=== PATIENT | male | born 1950 | race Caucasian/White ===

== ENCOUNTER → 2018-02-22 09:50 | Outpatient (BNVA) | payer MEDICARE, SELFPAY | PROVIDERS: PCP Internal Medicine; Visit Provider Surgery | DX: Z12.11 Encounter for screening for malignant neoplasm of colon (principal) | CPT/HCPCS: 99202 ==

== ENCOUNTER 2018-03-10 07:05 | Day surgery (SDC) | payer MEDICARE, OTHER, SELFPAY ==
[2018-03-10 07:24] VITALS: BP 125/68; PULSE 80; RESP 18; TEMP 36.6; O2SAT 96
[2018-03-10] MEDS: Lactated Ringers 1,000 ML 30 ML IV (07:43)
--- NOTE | 2018-03-10 08:50 | W.PM.DSUDISC ---
Discharge Plan Disposition Patient Disposition: HOME Condition: Good Discharge Details Reason For Visit: Colorectal cancer screening Attending Provider: Mina Nguyen Primary Care Provider: Nic Padilla Home Meds and New Rx's Prescriptions: Continue atorvastatin 20 mg tablet 20 mg PO DAILY RF: 0 amoxicillin 500 MG capsule 4 tab PO DIRECTED RF: 0 lisinopril 10 MG tablet 10 mg PO DAILY RF: 0 aspirin 81 MG tablet,chewable 81 mg PO DAILY RF: 0 naproxen sodium [Aleve] 220 MG capsule 220 mg PO TID PRN PRNRF: 0 Discharge Instructions Instructions: Colonoscopy (DC) Activity:: Activity as Tolerated Diet:: As Tolerated Discharge Orders Discharge Orders: Discharge Order (Routine); Ordered 03/10/18 Ordered By: Mina Nguyen DS: Diagnosis Discharge Diagnosis (1) Encounter for colorectal cancer screening: Status: Acute
--- NOTE | 2018-03-10 09:03 | COLE_ITS ---
Date of service: 03/10/18 Time of Service: 08:58 Colonoscopy Report Date of procedure: 03/10/18 Pre-op diagnosis general: Colorectal cancer screening Post-op diagnosis procedure note: other (1. Colon polyps 2. Sigmoid diverticulosis) Procedure: Colonoscopy to the cecum with biopsy by cold forceps Surgeon: Mina Nguyen Anesthesia proc note operative: MAC (Keenan Dupree CRNA, ASA 3, Mallampati class III) Estimated blood loss (mL): 1 Pathology: other (1. Cecal Polyps x 2 2. Descending colon polyp) Complications: None Disposition: same day Indications: 67 year gentleman presenting for colorectal cancer screening by colonoscopy. He has been asymptomatic since his last colonoscopy which was unremarkable. He has no family history of colorectal cancer screening. The colonoscopy procedure was reviewed wiht Mr. Cardoza, and the risks dicussed with him. All his questions were answered to his satisfaction. Prep: Miralax/Dulcolax (Colon Prep: Good) Findings: In examining the colon from cecum to anus, the patient was noted to have polyps in the cecum x2, and descending colon all removed by cold biopsy forceps. The patient was also noted to have some moderate sigmoid diverticulosis. No other abnormalities were noted of the colon, rectum, anus Procedure Description: The patient was seen in the day surgery waiting area. His identification was confirmed, and procedure check. He was then brought to the procedure room. Monitoring for telemetry, blood pressure, oxygen saturation, and end tidal CO2 monitoring were applied. An appropriate time out was performed to confirm, identification, allergies, medication, procedure, was performed. Sedation was titrated for affect by the [employer] OPER[employer]; Once adequate sedation was achieved, I performed a inspection of the external perineum, and a digitial rectal examination. No significant external abnormalities were noted. On digital rectal examination, there was no blood, no masses, good rectal tone, and a normal prostate. I advanced the colonoscope from the anus to the cecum under direct visualization. The cecum was identified by the ileal-cecal valve, and the appendiceal orifice. The scope was then withdrawn in circumferential manner from the cecum to the rectum. In examining the colon, the patient was noted to have moderate sigmoid diverticulosis, and polyps were identified in the cecum x2 and descending colon. The polyps were subsequently removed by cold biopsy forceps without difficulty. The scope was then withdrawn into the rectum, and retroflexed. No abnormalities were noted of the rectum or anorectal junction. The scope was then withdrawn, terminating the procedure. There were no complications during the procedure, and the patient tolerated the procedure well. He was returned to the day surgery recovery area in good condition. Plan: We will await pathology before making further recommendations.
--- NOTE | 2018-03-10 09:15 | BOWEL_PTH ---
PATIENT: Julio Cardoza LOC: [facility] U#:[id number] AGE/SX: 67/M ROOM: RE03/10/[address]: Mina Nguyen DO : 1950 BED: DIS: 03/10/2018 SPEC #: [id number] RECD: 03/10/18 12:56 STATUS: ROSSI REQ #: [id number] ILIA: 03/10/18 09:[address]: Mina Nguyen DEPT: Surgical Specimen RECD BY: Terrie Schwab ENTERED: 03/10/18 12:57 SP TYPE: Bowel OTHR DR: Nic Padilla Tissues: 1 - BIOPSY BOWEL 2 - BIOPSY BOWEL Procedures: GROSS AND MICRO LEVEL 4 Comments: [id number]
[2018-03-10 10:15] VITALS: BP 98/56; PULSE 64; RESP 18; TEMP 36.3; O2SAT 94
== END 2018-03-10 10:51 | disposition home or self-care (01) ==
PROVIDERS: PCP Internal Medicine; Visit Provider Surgery
PROC: 0DJD8ZZ Inspection of Lower Intestinal Tract, Via Natural or Artificial Opening Endoscopic (ICD-10-PCS; CPT 45378; principal; 2018-03-10 08:30)
DX: Z12.11 Encounter for screening for malignant neoplasm of colon (principal); D12.0 Benign neoplasm of cecum; D12.4 Benign neoplasm of descending colon; K57.30 Diverticulosis of large intestine without perforation or abscess without bleeding; I10 Essential (primary) hypertension
CPT/HCPCS: 45380; 88305; J2250; J3010

== ENCOUNTER 2018-05-12 11:08 | Outpatient (REF) | payer MEDICARE, OTHER, SELFPAY ==
[2018-05-12 14:01] LABS: Cholesterol 143 mg/dL (50-200); Glucose 117 mg/dL (70-100); HDL Cholesterol 49 mg/dL (40-60); LDL CHOLESTEROL 82 mg/dL (<100); Triglyceride 80 mg/dL (30-150)
[2018-05-12 15:18] LABS: Hemoglobin A1C 5.6 % (4.5-6.2)
[2018-05-13 11:30] LABS: Hepatitis C Ab w Rflx HCV PCR Negative (NEGAT)
== END 2018-05-12 11:28 ==
LOC: NCHCN 11:08
PROVIDERS: PCP Internal Medicine; Visit Provider Internal Medicine
DX: I10 Essential (primary) hypertension (principal); R35.0 Frequency of micturition; E78.5 Hyperlipidemia, unspecified; M19.041 Primary osteoarthritis, right hand; Z11.59 Encounter for screening for other viral diseases
CPT/HCPCS: 80061; 82947; 83721; 86803; 83036

== ENCOUNTER 2019-04-17 16:00 | Outpatient (REF) | payer MEDICARE, OTHER, SELFPAY ==
[2019-04-17 21:42] LABS: BUN 21 mg/dL (7-18); CREATININE 1.01 mg/dL (0.70-1.30); Calcium 8.9 mg/dL (8.5-10.1); Chloride 107 mmol/L (98-107); Glucose 90 mg/dL (70-100); Potassium 4.6 mmol/L (3.5-5.1); Sodium 142 mmol/L (136-145)
== END 2019-04-17 16:20 ==
LOC: NCHCN 16:00
PROVIDERS: PCP Internal Medicine; Visit Provider Internal Medicine
DX: I10 Essential (primary) hypertension (principal); E78.5 Hyperlipidemia, unspecified; M54.5 Low back pain; E66.9 Obesity, unspecified
CPT/HCPCS: 80048

== ENCOUNTER 2020-04-08 18:00 | Outpatient (REF) | payer MEDICARE, OTHER, SELFPAY ==
[2020-04-08 21:14] LABS: Anion Gap 9.9 mmol/L (3-11); BUN 20 mg/dL (7-18); CO2 24.1 mmol/L (21.0-32.0); Calcium 9.3 mg/dL (8.5-10.1); Chloride 103 mmol/L (98-107); Glucose 123 mg/dL (74-106); Potassium 4.6 mmol/L (3.5-5.1); Sodium 137 mmol/L (136-145)
== END 2020-04-08 18:20 ==
LOC: NCHCN 18:00
PROVIDERS: PCP Internal Medicine; Visit Provider Internal Medicine
DX: I10 Essential (primary) hypertension (principal)
CPT/HCPCS: 80048

== ENCOUNTER → 2021-01-06 13:51 | Outpatient (BNVA) | payer MEDICARE, OTHER, SELFPAY | PROVIDERS: PCP Internal Medicine; Referring Provider Internal Medicine; Visit Provider Nurse Practitioner Adult Health | DX: G56.03 Carpal tunnel syndrome, bilateral upper limbs (principal); I10 Essential (primary) hypertension | CPT/HCPCS: 95909; 99203; 99214 ==

== ENCOUNTER → 2021-02-23 14:14 | Outpatient (BNVA) | payer MEDICARE, OTHER, SELFPAY | PROVIDERS: PCP Internal Medicine; Referring Provider Internal Medicine; Visit Provider Student in an Organized Health Care Education/Training Program | DX: G56.03 Carpal tunnel syndrome, bilateral upper limbs (principal) | CPT/HCPCS: 99214 ==

== ENCOUNTER 2021-03-23 02:43 | Outpatient (CLI) | payer MEDICARE, OTHER, SELFPAY ==
[2021-03-23 11:04] LABS: Source Nasal/Nares
[2021-03-23 16:36] LABS: COVID-19 PCR Negative (Negative)
== END 2021-03-23 02:44 | disposition home or self-care (01) ==
LOC: LBO 02:43
PROVIDERS: PCP Internal Medicine; Visit Provider Student in an Organized Health Care Education/Training Program
DX: Z20.822 Contact with and (suspected) exposure to COVID-19 (principal); Z01.818 Encounter for other preprocedural examination
CPT/HCPCS: 87635

== ENCOUNTER 2021-03-25 07:45 | Day surgery (SDC) | payer MEDICARE, OTHER, SELFPAY ==
--- NOTE | 2021-03-25 07:13 | W.PM.DSUDISC ---
Discharge Plan Disposition Patient Disposition: HOME Condition: Good Discharge Details Reason For Visit: Right ECTR Attending Provider: Adalid Morse Primary Care Provider: Nic Padilla Meds and New Rx's Prescriptions: Continued atorvastatin 20 mg tablet 20 mg PO DAILY RF: 0 CBD oil 10 mL .Route RF: 0 amoxicillin 500 MG capsule 4 tab PO DIRECTED RF: 0 lisinopril 10 MG tablet 10 mg PO DAILY RF: 0 naproxen sodium [Aleve] 220 MG capsule 220 mg PO TID PRN PRNRF: 0 Discharge Instructions Stand Alone Forms: Lito Murphy Tunnel Release Referrals: Adalid Morse MD [ [facility] PHYSICIAN] - Activity:: Activity as Tolerated Remove Dressings/Wound Care:: 72 hours Shower/Bathe:: 72 hours Diet:: As Tolerated Discharge Orders Discharge Orders: Discharge Order (Routine); Ordered 03/25/21 Ordered By: Vicky Ross DS: Diagnosis Discharge Diagnosis (1) Bilateral carpal tunnel syndrome: Status: Acute
[2021-03-25 08:15] VITALS: BP 145/84; PULSE 70; RESP 18; TEMP 36.4; O2SAT 96
--- NOTE | 2021-03-25 08:36 | W.ANESPRE ---
General Info Date of Service Date Performed: 03/25/21 Height: 5 ft 10 in Weight: 124.8 kg Body Mass Index (BMI): 39.4 Surgical Procedure: Operation Date: 03/25/21 09:55 Proposed Procedures Side Surgeon p (R) Wrist ECTR Right Adalid Morse MD Meds Allergies and Home Medications Allergies Allergy/AdvReac Type Severity Reaction Status Date / Time No Known Allergies Allergy Verified 03/25/21 08:19 Home Medication Medication Instructions Recorded amoxicillin 4 tab PO DIRECTED 05/21/16 lisinopril 10 mg PO DAILY 05/21/16 naproxen sodium [Aleve] 220 mg PO TID PRN PRN 05/21/16 atorvastatin 20 mg tablet 20 mg PO DAILY 02/22/18 CBD oil 1 ml PO DAILY 10/22/20 Current Visit Medications: Current Medications Generic Name Dose Route Start Last Admin Trade Name Freq PRN Reason Stop Dose Admin Acetaminophen 650 mg 03/25/21 07:10 Acetaminophen 325 Mg Tab PO Q4H PRN PRN Hydrocodone Bitart/Acetaminophen 0 tab 03/25/21 07:10 Hydrocodone 5/Acetaminophen 325 Tab PO Q3H PRN PRN Pain Ringer's Solution 1,000 mls @ 80 mls/hr 03/25/21 06:00 IV 04/23/21 23:59 INFUSION ISAÍAS Cefazolin Sodium 3,000 mg/ 100 mls @ 200 mls/hr 03/25/21 06:00 Sodium Chloride IVPB 03/25/21 23:59 PREOP ISAÍAS Ondansetron HCl 4 mg/ Sodium 52 mls @ 200 mls/hr 03/25/21 07:10 Chloride IVPB Q6H PRN PRN IV Miscellaneous Supplies 1 each 03/25/21 06:00 Iv Access IV 04/23/21 23:59 DIRECTED ISAÍAS Sodium Chloride 0 ml 03/25/21 06:00 Normal Saline Flush 10 Ml Syr IV 04/23/21 23:59 PRN PRN Sodium Chloride 0 ml 03/25/21 06:00 Normal Saline 10 Ml Vial IJ 04/23/21 23:59 DIRECTED PRN Sterile Water 0 ml 03/25/21 06:00 Water,Injection,Sterile 10 Ml Vial IJ 04/23/21 23:59 DIRECTED PRN PFSH Active Problems Active Problems: Problem Status Onset Code Encounter for colorectal cancer screening Z12.11, Z12.12 Osteoarthritis of knee 09/17/13 M17.10 Bilateral carpal tunnel syndrome G56.03 Medical History Medical History Acute herniated disc Afib Per pt. F/U with PCP. 06/13/2015: [facility], EF 55-60%, normal valves Arthritis of both hands Back pain Bilateral carpal tunnel syndrome Bilateral club feet Carpal tunnel syndrome Chronic lower back pain Former smoker HTN (hypertension) Hx of adenomatous polyp of colon Hyperlipidemia Obesity FRANKO (obstructive sleep apnea) Osteoarthritis of hands, bilateral Osteoarthritis of knees, bilateral Paroxysmal atrial fibrillation Tinea pedis Surgical History Surgical History Colonoscopy - IV Sedation (10/25/11) hx tubular adenoma in 2005 with recommendation to repeat colo in three years Congenital fusion of cervical spine H/O colonoscopy (03/10/18) Dr Nguyen, tubulovillous and tubular adenomas, repeat in five years History of bilateral cataract extraction History of total bilateral knee replacement (TKR) Tobacco Smoking/Tobacco Use Status: Former Tobacco Use Tobacco: How many years used: 20 Alcohol Alcohol Intake: current Alcohol intake frequency: 0-2 drinks per day Alcohol type: beer and wine Substance Use Substance use: Never Substance use type: does not use Vital Signs and Lab Results Vital Signs Most Recent Vital Signs in EMR: Most Recent Vital Signs Temp Pulse Resp BP Pulse Ox 36.4 C L 70 18 145/84 H 96 03/25/21 08:15 03/25/21 08:15 03/25/21 08:15 03/25/21 08:15 03/25/21 08:15 Lab Results Blood Type / Crossmatch: No Data to Display Complete Blood Count: No Data to Display Complete Metabolic Panel: No Data to Display Liver Function Panel: No Data to Display Coagulation Panel: No Data to Display Cardiac Panel: No Data to Display Arterial Blood Gas: No Data to Display Venous Blood Gas: No Data to Display Pancreas Panel: No Data to Display Thyroid Panel: No Data to Display Infectious Disease: Coronavirus (COVID-19)(PCR) Negative (Negative) 03/23/21 09:35 03/23/21 Coronavirus 2019 Source Nasal/Nares 03/23/21 09:35 10/18/21 Blood Cultures: No Data to Display Toxicology Panel: No Data to Display Imaging and Studies Imaging and Studies Echocardiogram Summary: 06/2015: [facility]: EF 55-60%, Normal Valves Anesthesia Assessment and Plan Anesthesia History Personal History: No History of Anesthesia Complications Family History: No Family History of Anesthesia Complications Exercise Tolerance Exercise Tolerance: Metabolic Equivalents>4 Pertinent Negatives Pertinent Negatives: No Symptoms of GERD Cardiac & Pulmonary Exam Cardiac Exam: Normal S1/S2 Heart Sounds Pulmonary Exam: Clear Bilateral Breath Sounds Airway Exam Known Difficult Airway: No Mallampati Class: 2 Mouth Opening: Normal (> 3cm) Thyromental Distance: Greater than 3 cm Facial Hair: Full Crystal Neck Range of Motion: Full ROM Neck Circumference: Normal Teeth Condition: Normal Dentition ASA Classification ASA Score: ASA 2 Emergency Case?: No NPO Status NPO Status: NPO Clears >2 hours, Solids >8 hours Anesthesia Plan Resuscitation Status: Full Code Anesthesia Technique: General Anesthesia Airway Planned: Natural Airway Monitors Used: Standard Monitors
[2021-03-25] MEDS: Lactated Ringers 1,000 ML 80 ML IV (08:45)
[2021-03-25 08:51] VITALS: BMI 39.4
[2021-03-25] MEDS: ceFAZolin 3,000 MG in Normal Saline 100 ML 200 MG IVPB (09:34)
[2021-03-25] MEDS: Sodium Bicarbonate 50 MEQ/50 ML VIAL (09:42)
[2021-03-25 09:55] VITALS: BP 104/59; PULSE 70; RESP 18; TEMP 36.3; O2SAT 96
[2021-03-25 10:20] VITALS: BP 96/67; PULSE 58; RESP 18; TEMP 36; O2SAT 97
--- NOTE | 2021-03-25 10:27 | ROE_ITS ---
Date of service: 03/25/21 Time of Service: 10:01 Operative Note Operative Note DATE OF PROCEDURE: 03/25/21 PRE-OP DIAGNOSIS: Right Carpal Tunnel Syndrome POST-OP DIAGNOSIS: same PROCEDURE: Right Endoscopic Carpal Tunnel Release SURGEON: Adalid Morse ANESTHESIA TYPE: General:No Airway Refer to Anesthesia Record ESTIMATED BLOOD LOSS: 0 PATHOLOGY: none sent TOURNIQUET TIME: 4 COMPLICATIONS: None Patient was transported to: same day Patient's condition: stable Indications: I have seen Edward in clinic for symptoms of carpal tunnel syndrome. The numbness, tingling, and pain limited function. Clinical exam findings with nerve conduction tests confirmed the diagnosis of carpal tunnel syndrome. Nonoperative measures such as bracing, time, activity modifications had been tried but disability and pain persisted. I discussed carpal tunnel release with the patient. I reviewed the risks of the procedure to include, but not limited to, bleeding, infection, pain, stiffness, incomplete release, damage to nerves or vessels, persistent numbness, recurrence. Despite these risks, the patient elected to proceed. Findings: There was tightened carpal tunnel. This was dilated and released successfully with the endoscopic with increased space within the tunnel. The a ntebrachial fascia was released proximally freeing the median nerve at the wrist. Procedure Description: Ed was greeted in the preoperative holding area where the correct side was identified and marked. The consent was reviewed with the patient and signed. The history and physical was updated. All questions were answered. He was taken back to the operating room. The patient was placed into the supine position on the operating room table with the right arm on an arm board. A nonsterile tourniquet was placed high onto the arm. All bony prominences were well padded. Prophylactic antibiotics in the form of Cefazolin were administered. The right arm was then prepped with Chloraprep and draped in a standard fashion with stockinette and extremity drape. A timeout to confirm correct identity, side and site, procedure, allergies, anesthesia, and medical concerns was performed. The surgical site was marked in the volar wrist creases in line with the radial border of the fourth ray. This area was anesthetized with approximately 6cc of 1% Lidocaine. The limb was then exsanguinated with an Esmarch. The skin was incised with a 15 blade, approximately 1cm. The skin only was cut and the deeper tissue was dissected bluntly with a tenotomy scissor, avoiding passing nerve and venous structures. The fascia was penetrated and opened bluntly. A two-prong skin hook was placed under this proximal fascial edge. A series of hamate finders were used to identify and dilate the carpal tunnel. Synovial elevator was used to free synovial attachments to the underside of the transverse carpal ligament. My thumb was kept in the palm to renetta the distal extent of the carpal tunnel and correctly position the hand. The [employer]aire endoscope was inserted without difficulty and without resistance. Excellent visualization showed horizontally running fibers of the transverse carpal ligament (TCL). The distal extent of the TCL was visualized and the end of the scope palpated with the thumb. The blade was elevated and withdrawn from distal to proximal. The TCL was split into two flaps. The endoscope was reinserted to confirm complete release and any remnant ligament was incised. The scope was withdrawn and the proximal aspect of the carpal tunnel was grossly inspected and appeared release with the median nerve visible. The antebrachial fascia at the level of the wrist was then freed from the overlying skin and then the underlying median nerve with blunt dissection. This was transected longitudinally for about 3cm proximal to the wrist incision. The wound was then irrigated with easy flow of irrigant distally and proximally. The incision was closed with a single 4-0 Nylon suture. The wound was dressed with Xeroform, Gauze, Kerlix and Lennox. The tourniquet was deflated with the initial dressing and held with some pressure. Blood flow returned easily to all digits with capillary refill less than 2 seconds. The patient tolerated the procedure well and was returned to the Same Day Surgery area in a stable condition suffering no known complication.
[2021-03-25 10:38] VITALS: BP 112/67; PULSE 53; RESP 18; TEMP 36.4; O2SAT 95
--- NOTE | 2021-03-25 10:50 | W.ANESPOSTOP ---
Postoperative Evaluation Date, Time and Location Date Performed: 03/25/21 Time Performed: 10:45 Patient Location: Day Surgery Unit Vital Signs Most Recent Imported Vital Signs: Most Recent Vital Signs Temp Pulse Resp BP Pulse Ox 36.4 C L 53 L 18 112/67 95 03/25/21 10:38 03/25/21 10:38 03/25/21 10:38 03/25/21 10:38 03/25/21 10:38 Pain Score Most Recent Pain Score: Most Recent Pain Score Pain Level 0 03/25/21 10:38 Assessment Mental Status: Awake (Alert & Oriented to Patient Baseline) Airway and Respiratory Function: Patent airway with normal (patient baseline) respiratory exam Cardiovascular Function: Hemodynamically Stable Hydration Status: Adequately Hydrated Nausea & Vomiting: No Nausea or Vomiting Pain: Pt. Denies Any Pain Peripheral Nerve Block: Patient did not receive a nerve block
== END 2021-03-25 11:15 | disposition home or self-care (01) ==
LOC: SUR 07:45
PROVIDERS: PCP Internal Medicine; Visit Provider Student in an Organized Health Care Education/Training Program
PROC: 01N54ZZ Release Median Nerve, Percutaneous Endoscopic Approach (ICD-10-PCS; CPT 29848; principal; 2021-03-25 09:45)
DX: G56.01 Carpal tunnel syndrome, right upper limb (principal); I48.0 Paroxysmal atrial fibrillation; G47.33 Obstructive sleep apnea (adult) (pediatric)
CPT/HCPCS: 29848; J0690; J1885; J2405; J2704

== ENCOUNTER 2021-03-30 02:00 | Outpatient (CLI) | payer MEDICARE, OTHER, SELFPAY ==
[2021-03-30 11:10] LABS: Source Nasal/Nares
[2021-03-30 14:55] LABS: COVID-19 PCR Negative (Negative)
== END 2021-03-30 02:01 | disposition home or self-care (01) ==
LOC: LBO 02:00
PROVIDERS: PCP Internal Medicine; Visit Provider Student in an Organized Health Care Education/Training Program
DX: Z20.822 Contact with and (suspected) exposure to COVID-19 (principal); Z01.818 Encounter for other preprocedural examination
CPT/HCPCS: 87635

== ENCOUNTER 2021-04-01 06:17 | Day surgery (SDC) | payer MEDICARE, OTHER, SELFPAY ==
--- NOTE | 2021-04-01 06:14 | W.ANESPRE ---
General Info Date of Service Date Performed: 04/01/21 Height: 5 ft 10 in Weight: 124.8 kg Body Mass Index (BMI): 39.4 Surgical Procedure: Operation Date: 04/01/21 07:40 Proposed Procedures Side Surgeon p (L) Wrist ECTR Left Adalid Morse MD Meds Allergies and Home Medications Allergies Allergy/AdvReac Type Severity Reaction Status Date / Time No Known Allergies Allergy Verified 04/01/21 06:37 Home Medication Medication Instructions Recorded amoxicillin 4 tab PO DIRECTED 05/21/16 lisinopril 10 mg PO DAILY 05/21/16 naproxen sodium [Aleve] 220 mg PO TID PRN PRN 05/21/16 atorvastatin 20 mg tablet 20 mg PO DAILY 02/22/18 CBD oil 1 ml PO DAILY 10/22/20 Current Visit Medications: Current Medications Generic Name Dose Route Start Last Admin Trade Name Freq PRN Reason Stop Dose Admin Ringer's Solution 1,000 mls @ 80 mls/hr 04/01/21 06:00 IV 04/30/21 23:59 INFUSION ISAÍAS Cefazolin Sodium 3,000 mg/ 100 mls @ 200 mls/hr 04/01/21 06:00 Sodium Chloride IVPB 04/01/21 23:59 PREOP ISAÍAS IV Miscellaneous Supplies 1 each 04/01/21 06:00 Iv Access IV 04/30/21 23:59 DIRECTED ISAÍAS Sodium Chloride 0 ml 04/01/21 06:00 Normal Saline Flush 10 Ml Syr IV 04/30/21 23:59 PRN PRN Sodium Chloride 0 ml 04/01/21 06:00 Normal Saline 10 Ml Vial IJ 04/30/21 23:59 DIRECTED PRN Sterile Water 0 ml 04/01/21 06:00 Water,Injection,Sterile 10 Ml Vial IJ 04/30/21 23:59 DIRECTED PRN PFSH Active Problems Active Problems: Problem Status Onset Code Encounter for colorectal cancer screening Z12.11, Z12.12 Osteoarthritis of knee 09/17/13 M17.10 Bilateral carpal tunnel syndrome G56.03 Medical History Medical History Acute herniated disc Afib Per pt. F/U with PCP. 06/13/2015: [facility], EF 55-60%, normal valves Arthritis of both hands Back pain Bilateral carpal tunnel syndrome Bilateral club feet Carpal tunnel syndrome Chronic lower back pain Former smoker HTN (hypertension) Hx of adenomatous polyp of colon Hyperlipidemia Obesity FRANKO (obstructive sleep apnea) Osteoarthritis of hands, bilateral Osteoarthritis of knees, bilateral Paroxysmal atrial fibrillation Tinea pedis Surgical History Surgical History Colonoscopy - IV Sedation (10/25/11) hx tubular adenoma in 2006 with recommendation to repeat colo in three years Congenital fusion of cervical spine H/O colonoscopy (03/10/18) Dr Nguyen, tubulovillous and tubular adenomas, repeat in five years History of bilateral cataract extraction History of carpal tunnel release History of total bilateral knee replacement (TKR) Tobacco Smoking/Tobacco Use Status: Former Tobacco Use Tobacco: How many years used: 20 Alcohol Alcohol Intake: current Alcohol intake frequency: 0-2 drinks per day Alcohol type: beer and wine Substance Use Substance use: Never Substance use type: does not use Vital Signs and Lab Results Vital Signs Most Recent Vital Signs in EMR: Temp Pulse Resp BP Pulse Ox 36.6 C 67 18 140/65 97 04/01/21 06:15 04/01/21 06:15 04/01/21 06:15 04/01/21 06:15 04/01/21 06:15 Lab Results Blood Type / Crossmatch: No Data to Display Complete Blood Count: No Data to Display Complete Metabolic Panel: No Data to Display Liver Function Panel: No Data to Display Coagulation Panel: No Data to Display Cardiac Panel: No Data to Display Arterial Blood Gas: No Data to Display Venous Blood Gas: No Data to Display Pancreas Panel: No Data to Display Thyroid Panel: No Data to Display Infectious Disease: Coronavirus (COVID-19)(PCR) Negative (Negative) 03/30/21 10:09 03/30/21 Coronavirus 2019 Source Nasal/Nares 03/30/21 10:09 03/30/21 Blood Cultures: No Data to Display Toxicology Panel: No Data to Display Imaging and Studies Imaging and Studies Echocardiogram Summary: 06/2015: [facility]: EF 55-60%, Normal Valves Anesthesia Assessment and Plan Anesthesia History Personal History: No History of Anesthesia Complications Family History: No Family History of Anesthesia Complications Exercise Tolerance Exercise Tolerance: Metabolic Equivalents>4 Cardiac & Pulmonary Exam Cardiac Exam: Normal S1/S2 Heart Sounds Pulmonary Exam: Clear Bilateral Breath Sounds Airway Exam Known Difficult Airway: No Mallampati Class: 2 Mouth Opening: Normal (> 3cm) Thyromental Distance: Greater than 3 cm Neck Range of Motion: Full ROM Neck Circumference: Normal Teeth Condition: Normal Dentition ASA Classification ASA Score: ASA 2 Emergency Case?: No NPO Status NPO Status: NPO Clears >2 hours, Solids >8 hours Anesthesia Plan Resuscitation Status: Full Code Anesthesia Technique: General Anesthesia Airway Planned: Natural Airway Monitors Used: Standard Monitors Preoperative Comments:: 70 yo male for left ECTR. Sig PMHx: pAfib, former smoker, HTN (lisinopril), BMI 39.5, FRANKO, Previous ECTR: prop/zof/ketor - no issues. No healthy history changed since his last procedure, doing well.
[2021-04-01 06:15] VITALS: BP 140/65; PULSE 67; RESP 18; TEMP 36.6; O2SAT 97
[2021-04-01 06:51] VITALS: BMI 39.4
[2021-04-01] MEDS: Lactated Ringers 1,000 ML 80 ML IV (06:52)
--- NOTE | 2021-04-01 07:04 | W.PREOPHP ---
Date of service: 04/01/21 Time of Service: 07:04 Assessment and Plan Assessment and plan (1) Bilateral carpal tunnel syndrome: Status: Acute Assessment and plan: Ed is s/p R ECTR and doing well. He is here for his left carpal tunnel and desires to proceed with a left endoscopic carpal tunnel release. I reviewed the risks of the procedure to include bleeding, infection, pain, stiffness, numbness, incomplete release, recurrence, damage to nerves and vessels, and need for repeat procedures. All of his questions were answered and he desires to proceed. History of Present Illness History of Present Illness Chief Complaint: Left Carpal Tunnel Syndrome Narrative: Ed is a 70 year old male who has carpal tunnel syndrome on the left side. He had a successful carpal tunnel release on the right side. He has had no issues with the right side and no recent sick contacts. No CP/SOB. Review of Systems All systems reviewed & are unremarkable except as noted in HPI and below PFSH Medical History Acute herniated disc Afib Per pt. F/U with PCP. 06/13/2015: [facility], EF 55-60%, normal valves Arthritis of both hands Back pain Bilateral carpal tunnel syndrome Bilateral club feet Carpal tunnel syndrome Chronic lower back pain Former smoker HTN (hypertension) Hx of adenomatous polyp of colon Hyperlipidemia Obesity FRANKO (obstructive sleep apnea) Osteoarthritis of hands, bilateral Osteoarthritis of knees, bilateral Paroxysmal atrial fibrillation Tinea pedis Surgical History Colonoscopy - IV Sedation (10/25/11) hx tubular adenoma in 2005 with recommendation to repeat colo in three years Congenital fusion of cervical spine H/O colonoscopy (03/10/18) Dr Nguyen, tubulovillous and tubular adenomas, repeat in five years History of bilateral cataract extraction History of carpal tunnel release History of total bilateral knee replacement (TKR) Social History Smoking/Tobacco Use Status: Former Tobacco Use Quit Date: 06/06/00 Tobacco: How many years used: 20 Smoking risk assessment performed?: Yes Alcohol Intake: current Alcohol Intake frequency: 0-2 drinks per day Alcohol type: beer and wine Drug use: Never Substance use type: does not use Do you feel safe at home: Yes Do you feel safe in your relationship?: Yes Meds Allergies and Home Medications Allergies Allergy/AdvReac Type Severity Reaction Status Date / Time No Known Allergies Allergy Verified 04/01/21 06:37 Home Medications Medication Instructions Recorded Confirmed Type amoxicillin 4 tab PO DIRECTED 05/21/16 04/01/21 History lisinopril 10 mg PO DAILY 05/21/16 04/01/21 History naproxen sodium [Aleve] 220 mg PO TID PRN PRN 05/21/16 04/01/21 History atorvastatin 20 mg tablet 20 mg PO DAILY 02/22/18 04/01/21 History CBD oil 1 ml PO DAILY 10/22/20 04/01/21 History Exam Resp Effort & Inspection: normal respiratory effort Auscultation: clear to auscultation bilaterally Cardio Rate: regular rate Rhythm: regular rhythm Results Last Vital Signs Temp 36.6 C 04/01/21 06:15 Pulse 67 04/01/21 06:15 Resp 18 04/01/21 06:15 BP 140/65 04/01/21 06:15 Pulse Ox 97 04/01/21 06:15
[2021-04-01] MEDS: ceFAZolin 3,000 MG in Normal Saline 100 ML 200 MG IVPB (07:23)
--- NOTE | 2021-04-01 07:26 | PDOC.DSDIS_ITS ---
Discharge Plan Disposition Patient Disposition: HOME Condition: Good Discharge Details Reason For Visit: Left ECTR Attending Provider: Adalid Morse Primary Care Provider: Nic Padilla Meds and New Rx's Prescriptions: New hydrocodone-acetaminophen 5-325 mg tablet 1 tab PO Q6H PRN (Reason: pain) Qty: 2 RF: 0 ibuprofen 600 mg tablet 600 mg PO TID PRN (Reason: pain) Qty: 90 RF: 0 acetaminophen 500 mg capsule 1,000 mg PO Q8H PRN PRNQty: 90 RF: 0 Continued atorvastatin 20 mg tablet 20 mg PO DAILY RF: 0 CBD oil 10 mL 1 ml PO DAILY RF: 0 amoxicillin 500 MG capsule 4 tab PO DIRECTED RF: 0 lisinopril 10 MG tablet 10 mg PO DAILY RF: 0 Discontinued naproxen sodium [Aleve] 220 MG capsule 220 mg PO TID PRN PRNRF: 0 Discharge Instructions Stand Alone Forms: Lito Murphy Tunnel Release Referrals: Adalid Morse MD [ [facility] STAFF PHYSICIAN] - Activity:: Activity as Tolerated Remove Dressings/Wound Care:: 48 hours Shower/Bathe:: 48 hours Diet:: As Tolerated Discharge Orders Discharge Orders: Discharge Order (Routine); Ordered 04/01/21 Ordered By: Butch Bradley DS: Diagnosis Discharge Diagnosis (1) Carpal tunnel syndrome, left: Status: Acute
[2021-04-01] MEDS: Sodium Bicarbonate 50 MEQ/50 ML VIAL (07:33)
[2021-04-01 07:56] VITALS: BP 115/70; PULSE 74; RESP 74; TEMP 36.6; O2SAT 96
[2021-04-01 08:10] VITALS: BP 114/67; PULSE 62; RESP 18; TEMP 36.6; O2SAT 97
--- NOTE | 2021-04-01 09:22 | W.ANESPOSTOP ---
Postoperative Evaluation Date, Time and Location Date Performed: 04/01/21 Time Performed: 08:10 Patient Location: Day Surgery Unit Vital Signs Most Recent Imported Vital Signs: Most Recent Vital Signs Temp Pulse Resp BP Pulse Ox 36.6 C 62 18 114/67 97 04/01/21 08:10 04/01/21 08:10 04/01/21 08:10 04/01/21 08:10 04/01/21 08:10 Pain Score Most Recent Pain Score: Most Recent Pain Score Pain Level 0 04/01/21 08:10 Assessment Mental Status: Awake (Alert & Oriented to Patient Baseline) Airway and Respiratory Function: Patent airway with normal (patient baseline) respiratory exam Cardiovascular Function: Hemodynamically Stable Hydration Status: Adequately Hydrated Nausea & Vomiting: No Nausea or Vomiting Pain: Pain is tolerable per patient Peripheral Nerve Block: Patient did not receive a nerve block
--- NOTE | 2021-04-01 09:44 | ROE_ITS ---
Date of service: 04/01/21 Time of Service: 07:44 Operative Note Operative Note DATE OF PROCEDURE: 04/01/21 PRE-OP DIAGNOSIS: Left Carpal Tunnel Syndrome POST-OP DIAGNOSIS: same PROCEDURE: Left Endoscopic Carpal Tunnel Release SURGEON: Adalid Morse ANESTHESIA TYPE: General:No Airway Refer to Anesthesia Record ESTIMATED BLOOD LOSS: 0 PATHOLOGY: none sent TOURNIQUET TIME: 6 COMPLICATIONS: None Patient was transported to: same day Patient's condition: stable Indications: I have seen Ed in clinic for symptoms of carpal tunnel syndrome. The numbness, tingling, and pain limited function. Clinical exam findings with nerve conduction tests confirmed the diagnosis of carpal tunnel syndrome. Nonoperative measures such as bracing, time, activity modifications had been tried but disability and pain persisted. He had a successful carpal tunnel release on the right side. I discussed carpal tunnel release with the patient. I reviewed the risks of the procedure to include, but not limited to, bleeding, infection, pain, stiffness, incomplete release, damage to nerves or vessels, persistent numbness, recurrence. Despite these risks, the patient elected to proceed. Findings: There was tightened carpal tunnel. This was dilated and released successfully with the endoscopic with increased space within the tunnel. The antebrachial fascia was released proximally freeing the median nerve at the wrist. Procedure Description: Ed was greeted in the preoperative holding area where the correct side was identified and marked. The consent was reviewed with the patient and signed. The history and physical was updated. All questions were answered. Ed was taken back to the operating room. The patient was placed into the supine position on the operating room table with the left arm on an arm board. A nonsterile tourniquet was placed high onto the arm. All bony prominences were well padded. Prophylactic antibiotics in the form of Cefazolin were administered. The left arm was then prepped with Chloraprep and draped in a standard fashion with stockinette and extremity drape. A timeout to confirm correct identity, side and site, procedure, allergies, anesthesia, and medical concerns was performed. The surgical site was marked in the volar wrist creases in line with the radial border of the fourth ray. This area was anesthetized with approximately 6cc of 1% Lidocaine. The limb was then exsanguinated with an Esmarch. The skin was incised with a 15 blade, approximately 1cm. The skin only was cut and the deeper tissue was dissected bluntly with a tenotomy scissor, avoiding passing nerve and venous structures. The fascia was penetrated and opened bluntly. A two-prong skin hook was placed under this proximal fascial edge. A series of hamate finders were used to identify and dilate the carpal tunnel. Synovial elevator was used to free synovial attachments to the underside of the transverse carpal ligament. My thumb was kept in the palm to renetta the distal extent of the carpal tunnel and correctly position the hand. The Microaire endoscope was inserted without difficulty and without resistance. Excellent visualization showed horizontally running fibers of the transverse carpal ligam ent (TCL). The distal extent of the TCL was visualized and the end of the scope palpated with the thumb. The blade was elevated and withdrawn from distal to proximal. The TCL was split into two flaps. The endoscope was reinserted to confirm complete release and any remnant ligament was incised. The scope was withdrawn and the proximal aspect of the carpal tunnel was grossly inspected and appeared release with the median nerve visible. The antebrachial fascia at the level of the wrist was then freed from the overlying skin and then the underlying median nerve with blunt dissection. This was transected longitudinally for about 3cm proximal to the wrist incision. The wound was then irrigated with easy flow of irrigant distally and proximally. The incision was closed with a single 4-0 Nylon suture. The wound was dressed with Xeroform, Gauze, Kerlix and Lennox. The tourniquet was deflated with the initial dressing and held with some pressure. Blood flow returned easily to all digits with capillary refill less than 2 seconds. The suture was then removed from the right wrist. Ed tolerated the procedure well and was returned to the Same Day Surgery area in a stable condition suffering no known complication.
== END 2021-04-01 08:42 | disposition home or self-care (01) ==
PROVIDERS: PCP Internal Medicine; Visit Provider Student in an Organized Health Care Education/Training Program
PROC: 01N54ZZ Release Median Nerve, Percutaneous Endoscopic Approach (ICD-10-PCS; CPT 29848; principal; 2021-04-01 07:30)
DX: G56.03 Carpal tunnel syndrome, bilateral upper limbs (principal); I10 Essential (primary) hypertension; Z87.891 Personal history of nicotine dependence; M54.50 Low back pain, unspecified; I48.0 Paroxysmal atrial fibrillation
CPT/HCPCS: 29848; J0690; J2001

== ENCOUNTER → 2021-04-10 09:49 | Outpatient (BNVA) | payer MEDICARE, OTHER, SELFPAY | PROVIDERS: PCP Internal Medicine; Referring Provider Internal Medicine | DX: Z47.89 Encounter for other orthopedic aftercare (principal); G56.03 Carpal tunnel syndrome, bilateral upper limbs ==

== ENCOUNTER 2021-04-15 10:39 | Outpatient (REF) | payer MEDICARE, OTHER, SELFPAY ==
[2021-04-15 15:21] LABS: BUN 18 mg/dL (7-18); CREATININE 0.9 mg/dL (0.70-1.30); Calcium 8.7 mg/dL (8.5-10.1); Calculated LDL 74 mg/dL (<100); Cholesterol 145 mg/dL (<200); Glucose 115 mg/dL (74-106); HDL Cholesterol 52 mg/dL (40-60); Triglyceride 99 mg/dL (<150)
[2021-04-15 15:22] LABS: Anion Gap 8.8 mmol/L (3-11); CO2 29.2 mmol/L (21.0-32.0); Chloride 105 mmol/L (98-107); Potassium 4.9 mmol/L (3.5-5.1); Sodium 143 mmol/L (136-145)
== END 2021-04-15 10:40 | disposition home or self-care (01) ==
LOC: NCHCN 10:39
PROVIDERS: PCP Internal Medicine; Visit Provider Internal Medicine
DX: I10 Essential (primary) hypertension (principal); E78.5 Hyperlipidemia, unspecified
CPT/HCPCS: 80048; 80061

== ENCOUNTER 2022-03-30 08:46 | Outpatient (REF) | payer MEDICARE, OTHER, SELFPAY ==
[2022-03-30 16:50] LABS: HCT 51.6 % (40.0-50.0); HGB 16.5 g/dL (13.5-17.5); MCH 29.9 pg (27.0-33.0); MCV 94 fL (80-95); MPV 12.3 fL (8.0-11.0); Platelet Count 187 10^3/uL (130-400); RBC 5.51 10^6/uL (4.36-5.78); RDW 12.5 % (11.8-14.1); RDW-SD 43.2 fL; WBC 9.52 10^3/uL (4.4-10.8)
[2022-03-30 17:28] LABS: ALT 25 U/L (16-63); AST 21 U/L (15-37); Albumin 4.3 g/dL (3.4-5.0); Alkaline Phosphatase 69 U/L (46-116); Anion Gap 8.6 mmol/L (3-11); BUN 25 mg/dL (7-18); Bilirubin, Total 1.5 mg/dL (0.2-1.0); CO2 28.4 mmol/L (21.0-32.0); CREATININE 1.2 mg/dL (0.70-1.30); Calcium 9.3 mg/dL (8.5-10.1); Chloride 104 mmol/L (98-107); Estimated GFR 63.85 (mL/min/1.73m2); Glucose 134 mg/dL (74-106); Potassium 4.8 mmol/L (3.5-5.1); Sodium 141 mmol/L (136-145); Total Protein 7.6 g/dL (6.4-8.2)
== END 2022-03-30 08:47 | disposition home or self-care (01) ==
LOC: NCHCN 08:46
PROVIDERS: PCP Internal Medicine; Visit Provider Family Medicine
DX: E78.5 Hyperlipidemia, unspecified (principal); I10 Essential (primary) hypertension; E66.9 Obesity, unspecified
CPT/HCPCS: 80053; 85027

== ENCOUNTER 2023-04-12 15:50 | Outpatient (REF) | payer MEDICARE, OTHER, SELFPAY ==
[2023-04-12 14:46] LABS: HCT 50.8 % (40.0-50.0); HGB 16.7 g/dL (13.5-17.5); MCHC 32.9 % (32.0-36.0); MCV 91 fL (80-95); Platelet Count 153 10^3/uL (130-400); RBC 5.56 10^6/uL (4.36-5.78); RDW-SD 40.2 fL; WBC 8.68 10^3/uL (4.4-10.8)
[2023-04-12 15:18] LABS: ALT 19 U/L (16-63); AST 12 U/L (15-37); Albumin 4.4 g/dL (3.4-5.0); Alkaline Phosphatase 72 U/L (46-116); Anion Gap 8.1 mmol/L (3-11); BUN 22 mg/dL (7-18); Bilirubin, Total 1.3 mg/dL (0.2-1.0); CO2 25.9 mmol/L (21.0-32.0); Calcium 9.7 mg/dL (8.5-10.1); Chloride 103 mmol/L (98-107); Estimated GFR 78.98 (mL/min/1.73m2); Glucose 116 mg/dL (74-106); Potassium 4.6 mmol/L (3.5-5.1); Sodium 137 mmol/L (136-145); Total Protein 7.1 g/dL (6.4-8.2)
== END 2023-04-12 15:51 | disposition home or self-care (01) ==
LOC: NCHCN 15:50
PROVIDERS: PCP Family Medicine; Visit Provider Family Medicine
DX: E78.5 Hyperlipidemia, unspecified (principal); I10 Essential (primary) hypertension; D12.6 Benign neoplasm of colon, unspecified
CPT/HCPCS: 80053; 85027

== ENCOUNTER → 2023-10-06 08:43 | Outpatient (BNVA) | payer MEDICARE, OTHER, SELFPAY | PROVIDERS: PCP Family Medicine; Referring Provider Internal Medicine; Visit Provider Physical Therapy Assistant | DX: Z12.11 Encounter for screening for malignant neoplasm of colon (principal); Z86.010 Personal history of colon polyps ==

== ENCOUNTER 2023-10-24 06:38 | Day surgery (SDC) | payer MEDICARE, OTHER, SELFPAY ==
--- NOTE | 2023-10-23 13:24 | W.PM.DSUDISC ---
Date of service: 10/24/23 Time of Service: 09:41 Discharge Plan Disposition Patient Disposition: Home Condition: Good Discharge Details Reason For Visit: screening colonoscopy Attending Provider: Mikal Meneses Primary Care Provider: Denis Weston Home Meds and New Rx's Prescriptions: Continued atorvastatin 20 mg tablet 20 mg PO DAILY CBD oil 10 mL 1 ml PO DAILY Rx Instructions: Reported by PCP methocarbamol 500 mg tablet 500 mg PO QHS PRN naproxen sodium [Aleve] 220 mg tablet 440 mg PO BID PRN ibuprofen 600 mg tablet 600 mg PO TID PRN (Reason: pain) Qty: 90 0RF acetaminophen 500 mg capsule 1,000 mg PO Q8H PRN PRNQty: 90 0RF amoxicillin 500 MG capsule 4 tab PO DIRECTED lisinopril 10 MG tablet 10 mg PO DAILY Discontinued bisacodyl [Dulcolax (bisacodyl)] 5 mg tablet,delayed release (DR/EC) 5 mg PO ONCE Qty: 4 0RF polyethylene glycol 3350 17 gram/dose powder 17 g PO DAILY Qty: 238 0RF Discharge Instructions Instructions: Diverticulosis (GEN), Colorectal Polyps (GEN), Diverticulosis Diet (GEN) Additional Instructions: Julio, we were able to complete your colonoscopy today without much difficulty. I did find and remove 9 polyps. You also have a large mass of polyps in the cecum (this is the part where the small intestine connects into the large intestine, it can also be thought of as the first part of the colon) that I am not able to remove completely today. I did take 2 large specimens of this for testing. I would like to see the results of the pathology report on all of these polyps, and most importantly, that area in the cecum before making any final recommendations. If it is the case that this is all simple polyp, with no evidence of cancer, then there may be another option to remove this using colonoscopy techniques like we did today. Alternatively, an operation could be performed to remove this part of your colon. I have taken the liberty of setting up a follow-up appointment in my office on the at 9:15 AM. I should have all the information at that point, and we can talk together and make a final decision. If you have any questions in the meantime, please do not hesitate to ask. 1. If tolerated, consume a soft, low fiber diet for 1-2 days. 2. Do not drive, drink alcohol, operate machinery, make critical decisions, or do activities that require coordination or balance for 24 hours. 3. Because air was put into your colon during the procedure, expelling air from your rectum (passing gas or farting) is normal. 4. You may not have a bowel movement for 1-3 days because of the colonoscopy prep. This is normal. 5. Go directly to the emergency room if you notice any of the following: Develop chills (warm to touch), or if you have a thermometer and your temperature is above 101 Difficulty breathing or difficultly swallowing Persistent vomiting Severe abdominal pain, other than gas cramps Severe chest pain Black, tarry stools Any bleeding ? exceeding one tablespoon 6. Call your physician if the site where your intravenous was started becomes red, swollen, painful, and warm to touch. 7. Your physician has reviewed your pre-procedure medications. Please continue to take those medications as previously ordered. You will be given specific information/education regarding any changes to your medications before leaving. Activity:: Activity as Tolerated Diet:: As Tolerated Discharge Orders Discharge Orders: Discharge Order (Routine); Ordered 10/23/23 Ordered By: Mikal Meneses DS: Diagnosis Discharge Diagnosis (1) Encounter for screening colonoscopy: Status: Acute Asessment and Plan: Follow-up on biopsy results
--- NOTE | 2023-10-23 13:26 | W.COLOREPORT ---
Date of service: 10/24/23 Time of Service: :47 Colonoscopy Report Date of procedure: 10/24/23 Pre-op diagnosis general: screening colonocsopy Post-op diagnosis procedure note: other (Cecal polyposis, colorectal polyps, diverticulosis) Procedure: colonoscopy with biopsy and polypectomy Surgeon: Mikal Meneses Anesthesia Type: General:No Airway Estimated blood loss (mL): 10 Pathology: other (Biopsies of cecal polyposis, ascending colon polyp, polyps at 120 cm x 3, polyp at 125 cm, polyp at 75 cm x 2, polyp at 50 cm) Complications: None Disposition: same day Indications: Julio is a 73 year old man with a history of adenomatous polyps who needs his next screening colonoscopy Prep: Miralax/Dulcolax Procedure Start Time: 08:47 Procedure End Time: 09:28 Retraction Time: 32 Findings: Sigmoid diverticulosis, colorectal polyps Procedure Description: After the induction of anesthesia, and with the patient in left lateral decubitus position, I began by performing an external anorectal exam.? There are some external hemorrhoids.? I did not appreciate any abnormal findings.? Next, I advanced a colonoscope into the rectal vault.? I performed retroflexion.? This appeared normal.? There were several benign-appearing rectal polyps. Narrowband imaging was used to assist with analysis. 1 polyp at features concerning for adenomatous changes. This was removed with cold forceps without any issues. Using insufflation, I then advanced the colonoscope beyond the rectal folds and into the sigmoid colon before advancing towards the cecum.? There is extensive sigmoid diverticulosis.? The scope was noted to be in the cecum by identification of the ileocecal valve and appendiceal orifice.? Immediately adjacent to the appendix was a large area of polypoid tissue within the cecum. I would estimate it to be about 2-1/2 to 3 cm in its longest dimension. It was draped over some colonic haustra. I am not able to completely resect this colonoscopically, however, using snare device, I did take 2 large medical collections representative samples. A few centimeters away in the ascending colon was another polyp. This was 0.5 cm. This was removed with cold forceps. I then began withdrawing the colonoscope using repeated irrigation as necessary for full evaluation of the colonic mucosa. ?I found adenomatous appearing polyps at 120 cm from the anus x 3. These were all removed. Another polyp was detected around 125 cm from the anus. This was also removed with cold forceps without any issue. Along the way out, 2 other polyps were identified and removed at 75 cm from the anus, as well as another polyp at 50 cm. Once the scope was withdrawn to the level of the rectum, great care was taken to examine portions of the rectal folds.? Finally, the scope was withdrawn and the patient was brought to the same-day surgery recovery unit as the anesthetic wore off. ?The findings and instructions were shared with the patient prior to discharge. Dexter Bowel Prep Dexter Bowel Prep Right Colon: 2 Left Colon: 3 Transverse Colon: 3 Total Score: 8
--- NOTE | 2023-10-24 07:02 | ANES.PREOP_ITS ---
General Info Date of Service Date Performed: 10/24/23 Height: 5 ft 10 in Weight: 112.491 kg Body Mass Index (BMI): 35.6 Surgical Procedure: Operation Date: 10/24/23 08:20 Proposed Procedure Side Surgeon loida Meneses MD Meds Allergies and Home Medications Allergies Allergy/AdvReac Type Severity Reaction Status Date / Time No Known Allergies Allergy Verified 10/24/23 07:08 Home Medication Medication Instructions Recorded amoxicillin 500 mg capsule 4 tab PO DIRECTED 05/21/16 lisinopril 10 mg tablet 10 mg PO DAILY 05/21/16 atorvastatin 20 mg tablet 20 mg PO DAILY 02/22/18 CBD oil 1 ml PO DAILY 10/22/20 acetaminophen 500 mg capsule 1,000 mg (2 x 500 mg) PO Q8H PRN 04/01/21 PRN #90 caps ibuprofen 600 mg tablet 600 mg PO TID PRN pain #90 tabs 04/01/21 methocarbamol 500 mg tablet 500 mg PO QHS PRN 08/19/23 naproxen sodium 220 mg tablet 440 mg PO BID PRN 08/19/23 (Aleve) Current Visit Medications: Current Medications Generic Name Dose Route Start Last Admin Trade Name Freq PRN Reason Stop Dose Admin Hyoscyamine Sulfate 0.125 mg 10/23/23 13:27 Hyoscyamine 0.125 Mg Sl/Oral/Chew SL 11/22/23 13:26 DIRECTED PRN Ringer's Solution 1,000 mls @ 80 mls/hr 10/24/23 06:00 IV 10/24/23 23:59 INFUSION [facility] IV Miscellaneous Supplies 1 each 10/24/23 06:00 Iv Access IV 10/24/23 23:59 DIRECTED ISAÍAS Ondansetron HCl 4 mg 10/23/23 13:27 Ondansetron 4 Mg/2 Ml Vial IVP 11/22/23 13:26 Q4H PRN PRN Nausea / Vomiting Sodium Chloride 0 ml 10/24/23 06:00 Normal Saline Flush 10 Ml Syr IV 10/24/23 23:59 PRN PRN Sodium Chloride 0 ml 10/24/23 06:00 Normal Saline 10 Ml Vial IJ 10/24/23 23:59 DIRECTED PRN Sterile Water 0 ml 10/24/23 06:00 Water,Injection,Sterile 10 Ml Vial IJ 10/24/23 23:59 DIRECTED PRN PFSH Active Problems Active Problems: Problem Status Onset Code Encounter for screening colonoscopy Z12.11 Carpal tunnel syndrome, right G56.01 Carpal tunnel syndrome, left G56.02 Encounter for colorectal cancer screening Z12.11, Z12.12 Osteoarthritis of knee 09/17/13 M17.10 Medical History Medical History Trigger finger, right middle finger Osteoarthritis of knees, bilateral Obesity Acute herniated disc Former smoker Bilateral club feet Afib Per pt. F/U with PCP. 06/13/2015: [facility], EF 55-60%, normal valves Chronic lower back pain Tinea pedis Osteoarthritis of hands, bilateral Carpal tunnel syndrome FRANKO (obstructive sleep apnea) Hyperlipidemia HTN (hypertension) Hx of adenomatous polyp of colon Paroxysmal atrial fibrillation Arthritis of both hands Back pain Surgical History Surgical History H/O colonoscopy (03/10/18) Dr Nguyen, tubulovillous and tubular adenomas, repeat in five years History of bilateral cataract extraction Congenital fusion of cervical spine History of total bilateral knee replacement (TKR) Colonoscopy - IV Sedation (10/25/11) hx tubular adenoma in 2005 with recommendation to repeat colo in three years Tobacco Smoking/Tobacco Use Status: Former Tobacco Use Alcohol Alcohol Intake: current Alcohol intake frequency: 0-2 drinks per day Alcohol type: beer and wine Substance Use Substance use: Never Substance use type: does not use Vital Signs and Lab Results Lab Results Blood Type / Crossmatch: 2 No Data to Display Complete Blood Count: 2 No Data to Display Complete Metabolic Panel: 2 No Data to Display Liver Function Panel: 2 No Data to Display Coagulation Panel: 2 No Data to Display Cardiac Panel: 2 No Data to Display Arterial Blood Gas: 2 No Data to Display Venous Blood Gas: 2 No Data to Display Pancreas Panel: 2 No Data to Display Thyroid Panel: 2 No Data to Display Infectious Disease: 2 No Data to Display Blood Cultures: 2 No Data to Display Toxicology Panel: 2 No Data to Display Imaging and Studies Imaging and Studies Study information below may be from another EMR and interpreted by another provider. Please see original notes in EMR for more complete details. Echocardiogram Summary: 06/2015: [facility]: EF 55-60%, Normal Valves Anesthesia Assessment and Plan Anesthesia History Personal History: No History of Anesthesia Complications Family History: No Family History of Anesthesia Complications Exercise Tolerance Exercise Tolerance: Metabolic Equivalents>4 Pertinent Negatives Pertinent Negatives: No Symptoms of GERD, No Major Cardiovascular Symptoms or Complaints and No History of CVA/TIA Cardiac & Pulmonary Exam Cardiac Exam: Normal S1/S2 Heart Sounds Pulmonary Exam: Clear Bilateral Breath Sounds Implantable Cardiac Device Does patient have a Pacemaker or an ICD?: No Airway Exam Known Difficult Airway: No Mallampati Class: 4 Mouth Opening: Normal (> 3cm) Thyromental Distance: Greater than 3 cm Neck Range of Motion: Full ROM Neck Circumference: Normal Teeth Condition: Normal Dentition Tooth Numberin 1. Cracked ASA Classification ASA Score: ASA 3 Emergency Case?: No NPO Status NPO Status: NPO Clears >2 hours, Solids >8 hours Anesthesia Plan Resuscitation Status: Full Code Anesthesia Technique: General Anesthesia Airway Planned: Natural Airway Monitors Used: Standard Monitors
[2023-10-24 07:09] VITALS: BP 150/66; PULSE 66; RESP 18; TEMP 36.4; O2SAT 97
[2023-10-24] MEDS: Lactated Ringers 1,000 ML 80 ML IV (07:23)
--- NOTE | 2023-10-24 08:06 | W.ANESPRE ---
General Info Date of Service Date Performed: 10/24/23 Height: 5 ft 10 in Weight: 110 kg Body Mass Index (BMI): 34.7 Surgical Procedure: Operation Date: 10/24/23 08:20 Proposed Procedure Side Surgeon loida Meneses MD Meds Allergies and Home Medications Allergies Allergy/AdvReac Type Severity Reaction Status Date / Time No Known Allergies Allergy Verified 10/24/23 07:08 Home Medication Medication Instructions Recorded amoxicillin 500 mg capsule 4 tab PO DIRECTED 05/21/16 lisinopril 10 mg tablet 10 mg PO DAILY 05/21/16 atorvastatin 20 mg tablet 20 mg PO DAILY 02/22/18 CBD oil 1 ml PO DAILY 10/22/20 acetaminophen 500 mg capsule 1,000 mg (2 x 500 mg) PO Q8H PRN 04/01/21 PRN #90 caps ibuprofen 600 mg tablet 600 mg PO TID PRN pain #90 tabs 04/01/21 methocarbamol 500 mg tablet 500 mg PO QHS PRN 08/19/23 naproxen sodium 220 mg tablet 440 mg PO BID PRN 08/19/23 (Aleve) Current Visit Medications: Current Medications Generic Name Dose Route Start Last Admin Trade Name Freq PRN Reason Stop Dose Admin Hyoscyamine Sulfate 0.125 mg 10/23/23 13:27 Hyoscyamine 0.125 Mg Sl/Oral/Chew SL 11/22/23 13:26 DIRECTED PRN Ringer's Solution 1,000 mls @ 80 mls/hr 10/24/23 06:00 10/24/23 07:23 IV 10/24/23 23:59 80 mls/hr INFUSION ISAÍAS Administration IV Miscellaneous Supplies 1 each 10/24/23 06:00 Iv Access IV 10/24/23 23:59 DIRECTED ISAÍAS Ondansetron HCl 4 mg 10/23/23 13:27 Ondansetron 4 Mg/2 Ml Vial IVP 11/22/23 13:26 Q4H PRN PRN Nausea / Vomiting Sodium Chloride 0 ml 10/24/23 06:00 Normal Saline Flush 10 Ml Syr IV 10/24/23 23:59 PRN PRN Sodium Chloride 0 ml 10/24/23 06:00 Normal Saline 10 Ml Vial IJ 10/24/23 23:59 DIRECTED PRN Sterile Water 0 ml 10/24/23 06:00 Water,Injection,Sterile 10 Ml Vial IJ 10/24/23 23:59 DIRECTED PRN PFSH Active Problems Active Problems: Problem Status Onset Code Encounter for screening colonoscopy Z12.11 Carpal tunnel syndrome, right G56.01 Carpal tunnel syndrome, left G56.02 Encounter for colorectal cancer screening Z12.11, Z12.12 Osteoarthritis of knee 09/17/13 M17.10 Medical History Medical History Trigger finger, right middle finger Osteoarthritis of knees, bilateral Obesity Acute herniated disc Former smoker Bilateral club feet Afib Per pt. F/U with PCP. 06/13/2015: [facility], EF 55-60%, normal valves Chronic lower back pain Tinea pedis Osteoarthritis of hands, bilateral Carpal tunnel syndrome FRANKO (obstructive sleep apnea) Hyperlipidemia HTN (hypertension) Hx of adenomatous polyp of colon Paroxysmal atrial fibrillation Arthritis of both hands Back pain Surgical History Surgical History H/O colonoscopy (03/10/18) Dr Nguyen, tubulovillous and tubular adenomas, repeat in five years History of bilateral cataract extraction Congenital fusion of cervical spine History of total bilateral knee replacement (TKR) Colonoscopy - IV Sedation (10/25/11) hx tubular adenoma in 2005 with recommendation to repeat colo in three years Tobacco Smoking/Tobacco Use Status: Former Tobacco Use Alcohol Alcohol Intake: current Alcohol intake frequency: 0-2 drinks per day Alcohol type: beer and wine Substance Use Substance use: Never Substance use type: does not use Vital Signs and Lab Results Vital Signs Most Recent Vital Signs in EMR: Most Recent Vital Signs Temp Pulse Resp BP Pulse Ox 36.4 C L 66 18 150/66 H 97 10/24/23 07:09 10/24/23 07:09 10/24/23 07:09 10/24/23 07:09 10/24/23 07:09 Lab Results Blood Type / Crossmatch: No Data to Display Complete Blood Count: No Data to Display Complete Metabolic Panel: No Data to Display Liver Function Panel: No Data to Display Coagulation Panel: No Data to Display Cardiac Panel: No Data to Display Arterial Blood Gas: No Data to Display Venous Blood Gas: No Data to Display Pancreas Panel: No Data to Display Thyroid Panel: No Data to Display Infectious Disease: No Data to Display Blood Cultures: No Data to Display Toxicology Panel: No Data to Display Imaging and Studies Imaging and Studies Study information below may be from another EMR and interpreted by another provider. Please see original notes in EMR for more complete details. Echocardiogram Summary: 06/2015: [facility]: EF 55-60%, Normal Valves Anesthesia Assessment and Plan Anesthesia History Personal History: No History of Anesthesia Complications Family History: No Family History of Anesthesia Complications Exercise Tolerance Exercise Tolerance: Metabolic Equivalents>4 Pertinent Negatives Pertinent Negatives: No Symptoms of GERD Cardiac & Pulmonary Exam Cardiac Exam: Normal S1/S2 Heart Sounds Pulmonary Exam: Clear Bilateral Breath Sounds Implantable Cardiac Device Does patient have a Pacemaker or an ICD?: No Airway Exam Known Difficult Airway: No Mallampati Class: 3 Mouth Opening: Normal (> 3cm) Thyromental Distance: Greater than 3 cm Neck Range of Motion: Limited ROM Neck Circumference: Normal Teeth Condition: Normal Dentition ASA Classification ASA Score: ASA 2 Emergency Case?: No NPO Status NPO Status: NPO Clears >2 hours, Solids >8 hours Anesthesia Plan Resuscitation Status: Full Code Anesthesia Technique: General Anesthesia Airway Planned: Natural Airway Monitors Used: Standard Monitors
[2023-10-24 08:15] VITALS: BMI 34.7
--- NOTE | 2023-10-24 08:48 | BOWEL_PTH ---
PATIENT: Julio Cardoza LOC: [facility] U#:[id number] AGE/SX: 73/M ROOM: RE10/24/[address]: Mikal Meneses MD : [id number] BED: DIS: 10/24/2023 SPEC #: [id number] RECD: 10/24/23 13:01 STATUS: [facility] #: [id number] ILIA: 10/24/23 08:[address]: Mikal Meneses DEPT: Surgical Specimen RECD BY: Terrie Schwab ENTERED: 10/24/23 13:04 SP TYPE: Bowel OTHR DR: Denis Weston Tissues: 1 - BIOPSY BOWEL 2 - BIOPSY BOWEL 3 - BIOPSY BOWEL 4 - BIOPSY BOWEL 5 - BIOPSY BOWEL 6 - BIOPSY BOWEL 7 - BIOPSY BOWEL Procedures: GROSS AND MICRO LEVEL 4 Comments: [id number]
[2023-10-24 09:36] VITALS: BP 77/45; PULSE 59; RESP 16; TEMP 36.1; O2SAT 96
[2023-10-24 09:59] VITALS: BP 94/52; PULSE 57; RESP 16; TEMP 36.2; O2SAT 97
[2023-10-24 10:10] VITALS: BP 94/60; PULSE 51; RESP 16; TEMP 36.3; O2SAT 97
[2023-10-24 10:25] VITALS: BP 94/57; PULSE 52; RESP 16; TEMP 36.4; O2SAT 98
--- NOTE | 2023-10-24 11:16 | W.ANESPOSTOP ---
Postoperative Evaluation Date, Time and Location Date Performed: 10/24/23 Time Performed: 10:45 Patient Location: Day Surgery Unit Vital Signs Most Recent Imported Vital Signs: Most Recent Vital Signs Temp Pulse Resp BP Pulse Ox 36.4 C L 52 L 16 94/57 L 98 10/24/23 10:25 10/24/23 10:25 10/24/23 10:25 10/24/23 10:10/24/23 10:25 Pain Score Most Recent Pain Score: Most Recent Pain Score Pain Level 0 10/24/23 10:10 Assessment Mental Status: Awake (Alert & Oriented to Patient Baseline) Airway and Respiratory Function: Patent airway with normal (patient baseline) respiratory exam Cardiovascular Function: Hemodynamically Stable Hydration Status: Adequately Hydrated Nausea & Vomiting: No Nausea or Vomiting Pain: Pt. Denies Any Pain Peripheral Nerve Block: Patient did not receive a nerve block
== END 2023-10-24 10:51 | disposition home or self-care (01) ==
LOC: SUR 06:38
PROVIDERS: PCP Family Medicine; Visit Provider Surgery
PROC: 0DJD8ZZ Inspection of Lower Intestinal Tract, Via Natural or Artificial Opening Endoscopic (ICD-10-PCS; CPT 45378; principal; 2023-10-24 08:15)
DX: Z12.11 Encounter for screening for malignant neoplasm of colon (principal); D12.0 Benign neoplasm of cecum; K62.1 Rectal polyp; K57.30 Diverticulosis of large intestine without perforation or abscess without bleeding; D12.2 Benign neoplasm of ascending colon; D12.3 Benign neoplasm of transverse colon; D12.4 Benign neoplasm of descending colon
CPT/HCPCS: 45380; 45385; 88305; J2704

== ENCOUNTER → 2023-11-02 12:48 | Outpatient (BNVA) | payer MEDICARE, OTHER, SELFPAY | PROVIDERS: PCP Family Medicine; Referring Provider Family Medicine; Visit Provider Surgery | DX: Z48.815 Encounter for surgical aftercare following surgery on the digestive system (principal); D36.9 Benign neoplasm, unspecified site | CPT/HCPCS: 99213 ==

== ENCOUNTER 2024-04-18 09:18 | Outpatient (REF) | payer MEDICARE, OTHER, SELFPAY ==
--- OUTSIDE RECORDS SUMMARY | 2024-04-18 09:23 | XMS_ITS | Encounter Summary ---
Author Organization [facility] [place] [address] Care Team Providers Care Hairspring Staker Name Role Phone Denis Weston MD Primary Care Provider [phone] Encounter Details Date Type Department Care Team (Late st Contact Info) Description 11/15/2023 Telephone Gastroenterology at [facility] [place] [address] Maryjo Perez Social History Tobacco Use Types Packs/Day Years Used Date Smoking Tobacco: Never Assessed Sex and Gender Information Value Date Recorded Sex Assigned at Not on file Gender Identity Not on file Sexual Orientation Not on file documented as of this encounter Miscellaneous Notes * Telephone Encounter - Maryjo Perez - 11/15/2023 8:09 AM EDT Julio Cardoza [id number] Diagnosis/Indication: large poylp Please review patient chart to confirm if previous Endoscopy procedure was performed within system. If yes, take note of Anesthesia type used. If previous procedure found, and with MAC/propofol Anesthesia support was used, schedule this procedure with Anesthesia and skip the Anesthesia portion of questions. If not performed within system, not performed at all, or performed with IVCS, ask Anesthesia questions. SCHEDULING QUESTIONS (ask all patient these questions) Have you ever had a/an Colonoscopy and Upper Endoscopy before? Yes: Date recent If yes, did you have any problems with the procedure (such as waking up during the procedure, pain or difficulties afterwards, etc.)? No What type of sedation was used: None (ASK ONLY FOR COLONOSCOPY PROCEDURES) Are you aware, or have you ever been told that you had a poor prep or failed prep with a previous colonoscopy? No If yes, assign the Extended MiraLAX Prep (ASK ONLY FOR COLONOSCOPY PROCEDURES) Do you have an ongoing history of constipation? (E.g., hard stools, >2 days without a bowel movement, straining or difficulty passing stool) No If yes, assign the Extended MiraLAX Prep Do you take any blood thinners or have you been diagnosed with a bleeding disorder that increases your risk of bleeding with procedures? No Do you have a Pacemaker or Defibrillator device? If yes, send pool message to Cardiology with patient information and date or procedure. No Do you have diabetes? If yes, call PCP/managing provider to discuss use of prep and any questions or concerns related to. No If yes, assign the Extended MiraLAX Prep Do you take any iron supplements or vitamins that contain iron? No Do you have a preference regarding the gender of your provider? Yes advanced ANESTHESIA QUESTIONS (YES to any question, please book with Anesthesia support) Have you ever been diagnosed with Pulmonary Hypertension and/or Congential Heart Disease? No Have you been diagnosed with A-Fib (atrial fibrillation) that is NOT being well controled with medications? No Have you ever had an allergic or adverse reaction to Fentanyl or Versed? No Have you had a problem with sedation or anesthesia? (Waking up during procedure, extreme confusion after, etc.) No Do you have a diagnosis of Obstructive Sleep Apnea that requires the use of a c- pap machine? Yes cpap Do you use an oxygen tank at home? No Do you use a rescue inhaler more than twice per day? (COPD, severe asthma) No Do you experience breathing problems when you lay flat for a period of time? No Do you regularly take prescription opioid pain medications on a daily basis? (Includes oxycodone, Percocet, Suboxone, methadone, etc.) No If yes, assign the Extended MiraLAX Prep SCHEDULING CONFIRMATIONS: Please note any and all parts of your conversation with the patient here. We offer all new patients an opportunity to have an appointment with one of our associate care providers to learn more about your upcoming procedure, ask questions and get answers. These appointmentsare offered via telehealth. Would you be interested in scheduling this appointment? (Only ask if NEW referral patient; skip this question if [facility] provider ordered the procedure.) No Is there any other information or concerns you would like to us to share with your care team in relation to your upcoming scheduled procedure? No You must have a responsible constitution party who will drive you to your procedure, stay on campus for the entire duration of your procedure, and drive you home from your procedure. Who will likely be your class c driver for the procedure? *Please Verify the height and weight, and adjust if height and/or weight have changed* There is no height or weight on file to calculate BMI. *Patient must be scheduled for Anesthesia support if BMI is 40 or above* Height: 5'10 Weight: 240 BMI: 34.4 Age:73 y.o. documented in this encounter Plan of Treatment Scheduled Procedures Name Priority Associated Diagnoses Date/Ti me COLONOSCOPY, DIAGNOSTIC (WRV U 3.26) Tubulovillous adenoma of colon documented as of this encounter Visit Diagnoses Not on filedocumented in this encounter Care Teams Hairspring Staker Relationship Specialty Start Date End Date Denis Weston MD [address] [place] [address] PCP - General Family Medicine 11/04/23 documented as of this encounter
--- OUTSIDE RECORDS SUMMARY | 2024-04-18 09:23 | XMS_ITS | Encounter Summary ---
Author Organization [facility] Address [address] [place] [address] Care Team Providers Care Rn Wound Care Name Role Phone Nic Padilla MD Primary Care Provider [phone] Encounter Details Date Type Department Care Team (Late st Contact Info) Description 10/24/2023 Lab Requisition [facility] Pathology & Laboratory Medicine - [facility] [address] [place] [address] Mikal Meneses MD [address] [place] [address], [address] [place] [address] Encounter for screening for malignant neoplasm of colon Social History Tobacco Use Types Packs/Day Years Used Date Smoking Tobacco: Former Cigarettes Q uit: 06/06/1991 Alcohol Use Standard Drinks/Week Comments Yes 5 (1 standard drink = 0.6 oz pur e alcohol) Interpersonal Safety Answer Date Record ed Physically Hurt Never 01/06/2020 Verbally Threaten Not on file 01/06/2020 Sex and Gender Information Value Date Recorded Sex Assigned at Not on file Legal Sex Male 18:07 EST Gender Identity Not on file Sexual Orientation Not on file documented as of this encounter Functional Status * Are you deaf or do you have serious difficulty hearing? Answer Date of Assessment Author No 06/14/2015 12:32 Trish Louis RN * Are you blind or do you have serious difficulty seeing, even when wearing glasses? Answer Date of Assessment Author No 06/14/2015 12:32 Trish Louis RN * Do you have serious difficulty walking or climbing stairs? (5 years old or older) Answer Date of Assessment Author Yes 06/14/2015 12:32 Trish Louis RN * Do you have difficulty dressing or bathing? (5 years old or older) Answer Date of Assessment Author Yes 06/14/2015 12:32 Trish Louis RN * Because of a physical, mental, or emotional condition, do you have difficulty doing errands alone such as visiting a doctor's office or shopping? (15 years old or older) Answer Date of Assessment Author Yes 06/14/2015 12:32 Trish Louis RN documented as of this encounter Mental Status * Because of a physical, mental, or emotional condition, do you have serious difficulty concentrating, remembering, or making decisions? (5 years old or older) Answer Entry Date Author No 06/14/2015 12:32 Trish Louis RN documented in this encounter Plan of Treatment Not on file documented as of this encounter Procedures Procedure Name Priority Date/Time Associated Diagnosis Comments SURGICAL PATHOLOGY Today 10/24/2023 8:48 EDT Encounter for screening for malignant neoplasm of colon documented in this encounter Results * SURGICAL PATHOLOGY (10/24/2023 8:48 EDT) Note to Patient The following pathology results have been interpreted by your pathologist and may be available to you before your health provider has had the opportunity to review them. Please allow time for your provider to receive these results and explore management options, if applicable. 10/26/2023 11:32 [facility] Final Diagnosis A. RECTUM, POLYP, BIOPSY: - Hyperplastic polyp. B. COLON, CECUM, POLYP, BIOPSY: - Fragments of tubulovillous adenoma. C. COLON, ASCENDING, POLYP, BIOPSY: - Tubular adenoma. D. COLON, 120 CMS, POLYPS X3, BIOPSY: - Sessile serrated adenoma(s). E. COLON, 125 CMS, POLYP, BIOPSY: - Sessile serrated adenoma. F. COLON, 75 CMS, POLYPS X2, BIOPSY: - Tubular adenoma. - Sessile serrated adenoma(s). G. COLON, 50 CMS, POLYP, BIOPSY: - Hyperplastic polyp. 10/26/2023 11:32 [facility] Attestation By the signature below, the attending physician certifies that they have 1) personally conducted a gross and/or microscopic examination of the described specimen(s), and/or personally interpreted the results of laboratory testing of the described specimen(s), and 2) personally rendered or confirmed the above diagnosis. 10/26/2023 11:32 [facility] at 1132 Clinical History Screening 10/26/2023 11:32 [facility] Gross Description A. Received in formalin labelled with proper patient identification (initials L, E) and 1. Rectal polyp is a collins tissue (0.4 x 0.3 x 0.2 cm). Entirely submitted in A1. B. Received in formalin labelled with proper patient identification (initials L, E) and 2. Cecal polyp is an aggregate of collins-brown polypoid tissue fragments (1.7 x 1.2 x 0.4 cm). Entirely submitted in B1. C. Received in formalin labelled with proper patient identification (initials L, E) and 3. Ascending colon polyp is an aggregate of collins-brown tissue fragments (0.7 x 0.6 x 0.1 cm). Entirely submitted in C1. D. Received in formalin labelled with proper patient identification (initials L, E) and 4. Polyp at 120 x 3 are 5 collins-brown tissues (0.2 x 0.1 x 0.1 cm to 0.6 x 0.2 x 0.1 cm). Entirely submitted in D1. E. Received in formalin labelled with proper patient identification (initials L, E) and 5. Polyp at 125 cm is an aggregate of collins-brown tissue fragments (0.7 x 0.4 x 0.1 cm). Entirely submitted in E1. F. Received in formalin labelled with proper patient identification (initials L, E) and 6. Polyp at 75 x 2 are 4 collins tissues (0.2 x 0.1 x 0.1 cm to 0.7 x 0.3 x 0.1 cm). Entirely submitted in F1. G. Received in formalin labelled with proper patient identification (initials L, E) and 7. Polyp at 50 cm is a collins-brown tissue (0.5 x 0.4 x 0.2 cm). Entirely submitted in G1. SINA WHELAN(ASCP) 10/25/2023 7:32 10/26/2023 11:32 EDT [facility] Performing Lab [facility] 10/26/2023 11:32 EDT [facility] Scanned Images 10/26/2023 11:32 EDT [facility] Tissue POLYP OF COLON / Unknown 10/24/2023 8:48 EDT 10/24/2023 20:04 EDT Tissue specimen (specimen) POLYP OF COLON / Unknown 10/24/2023 8:48 EDT 10/24/2023 20:04 EDT Tissue specimen (specimen) POLYP OF COLON / Unknown 10/24/2023 8:48 EDT 10/24/2023 20:04 EDT Tissue specimen (specimen) POLYP OF COLON / Unknown 10/24/2023 8:48 EDT 10/24/2023 20:04 EDT Tissue specimen (specimen) POLYP OF COLON / Unknown 10/24/2023 8:48 EDT 10/24/2023 20:04 EDT Tissue specimen (specimen) POLYP OF COLON / Unknown 10/24/2023 8:48 EDT 10/24/2023 20:04 EDT Tissue specimen (specimen) POLYP OF COLON / Unknown 10/24/2023 8:48 EDT 10/24/2023 20:04 EDT us Mikal Meneses MD PATHOLOGY ORDERABLES Final Resu lt [facility] [address] [place] [address] documented in this encounter Visit Diagnoses Diagnosis Encounter for screening for malignant neoplasm of colon Special screening for malignant neoplasms, colon documented in this encounter Care Teams Rn Wound Care Relationship Specialty Start Date End Date Nic Padilla MD [address] [place] [id number] PCP - General 05/18/12 documented as of this encounter
--- OUTSIDE RECORDS SUMMARY | 2024-04-18 09:23 | XMS_ITS | Encounter Summary ---
Author Organization [facility] Address [address] [place] [address] Care Team Providers Care Fruit Press Operator Name Role Phone Nic Padilla MD Primary Care Provider [phone] Encounter Details Date Type Department Care Team (Latest Contact Info) Description 03/10/2018 7:05 EDT - 03/10/2018 23:59 EDT Hospital Encounter [address] [address] Unknown, Provider, Discharge Disposition: Home or Self Care Social History Tobacco Use Types Packs/Day Years Used Date Smoking Tobacco: Former Cigarettes Q uit: 06/06/1991 Alcohol Use Standard Drinks/Week Comments Yes 5 (1 standard drink = 0.6 oz pur e alcohol) Sex and Gender Information Value Date Recorded [...] Trish Louis RN documented in this encounter Medications at Time of Discharge acetaminophen (TYLENOL) 325 mg tablet Take 2 Tabs by mouth every 4 hours as needed for Pain 06/18/2015 cholecalciferol, Vitamin D3, 1,000 unit tablet Take 1 Tab by mouth at bedtime 06/18/2015 docusate sodium (COLACE) 100 mg capsule Take 2 Caps by mouth 2 times daily 06/18/2015 lisinopril (PRINIVIL, ZESTRIL) 20 mg tablet Take 10 mg by mouth daily. Multivitamins with Minerals tablet Take 1 Tab by mouth daily oxyCODONE (ROXICODONE) 5 mg immediate release tablet Take 1-2 Tabs by mouth every 4 hours as needed for Pain Daily Max: 60 mg 50 Tab 0 06/18/2015 PEG 3350-Electrolytes (MIRALAX) 17 gram packet Take 17 g by mouth daily 06/18/2015 rivaroxaban (XARELTO) 10 mg tablet tablet Take 1 Tab by mouth daily with dinner 18 Tab 0 06/21/2015 senna (SENOKOT) 8.6 mg tablet Take 2 Tabs by mouth 2 times daily 06/18/2015 traMADol (ULTRAM) 50 mg tablet Take 1-2 Tabs by mouth every 6 hours as needed for Pain Daily Max: 400 mg 60 Tab 0 06/30/2015 documented as of this encounter Discharge Disposition Disposition Code Departure Means Destination Home or Self Group Home documented in this encounter Plan of Treatment Not on file documented as of this encounter Visit Diagnoses Not on filedocumented in this encounter Care Teams Fruit Press Operator Relationship Specialty Start Date End Date Nic Padilla MD [address] [place] [address] PCP - General 05/18/12 documented as of this encounter
--- OUTSIDE RECORDS SUMMARY | 2024-04-18 09:23 | XMS_ITS | Clinical Summary ---
Author Organization [facility] Address [facility] [place] [address] Care Team Providers Care Roof Bolter Helper Name Role Phone Denis Weston MD Primary Care Provider [phone] Allergies No known active allergies Medications Medication Sig Dispensed Refills Start Date End Date Status acetaminophen (Tylenol) 325 mg tablet Take 650 mg by mouth Every 4 hours as needed. 06/18/2015 Active atorvastatin (Lipitor) 20 mg tablet Take 20 mg by mouth nightly. 10/05/2023 Active cholecalciferoL (Vitamin D3) 1,000 unit tablet Take 1 tablet by mouth nightly. 06/18/2015 Active docusate sodium (Colace) 100 mg capsule Take 200 mg by mouth Twice daily. 06/18/2015 Active lisinopriL (Zestril) 20 mg tablet Take 10 mg by mouth Daily @ 0600. Active Active Problems Problem Noted Date Diagnosed Date Hypertension 12/12/2023 Atrial fibrillation with RVR 06/14/2015 Overview (12/12/2023): 06/13/15: Asymptomatic 3 days postoperatively. Reverted without medication or cardioversion Gait difficulty 06/14/2015 Impaired mobility and ADLs 06/14/2015 Status post total bilateral knee replacement 02/2016 Bilateral knee pain 06/10/2015 Bilateral primary osteoarthritis of knee 016 Family history of DVT 04/08/2015 Overview (12/12/2023): Brother age 53, DVT following shoulder surgery Father, age late 70s in setting of cardiac disease Mother, late 70s, early 80s Morbid obesity 08/10/2012 Immunizations Name Administration Dates Next Due Influenza Unspecified Formulation 05/06/2015 Influenza Vaccine, Whole 05/06/2006,04/19/2005 Pneumococcal 23-Valent Polysaccharide (Pneumovax 23) 04/19/2005 Social History Tobacco Use Types Packs/Day Years Used Date Smoking Tobacco: Former Cigarettes Smokeless Tobacco: Never Tobacco Cessation:Counseling Given: Not Answered Alcohol Use Standard Drinks/Week Comments Yes 4 (1 standard drink = 0.6 oz pur e alcohol) Sex and Gender Information Value Date Recorded Sex Assigned at Not on file Gender Identity Not on file Sexual Orientation Not on file Last Filed Vital Signs Vital Sign Reading Time Taken Comments Blood Pressure 134/74 12/12/2023 11:20 AM EDT Pulse 62 12/12/2023 9:18 AM EDT Temperature 35.7 ??C (96.3 ??F) 12/12/2023 9:18 AM ED T Respiratory Rate 16 12/12/2023 9:18 AM EDT Oxygen Saturation 100% 12/12/2023 11:30 AM EDT Inhaled Oxygen Concentration - - Weight 108.9 kg (240 lb) 12/12/2023 9:18 AM EDT Height 177.8 cm (5' 10) 12/12/2023 9:18 AM EDT Body Mass Index 34.44 12/12/2023 9:18 AM EDT Plan of Treatment Scheduled Procedures Name Priority Associated Diagnoses Date/Ti me COLONOSCOPY, DIAGNOSTIC (WRV U 3.26) Tubulovillous adenoma of colon Health Maintenance Due Date Last Done Comments CT Colonography 1950 FIT DNA 1950 FIT 1950 Sigmoidoscopy 1950 Hepatitis C Screening 1966 Tetanus/Diphtheria/Pertussis Vaccines (1 - Tdap) 1967 Zoster vaccine (1 of 2) 1998 Advance Directive 2003 AAA Screen 2013 Pneumoccocal Vaccine: 65+ (2 of 2 - PCV) 2013 04/19/2005 Covid-19 Vaccine (1 - 2023-2 5 season) 2024 Influenza (Flu) vaccine (1 o f 1 - Influenza standard series) 02/05/2024 05/06/2015, 05/06/2006, 04/19/2005 Colonoscopy 12/11/2033 12/12/2023, 07/0 01/2024, 12/12/2023, Additional history exists Colorectal Cancer Screening 12/11/2033 Sigmoidoscopy (10 year) with FIT yearly 12/11/2033 12/12/2023, 12/12/2023, 12/12/2023, Additional history exists Medical Devices Implanted Type Area Phys Ther Device Identifier Shelf Expiration Date Model / Serial / Lot Clip [id number] Gastrointestinal [employer] Rotatational ([id number]) - [id number] Implanted:Qty: 2 on 12/12/2023 by Sharan Candelario MD at [facility] IMPLANTS [employer] - [employer] [id number] 03/27/2026 [id number] / / [id number] Clip [id number] Gastrointestinal Resolution 360 ([id number]) - [id number] Implanted:Qty: 1 on 12/12/2023 by Sharan Candelario MD at [facility] IMPLANTS [employer] [id number] 08/07/2026 [id number] 2 / / [id number] Procedures Procedure Name Priority Date/Time Associated Diagnosis Comments COLONOSCOPY Routine 12/12/2023 8:48 AM EDT from Last 3 Months or Most Recently Relevant to Health Maintenance Results * COLONOSCOPY (12/12/2023 8:48 AM EDT) [facility] Signature COLONOSCOPY [facility] Endoscopy Procedure Date: 12/12/2023 8:48 AM ? Patient Name: Julio Cardoza ? Date of : 1950 ? Age: 73 ? Order #: [id number] ? Instrument Name: [id number] ? Procedure: ? Colonoscopy Indications: ? For therapy of large cecal ? tubulovillous adenoma (colo 10/2023, ? [facility]) Providers: ? Sharan Candelario MD, Godfrey Ramirez ? Patricia Almonte James A. ? Laura Manning MD: ?Denis Weston MD, Mikal Meneses Medicines: ? Monitored Anesthesia Care Complications: ? No immediate complications. Procedure: ? Pre-Anesthesia Assessment: ? - Prior to the procedure, a History ? and Physical was performed, and ? patient medications, allergies and ? sensitivities were reviewed. The ? patient's tolerance of previous ? anesthesia was reviewed. ? - The risks and benefits of the ? procedure and the sedation options ? and risks were discussed with the ? patient. All questions were ? answered and informed consent was ? obtained. ? - Patient identification and ? proposed procedure were verified ? prior to the procedure by the ? physician, the nurse, the ? steam box tender and the optical technician. The ? procedure was verified in the ? pre-procedure area in the endoscopy ? suite. ? - Pre-procedure physical ? examination revealed no ? contraindications to sedation. ? - ASA Grade Assessment: III - A ? patient with severe systemic ? disease. ? - After reviewing the risks and ? benefits, the patient was deemed in ? satisfactory condition to undergo ? the procedure. ? - Monitored anesthesia care under ? the supervision of a SLINGER SEQUINS was ? determined to be medically ? necessary for this procedure based ? on age 65 or older, severe ? comorbidity (greater than ASA Grade ? II) and prolonged procedure ? requiring deep sedation. ? The procedure, indications, ? benefits, risks and alternatives ? were explained to the patient. ? Specifically discussed were ? potential complications including, ? but not limited to, bleeding, ? perforation, infection, missing a ? cancer, and adverse medication ? reactions. The patient was placed ? in the left lateral decubitus ? position, and a digital rectal exam ? was performed. The Colonoscope was ? inserted in the anus and under ? direct visualization, advanced to ? the terminal ileum. Careful ? inspection was made as the ? colonoscope was withdrawn. The ? colonoscopy was performed without ? difficulty. The patient tolerated ? the procedure well. The quality of ? the bowel preparation was evaluated ? using the BBPS (Gem Bowel ? Preparation Scale) with scores of: ? Right Colon = 2 (minor amount of ? residual staining, small fragments ? of stool and/or opaque liquid, but ? mucosa seen well), Transverse Colon ? = 3 (entire mucosa seen well with ? no residual staining, small ? fragments of stool or opaque ? liquid) and Left Colon = 3 (entire ? mucosa seen well with no residual ? staining, small fragments of stool ? or opaque liquid). The total BBPS ? score equals 8. The quality of the ? bowel preparation was good. The ? terminal ileum, ileocecal valve, ? appendiceal orifice, and rectum ? were photographed. Scope withdrawal ? time was 53 minutes. ? Findings: ? The terminal ileum appeared normal. ? A 2 mm polyp was found in the cecum. The polyp was ? Elina classification IIa (superficial, elevated). The ? polyp was removed with a cold snare. Resection and ? retrieval were complete. ? A 30 mm polyp was found in the cecum. The polyp was ? Elina classification Is (protruding, sessile). There ? was a scarred down area along the fold from prior ? biopsy/resection attempt. Preparations were made for ? mucosal resection. Demarcation of the lesion was ? performed with high-definition white light to clearly ? identify the boundaries of the lesion. EverLift was ? injected to raise the lesion. The scarred down area ? did not lift well. Piecemeal cold snare mucosal ? resection was performed. The polyp pieces were sent ? for histology. Some of the scarred down areas did not ? engage well in the snare. We reattempted a lift in ? this area without much improvement. These areas of ? residual polyp tissue were then removed with a cold ? forceps and sent in a separate jar for histology. We ? then used argon plasma coagulation on right colon ? settings to ablate along the scarred down area on the ? fold and the margins of the polypectomy. To prevent ? bleeding after the polypectomy, three hemostatic ? clips were successfully placed (MR conditional). Clip ? talent acquisition relationship manager: [employer]. There was no ? bleeding at the end of the procedure. ? Two Elina classification IIa (superficial, elevated) ? polyps were found in the transverse colon. The polyps ? were 2 to 4 mm in size. These polyps were removed ? with a cold snare. Resection and retrieval were ? complete. ? Multiple diverticula were found in the sigmoid colon. ? Moderate Sedation: ? See anesthesia notes. Impression: ?- One 30 mm polyp in the cecum, ? resected via piecmeal cold snare ? EMR. Cold forceps used to remove ? pieces of tissue that would not ? lift well or engage with the snare ? due to prior interventions. Sent ? separately for histology. Margins ? and an area along the colon fold ? were ablated with APC. Polypectomy ? defect closed with 3 clips. ? - 3 diminutive polyps resected ? en-bloc via cold snare. ? - Diverticulosis. Recommendation: ?- Patient has a contact number ? available for emergencies. The ? signs and symptoms of potential ? delayed complications were ? discussed with the patient. Return ? to normal activities tomorrow. ? Written discharge instructions were ? provided to the patient. ? - Await pathology results. ? - Repeat colonoscopy in 6 months ? under anesthesia pending final ? pathology. ? Attending Participation: ? I was present and participated during the entire ? procedure, including non-majano portions. ? Sharan Candelario MD 12/12/2023 11:14:09 AM This report has been signed electronically. Number of Addenda: 0 Note Initiated On: 12/12/2023 8:48 AM PROVATION 12/12/2023 8:48 AM EDT Denis Weston MD GENERAL SURGICAL ORD ERABLES PROVATION from Last 3 Months or Most Recently Relevant to Health Maintenance Care Teams Roof Bolter Helper Relationship Specialty Start Date End Date Denis Weston MD [address] [place] [address] PCP - General Family Medicine 11/04/23
--- OUTSIDE RECORDS SUMMARY | 2024-04-18 09:23 | XMS_ITS | Encounter Summary ---
Author Organization [facility] Address [facility] [place] [address] Care Team Providers Care Boiler Mechanic Name Role Phone Denis Weston MD Primary Care Provider [phone] Encounter Details Date Type Department Care Team (Late st Contact Info) Description 12/12/2023 9:34 AM EDT Anesthesia [place] [address] Carlos Clifford MD [facility] [address] [place] [address] Anesthesia Record Procedure Summary Procedure Name Responsible Anesthesiologist Anesthesia Start Time Anesthesia Stop Time COLONOSCOPY, POLYPECTOMY, REMOVAL LESION BY SNARE (WRVU 4.57) (Trunk) Carlos Clifford MD 12/12/23 0934 12/12/23 1055 Events Date Time Event Comment 12/12/2023 0926 0934 AN Verify 0934 Start 0934 An Start Data 0938 An Induction 0938 Anesthesia Ready 0944 Procedure Start 1055 Procedure Stop 1055 an stop data 1055 Recovery or ICU Handoff Tish ent care was transferred to the destination unit staff after review of the patient's medical history, current anesthetic/surgical status and plan, according to the Provider Handoff Checklist. 1055 Stop Meds Name Total propofoL 20 mg propofol INF 1,143.45 mg PHENYLephrine 160 mcg lactated ringers 1,000 mL * Agents Name O2 O2 Auxiliary Flowmeter 1 * Blood No blood administrations on file. Lines, Drains, and Airways Type Details Placement Removal PIV 12/12/23; 0931; 22 g auge; metacarpal vein (top of hand), right; Belia RN; tolerated well; 12/12/23; 1136 12/12/23 0931 by Tali Dale RN 12/12/23 1136 by Ghazal Lopez RN documented in this encounter Social History Tobacco Use Types Packs/Day Years Used Date Smoking Tobacco: Former Cigarettes Smokeless Tobacco: Never Alcohol Use Standard Drinks/Week Comments Yes 4 (1 standard drink = 0.6 oz pur e alcohol) Sex and Gender Information Value Date Recorded Sex Assigned at Not on file Gender Identity Not on file Sexual Orientation Not on file documented as of this encounter OR Notes * Anesthesia Postprocedure Evaluation - Carlos Clifford MD - 12/12/2023 11:19 AM EDT Department of Anesthesiology Post-procedure Note Patient: Julio Cardoza Procedure Summary Date: 12/12/23 Room / Location: [facility] ENDO 2 / [facility] ENDOSCOPY Anesthesia Start: 933 Anesthesia Stop: 1054 Procedures: COLONOSCOPY, POLYPECTOMY, REMOVAL LESION BY SNARE (WRVU 4.57) (Trunk) COLONOSCOPY WITH DIRECTED SUBMUCOSAL INJ (WRVU 3.56) COLONOSCOPY; W ENDOSCOPIC MUCOSAL RESECTION (WRVU 6.04) COLONOSCOPY FLEXIBLE, WITH BX (WRVU 3.56) COLONOSCOPY; W CONTROL OF BLEEDING, ANY METHOD (WRVU 4.66) Diagnosis: ([place] with any advanced MD innext 1 - 2 months for large cecal TVA. Book for 90 minutes. Should hold any anticoag/antiPLT meds.) Surgeons: Sharan Candelario MD Responsible Provider: Carlos Clifford MD Anesthesia Type: MAC ASA Status: 2 All Anesthesia Providers: Anesthesiologist: Carlos Clifford MD REED MAN: Adalid Pittman CRNA Vitals Value Taken Time BP 128/60 12/12/23 1110 Temp Pulse Resp SpO2 100 % 12/12/23 1118 Pain Level 0 12/12/23 1115 Vitals shown include unfiled device data. Patient Location: PACU/[facility] Level of Consciousness: Awake and Alert Pain Management: Satisfactory Analgesia PONV: None Cardiovascular Status: At Baseline and Hemodynamically Stable Respiratory Status: At Baseline and Room Air Postoperative Fluid Status: Intravascular EUvolemia Possible Anesthetic Complications: NONE apparent at time of evaluation Final Primary Anesthesia Type: MAC (The anesthetic type performed was the same as planned.) Comments: CARLOS CLIFFORD MD * Anesthesia Preprocedure Evaluation - Carlos Clifford MD - 12/12/2023 8:43 AM EDT Pre-Anesthesia Evaluation for: Julio Cardoza a 73 y.o. male. Procedure(s): COLONOSCOPY, DIAGNOSTIC (WRVU 3.26) There are no problems to display for this patient. No past medical history on file. No past surgical history on file. Social History Tobacco Use ??? Smoking status: Not on file ??? Smokeless tobacco: Not on file Substance Use Topics ??? Alcohol use: Not on file Social History Substance and Sexual Activity Drug Use Not on file No Known Allergies Medications: MAR and/or home medications have been reviewed. Physical Exam: Preprocedure Vitals Current as of 12/12/23 0843 No BP, pulse, respiration, SpO2, or temperature recorded. Height: Weight: BMI: IBW: Airway Assessment: Mallampati: I TM distance: >3 FB Neck ROM: full Cardiovascular Assessment: Rhythm: regular Pulmonary Assessment: unlabored breathing Dental Assessment: - normal exam Misc Assessment: IV access: Peripheral line Last Filed Perioperative Cognitive Screening None Anesthesia Plan: ASA 2 MAC, with a(n) intravenous induction 73 yo male with large polyp for colo and resection. HLD, HTN. NPO. OK to proceed. Propofol, std monitors. Region - Other Informed Consent: Anesthetic plan and risks discussed with patient. Plan discussed with REED MAN. Anesthesia Screening documented in this encounter Plan of Treatment Scheduled Procedures Name Priority Associated Diagnoses Date/Ti me COLONOSCOPY, DIAGNOSTIC (WRV U 3.26) Tubulovillous adenoma of colon documented as of this encounter Visit Diagnoses Not on filedocumented in this encounter Administered Medications Inactive Administered Medications - up to 3 most recent administrations Medication Order MAR Action Action Date Dose Rate Site lactated ringers infusion Intravenous, CONTINUOUS PRN, Starting on Tue12/12/23 at 0934, Until Tue12/12/23 at 1055, Anesthesia Intra-op New Bag 12/12/2023 10:55 AM EDT New Bag 12/12/2023 9:34 AM EDT PHENYLephrine in NS (PF) (ANGEL-SYNEPHRINE) 0.8 mg/10 mL (80 mcg/mL) multi-dose injection Syringe Intravenous, PRN, Starting on Tue12/12/23 at 1005, Until Tue12/12/23 at 1055, Anesthesia Intra-op, Routine Given 12/12/2023 10:17 AM EDT 80 mcg Given 12/12/2023 10:05 AM EDT 80 mcg propofoL (Diprivan) (10 mg/mL) infusion Intravenous, CONTINUOUS PRN, Starting on Tue12/12/23 at 0938, Until Tue12/12/23 at 1055, Anesthesia Intra-op, Routine Rate/Dose Change 12/12/2023 10:12 AM EDT 100 mcg/kg/min 65.34 mL/hr Rate/Dose Change 12/12/2023 10:06 AM EDT 150 mcg/kg/min 98 .01 mL/hr New Bag 12/12/2023 9:38 AM EDT 200 mcg/kg/min 130.68 mL /hr propofoL (Diprivan) 10 mg/mL bolus injection (Anesthesia) Intravenous, PRN, Starting on Tue12/12/23 at 0938, Until Tue12/12/23 at 1055, Anesthesia Intra-op Given 12/12/2023 9:38 AM EDT 20 mg documented in this encounter Care Teams Boiler Mechanic Relationship Specialty Start Date End Date Denis Weston MD [address] [place] [address] PCP - General Family Medicine 11/04/23 documented as of this encounter
--- OUTSIDE RECORDS SUMMARY | 2024-04-18 09:23 | XMS_ITS | Encounter Summary ---
Author Organization [facility] Address [address] [place] [address] Care Team Providers Care Straight Tooth Gear Generator Operator Name Role Phone Nic Padilla MD Primary Care Provider [phone] Reason for Referral * PT/OT/ST (Routine) - Closed Specialty Diagnoses / Procedures Referred By Jeremy hodges Referred To Contact Diagnoses Primary osteoarthritis of both knees Status post total bilateral knee replacement Keenan Horan MD Referral ID Status Reason Start Date Expiration Date V isits Requested Visits Authorized [id number] Closed Specialty Services Required 06/23/2015 1 1 Question Answer Reason for Request: Bilateral total knee replacements due to osteoarthritis Surgery (and Date): 06/10/2015- TKA Return Visit to Provider: September 2015 Comments Evaluate and treat using post-op protocol Reason for Visit * Reason Onset Date Comments Physical Therapy 06/19/2015 Encounter Details Date Type Department Care Team (Late st Contact Info) Description 06/19/2015 Orders Only [facility] [place] [address] [place] [address] Keenan Horan MD Primary osteoarthritis of both knees (Primary Dx); Status post total bilateral knee replacement Social History Tobacco Use Types Packs/Day Years [...] in this encounter Plan of Treatment Scheduled Referrals Name Type Priority Associated Diagnoses Orde r Schedule AMB CONS/FOLLOW UP PHYSICAL THERAPY Outpatient Referral Routine Primary osteoarthritis of both knees Status post total bilateral knee replacement Ordered: 06/23/2015 documented as of this encounter Visit Diagnoses Diagnosis Primary osteoarthritis of both knees- Primary Primary localized osteoarthrosis, lower leg Status post total bilateral knee replacement documented in this encounter Care Teams Straight Tooth Gear Generator Operator Relationship Specialty Start Date End Date Nic Padilla MD [address] [place] [id number] PCP - General 05/18/12 documented as of this encounter
--- OUTSIDE RECORDS SUMMARY | 2024-04-18 09:23 | XMS_ITS | Encounter Summary ---
Author Organization [facility] Address [address] [place] [address] Care Team Providers Care Manufacturing Project Manager Name Role Phone Nic Padilla MD Primary Care Provider [phone] Reason for Referral * PT/OT/ST (Routine) - Closed Specialty Diagnoses / Procedures Referred By Jeremy hodges Referred To Contact Diagnoses Status post total bilateral knee replacement Tammy Loza Referral ID Status Reason Start Date Expiration Date V isits Requested Visits Authorized [id number] Closed Specialty Services Required 07/16/2015 1 1 Question Answer Reason for Request: bilateral total knee replacement Surgery (and Date): 1.5.16 Comments eval and treat Phase 2 and phase 3 therapeutic knee replacement protocol Reason for Visit * Reason Comments Post-OP Follow Up bilateral TKA 1.5.16 Encounter Details Date Type Department Care Team (Late st Contact Info) Description 07/16/2015 15:20 EST Post-op Visit [facility] Total Joint [place] [address] [place] [address] Tammy Loza Status post total bilateral knee replacement (Primary Dx) Social History Tobacco Use Types Packs/Day Years [...] Date of Assessment Author No 06/14/2015 12:32 EST Trish Bernal RN * Are you blind or do [...] Trish Louis RN documented in this encounter Patient Instructions * Patient Instructions* Tammy Loza PA - 07/16/2015 15:30 EST YOUR INSTRUCTIONS FOLLOWING KNEE REPLACEMENT: ?? Continue with your simple home exercise regimen at least three times a day. Remember ... you areat risk for falling and use the skills you have been taught for fall prevention. ?? Once you are no longer receiving home physical therapy, make an appointment to begin out-patientphysical therapy at the facility of your choice. If you were given a referral form today, be sure to bring the form to your physical therapy appointment. ?? I suggest you take oral pain medication one hour prior to your physical therapy sessions at homeand here at your physical therapist's office. ?? Your therapy goal over the three months is to recover a fully straight knee and a knee that bends back to at least 120 degrees. ?? 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 ?? If applicable, you may return to work as soon as you feel you are able. ?? Postpone any elective dental procedures until 6 months following your knee surgery. Remember to take oral antibiotics one hour prior to dental procedures. ?? Return for follow-up visit as instructed for a re-check and new knee x-rays. documented in this encounter Progress Notes * Tammy Loza PA - 07/16/2015 1547 EST TKR follow-up visit (4 weeks) Chief Complaint Patient presents with ??? Post-OP Follow Up bilateral TKA 1.5.16 SUBJECTIVE: Patient here for 4 weeks post op visit following bilateral primary total knee arthroplasty. Pain iscontrolled with current analgesics. He only takes Tylenol as needed. An expected level of post op soft-tissue swelling is noted. The patient denies any increasing redness or drainage since dischargedfrom hospital. He is ambulating well with the aid of a cane. Physical therapy via home health services completed and ready for out-patient PT Complications Since Last Visit? None FA tracking sheet completed. Medication reconciliation completed. Fall risk screening completed. OBJECTIVE: There were no vitals taken for this visit. Afebrile, alert and oriented X 3, pain score reviewed Wound sealed and healthy appearing. Modest swelling and tenderness without erythema. Range of motion: 0 degree active=passive knee extension 90 degree active=passive knee flexion Strength: knee extension 5-4/5 Knee flexion 5-4/5 Light touch sensation touch intact distally IMAGING STUDY REVIEW: Immediate post-op films from hospital personally reviewed with patient and questions answered. No new images indicated today. ASSESSMENT: Uncomplicated post-operative course one month following bilateral primary total knee replacement. Patient Active Problem List Diagnosis ??? Morbid obesity ??? Family history of DVT ??? Bilateral knee pain ??? Bilateral primary osteoarthritis of knee ??? Status post total bilateral knee replacement ??? Gait difficulty ??? Atrial fibrillation with RVR ??? Impaired mobility and ADLs ??? Hypertension PLAN: Mobilize with Phase II post-operative rehabilitation protocol. Fall prevention education provided. Oral analgesics as needed, tapering course. Antibiotic prophylaxis for dental/other procedures discussed. Rationale for clinical and radiographic surveillance follow-up discussed. Questions answered to verbalized satisfaction. Disposition: Follow-up in 3 months for re-check and x-ray evaluation. documented in this encounter Plan of Treatment Scheduled Referrals Name Type Priority Associated Diagnoses Orde r Schedule AMB CONS/FOLLOW UP PHYSICAL THERAPY Outpatient Referral Routine Status post total bilateral knee replacement Ordered: 07/16/2015 documented as of this encounter Visit Diagnoses Diagnosis Status post total bilateral knee replacement- Primary documented in this encounter Care Teams Manufacturing Project Manager Relationship Specialty Start Date End Date Nic Padilla MD [address] [place] [address] PCP - General 05/18/12 documented as of this encounter
--- OUTSIDE RECORDS SUMMARY | 2024-04-18 09:23 | XMS_ITS | Clinical Summary ---
Author Organization [facility] Address [address] [place] [address] Care Team Providers Care Director Of Student Life Name Role Phone Nic Padilla MD Primary Care Provider [phone] Allergies No known active allergies Medications lisinopril (PRINIVIL, ZESTRIL) 20 mg tablet Take 10 mg by mouth daily. Active Multivitamins with Minerals tablet Take 1 Tab by mouth daily Active acetaminophen (TYLENOL) 325 mg tablet Take 2 Tabs by mouth every 4 hours as needed for Pain 06/18/2015 Active cholecalciferol , Vitamin D3, 1,000 unit tablet Take 1 Tab by mouth at bedtime 06/18/2015 Active docusate sodium (COLACE) 100 mg capsule Take 2 Caps by mouth 2 times daily 06/18/2015 Active oxyCODONE (ROXICODONE) 5 mg immediate release tablet Take 1-2 Tabs by mouth every 4 hours as needed for Pain Daily Max: 60 mg 50 Tab 0 06/18/2015 Active PEG 3350-Electrolyt es (MIRALAX) 17 gram packet Take 17 g by mouth daily 06/18/2015 Active rivaroxaban (XARELTO) 10 mg tablet tablet Take 1 Tab by mouth daily with dinner 18 Tab 0 06/21/2015 Active senna (SENOKOT) 8.6 mg tablet Take 2 Tabs by mouth 2 times daily 06/18/2015 Active traMADol (ULTRAM) 50 mg tablet Take 1-2 Tabs by mouth every 6 hours as needed for Pain Daily Max: 400 mg 60 Tab 0 06/30/2015 Active Active Problems Problem Noted Date Diagnosed Date Status post total bilateral knee replacement 02/2016 Gait difficulty 06/14/2015 Atrial fibrillation with RVR ([facility]) 6 Overview (06/14/2015): 06/13/15: Asymptomatic 3 days postoperatively. Reverted without medication or cardioversion Impaired mobility and ADLs 06/14/2015 Bilateral knee pain 06/10/2015 Bilateral primary osteoarthritis of knee 016 Family history of DVT 04/08/2015 Overview (04/08/2015): Brother age 53, DVT following shoulder surgery Father, age late 70s in setting of cardiac disease Mother, late 70s, early 80s Morbid obesity ([facility]) 08/10/2012 Hypertension Immunizations Name Administration Dates Next Due Influenza Vaccine =>1yo Split IM 05/06/2015 Surgical History Surgery Date Site/Laterality Comments CERVICAL DISC ARTHROPLASTY TONSILLECTOMY KNEE ARTHROSCOPY left TOTAL KNEE ARTHROPLASTY 06/10/15 Bilateral [facility] -Journey II, OBEY- Aung Medical History Medical History Date Comments Hypertension Colon polyp Family History Medical History Relation Comments Colon Polyps Brother Colon Polyps Mother Colon Polyps Sister 1 Breast Cancer Neg Hx Colon Cancer Neg Hx Endometrial Cancer Neg Hx Esophageal Cancer Neg Hx Ovarian Cancer Neg Hx Pancreatic Cancer Neg Hx Rectal Cancer Neg Hx Stomach Cancer Neg Hx Relation Status Comments Brother Alive Father Mother Alive Sister 1 Alive Sister 2 Alive Social History Tobacco Use Types Packs/Day Years Used Date Smoking Tobacco: Former Cigarettes Q uit: 06/06/1991 Tobacco Cessation:Counseling Given: No Alcohol Use Standard Drinks/Week Comments Yes 5 (1 standard drink = 0.6 oz pur e alcohol) Interpersonal Safety Answer Date Record ed Physically Hurt Never 01/06/2020 Verbally Threaten Not on file 01/06/2020 Sex and Gender Information Value Date Recorded Sex Assigned at Not on file Legal Sex Male 18:07 EST Gender Identity Not on file Sexual Orientation Not on file Obstetrics History Last Filed Vital Signs Vital Sign Reading Time Taken Comments Blood Pressure 140/72 06/21/2015 0642 EST Pulse 69 06/21/2015 0642 EST Temperature 36.5 ??C (97.7 ??F) 06/21/2015 0642 EST Respiratory Rate 16 06/21/2015 0642 EST Oxygen Saturation 97% 06/18/2015 0630 EST Inhaled Oxygen Concentration - - Weight 126.6 kg (279 lb) 06/14/2015 1212 EST Height 177.8 cm (5' 10) 06/14/2015 1212 EST Body Mass Index 40.03 06/14/2015 1212 EST Plan of Treatment Health Maintenance Due Date Last Done Comments Hepatitis C Screen 1950 Fall Risk Screening 2013 Colonoscopy (Colon Cancer Screening) 07/26/2017/ RSV Immunization ( o r 60+ Years) (1 - 1-dose 75+ series) 2023 COVID-19 Vaccine (2023- season) 2024 Procedures Procedure Name Priority Date/Time Associated Diagnosis Comments COLONOSCOPY PROCEDURE Routine 07/26/2012 GERD (gastroesophageal reflux disease) Colon polyps from Last 3 Months or Most Recently Relevant to Health Maintenance Results * COLONOSCOPY (07/26/2012) Colonoscopy [facility] Comment:F/U COLONOSCOPY/5 YE ARS Colonoscopy, External [facility] Anatomical Region Laterality Modality Endoscopy 07/26/2012 Jerson Bridges MD GI PROCEDURE ORDERAB LES Final Result from Last 3 Months or Most Recently Relevant to Health Maintenance Insurance MEDICARE Advance Directives For more information, please contact: [phone] Documents on File Type Date Recorded Patient Controls Design Engineer Expl anation Advance Directive 06/10/2015 6:09 Durable P ower of Rehab Director- * Full Code (Latest Code Status on File) Date Activated Date Inactivated Comments 06/14/2015 10:36 06/21/2015 12:57 Question Answer Comments Reason for decision includes: Full code consistent with overall plan of care Who participated in the discussion? Not Discusse d * Full Code Date Activated Date Inactivated Comments 06/10/2015 15:42 06/14/2015 10:36 Question Answer Comments Reason for decision includes: Full code consistent with overall plan of care Who participated in the discussion? Not Discusse d * Full Code Date Activated Date Inactivated Comments 06/10/2015 6:24 06/10/2015 15:42 Question Answer Comments Reason for decision includes: Full code consistent with overall plan of care Who participated in the discussion? Not Discusse d Care Teams Director Of Student Life Relationship Specialty Start Date End Date Nic Padilla MD [address] [place] [address] PCP - General 05/18/12
--- OUTSIDE RECORDS SUMMARY | 2024-04-18 09:23 | XMS_ITS | Encounter Summary ---
Author Organization [facility] Address [address] [place] [address] Care Team Providers Care Etl Database Developer Name Role Phone Nic Padilla MD Primary Care Provider [phone] Reason for Visit * Reason Onset Date Comments Medications Refill 06/30/2015 Encounter Details Date Type Department Care Team (Late st Contact Info) Description 06/30/2015 Refill [facility] Total Joint Program - [address] [place] [address] Jennifer Mack LPN [address] [place] [address] Medications Refill Social History Tobacco Use Types Packs/Day Years [...] Trish Louis RN documented in this encounter Ordered Prescriptions Prescription Sig Dispense Quantity Refills Last Filled Start Date End Date traMADol (ULTRAM) 50 mg tablet Take 1-2 Tabs by mouth every 6 hours as needed for Pain Daily Max: 400 mg 60 Tab 0 06/30/2015 documented in this encounter Plan of Treatment Not on file documented as of this encounter Visit Diagnoses Not on filedocumented in this encounter Discontinued Medications Medication Sig Discontinue Reason Start Date End Da te traMADol (ULTRAM) 50 mg tablet Take 1-2 Tabs by mouth every 4 hours as needed for Pain Daily Max: 600 mg Reorder 06/18/2015 06/30/2015 documented as of this encounter Care Teams Etl Database Developer Relationship Specialty Start Date End Date Nic Padilla MD [address] [place] [address] PCP - General 05/18/12 documented as of this encounter
--- OUTSIDE RECORDS SUMMARY | 2024-04-18 09:23 | XMS_ITS | Encounter Summary ---
Author Organization [facility] Address [address] [place] [address] Care Team Providers Care Diesel Machinist Name Role Phone Nic Padilla MD Primary Care Provider [phone] Encounter Details Date Type Department Care Team (Late st Contact Info) Description 03/10/[address] [facility] [phone] Bela Nguyen, DO [address] [place] [address] Social History Tobacco Use Types Packs/Day Years [...] Priority Date/Time Associated Diagnosis Comments SURGICAL PATHOLOGY Routine 03/10/2018 16 :18 EDT documented in this encounter Results * SURGICAL PATHOLOGY (03/10/2018 16:18 EDT) Pathology Report: SURGICAL PATHOLOGY REPORT Reports generated via electronic interface contain original data; however they are lacking the format of the original report. Caution should be taken when reading/interpret ing unformatted reports. Name: ? JULIO CARDOZA ? Accession #: ? [id number] ? : ? 1950 (Age: 67) ??M ? Collect Date: ? 03/10/2018 ? Location: ? [facility] ? Receive Date: ? 03/10/2018 ? Provider: BELA NGUYEN DO Copy to: NIC PADILLA MD ? Final Pathologic Diagnosis: A. COLON, CECUM, POLYP, BIOPSY: - ??Fragments of tubulovillous adenoma(s). B. COLON, DESCENDING, POLYP, BIOPSY: - ??Fragments of tubular adenoma. Document reviewed and electronically signed by: VIRGINIE ORDONEZ MD Report ??Date: 03/13/2018 15:43 By the signature above, the attending physician certifies that he/she has personally conducted a gross and/or microscopic examination of the described specimens and rendered or confirmed the above diagnosis. Specimen(s) Received: A. ??Cecal polyps x2 B. ??Descending colon polyp Clinical History: Screening; clinical diagnosis code: ??Z12.11 Gross Description: A. ?Received in formalin labelled with proper patient identification (initials L, E) and cecal polyp are three fragments of collins-pink tissue measuring 0.3 x 0.3 x 0.3 cm. The specimens are submitted entirely in A1. B. ?Received in formalin labelled with proper patient identification (initials L, E) and descending colon polyp are three fragments of collins-pink tissue measuring 0.2 x 0.2 x 0.2 cm. The specimens are submitted entirely in B1. SINA Tuttle (ASC) 03/10/2018 4:28 PM End of Report [facility] 03/10/2018 16:1 8 EDT 03/10/2018 16:18 EDT us Bela Nguyen DO PATHOLOGY ORDERABLES Final Res ult Performing Organization Address City/State/[facility] Co de Phone Number [facility] [address] [place] [address] documented in this encounter Visit Diagnoses Not on filedocumented in this encounter Care Teams Diesel Machinist Relationship Specialty Start Date End Date Nic Padilla MD [address] [place] [address] PCP - General 05/18/12 documented as of this encounter
--- OUTSIDE RECORDS SUMMARY | 2024-04-18 09:23 | XMS_ITS | Encounter Summary ---
Author Organization [facility] Address [facility] [place] [address] Care Team Providers Care Benefits Coordinator Name Role Phone Denis Weston MD Primary Care Provider [phone] Encounter Details Date Type Department Care Team (Late st Contact Info) Description 12/16/2023 Orders [place] [address] Sharan Candelario MD [facility] [place] [address] Tubulovillous adenoma of colon (Primary Dx) Social History Tobacco Use Types Packs/Day Years Used Date Smoking Tobacco: Former Cigarettes Smokeless Tobacco: Never Alcohol Use Standard Drinks/Week Comments Yes 4 (1 standard drink = 0.6 oz pur e alcohol) Sex and Gender Information Value Date Recorded Sex Assigned at Not on file Gender Identity Not on file Sexual Orientation Not on file documented as of this encounter Plan of Treatment Scheduled Orders Name Type Priority Associated Diagnoses Orde r Schedule ENDOSCOPY CASE REQUEST: COLONOSCOPY, DIAGNOSTIC (WRVU 3.26) Procedures Routine Tubulovillous adenoma of colon Ordered: 12/16/2023 Scheduled Procedures Name Priority Associated Diagnoses Date/Ti me COLONOSCOPY, DIAGNOSTIC (WRV U 3.26) Tubulovillous adenoma of colon documented as of this encounter Visit Diagnoses Diagnosis Tubulovillous adenoma of colon- Primary Benign neoplasm of colon documented in this encounter Care Teams Benefits Coordinator Relationship Specialty Start Date End Date Denis Weston MD [address] [place], [place] [id number] PCP - General Family Medicine 11/04/23 documented as of this encounter
--- OUTSIDE RECORDS SUMMARY | 2024-04-18 09:23 | XMS_ITS | Encounter Summary ---
Author Organization [facility] Address [facility] [place] [place] [address] Care Team Providers Care Cloth Spreader Screen Printing Name Role Phone Denis Weston MD Primary Care Provider [phone] Encounter Details Date Type Department Care Team (Late st Contact Info) Description 12/12/2023 Orders [place] [address] [facility] DR [place]STRO[place] [address] Tubulovillous adenoma of colon Social History Tobacco Use Types [...] of this encounter Plan of Treatment Scheduled Procedures Name Priority Associated Diagnoses Date/Ti me COLONOSCOPY, DIAGNOSTIC (WRV U 3.26) Tubulovillous adenoma of colon documented as of this encounter Visit Diagnoses Diagnosis Tubulovillous adenoma of colon Benign neoplasm of colon documented in this encounter Care Teams Cloth Spreader Screen Printing Relationship Specialty Start Date End Date Denis Weston MD [address] [place], [place] [address] PCP - General Family Medicine 11/04/23 documented as of this encounter
--- OUTSIDE RECORDS SUMMARY | 2024-04-18 09:23 | XMS_ITS | Encounter Summary ---
Author Organization [facility] Address [address] [place] [address] Care Team Providers Care Wound Care Technician Name Role Phone Nic Padilla MD Primary Care Provider [phone] Reason for Referral * Referral (Routine) - Closed Specialty Diagnoses / Procedures Referred By Jeremy hodges Referred To Contact Diagnoses Bilateral knee pain Impaired mobility and ADLs Hector Raya MD Phone: tel: fax: Referral ID Status Reason Start Date Expiration Date V isits Requested Visits Authorized [id number] Closed Specialty Services Required 06/18/2015 1 1 Question Answer I certify that this patient is under my care and that I, or another Medicare allowed practitioner (, , JURGEN) working with me, had a pygo-su-duat encounter with this patient on this date: 06/18/2015 I further certify that the [id number] encounter was in whole or in part related to the reason the patient needs home health care. Yes The patient? s homebound status is related to the following diagnoses, illness or condition (describe): Bilateral total knee replacements The patient has a condition due to an illness or injury that restricts the ability to leave home except with: Walker Leaving the home is medically contraindicated due to (reason 1): Post surgical restrictions or conditions Leaving home requires a considerable and taxing effort with mobility limited by the following (criteria 1): Post surgical or post procedure restrictions limit ambulation and activity long-term assessment needed related to this encounter: Skin Integrity, Pain Control Physical therapy is needed for: Evaluation, Safety, Gait/Mobility Assessment and Training, Equipment Recommendations, Post Surgical, Weight Bearing, Strength Training/Exercise Program Expected Discharge Date (Inpatient Only): 06/21/2015 Encounter Details Date Type Department Care Team (Latest Contact Info) Description 06/14/2015 10:08 EST - 06/21/2015 10:50 EST Hospital Encounter [facility] Rehabilitation Therapy Unit Level [address] [place] [address] [phone] Hector Raya MD [address] [place] [phone] Betty Galan MD [address] [place] [phone] Bilateral knee pain (Primary Dx); Atrial fibrillation with RVR ([facility]); Impaired mobility and ADLs; Status post total bilateral knee replacement; Family history of DVT; Essential hypertension; Morbid obesity, unspecified obesity type ([facility]-HCC) ([facility]-CMS); Morbid obesity due to excess calories (CMS-HCC) ([facility]-CMS); Bilateral primary osteoarthritis of knee; Gait difficulty Discharge Disposition: Home-Health Care Svc Social History Tobacco Use Types Packs/Day Years [...] on file documented as of this encounter Last Filed Vital Signs Vital Sign Reading [...] Body Mass Index 40.03 06/14/2015 1212 EST documented in this encounter Functional Status * Are you [...] Trish Louis RN documented in this encounter Discharge Summaries * Trish Dozier MD - 06/18/2015 1704 EST Discharge Summary Date of Service: 06/18/2015 Chief Complaint/Reason for Admission: Bilateral total knee arthroplasties with gait impairment Admission date: 06/14/2015 Discharge date: 06/21/2015 Condition at Discharge: Excellent Assessment at Discharge: Temp: [36.3 ??C (97.3 ??F)] , Pulse: --, Resp: [18] , BP: (124)/(59) , SpO2: [97 %] Past Medical History Diagnosis Date ??? Hypertension ??? Colon polyp History of Illness Prior to Rehabilitation Admission: Per HPI 06/14/2015: Julio is a 64-year-old gentleman who underwent elective bilateral total knee replacement on 06/10/15by Dr. Keenan Horan.?? He was admitted for postoperative management. He was noted on 06/13 to have rapid heart rate of 133 with atrial fibrillation on monitoring.?? He was asymptomatic.?? He was monitored in the cardiac telemetry unit and converted back to normal sinus rhythm without medication intervention.?? He was followed by the internal medicine service. He had no prior history of known atrial fibrillation.?? Echocardiogram was checked.?? EF 55-60 percent.?? Left atrium-mildly to moderately dilated.?? Reported as consistent with grade 1 diastolic dysfunction per note from Dr. Maryjo Jimenez M.D.?? Oral anticoagulation not recommended at this time but has per the medicine service would need to be considered if atrial fib recurs. Patient was able to advance to a regular diet, tolerated oral pain medications.?? Tolerated skilledtherapies and mobility out of bed and was not yet independent enough to be discharged to the home setting. Patient transferred to acute rehab 06/14/2015 Problems Addressed During Rehabilitation Admission: 1.?? Bilateral total knee arthroplasties: Secondary gait impairment.?? Patient underwent comprehensive rehabilitation program including OT, PT, 24 hour rehab nursing. Patient progressed functionally and on discharge is independent with ambulation using a roller walker. Knee incisions have remained well approximated. He has had good pain control but did require transient use of OxyContin to supplement pain management during his rehabilitation stay. We have utilized a CPM primarily in the evenings to maintain range of motion. He is maintained on Fragmin and transitioned to Xarelto for DVT prophylaxis. 2.?? Paroxysmal atrial fibrillation: Clinically stable during his stay and no cardiac concerns werenoted. 3.?? Morbid obesity: Clinical course was certainly impacted by his obesity. He has requires specialized equipment given his weight but otherwise has progressed well. 4.?? Hypertension: Under good control on lisinopril 5.?? Obstructive sleep apnea: Maintained on his home CPAP.?? Disposition: The patient is being discharged to home 06/18/2015. Assistance to be provided by family. Caregiver training completed Continued home services to include RN, PT have been requested. Weight bearing restrictions: Weightbearing as tolerated Future Appointments Date Time Provider Department Center 06/30/2015 15:15 Keenan Horan MD [facility] None Last Lab Results at Discharge: BUN: Lab Results Component Value Date BUN 16 06/14/2015 Creatinine: Lab Results Component Value Date CREATININE 0.71 06/14/2015 CBC: Lab Results Component Value Date WBC 8.70 06/16/2015 RBC 3.17* 06/16/2015 HGB 9.9* 06/16/2015 HCT 29.9* 06/16/2015 MCV 94 06/16/2015 MCH 31.2 06/16/2015 MCHC 33.1 06/16/2015 PLT 219 06/16/2015 DIFFTYPE Automated 06/02/2015 Electrolytes: Lab Results Component Value Date NA 137 06/14/2015 K 4.1 06/14/2015 CL 100 06/14/2015 CO2 28 06/14/2015 Medications at Discharge: Julio Cardoza Home Medication Instructions [id number] Printed on:06/18/15 6189 Medication Information acetaminophen (TYLENOL) 325 mg tablet Take 2 Tabs by mouth every 4 hours as needed for Pain cholecalciferol, Vitamin D3, 1,000 unit tablet Take 1 Tab by mouth at bedtime docusate sodium (COLACE) 100 mg capsule Take 2 Caps by mouth 2 times daily lisinopril (PRINIVIL, ZESTRIL) 20 mg tablet Take 10 mg by mouth daily. Multivitamins with Minerals tablet Take 1 Tab by mouth daily oxyCODONE (ROXICODONE) 5 mg immediate release tablet Take 1-2 Tabs by mouth every 4 hours as needed for Pain Daily Max: 60 mg PEG 3350-Electrolytes (MIRALAX) 17 gram packet Take 17 g by mouth daily rivaroxaban (XARELTO) 10 mg tablet tablet Take 1 Tab by mouth daily with dinner senna (SENOKOT) 8.6 mg tablet Take 2 Tabs by mouth 2 times daily traMADol (ULTRAM) 50 mg tablet Take 1-2 Tabs by mouth every 4 hours as needed for Pain Daily Max: 600 mg cc: Primary Care Provider: Nic Padilla [address] [facility] [address] Referring Provider: Keenan Horan MD [facility] [place] [address] Discharge Summary Completed: yes 50 minutes total time spent on discharge today including discussion and instruction to patient and caregiver, preparation of records, prescriptions and referrals. documented in this encounter Discharge Instructions * Medications* Kyle Canela, ALEXEI - 06/21/2015 8:17 EST Take all medication exactly as prescribed. The prescriptions written by your rehab doctor are only good for 30 days. Please follow up with Primary Care Provider: in the next 2 weeks. Nic Padilla [address] [place] [phone] Your pietro will be removed 14 days post op by home health. documented in this encounter Medications at Time [...] needed for Pain Daily Max: 600 mg 40 Tab 0 06/18/2015 06/30/2015 documented as of this encounter Ordered Prescriptions Prescription Sig Dispense Quantity Refills Last Filled Start Date End Date senna (SENOKOT) 8.6 mg tablet Take 2 Tabs by mouth 2 times daily 06/18/2015 rivaroxaban (XARELTO) 10 mg tablet tablet Take 1 Tab by mouth daily with dinner 18 Tab 0 06/21/2015 PEG 3350-Electrolytes (MIRALAX) 17 gram packet Take 17 g by mouth daily 06/18/2015 oxyCODONE (ROXICODONE) 5 mg immediate release tablet Take 1-2 Tabs by mouth every 4 hours as needed for Pain Daily Max: 60 mg 50 Tab 0 06/18/2015 docusate sodium (COLACE) 100 mg capsule Take 2 Caps by mouth 2 times daily 06/18/2015 cholecalciferol, Vitamin D3, 1,000 unit tablet Take 1 Tab by mouth at bedtime 06/18/2015 acetaminophen (TYLENOL) 325 mg tablet Take 2 Tabs by mouth every 4 hours as needed for Pain 06/18/2015 traMADol (ULTRAM) 50 mg tablet Take 1-2 Tabs by mouth every 4 hours as needed for Pain Daily Max: 600 mg 40 Tab 0 06/18/2015 6 documented in this encounter Discharge Disposition Disposition Code Departure Means Destination Home-Health Care Svc documented in this encounter Progress Notes * Kyle Canela RN - 06/21/2015 1016 EST AVS reviewed with pt and family. Hard copy scripts sent with pt. No questions at this time. Pt and all belongings escorted to vehicle by this telegraphic typewriter repairer. Home health called with final report. * Kyle Canela RN - 06/20/2015 1129 EST Data: Pt will d/c home tomorrow with services. Pt aware of plan and looking forward to going home. Action: [facility] called with initial report. Nsg and PT services requested. Response: Will call final report upon d/c tomorrow. Physician evaluating window for staple removal (14 days post op). KYLE CANELA RN 06/20/2015 11:29 * Natasha Ibanez - 06/20/2015 0846 EST [facility] Rehabilitation Therapy [facility] Physical Therapy Discontinue/Discharge Note Date of Service: 06/20/2015 PRECAUTIONS: Total knee precautions, WBTT, Activity as tolerated, ambulate with assistive device; no twisting, pivoting or kneeling SUBJECTIVE: I'll be fine at home. OBJECTIVE: see note from YADIRA Ana M Leonesim Same date for todays Intervention: Team Communication: discussed case with HOME STAGER Patient has been seen in physical therapy since 06/14/15 for Therapeutic exercise, Therapeutic activities, Gait Training and Neuromuscular re-education. In this reporting period 06/14/15 to 06/20/15 the patient has been seen by a physical therapist and physical therapist multimedia production assistant at a frequency of 1-2 times/day, 5 days/week, for 90-120 minutes/day. Relevant Objective Findings: History of present illness: Taken from Dr Galan's History and Physical dated 06/14/2015: HPI As obtained from full chart review: Julio is a 64-year-old gentleman who underwent elective bilateral total knee replacement on 06/10/15by Dr. Keenan Horan.?? He was admitted for postoperative management. He was noted on 06/13 to have rapid heart rate of 133 with atrial fibrillation on monitoring.?? He was asymptomatic.?? He was monitored in the cardiac telemetry unit and converted back to normal sinus rhythm without medication intervention.?? He was followed by the internal medicine service. He had no prior history of known atrial fibrillation.?? Echocardiogram was checked.?? EF 55-60 percent.?? Left atrium-mildly to moderately dilated.?? Reported as consistent with grade 1 diastolic dysfunction per note from Dr. Maryjo Jimenez M.D.?? Oral anticoagulation not recommended at this time but has per the medicine service would need to be considered if atrial fib recurs. End of insert AROUSAL, ATTENTION, AND COGNITION: Pt alert and oriented x 3 with insight into deficits. Decreased ability to self direct care and make needs known. CARDIOPULMONARY: VSS with intervention. Pt frequently holds breath when performing difficult task with reports of minimal dizziness upon completion. INTEGUMENTARY/ANTHROPOMETRIC CHARACTERISTICS: BLE thigh-ankle with extensive bruising B posterior thighs and calves B knee incision well approximated, open to air with pietro present and c/d/i RANGE OF MOTION AND JOINT INTEGRITY: ? Knee:?? Supine ?? Right?? Left?? Flexion?? 64 self assist with sheet?? 70 self assist with sheet?? Extension?? -3?? 0? Knee:?? Sitting? Right?? Left?? Flexion?? 72A A?? 78AA?? Extension?? -8?? -8?? MUSCLE PERFORMANCE: Hip motion >3 (reisstance not applied secondary to increased pain) Knee extension: Able to maintain full available motion against gravity with slight compensation SENSATION, REFLEXES, AND NERVE INTEGRITY: No problems noted NEUROMOTOR FUNCTION/DEVELOPMENT: No problems noted Balance, Mobility and Gait: Balance: Sitting Balance Static: (I) Dynamic: (S) Standing balance Static: (I) Dynamic: Can accept mod perturbations with intact ankle and hip strategies. Can reach 3-4 inches inanterolateral directions. Requires distal fixation for ambulation. Bed Mobility: Sit->supine: with supervison, cues and assistance of 1 with flat bed and no rails. Supine->sit: with supervison, cues and assistance of 1 with flat bed and no rails. Transfers: Bed < > Chair: stand-step with supervison, cues and assistance of 1 Transfers - Bed, Chair, Wheelchair FIM: 5 Wheelchair: N/A Wheelchair FIM: 0 Not evaluated - Patient not using wheelchair at any point during day Gait: The patient ambulates with supervison, cues and assistance of 1 using rolling walker for 500 feet. Gait deviations: decreased jimenez, decreased step length and height B, poor toe off, decreased knee flexion with swing, lateral trunk sway Walk FIM: 5 Stairs: Patient negotiates with supervision up and down 4 stairs with 2 rails. Stairs FIM: 2 Self-Care, Home Management, Work, and Leisure: ASSESSMENT: The patient has been appropriate for skilled physical therapy at acute rehab to addressthe physical therapy diagnosis of impaired mobility s/p: B TKR on 06/10/15. The patient's primary impairments include decreased lower extremity ROM, strength, endurance, balance, pain. Post op course complicated by Afib (resolved). These impairments contribute to the following functional limitations:?? decreased tolerance to activity, increased fall risk, increased time and effort to complete all mobility, need for S level of A with transfers and gait. Physical Therapy Prognosis: With continued care of home health PT and transition to outpatient and focus on knee ROM and strengthening, gait and stair training and standing balance training, expect that patient will eventually be able to return to (I) ambulation over all surfaces and mod (I) on stairs with use of rails. Pt has made good progress in this setting but remains limited by pain that isnot well managed as well as edema, both of which impacted knee ROM and activity tolerance. Anticipate continued success in personal environment as pt's family is very supportive and he is motivated to restore baseline level of function. Short-Term Goals: deferred due to anticipated short length of stay Long- Term Goals:?? 7-10 days ? The patient will be able to perform bed mobility independently demonstrating appropriate sequencing/motor planning and adherence to TKR precautions NOT MET, discontinue ?? The patient will be able to perform bed <> chair, stand step transfer with rolling walker with modified independence, and car transfer with minimal contact assist of 1/(S)?? while demonstrating appropriate hand placement with assistive device use. ??NOT MET, discontinue ?? The patient will be able to perform car transfers with supervision of family member MET ?? The patient will be able to ambulate with modified independence > 150 ft. level surfaces 3x day with rolling walker, demonstrating heel strike on initial contact, stable knee in stance, step through gait pattern, upright trunk posture and increased hip/knee flexion in swing. ??NOT MET for level of A, discontinue ?? The patient and/or caregiver will be able to recall and demonstrate precautions without cues. ??MET ?? The patient will be able to perform 4 stairs with modified independence with use of B rails, demonstrating proper LE sequencing. NOT MET, discontinue ?? The patient/caregiver will be aware of the recommendations provided and demonstrate an appropriate technique/understanding of the?? Exercise, equipment, follow up care and precaution recommendations. ??MET ?? The patient will be able to perform therapeutic exercises 10 times actively with good technique with written copy of exercises MET ?? The patient will demonstrate and increase to 90 degrees of knee flexion and 0 extension NOT MET,discontinue PLAN: D/C Physical Therapy Recommended Discharge Destination: Home with caregiver Recommended Discharge Services: Home health physical therapy Recommended Equipment Needs: Patient has all necessary equipment Other recommendations: None Contact information: Pager: [phone] Natasha Ibanez 06/20/2015 8:47 * Vasuulyssesmaldonado Ana M Tete, HOME STAGER - 06/20/2015 0830 EST Rehabilitation Therapies [facility] Physical Therapy Encounter Note Total Knee Replacement Date of Service: 06/20/2015 SUBJECTIVE: That chair is just so uncomfortable Pain: location: B Knees Intensity: 3/10 at rest, 5/10 at worst Frequency: constant Aggravated by: mobility, exercise stairs Alleviated by: rest, cryo cuff, pain meds OBJECTIVE: Time: Start time: 1100 Total Therapy Minutes: 60 minutes Therapeutic exercise: ( 2 ) Supine exercises x 10 reps BLE's: ankle pumps quad sets, glut sets, SAQ, SLR 5 reps AA, heel slidesself assist with sheet, hip abduction. Knee: Supine Right Left Flexion 64 self assist with sheet 70 self assist with sheet Extension -3 0 Therapeutic activities: ( 1 ) Supine <> sit with head of bed up slightly , & use of top rail. Sit <> stand to RW with close supervision from elevated bed teodoro , effortful but withoutphysical assist . Gait Training: ( 1 ) Pt ambulated 200' x 2 feet on level surface with RW, & supervision , with the following gait deviations: decreased heel strike and toe off, decreased knee flexion in swing phase STAIRS : Up & Down 4- 6 steps with 2 rails , step over step with supervision. 2nd Session Time: Start time: 1500 Total Therapy Minutes: 60 minutes Pain 5/10 Left > right Cryo cuff put on at end of the session. Interventions completed today: Therapeutic exercise: (2 ) Sitting B LE exercises, toe raises, heel raises, Knee EX T, Knee Flexion AA, all exercises 10-15 reps each. Knee: Sitting Right Left Flexion 72A A 78AA Extension -8 -8 Therapeutic activities: ( 1 ) Sit <> stand from evaluated mat or bed teodoro with supervision. Sit <> supine supervision . Lead skilled discussion with pt & hi s concerning pt requiring supervision to occasional assist at home for transfers & bed mobility. Pt & in agreement & stated that Ed would have the needed assist . Instructed & demonstrated pt & in filling & use of cryo cuffs. Gait Training: ( 1 ) Pt ambulated 100' & > 200 feet on level surface with RW, modified independent , with the following gait deviations: decreased heel strike and toe off, decreased knee flexion in swing phase Patient/Family Education: Topic: TKR ex program, positioning, use of Cryo cuff Learner: patient and family Method: verbal and demonstration Barriers to Learning: none noted Outcome: verbalized understanding and returned demonstration Team Communication: update with primary therapist ASSESSMENT: Pt has made good progress & is ready for dis charge to home with assistance from his family. See detailed D/C note for specific. PLAN: D/C from PT Primary Therapist: Natasha Ibanez PT Contact information: Pager: [phone] ANA M GUIDRY PTA 06/20/2015 8:30 * Natasha Leblanc, OT - 06/20/2015 0724 EST [facility] Rehabilitation Therapy Inpatient Rehabilitation [facility] Occupational Therapy Discontinue/Discharge Note Date of Service: 06/20/2015 Precautions: Total knee precautions, WBTT, Activity as tolerated, ambulate with assistive device; no twisting, pivoting or kneeling SUBJECTIVE: Pt says he feels ready to go home. He still has daily pain in his knees that he rates about 4-5/10. OBJECTIVE: Interventions completed today: Start time: 929 Total Therapy Minutes: 60 minute(s) Intervention included: Self-Care/Home Management (4) ?? -Pt completed supine>sitting with supervision and use of rail. ?? -Ambulatory level toileting with distant supervision for toilet transfer and pants management, modified I for hygiene post BM. ?? Shower: -Transfer: Pt able to walk from room to shower room with RW and supervision. Pt instructed in step-in technique for shower stall transfer and was able to complete in/out of stall with distant supervision using grab bar. ?? -Bathing: Pt completed bathing from seated on shower seat with distant supervision. Stood to bathe bottom today with supervision. -Drying: assistance to dry feet. ?? -UB dressing: Modified I -LB dressing: Modified I for donning shorts. -Assisted pt to don tubigrip over B LE. Vital Signs: Vital signs have been stable with interventions and were not monitored. Patient/Family Education: Topic: D/C planning Adaptive equipment Learner: patient Method: verbal Barriers to Learning: none noted Outcome: verbalized understanding and returned demonstration Team Communication: With PT re: tight fit of tubigrip today The patient has been seen in occupational therapy since 06/16/15 for: Occupation Based Activity - Basic Activities of Daily Living, Occupation Based Activity - Instrumental Activities of Daily Living, Purposeful Activity and Patient/Family Education Relevant Objective Findings: Body Functions and Performance Skills Neuromusculoskeletal and Movement Related Functions: Pt with B UE AROM and strength WNL. Pt with decreased AROM B knees please see PT note for details. Mental Functions: A and O x 3 Cognitive FIM Comprehension: FIM 7 - Complete [place] - Understands complex or abstract directions and conversation independent without any difficulty Expression: FIM 7 - Complete [place] - Expresses complex or abstract ideas clearly and fluently independently (not necessarily in [place]) without any difficulty Social Interaction: FIM 7 - Complete [place] - Patient interacts appropriately with staff, other patient and family members in all situations (controls temper, accepts criticism, is aware that words and actions have an impact on others). Problem Solving: FIM 7 - Complete [place] - Patient consistently recognizes problems when present, makes appropriate decisions, initiates and carries out a sequence of steps to solve complex problems until the task is completed, and self-corrects if errors are made. Memory: FIM 7 - Complete [place] - Patient recognizes people frequently encountered, remembersdaily routines and executes requests of others with no need for repetition. Areas of Occupation and Performance Skills: Basic Activities of Daily Living: Feeding: FIM 7 Independent with regular diet Grooming: FIM 6 Independent with all items given adaptive equipment, strategy and/or increased time. Bathing: FIM 5 Requires set-up, supervision and/or cueing to bathe all 10 body parts . Upper Body Dressing: FIM 7 Independent dressing and undressing UB Lower Body Dressing: FIM 6 Independent dressing and undressing LB with adaptive equipment, strategyor increased time . Toileting: FIM 6 Independent managing clothing and hygiene with adaptive equipment, strategy and/orincreased time . Toilet Transfer: FIM 6 Modified Independent with toilet/commode transfers with adaptive equipment, strategy and/or increased time . Tub Transfer: FIM 5 Requires set-up, supervision &/or cueing to transfer in & out of shower. Functional Mobility: Supervision for functional ambulation with RW. Instrumental Activities of Daily Living: Pt able to obtain a drink for himself at ambulatory level with supervision. ASSESSMENT: Edward?? was admitted to inpatient rehab 06/14/15 for functional impairments related to diagnosis of B TKR. Prior to this admission pt was active and independent with ADLs and IADLs.?? Pt initially presented with?? 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 He has made good progress during his rehab stay, although he still has pain and decreased ROM in his knees which have prevented him from reaching full independence. He has good family support and equipment in place, and is appropriate to d/c home. He will not require follow up OT services but will receive home health PT to address his ongoing functional mobility needs. GOALS: Short Term Goals:?? Not written due to short [employer] Goals:?? 7 days-all Met except where indicated ?? Pt will be modified I with UB dressing.? Pt will complete LB dressing with modified I. ? Pt will complete grooming tasks with modified I. ? Pt will perform pants management and toileting hygiene with modified I. ? Pt will complete bathing in shower with set-up/supervision. ? Pt will perform ambulatory level toilet transfers with modified I. ? Pt will perform shower transfer with set-up/supervision. ? Pt will perform drink/snack prep at an ambulatory level with modified I- unmet, discontinue.? Pt will demonstrate understanding of d/c equipment needs and have d/c equipment in place.? Pt will demonstrate understanding of at least 3 fall prevention principles. PLAN: Patient is discharged from occupational therapy. Discharge Plan: Home with supportive spouse Follow-up Services: No occupational therapy follow-up at this time Discharge Equipment: Raised Toilet Seat Shower Chair Pager: [phone] NATASHA LEBLANC OT, 06/20/2015, 7:24 * Nadine Avina - 06/19/2015 1129 EST Images from the original note were not included. This is the initial impairment group category coding for the inpatient rehab facility perspective payment system: Cosigned by Hector Raya MD at 06/23/2015 8:11 EST * Natasha Ibanez - 06/19/2015 0853 EST [facility] Rehabilitation Therapy [facility]patient [facility] Physical Therapy Encounter Note Date of Service: 06/19/2015 SUBJECTIVE: Pt reports additional height added to raised toilet seat at home electric lift chair available to increase safety and independence with mobility OBJECTIVE: Start time: 1100 Total Therapy Minutes: 60 minute(s) Interventions completed today: Therapeutic activities (2): Supine<>sit from hospital bed and full size bed in life skills apt (LFA) without use of rails with S Car transfer with S with cues for effective and safe technique. Multiple sit<>stand from hospital bed, low armchair x 2, LSA bed with no assist needed from elevated bed (height of bed at home) and mod A x 2 from low chair. Focus on safe technique and BLE muscle engagement with reliance on RW Gait Training (2): Amb using RW with S over level surfaces, threshold, carpet Distances: >500 feet with multiple standing rest periods and car transfer in between Deviations: decreased jimenez, decreased step length and height B, poor toe off, decreased knee flexion with swing Up/down 4 six inch steps with B rails and contact guard x 2. Heavy use rails with reciprocal gait with stair ascent and step to gait with descent. Patient/Family Education: Topic: Car transfer technique, safe technique sit<>stand, use of CPM dru Learner: patient Method: verbal and demonstration Barriers to Learning: none noted Outcome: needs practice and verbalized understanding Team Communication: With HOME STAGER who treated pt during AM session ASSESSMENT: Ed continues to work hard and demonstrates increased endurance and improved gait quality today. Car transfer went well at S level and patient can perform supine<>sit on full size bed without physical assist. On track to d/c home Tuesday. PLAN: HEP Bed mobility Transfer training, sit<>stand D/c planning/education Primary Therapist: Contact information: Pager: [phone] Natasha Ibanez 06/19/2015 16:29 * Ana M Guidry, HOME STAGER - 06/19/2015 0875 EST Rehabilitation Therapies Inpatient Rehabilitation [facility] Physical Therapy Encounter Note Total Knee Replacement Date of Service: 06/19/2015 SUBJECTIVE: A friend just dropped off a chair that goes up. Pt stated concerning a lift chair Pain: location: B Knees Intensity: 4/10 at rest, 7/10 at worst Frequency: constant Aggravated by: mobility, exercise , stairs Alleviated by: rest, ice, pain meds OBJECTIVE: Time: Start time: 1100 Total Therapy Minutes: 60 minutes Therapeutic exercise: ( 2 ) Sitting exercises: AA/AROM B knees, Flexion & extension 10 reps each Knee: Sitting ROM Right Left Flexion 65A A 75AA Extension -8 A -5 A Therapeutic activities: ( 1 ) Supine > sit min assist of 1 , head of bed up & use of top rail. Sit > stand from elevated bed teodoro with mod assist of 1 & verbal cues for hand placement . Subsequent sit <> stands with close supervision , either from w/c or elevated mat ( sold surface ) . Lead skilled dissuasion with pt & daughter present concerning d/c on Tuesday. Pt reported thathis bed is high, has a lift chair & that he will have assist from family if needed. Gait Training: ( 1 ) Pt ambulated 80'& 2 , 125' x 2 feet on level surface with RW,min contact to close supervision assist , with the following gait deviations: decreased heel strike and toe off, decreased knee flexion in swing phase. Pt's gait improved after exercises increased heel strike at IC. STAIRS : Up & Down 4- 6 steps with 2 rails , step to step with close supervision. Patient/Family Education: Topic: TKR ex program, positioning, use of ice, D/C planing Learner: patient and family Method: verbal Barriers to Learning: none noted Outcome: needs practice and verbalized understanding Team Communication: update with RN & primary therapist ASSESSMENT: Pt continues to work hard during therapies. Pt would like to discharge to home on Tuesday. Pt will required supervision for stairs & possible occasional assist which family can provide. PLAN: Stair ( 7 1/2 steps ) Transfers, There ex, bed mobility ( flat bed ) Car transfer ( family SUV ) Primary Therapist: Natasha Ibanez PT Contact information: Pager: [phone] ANA M GUIDRY PTA 06/19/2015 8:30 * Natasha Leblanc, OT - 06/19/2015 0824 EST [facility] Rehabilitation Therapy Inpatient Rehabilitation [facility] Occupational Therapy Encounter Note Date of Service: 06/19/2015 SUBJECTIVE: That's my least favorite part. re: sitting down/standing up. OBJECTIVE: Start time: 929 Total Therapy Minutes: 60 minute(s) Interventions included: Self-Care/Home Management (4) -Focus on increasing independence and safety with basic self-care tasks. -Pt completed gathering of clothing at a ambulatory level with supervision. -Grooming completed in stance with supervision -UB dressing completed with modified I from seated at edge of bed. -LB dressing completed with supervision and cues for process of incorporating sitting and standing. -Toilet transfer completed at ambulatory level with supervision with pt using RW. -Pants management completed modified independent and hygiene modified independent -Ambulatory level kitchen activity with pt able to obtain a drink for himself with supervision. Discussed the use of a basket or bag for item transport. -supine <>sitting at beginning and end of session with supervision only but heavy reliance onrail. Vital signs: Vital signs have been stable with interventions and were not monitored. Patient/Family Education: Topic: Benefits of activity D/C planning Learner: patient Method: verbal Barriers to Learning: none noted Outcome: verbalized understanding and returned demonstration Team Communication: With pt's RN requesting pain medication for pt. ASSESSMENT: Ed continues to show nice gains with ambulatory level ADL but is limited by pain and decreased ROM B LE. Transition from sitting to standing is the most difficult aspect of ADL. PLAN: -ambulatory level ADL -functional mobility in life skills room -practice with sit<>stands Pager: [phone] NATASHA LEBLANC OT, 06/19/2015, 8:24 * Baldomero Soni MD - 06/18/2015 1309 EST Physiatry Progress Note Admit Date: 06/14/2015 Hospital Day: LOS: 4 days Date of Service: 06/18/2015 Chief Complaint: Bilateral total knee arthroplasties with gait impairment Subjective: Denies any chest pain or discomfort, no shortness of breath. No lightheadedness. Improved pain control with the addition of long-acting OxyContin Current Facility-Administered Medications Medication Route Frequency ??? acetaminophen (TYLENOL) tablet 650 mg oral BID PRN ??? acetaminophen (TYLENOL) tablet 650 mg oral QID ? ? aluminum & magnesium hydroxide-simethicone (MYLANTA-DS) 400-400-40 mg/5 mL suspension 30 mLoral Q4H PRN ??? ascorbic acid (VITAMIN C) tablet 500 mg oral QHS ??? bisacodyl (DULCOLAX) suppository 10 mg rectal Daily PRN ??? calcium carbonate (TUMS) 200 mg calcium (500 mg) per chewable tablet tablet,chewable 1-2 Tab oral Q2H PRN ??? cholecalciferol (Vitamin D3) tablet 2,000 Units oral QHS ??? dalteparin (FRAGMIN) 5,000 anti-Xa unit/0.2 mL injection 5,000 Units subcutaneous DAILY ??? docusate sodium (COLACE) capsule 100-200 mg oral BID PRN ??? docusate sodium (COLACE) capsule 200 mg oral BID ??? docusate sodium (ENEMEEZ) enema 1 Enema rectal Daily PRN ??? gabapentin (NEURONTIN) capsule 600 mg oral TID ??? lisinopril (PRINIVIL, ZESTRIL) tablet 10 mg oral DAILY ??? magnesium hydroxide (MILK OF MAGNESIA) 400 mg/5 mL suspension 30 mL oral BID PRN ??? magnesium hydroxide (MILK OF MAGNESIA) 400 mg/5 mL suspension 30 mL oral DAILY ??? Multivitamins with Minerals tablet 1 Tab oral DAILY ??? oxyCODONE (OXYCONTIN) CR tablet 10 mg oral Q12H ??? oxyCODONE (ROXICODONE) immediate release tablet 5-10 mg oral Q3H PRN ??? pantoprazole (PROTONIX) tablet 40 mg oral DAILY ??? PEG 3350-Electrolytes (MIRALAX) packet 17 g oral PRN ??? PEG 3350-Electrolytes (MIRALAX) packet 17 g oral DAILY ??? prochlorperazine (COMPAZINE) 25 mg suppository 25 mg rectal Q12H PRN ??? [START ON 06/21/2015] rivaroxaban (XARELTO) tablet 10 mg oral DAILY WITH DINNER ??? senna (SENOKOT) tablet 1-3 Tab oral Daily PRN ??? senna (SENOKOT) tablet 2 Tab oral BID ??? sodium phosphate (FLEET) enema 1 Enema rectal Daily PRN ??? tiZANidine (ZANAFLEX) tablet 2 mg oral TID PRN ??? traMADol (ULTRAM) tablet 50-100 mg oral TID ??? traMADol (ULTRAM) tablet 50-100 mg oral Daily PRN ??? zinc sulfate (ZINCATE) capsule 220 mg oral QHS Objective/Physical Exam: VS: Patient Vitals for the past 8 hrs: BP Heart Rate Resp Temp SpO2 06/18/15 0630 124/59 mmHg 78 BPM 18 36.3 ??C (97.3 ??F) 97 % Pain: Patient Vitals for the past 8 hrs: Numeric Pain Level (Scale 1-10) 06/18/15 1114 5 06/18/15 0900 3 06/18/15 0755 4 06/18/15 0742 3 06/18/15 0650 3 06/18/15 0600 3 Weight: Weight : (!) 126.554 kg (279 lb) Glucose Readings (last 8 readings): No results for input(s): GLUCOSEFINGE in the last 72 hours. I&O: Intake/Output Summary (Last 24 hours) at 06/18/15 1309 Last data filed at 06/18/15 0650 Gross per 24 hour Intake 0 ml Output 1050 ml Net -1050 ml Exam: General appearance: alert Skin: Knee incisions well approximated with pietro in place Lungs: clear to auscultation bilaterally Heart: regular rate and rhythm, S1, S2 normal, no murmur, click, rub or gallop Abdomen: soft, non-tender; bowel sounds normal; no masses, no organomegaly, Distended and obese Extremities: extremities warm, atraumatic, no cyanosis or edema positive pulses bilat Knee incisions well approximated with pietro in place. Nontender Neurologic alert oriented ??3 no focal motor weakness in the upper extremities and lower extremities limited secondary to pain but full dorsi and plantar flexion are noted. Labs: I have personally reviewed CBC: Lab Results Component Value Date WBC 8.70 06/16/2015 RBC 3.17* 06/16/2015 HGB 9.9* 06/16/2015 HCT 29.9* 06/16/2015 MCV 94 06/16/2015 MCH 31.2 06/16/2015 MCHC 33.1 06/16/2015 PLT 219 06/16/2015 NEUTROABS 5.78 06/02/2015 BMP: Lab Results Component Value Date NA 137 06/14/2015 K 4.1 06/14/2015 CL 100 06/14/2015 CO2 28 06/14/2015 BUN 16 06/14/2015 CREATININE 0.71 06/14/2015 GLUCOSEFINGE 96 06/14/2015 CALCIUM 9.4 06/02/2015 LABALBU 4.1 09/11/2012 Assessment/Problems: (update problem list daily as appropriate) Patient Active Problem List Diagnosis Date Noted ??? *(H)Impaired mobility and ADLs 06/14/2015 Priority: Medium ??? (H)Status post total bilateral knee replacement 06/14/2015 Priority: Medium ??? (H)Gait difficulty 06/14/2015 Priority: Medium ??? (H)Atrial fibrillation with RVR 06/14/2015 Priority: Medium 06/13/15: Asymptomatic 3 days postoperatively. Reverted without medication or cardioversion ??? (H)Hypertension Priority: Medium ??? (H)Bilateral knee pain 06/10/2015 Priority: Medium ??? (H)Bilateral primary osteoarthritis of knee 06/10/2015 Priority: Medium ??? (H)Family history of DVT 04/08/2015 Brother age 53, DVT following shoulder surgery Father, age late 70s in setting of cardiac disease Mother, late 70s, early 80s ??? (H)Morbid obesity 08/10/2012 Plan: 1. Bilateral total knee arthroplasties: Secondary gait impairment. Continue acute level therapies to include PT, and OT to address overall mobility, self cares Maintain adequate pain control at the knees. Add oxycontin for a few days qHS. Monitor surgical wounds Continue Fragmin for DVT prophylaxis. With a plan to transition to Xarelto. He indicates he alreadypicked up Xarelto from the pharmacy. 2. Paroxysmal atrial fibrillation: Internal medicine is following. Continue to monitor clinically 3. Constipation: Work with nursing and appropriate bowel program, especially with current narcotic use 4. Morbid obesity: Overall course will be impacted by obesity, and evaluation for appropriate equipment 5. Hypertension: Continue lisinopril 6. Acute blood loss anemia: Stable hemoglobin and hematocrit and patient currently asymptomatic Baldomero Soni MD * Natasha Ibanez - 06/18/2015 0843 EST [facility] Rehabilitation Therapy Inpatient [facility] Physical Therapy Encounter Note Date of Service: 06/18/2015 SUBJECTIVE: Pt remains hopeful to d/c Tuesday but willing to stay longer if unsafe and would benefit from increased therapy intensity OBJECTIVE: Start time: 1100 Total Therapy Minutes: 60 minute(s) Interventions completed today: Therapeutic exercise (1): For B quad strengthening: sit<>stand x 5 from 28, 27, 26 mat with close S and focus on safe technique. Attempted to stand without UE but unable even with assist. Required seated recovery between tasks due to fatigue and pain. Therapeutic activities (1): CPM brought to room this AM. Attempted to introduce to patient, but unable to trun machine on. Requested new machine for patient's use. Discussed benefit of CPM and explained how it works with focus on decreasing stiffness, gaining motion and then incorporating motion into functional activities. Supine<>sit with bed flat and no rail with close S. Increased time and effort to complete. Toileting at ambulatory level with ability to stand while urinating with contact guard A Gait Training (2): Amb using RW with min contact A>close S Distances: ~150 feet, ~120 feet, ~80 feet Deviations: decreased jimenez, decreased step length and height B, increased trunk flexion and shoulder hike, decreased knee flexion with swing, lateral trunk lean, poor toe off Up/down 4 six inch stairs using B rails, step to gait and min contact A x 2. Heavy use BUE (pt rates 50/50 UE/LE) Patient/Family Education: Topic: CPM machine, effects of edema, edema management Learner: patient Method: verbal Barriers to Learning: none noted Outcome: verbalized understanding Team Communication: With HOME STAGER who provided PM treatment ASSESSMENT: Ed continues to demonstrate difficulty with sit to stand but exhibits progress with ambulation and stair negotiation. Edema and pain likely inhibiting B quad motor control and strength. Hopeful CPM will be beneficial and he will be ready to d/c home this Tuesday. PLAN: Sit<>stand Bed mobility Stair training BLE ROM, strengthening Primary Therapist: Contact information: Pager: [phone] Natasha Ibanez 06/18/2015 16:52 * Ana M Guidry PTA - 06/18/2015 0825 EST Rehabilitation Therapies [facility]patient [facility] Physical Therapy Encounter Note Total Knee Replacement Date of Service: 06/18/2015 SUBJECTIVE: I feel so stiff when I get up. Pain: location: B knee Intensity: 4/10 at rest, 5/10 at worst Frequency: constant Aggravated by: mobility, exercise stairs Alleviated by: rest, cryo cuff, pain meds, CPM OBJECTIVE: Time: Start time 1500 Total Therapy Minutes: 60 minutes Therapeutic exercise: ( 2 ) Supine exercises Right LE, x 10 reps BLE's: ankle pumps quad sets, glut sets, SAQ, , heel slides AA, Set up CPM on left LE , pt will use this CPM on right LE later this evening , . Flexion set at 80 degrees, ext at 0. Pt given control for on & off control Therapeutic activities: ( 1 ) Supine > sit with head of bed up & use of top rail , Sit > supine min assist for B LE's , flat bed , no rail Sit > stand from elevated bed teodoro with mod assist of 1 . Sit <> stand from w/c with min contact assist of 1. two CPM's filled & set up on each knee at end of session. Gait Training: ( 1 ) Pt ambulated 150' x 2 feet on level surface with RW,min contact assist of 1 ,plus one for w/c follow, with the following gait deviations: decreased heel strike and toe off, decreased knee flexion in swing phase. Wheel's on pt's RW were switched to out side of walker for increased stability. Pt may be appropriate for wide heavy duty RW. STAIRS : Up & Down 4- 6 steps with 2 rails , min contact assist of 1 , step to step. Patient/Family Education: Topic: TKR ex program, positioning, use of cryo cuff, CPM Learner: patient Method: verbal and physical cues Barriers to Learning: none noted Outcome: requires assist, needs practice and returned demonstration Team Communication: update with RN & primary therapist ASSESSMENT: Pt making steady progress working on stair climbing ,transfers & ambulation. Started use of CPM this afternoon, flexion set at 80 degrees. PLAN: Transfers, bed mobility. Stairs, there ex, CPM Primary Therapist: Natasha Ibanez PT Contact information: Pager: [phone] ANA M GUIDRY PTA 06/18/2015 8:26 * Natasha Leblanc, OT - 06/18/2015 0714 EST [facility] Rehabilitation Therapy Inpatient Rehabilitation [facility] Occupational Therapy Encounter Note Date of Service: 06/18/2015 SUBJECTIVE: Pt states his legs are feeling better than they were yesterday. He thinks his L leg is a little more swollen today. OBJECTIVE: Start time: 0830 Total Therapy Minutes: 60 minute(s) Interventions included: Self-Care/Home Management (4) -Pt completed supine>sitting with supervision and use of rail. -Ambulatory level toileting with close supervision for toilet transfer and pants management, modified I for hygiene post BM. Shower: -Transfer: Pt able to walk from room to shower room with RW and supervision. Pt instructed in step-in technique for shower stall transfer and was able to complete in/out of stall with close supervision using grab bar. -Bathing: Pt completed bathing from seated on shower seat with supervision. Did not stand during shower today. -Drying: assistance to dry feet. -UB dressing: Modified I -LB dressing: Min contact A provided by spouse who was present for getting shorts over feet. Close supervision for standing pants hike. Vital signs: Vital signs have been stable with interventions and were not monitored. Patient/Family Education: Topic: D/C planning Safety awareness Learner: patient Method: verbal Barriers to Learning: none noted Outcome: verbalized understanding and returned demonstration Team Communication: With pt's RN re: pt's incisions post shower, per RN leave open to air. ASSESSMENT: Pt is progressing well with ambulatory level ADL but is limited by pain and decreased ROM B LE. Pain seemed more under control today compared to yesterday. PLAN: -ambulatory level ADL -functional mobility tasks in kitchen -life skills room mobility including bed mobility Pager: [phone] NATASHA LEBLANC OT, 06/18/2015, 13:04 * Gosia Cardona RN - 06/17/2015 7901 EST Pt received first dose of extended release analgesic this pm. Pain has been fairly well-controlled with prn meds. Pt did ambulate on unit with CG assist of . HS ADL's @ sink, pt is scheduled for OT shower in AM. * Hector Raya MD - 06/17/2015 1227 EST Physiatry Progress Note Admit Date: 06/14/2015 Hospital Day: LOS: 3 days Date of Service: 06/17/2015 Chief Complaint: Bilateral total knee arthroplasties with gait impairment Subjective: Denies any chest pain or discomfort, no shortness of breath. No lightheadedness. Slept well but awoke with increased pain. Current Facility-Administered Medications Medication Route Frequency ??? acetaminophen (TYLENOL) tablet 650 mg oral BID PRN ??? acetaminophen (TYLENOL) tablet 650 mg oral QID ? ? aluminum & magnesium hydroxide-simethicone (MYLANTA-DS) 400-400-40 mg/5 mL suspension 30 mLoral Q4H PRN ??? ascorbic acid (VITAMIN C) tablet 500 mg oral QHS ??? bisacodyl (DULCOLAX) suppository 10 mg rectal Daily PRN ??? calcium carbonate (TUMS) 200 mg calcium (500 mg) per chewable tablet tablet,chewable 1-2 Tab oral Q2H PRN ??? cholecalciferol (Vitamin D3) tablet 2,000 Units oral QHS ??? dalteparin (FRAGMIN) 5,000 anti-Xa unit/0.2 mL injection 5,000 Units subcutaneous DAILY ??? docusate sodium (COLACE) capsule 100-200 mg oral BID PRN ??? docusate sodium (COLACE) capsule 200 mg oral BID ??? docusate sodium (ENEMEEZ) enema 1 Enema rectal Daily PRN ??? gabapentin (NEURONTIN) capsule 600 mg oral TID ??? lisinopril (PRINIVIL, ZESTRIL) tablet 10 mg oral DAILY ??? magnesium hydroxide (MILK OF MAGNESIA) 400 mg/5 mL suspension 30 mL oral BID PRN ??? magnesium hydroxide (MILK OF MAGNESIA) 400 mg/5 mL suspension 30 mL oral DAILY ??? Multivitamins with Minerals tablet 1 Tab oral DAILY ??? oxyCODONE (ROXICODONE) immediate release tablet 5-10 mg oral Q3H PRN ??? pantoprazole (PROTONIX) tablet 40 mg oral DAILY ??? PEG 3350-Electrolytes (MIRALAX) packet 17 g oral PRN ??? PEG 3350-Electrolytes (MIRALAX) packet 17 g oral DAILY ??? prochlorperazine (COMPAZINE) 25 mg suppository 25 mg rectal Q12H PRN ??? [START ON 06/21/2015] rivaroxaban (XARELTO) tablet 10 mg oral DAILY WITH DINNER ??? senna (SENOKOT) tablet 1-3 Tab oral Daily PRN ??? senna (SENOKOT) tablet 2 Tab oral BID ??? sodium phosphate (FLEET) enema 1 Enema rectal Daily PRN ??? tiZANidine (ZANAFLEX) tablet 2 mg oral TID PRN ??? traMADol (ULTRAM) tablet 50-100 mg oral TID ??? traMADol (ULTRAM) tablet 50-100 mg oral Daily PRN ??? zinc sulfate (ZINCATE) capsule 220 mg oral QHS Objective/Physical Exam: VS: Patient Vitals for the past 8 hrs: BP Pulse Resp Temp 06/17/15 0625 141/64 mmHg 77 20 37 ??C (98.6 ??F) Pain: Patient Vitals for the past 8 hrs: Numeric Pain Level (Scale 1-10) Asleep 06/17/15 1209 5 - 06/17/15 0940 5 - 06/17/15 0731 4 - 06/17/15 0624 4 - 06/17/15 0600 - Reassessed, sleeping comfortably, RR WNL. 06/17/15 0500 - Reassessed, sleeping comfortably, RR WNL. Weight: Weight : (!) 126.554 kg (279 lb) Glucose Readings (last 8 readings): No results for input(s): GLUCOSEFINGE in the last 72 hours. I&O: No intake or output data in the 24 hours ending 06/17/15 1227 Exam: General appearance: alert Skin: Knee incisions well approximated with pietro in place Head: Normocephalic, without obvious abnormality, atraumatic Eyes: conjunctivae/corneas clear. PERRL, EOM's intact. Fundi benign Neck: supple, symmetrical, trachea midline, no carotid bruit and no JVD Lungs: clear to auscultation bilaterally Heart: regular rate and rhythm, S1, S2 normal, no murmur, click, rub or gallop Abdomen: soft, non-tender; bowel sounds normal; no masses, no organomegaly, Distended and obese Extremities: extremities warm, atraumatic, no cyanosis or edema positive pulses bilat Knee incisions well approximated with pietro in place. Nontender Neurologic alert oriented ??3 no focal motor weakness in the upper extremities and lower extremities limited secondary to pain but full dorsi and plantar flexion are noted. Labs: I have personally reviewed CBC: Lab Results Component Value Date WBC 8.70 06/16/2015 RBC 3.17* 06/16/2015 HGB 9.9* 06/16/2015 HCT 29.9* 06/16/2015 MCV 94 06/16/2015 MCH 31.2 06/16/2015 MCHC 33.1 06/16/2015 PLT 219 06/16/2015 NEUTROABS 5.78 06/02/2015 BMP: Lab Results Component Value Date NA 137 06/14/2015 K 4.1 06/14/2015 CL 100 06/14/2015 CO2 28 06/14/2015 BUN 16 06/14/2015 CREATININE 0.71 06/14/2015 GLUCOSEFINGE 96 06/14/2015 CALCIUM 9.4 06/02/2015 LABALBU 4.1 09/11/2012 Assessment/Problems: (update problem list daily as appropriate) Patient Active Problem List Diagnosis Date Noted ??? *(H)Impaired mobility and ADLs 06/14/2015 Priority: Medium ??? (H)Status post total bilateral knee replacement 06/14/2015 Priority: Medium ??? (H)Gait difficulty 06/14/2015 Priority: Medium ??? (H)Atrial fibrillation with RVR 06/14/2015 Priority: Medium 06/13/15: Asymptomatic 3 days postoperatively. Reverted without medication or cardioversion ??? (H)Hypertension Priority: Medium ??? (H)Bilateral knee pain 06/10/2015 Priority: Medium ??? (H)Bilateral primary osteoarthritis of knee 06/10/2015 Priority: Medium ??? (H)Family history of DVT 04/08/2015 Brother age 53, DVT following shoulder surgery Father, age late 70s in setting of cardiac disease Mother, late 70s, early 80s ??? (H)Morbid obesity 08/10/2012 Plan: 1. Bilateral total knee arthroplasties: Secondary gait impairment. Continue acute level therapies to include PT, and OT to address overall mobility, self cares Maintain adequate pain control at the knees. Add oxycontin for a few days qHS. Monitor surgical wounds Continue Fragmin for DVT prophylaxis 2. Paroxysmal atrial fibrillation: Internal medicine is following. Continue to monitor clinically 3. Constipation: Work with nursing and appropriate bowel program, especially with current narcotic use 4. Morbid obesity: Overall course will be impacted by obesity, and evaluation for appropriate equipment 5. Hypertension: Continue lisinopril 6. Acute blood loss anemia: Stable hemoglobin and hematocrit and patient currently asymptomatic Team Meeting is attended today and case is discussed with all team members. Total time spent is 35 minutes, with 20 minutes of that time spent in coordination of care and counseling discussing recovery, functional progress and goals for discharge, all floor time. Hector Raya MD 06/17/2015 12:27 * Ibanez Natasha - 06/17/2015 0855 EST [facility] Rehabilitation Therapy Inpatient Rehabilitation Center [facility] Physical Therapy Encounter Note Date of Service: 06/17/2015 SUBJECTIVE: It actually feels better when standing or walking. OBJECTIVE: Start time: 1000 Total Therapy Minutes: 65 minute(s) Interventions completed today: Pt c/o high level pain today- constant throbbing, aching. Extensive seated recovery required between and within all activities for pain relief Therapeutic exercise (1): Heel slides supine using sheet for AAROM as warm-up and for increased knee ROM. Performed ~10B with sustained hold at end range with slightly improved motion each rep. Therapeutic activities (1): Added layer compression stocking for edema management with patient ed for impact of swelling on pain level, ROM and function. Pt instructed to prevent rolling down of top and fix throughout the day. Supine>sit HOB 20 degrees without use of rail with close S Neuromuscular re-education (1): For increased BLE neuromotor control: ?? Sit to stand from 21 w/c>RW x 5, from 27 mat without UEx2. FOcus on slow, controlled descent for eccentric control ?? Standing balance without UE 1min x2 Gait Training (1): Amb using RW with min contact A>>close S with w/c follow Distances: ~100 feet x 2 Deviations: decreased jimenez, decreased step length and height B, lateral trunk lean, increased shoulder hike with increased trunk flexion, decreased hip and knee flexion Adjusted height of RW to improve upright posture Pt's arrived near end of session with pt's personal RW gifted from a relative. Fit RW to patient's height. 2nd Session Time: Start time: 1135 Total Therapy Minutes: 30 minutes Interventions completed today: Vital Signs: Monitored and stable Therapeutic exercise (1): NuStep at level 1, seat position 13 for increased B knee motion and endurance. Able to complete 5 minutes continuously. Therapeutic activities (NC): Sit<>stand from w/c and NuStep seat with need for increased assist (min-mod A x 2) from NuStep seat which is lower height. Sit>supine with bed flat, no rails with close S and cues for breathing Gait Training (1): Amb using RW with close S Distances: ~100 feet, ~300 feet Deviations as above Patient/Family Education: Topic: Pain, edema management, walking program, use of CPM Learner: patient Method: verbal Barriers to Learning: none noted Outcome: verbalized understanding Team Communication: Pt discussed at interdisciplinary team meeting- please refer to note in PRISM. With MD re CPM use. With nursing re walking program during evening shift. With OT re LOS functionalstatus ASSESSMENT: Despite high level pain, Ed demonstrates increased independence with bed mobility and sit<>stand transfers. Anticipate benefit from CPM and walking program this evening to decrease stiffness, relieve pain, manage edema and improve knee motion. PLAN: Gait and stair training Bed mobility Transfer training, cooepr sit<>stand BLE strengthening, ROM Primary Therapist: Contact information: Pager: [phone] Natasha Ibanze 06/17/2015 11:31 * Inna Mathew RN - 06/17/2015 0824 EST Assessment done with patient and his brother Flo on 06/16. Rehab. Case Management Assessment & Initial Discharge Plan Working Diagnosis/Presenting Problem: 64 yo mlae with h/o OA, HTN, cervical disc arthroplasty admitted to Rehab s/p bilateral TKR. Living Arrangements: (with whom; description of house; steps/stairs; railings; ramp) [facility] [place], [place] but he will stay on first floor. There are 3 steps to enter with rails. 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 Current level of functioning: Min A for transfers and min contact assist for ambulation with RW andw/c follow. Communication needs: A & O and able to make needs known. Pleasant and personable. Family functioning: good dynamics Substance Abuse, (F/U if indicated): at times Smoking status, (F/U if indicated): quit 13 yo Behavioral Health Needs: no issues Social Supports: First contact: (name and #) Margie, , . She is Retired and can assist as needed. If 27/12 indicated, who would provide; what level of assist can they provide: Margie, as needed Identified caregiver: Margie Verified: With patient and brother Community Resources: PCP: (last time seen) Nic Padilla, /establised relationship. Pharmacy/location: [facility] in [place] Consent for d/c meds to be filled at [facility] Med[facility] C[facility]. Pharmacy? Yes Patient chose [facility] for DME Pt. chose [facility] if home health services indicated Pt. chose [facility]. if outpatient services indicated MOW: declines Medic Alert System: declines CFC/TBI Waiver? No Advanced Directives/DPOA: Yes or No: yes Action taken if no: Margie is his agent. Cultural/Language/Spiritual Needs: No Spiritism noted but having visits from [facility]. Insurance/Financial Needs: Current insurance coverage: Medicare and [employer] Life If no insurance, action taken: none Prescription coverage? yes LTC Medicaid indicated? no Disability needs assessed? Yes, action taken: not indicated ST or LT disability through employer Retired. Transportation Needs: Who will provide: Transportation for outpatient f/u? Action taken to arrange: none Patient Goals: Wants to be able to d/c to home with support of family and services. Assessment and Discharge Care Plan: Identify anticipated d/c plan, destination, and caregivers: Plan [facility]. I will continue to follow and assist with d/c needs. Inna Mathew, RN * Natasha Leblanc OT - 06/17/2015 0817 EST Rehabilitation Therapies Inpatient Rehabilitation [facility] Occupational Therapy Encounter Note Date of Service: 06/17/2015 SUBJECTIVE: I feel like I'm going backwards. re: having more pain today. First session OBJECTIVE: Start time: 829 Total Therapy Minutes: 57 minute(s) Interventions included: Self-Care/Home Management (3) -Focus on increasing independence and safety with basic self-care tasks. -Pt completed gathering of clothing at an ambulatory level with min contact assist of 1 -Grooming completed in seated with modified I. Pt declining standing due to pain. -UB dressing completed modified independent -LB dressing completed with supervision and cues. Able to don shorts over feet without adaptive equipment today. Able to use sock aide to don socks from EOB. -Toilet transfer completed with min contact assist of 1 -Pants management completed with min contact assist of 1 and hygiene modified independent Therapeutic Activities (1) -Addressed supine> sitting. Pt able to complete with supervision, use of rail. -End of session pt completed sitting to supine with min contact A at LEs Second session Start Time: 1430 Total Minutes Treatment 2: 30 Interventions included: Self-Care/Home Management (1) -Pt completed ambulatory level toileting with close supervision. He was able to stand at B rails tovoid with supervision. Therapeutic Activity (1) -Bed mobility as above, with slightly less assist required at LEs for sitting<>supine. -Dry run shower stall transfer with close supervision. Provided education on recommendation for shower seat and grab bars. Vital signs: Vital signs have been stable with interventions and were not monitored. Patient/Family Education: Topic: Benefits of activity D/C planning Adaptive equipment Learner: patient Method: verbal Barriers to Learning: none noted Outcome: verbalized understanding, returned demonstration and reinforcement needed / plan: Continuein further treatment Team Communication: Team conference attended today. Pt's tentative d/c date set for 06/21/15 ASSESSMENT: Pt is progressing well with ambulatory level ADL but is limited by pain and decreased ROM B LE. PLAN: -shower in shower stall with seat -functional mobility tasks in kitchen -life skills room mobility including bed mobility Pager: [phone] NATASHA LEBLANC OT 06/17/2015 9:30 * Hector Raya MD - 06/16/2015 1320 EST Physiatry Progress Note Admit Date: 06/14/2015 Hospital Day: LOS: 2 days Date of Service: 06/16/2015 Chief Complaint: Bilateral total knee arthroplasties with gait impairment Subjective: Denies any chest pain or discomfort, no shortness of breath. Does complain of some abdominal discomfort with only one bowel movement since admission. No lightheadedness Current Facility-Administered Medications Medication Route Frequency ??? acetaminophen (TYLENOL) tablet 650 mg oral BID PRN ??? acetaminophen (TYLENOL) tablet 650 mg oral QID ? ? aluminum & magnesium hydroxide-simethicone (MYLANTA-DS) 400-400-40 mg/5 mL suspension 30 mLoral Q4H PRN ??? ascorbic acid (VITAMIN C) tablet 500 mg oral QHS ??? bisacodyl (DULCOLAX) suppository 10 mg rectal Daily PRN ??? calcium carbonate (TUMS) 200 mg calcium (500 mg) per chewable tablet tablet,chewable 1-2 Tab oral Q2H PRN ??? cholecalciferol (Vitamin D3) tablet 2,000 Units oral QHS ??? dalteparin (FRAGMIN) 5,000 anti-Xa unit/0.2 mL injection 5,000 Units subcutaneous DAILY ??? docusate sodium (COLACE) capsule 100-200 mg oral BID PRN ??? docusate sodium (COLACE) capsule 200 mg oral BID ??? docusate sodium (ENEMEEZ) enema 1 Enema rectal Daily PRN ??? gabapentin (NEURONTIN) capsule 600 mg oral TID ??? lisinopril (PRINIVIL, ZESTRIL) tablet 10 mg oral DAILY ??? magnesium hydroxide (MILK OF MAGNESIA) 400 mg/5 mL suspension 30 mL oral BID PRN ??? magnesium hydroxide (MILK OF MAGNESIA) 400 mg/5 mL suspension 30 mL oral DAILY ??? Multivitamins with Minerals tablet 1 Tab oral DAILY ??? oxyCODONE (ROXICODONE) immediate release tablet 5-10 mg oral Q3H PRN ??? pantoprazole (PROTONIX) tablet 40 mg oral DAILY ??? PEG 3350-Electrolytes (MIRALAX) packet 17 g oral PRN ??? PEG 3350-Electrolytes (MIRALAX) packet 17 g oral DAILY ??? prochlorperazine (COMPAZINE) 25 mg suppository 25 mg rectal Q12H PRN ??? [START ON 06/21/2015] rivaroxaban (XARELTO) tablet 10 mg oral DAILY WITH DINNER ??? senna (SENOKOT) tablet 1-3 Tab oral Daily PRN ??? senna (SENOKOT) tablet 2 Tab oral BID ??? sodium phosphate (FLEET) enema 1 Enema rectal Daily PRN ??? tiZANidine (ZANAFLEX) tablet 2 mg oral TID PRN ??? traMADol (ULTRAM) tablet 50-100 mg oral TID ??? traMADol (ULTRAM) tablet 50-100 mg oral Daily PRN ??? zinc sulfate (ZINCATE) capsule 220 mg oral QHS Objective/Physical Exam: VS: Patient Vitals for the past 8 hrs: BP Pulse Resp Temp 06/16/15 0620 120/55 mmHg 72 16 36.6 ??C (97.9 ??F) Pain: Patient Vitals for the past 8 hrs: Numeric Pain Level (Scale 1-10) 06/16/15 1207 3 06/16/15 1000 4 06/16/15 0800 2 06/16/15 0600 2 Weight: Weight : (!) 126.554 kg (279 lb) Glucose Readings (last 8 readings): Recent Labs 06/14/15 0730 GLUCOSEFINGE 96 I&O: Intake/Output Summary (Last 24 hours) at 06/16/15 1320 Last data filed at 06/15/15 1500 Gross per 24 hour Intake 0 ml Output 300 ml Net -300 ml Exam: General appearance: alert Skin: Knee incisions well approximated with pietro in place Head: Normocephalic, without obvious abnormality, atraumatic Eyes: conjunctivae/corneas clear. PERRL, EOM's intact. Fundi benign Neck: supple, symmetrical, trachea midline, no carotid bruit and no JVD Lungs: clear to auscultation bilaterally Heart: regular rate and rhythm, S1, S2 normal, no murmur, click, rub or gallop Abdomen: soft, non-tender; bowel sounds normal; no masses, no organomegaly, Distended and obese Extremities: extremities warm, atraumatic, no cyanosis or edema positive pulses bilat Knee incisions well approximated with pietro in place. Nontender Neurologic alert oriented ??3 no focal motor weakness in the upper extremities and lower extremities limited secondary to pain but full dorsi and plantar flexion are noted. Labs: I have personally reviewed CBC: Lab Results Component Value Date WBC 8.70 06/16/2015 RBC 3.17* 06/16/2015 HGB 9.9* 06/16/2015 HCT 29.9* 06/16/2015 MCV 94 06/16/2015 MCH 31.2 06/16/2015 MCHC 33.1 06/16/2015 PLT 219 06/16/2015 NEUTROABS 5.78 06/02/2015 BMP: Lab Results Component Value Date NA 137 06/14/2015 K 4.1 06/14/2015 CL 100 06/14/2015 CO2 28 06/14/2015 BUN 16 06/14/2015 CREATININE 0.71 06/14/2015 GLUCOSEFINGE 96 06/14/2015 CALCIUM 9.4 06/02/2015 LABALBU 4.1 09/11/2012 Assessment/Problems: (update problem list daily as appropriate) Patient Active Problem List Diagnosis Date Noted ??? *(H)Impaired mobility and ADLs 06/14/2015 Priority: Medium ??? (H)Status post total bilateral knee replacement 06/14/2015 Priority: Medium ??? (H)Gait difficulty 06/14/2015 Priority: Medium ??? (H)Atrial fibrillation with RVR 06/14/2015 Priority: Medium 06/13/15: Asymptomatic 3 days postoperatively. Reverted without medication or cardioversion ??? (H)Hypertension Priority: Medium ??? (H)Bilateral knee pain 06/10/2015 Priority: Medium ??? (H)Bilateral primary osteoarthritis of knee 06/10/2015 Priority: Medium ??? (H)Family history of DVT 04/08/2015 Brother age 53, DVT following shoulder surgery Father, age late 70s in setting of cardiac disease Mother, late 70s, early 80s ??? (H)Morbid obesity 08/10/2012 Plan: 1. Bilateral total knee arthroplasties: Secondary gait impairment. Continue acute level therapies to include PT, and OT to address overall mobility, self cares Maintain adequate pain control at the knees Monitor surgical wounds Continue Fragmin for DVT prophylaxis 2. Paroxysmal atrial fibrillation: Internal medicine is following. Continue to monitor clinically 3. Constipation: Work with nursing and appropriate bowel program, especially with current narcotic use 4. Morbid obesity: Overall course will be impacted by obesity, and evaluation for appropriate equipment 5. Hypertension: Continue lisinopril 6. Acute blood loss anemia: Stable hemoglobin and hematocrit and patient currently asymptomatic Hector Raya MD 06/16/2015 13:20 * Vicky Powell DMD - 06/16/2015 0858 EST [facility] - Inpatient Rehab Unit Discharge Planning Communication Tool Discharge Location and Caregiver: Plans is to d/c home with support of family and services. [facility] 06/16 Follow-Up Therapy Services: [facility] for home care, [facility] for outpatient. [facility] 06/16 Discharge Equipment Needs: * Natasha Ibanez - 06/16/2015 0879 EST [facility] Rehabilitation Therapy Inpatient Rehabilitation Center [facility] Physical Therapy Encounter Note Date of Service: 06/16/2015 SUBJECTIVE: That's less than it was before re initial knee flexion with AROM heel slides. OBJECTIVE: Start time: 0900 Total Therapy Minutes: 30 minute(s) Interventions completed today: Vital Signs: HR regular throughout session. Pt c/o dizziness initially upon standing with quick relief and again at end of session in standing. BP 12/66, HR 86 Therapeutic exercise (1): Supine heel slides x 5B with minimal knee flexion. Provided sheet and instruction to use UE for AAROM and sustain hold at end for increased stretch. Repeated ~8 times BLE. Standing marching ~15 B with use of RW and min contact A Standing B heel raises ~12 with use of RW and min contact A Therapeutic activities (NC): Supine>sit with HOB elevated, bedrail and min A at trunk. Multiple sit<>stand from edge of bed (elevated), w/c with mod A x 1 and cues for hand placement Gait Training (1): Amb using RW with min contact A and w/c follow Distances: ~150 feet Deviations: decreased jimenez, decreased step length and height B, decreased hip and knee flexion with increased motion observed with cues and increased distance, decreased heel/toe progression 2nd Session Time: Start time: 1300 Total Therapy Minutes: 60 minutes Interventions completed today: Vital Signs: HR regular throughout session Gait training (2): Amb using RW with min contact A and another providing w/c follow Distances: feet Deviations as above Up/down 1 six inch step with heavy use BUE and min contact A x 2. Repeated x5B Therapeutic activities (1): Supine to sit with HOB elevated 20 degrees. Min A needed at trunk and BLE with markedly increased time and effort to complete task. Dependent to don/doff shoes while sitting edge of bed. Required UE support to maintain balance withdynamic LE movement. Sit<>stand from edge of bed x 1, w/c x 3. Initially required mod A x 2. With practice, decreased to min A during last trial with heavy use w/c armrests. Cues to maintain knee flexion with standto sit. Sit to supine with min A at BLE and use of bed rail. Discharge planning with patient- hopeful to return home Tuesday. Discussed benefits of rehab as wellas safety and dependence with mobility at this time. Therapeutic exercises (1): Foot taps to 6 step with lunge forward and sustained hold at end range knee flexion. Repeated 10xB with increasing knee flexion every rep. Extended rest periods required between all activities for pain relief Patient/Family Education: Topic: D/c planning, focus of rehab, pt goals, use of available knee motion in all functional activities, management dizziness upon standing Learner: patient Method: verbal Barriers to Learning: none noted Outcome: needs practice and verbalized understanding Team Communication: With OT re functional status and ELOS ASSESSMENT: Ed continues to require assist with bed mobility and transfer secondary to high level pain, decreased strength BLE and high pain levels. Anticipate steady success with functional strengthening activities and increased practice with potential to d/c home Tuesday/Tuesday. PLAN: Monitor HR Sit<>stand from various surfaces Gait training Step-ups>stair training BLE strengthening, ROM Primary Therapist: Contact information: Pager: [phone] Natasha Ibanez 06/16/2015 12:21 * Natasha Leblanc, OT - 06/16/2015 0820 EST Rehabilitation Therapies Inpatient Rehabilitation [facility] Occupational Therapy Initial Evaluation Note Date of Service: 06/16/2015 Reason for Referral: Evaluate and treat consistent with acute rehabilitation admission. Precautions: Total knee precautions, WBTT, Activity as tolerated, ambulate with assistive device; no twisting, pivoting or kneeling SUBJECTIVE: That's like my least favorite thing to do. re: coming from sit<>stand. Pain: Location: B knees Intensity: 4/10 Present, 2/10 Best, 6/10 Worst Frequency: intermittent Quality: ache Aggravating factors: Moving, trying to bend knees Alleviating factors: rest, cryocuffs OBJECTIVE: Patient Profile: Julio Cardoza is a R hand dominant 64 y.o. male admitted on 06/14/2015 secondary to B TKR. The patient lives at [address] [place] [id number] History of Present Illness/Injury: Per Dr. Galan H&P dated 06/14/15: Julio is a 64-year-old gentleman who underwent elective bilateral total knee replacement on 06/10/[address] Keenan Horan.?? He was admitted for postoperative management. He was noted on 06/13 to have rapid heart rate of 133 with atrial fibrillation on monitoring.?? He was asymptomatic.?? He was monitored in the cardiac telemetry unit and converted back to normal sinus rhythm without medication intervention.?? He was followed by the internal medicine service. He had no prior history of known atrial fibrillation.?? Echocardiogram was checked.?? EF 55-60 percent.?? Left atrium-mildly to moderately dilated.?? Reported as consistent with grade 1 diastolic dysfunction per note from Dr. Maryjo Jimenez M.D.?? Oral anticoagulation not recommended at this time but has per the medicine service would need to be considered if atrial fib recurs. Patient was able to advance to a regular diet, tolerated oral pain medications.?? Tolerated skilledtherapies and mobility out of bed and was not yet independent enough to be discharged to the home setting. I had reviewed pre-admission screen and chart and recommended acute inpatient rehabilitation. Upon arrival at the rehabilitation unit patient reports no new changes. Living Environment/Home Set-up: Pt lives in a 2 story home with 2 REKHA with B rail. Master bedroom and bathroom on the first floor. Bathroom has a 17 inch toilet and a 5 foot shower stall with built in seat. Caregiver Support: Pt lives with . She is retired and available to assist as needed. Equipment Available: Has a standard walker. Has a cane. Prior Level of Function: Activities of Daily Living: Independent Instrumental Activities of Daily Living: Independent and driving. 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 Medical/Surgical History: Current: Patient Active Problem List Diagnosis ??? Morbid obesity ??? Family history of DVT ??? Bilateral knee pain ??? Bilateral primary osteoarthritis of knee ??? Status post total bilateral knee replacement ??? Gait difficulty ??? Atrial fibrillation with RVR ??? Impaired mobility and ADLs ??? Hypertension Past: Past Medical History Diagnosis Date ??? Hypertension ??? Colon polyp Past Surgical History Procedure Laterality Date ??? Cervical disc arthroplasty ??? Tonsillectomy ??? Knee arthroscopy left Medications: Medications reviewed Body Functions and Performance Skills: Cardiovascular/Respiratory Systems Function: Vital Signs: Position Heart Rate (bpm) Blood Pressure (mmHG) Respiratory Rate (breaths/min) Oxygen Saturation SPO2 Liters of Oxygen Pre: seated 83 130/62 RA 94% RA Post: supine 84 142/67 RA 95% RA Mental Functions: Specific Mental Functions: no problems noted Global Mental Functions: A and O x 3 Cognitive FIM Comprehension: FIM 7 - Complete [place] - Understands complex or abstract directions and conversation independent without any difficulty Expression: FIM 7 - Complete [place] - Expresses complex or abstract ideas clearly and fluently independently (not necessarily in [place]) without any difficulty Social Interaction: FIM 7 - Complete [place] - Patient interacts appropriately with staff, other patient and family members in all situations (controls temper, accepts criticism, is aware that words and actions have an impact on others). Problem Solving: FIM 7 - Complete [place] - Patient consistently recognizes problems when present, makes appropriate decisions, initiates and carries out a sequence of steps to solve complex problems until the task is completed, and self-corrects if errors are made. Memory: FIM 7 - Complete [place] - Patient recognizes people frequently encountered, remembersdaily routines and executes requests of others with no need for repetition. 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 Range of Motion: AROM B UE all joints/pivots WNL per UQS standards Strength: B UE at least 4/5 all/joints pivots per UQS standards Control of Voluntary Movement: no problems noted Skin and Related Structure Functions: Skin Functions: B knee incisions covered and not viewed Areas of Occupation and Performance Skills: Basic Activities of Daily Living: Date: 06/16/15 Feeding FIM 7 Independent with regular diet Grooming FIM 6 Independent with all items given adaptive equipment, strategy and/or increased time -in seated. Bathing FIM 0 Not evaluated - Patient Refused Upper Body Dressing FIM 5 Requires set-up, supervision &/or cueing. Assist to apply adaptive equipment, compression garments &/or brace . Assist for item retrieval only. Lower Body Dressing FIM 2 Requires Max Assist - Patient does 25-49% of LB clothing steps without assist . Toileting: FIM 4 Requires Contact guard to Min Assist - pt does 3/3 items w/only steadying assistance or assist to fasten clothing . Toilet Transfer FIM 4 Requires Contact guard to Min Assist - Patient does 75% or more of effort to transfer on and off . Tub Transfer: FIM 0 Not evaluated - time constraint Functional Mobility: Min contact A for sit<>stand. Mod A for sitting to supine. Instrumental Activities of Daily Living: Not evaluated due to time constraint. Rest and Sleep: No problems noted. Education: Not evaluated due to not applicable to this patient. Work: Not evaluated due to time constraint. Leisure: Not evaluated due to time constraint. Social Participation: Pt was pleasant and cooperative throughout eval. Informed Consent: The patient consented to the occupational therapy evaluation. The patient agrees to and understandsthe occupational therapy treatment plan and goals. Interventions completed today: Occupational therapy today at 0930. Evaluation: 45 minutes Intervention: 15 minutes Intervention included: Self-care (1) -Provided instruction in the use of auto research engineer for donning/doffing shorts over feet, and for doffing socks. Pt returned demonstration. -Provided instruction in use of sock aide for donning socks. Pt returned demonstration, required cues. Second session Start Time: 1430 Total Minutes Treatment 2: 30 Intervention included: Therapeutic Activities (1) -Completed UQS with results noted above in Sensory and Neuromuscular sections. Self-care (1) -Pt completed ambulatory level toilet transfer with min contact A using RW, onto handicapped heighttoilet with B grab bars. Pt able to manage pants with steadying assist only. Able to complete hygiene post BM from seated with distant supervision. Patient/Family Education: Topic: Role of OT, treatment plan and goals, use of adaptive equipment Learner: patient Method: verbal Barriers to Learning: none noted Outcome: verbalized understanding, returned demonstration and reinforcement needed / plan: Continuein further treatment Team Communication: With nursing re: assisting pt with cryocuffs. ASSESSMENT: Julio was admitted to inpatient rehab 1/9/16 for functional impairments related to diagnosis of B TKR. Prior to this admission pt was active and independent with ADLs and IADLs. 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 Upper quarter screen completed with positive findings including: h/o wrist arthritis and being a new user of an assistive device. Anticipated outcomes: I anticipate that patient will be at a modified I level of function with basic self-care at the time of discharge. Based on pt's progress with basic ADLs, it will likely be appropriate to shift this pt to PT two hours a day and OT one hour a day to better suit his needs. Anticipate that pt will not require OT follow up services. Discharge OT equ ipment will include: bathing and toileting equipment TBD. ELOS is ~7 days. GOALS: Short Term Goals: Not written due to short ELOS Chemical Process Operator Goals: 7 days Pt will be modified I with UB dressing. Pt will complete LB dressing with modified I. Pt will complete grooming tasks with modified I. Pt will perform pants management and toileting hygiene with modified I. Pt will complete bathing in shower with set-up/supervision. Pt will perform ambulatory level toilet transfers with modified I. Pt will perform shower transfer with set-up/supervision. Pt will perform drink/snack prep at an ambulatory level with modified I. Pt will demonstrate understanding of d/c equipment needs and have d/c equipment in place. Pt will demonstrate understanding of at least 3 fall prevention principles. PLAN: Intervention: Occupational therapy treatment for 60-90 minutes a day 5 times a week for ~7 days for Occupation Based Activity - Basic Activities of Daily Living Occupation Based Activity - Instrumental Activities of Daily Living Purposeful Activity Patient/Family Education Further Data: Shower transfer, wet shower Patient/Family Education: D/c equipment and assistance needs, fall prevention, energy conservation. Discharge Plan: Home with supportive . Pager: [phone] NATASHA LEBLANC OT, 06/16/2015, 8:21 * Betty Galan MD - 06/15/2015 1035 EST INPATIENT PROGRESS NOTE DATE OF SERVICE:06/15/2015 PCP Nic Padilla LOS: 1 day REHABILITATION ADMISSION: 06/14/2015 REHAB ADMISSION DX: Bilateral total knee replacements 06/10/15, Dr. Jacome, gait and functional impairments CC: The pain, limited walking SUBJECTIVE: Patient was seen today for postoperative status and functional performance since knee surgery. Reports no new complaints during last night. Denies chest pain, SOB, fevers, or reflux. No palpitations. Bowels OK. Pain controlled fairly well with present regimen. Patient Active Problem List Diagnosis ??? Morbid obesity ??? Family history of DVT ??? Bilateral knee pain ??? Bilateral primary osteoarthritis of knee ??? Status post total bilateral knee replacement ??? Gait difficulty ??? Atrial fibrillation with RVR ??? Impaired mobility and ADLs ??? Hypertension Current Facility-Administered Medications Medication Route Frequency ??? acetaminophen (TYLENOL) tablet 650 mg oral BID PRN ??? acetaminophen (TYLENOL) tablet 650 mg oral QID ? ? aluminum & magnesium hydroxide-simethicone (MYLANTA-DS) 400-400-40 mg/5 mL suspension 30 mLoral Q4H PRN ??? ascorbic acid (VITAMIN C) tablet 500 mg oral QHS ??? bisacodyl (DULCOLAX) suppository 10 mg rectal Daily PRN ??? calcium carbonate (TUMS) 200 mg calcium (500 mg) per chewable tablet tablet,chewable 1-2 Tab oral Q2H PRN ??? cholecalciferol (Vitamin D3) tablet 2,000 Units oral QHS ??? dalteparin (FRAGMIN) 5,000 anti-Xa unit/0.2 mL injection 5,000 Units subcutaneous DAILY ??? docusate sodium (COLACE) capsule 100-200 mg oral BID PRN ??? docusate sodium (COLACE) capsule 200 mg oral BID ??? docusate sodium (ENEMEEZ) enema 1 Enema rectal Daily PRN ??? gabapentin (NEURONTIN) capsule 600 mg oral TID ??? lisinopril (PRINIVIL, ZESTRIL) tablet 10 mg oral DAILY ??? magnesium hydroxide (MILK OF MAGNESIA) 400 mg/5 mL suspension 30 mL oral BID PRN ??? magnesium hydroxide (MILK OF MAGNESIA) 400 mg/5 mL suspension 30 mL oral DAILY ??? Multivitamins with Minerals tablet 1 Tab oral DAILY ??? oxyCODONE (ROXICODONE) immediate release tablet 5-10 mg oral Q3H PRN ??? pantoprazole (PROTONIX) tablet 40 mg oral DAILY ??? PEG 3350-Electrolytes (MIRALAX) packet 17 g oral PRN ??? PEG 3350-Electrolytes (MIRALAX) packet 17 g oral DAILY ??? prochlorperazine (COMPAZINE) 25 mg suppository 25 mg rectal Q12H PRN ??? [START ON 06/21/2015] rivaroxaban (XARELTO) tablet 10 mg oral DAILY WITH DINNER ??? senna (SENOKOT) tablet 1-3 Tab oral Daily PRN ??? senna (SENOKOT) tablet 2 Tab oral BID ??? sodium phosphate (FLEET) enema 1 Enema rectal Daily PRN ??? traMADol (ULTRAM) tablet 50-100 mg oral TID ??? traMADol (ULTRAM) tablet 50-100 mg oral Daily PRN ??? zinc sulfate (ZINCATE) capsule 220 mg oral QHS OBJECTIVE: Estimated body mass index is 40.03 kg/(m^2) as calculated from the following: Height as of this encounter: 177.8 cm (70). Weight as of this encounter: 126.554 kg (279 lb). Patient Vitals for the past 48 hrs: BP Temp Temp src Pulse Resp SpO2 Height Weight 06/15/15 0658 121/56 mmHg 37 ??C (98.6 ??F) Tympanic 76 14 - - - 06/14/15 2014 108/49 mmHg 37.4 ??C (99.3 ??F) - 85 16 - - - 06/14/15 1212 - - - - - - 177.8 cm (70) (!) 126.554 kg (279 lb) 06/14/15 1211 118/56 mmHg - - 78 16 97 % - - 06/14/15 1147 - 36.5 ??C (97.7 ??F) Tympanic - - - - - EXAM: Constitutional:?? Well developed, well nourished, overweight: Back spray's, no acute distress, non-toxic appearance ?? Eyes:?? PERRL, conjunctiva normal ?? HENT:?? Atraumatic, external ears normal, nose normal, oropharynx moist, tongue slightly coated, nopharyngeal exudates. Neck- normal range of motion, no tenderness, supple Respiratory:?? No respiratory distress, normal breath sounds, no rales, no wheezing ?? Cardiovascular:?? Normal rate, normal rhythm, no murmurs, no gallops, no rubs ?? GI:?? Soft, distended, normal bowel sounds, nontender, unable to assess for organomegaly or mass with obesity, no rebound, no guarding ?? : No Sánchez catheter Musculoskeletal:?? .?? Anticipated postsurgical knee edema.?? Osteoarthritic deformity at wrists. Back- no tenderness Integument:?? Well hydrated, no rash ?? Lymphatic:?? 1-2 + edema bilateral calves Neurologic:?? Alert & oriented x 3, CN 2-12 normal, normal motor function, normal sensory function, no focal deficits noted .?? As expected post operative limitation of knee extension knee flexion effort due to pain, swelling. Psychiatric:?? Speech and behavior appropriate ?? LABS: Kidney/Electrolytes: Lab Results Component Value Date CREATININE 0.71 06/14/2015 BUN 16 06/14/2015 K 4.1 06/14/2015 CL 100 06/14/2015 CO2 28 06/14/2015 CALCIUM 9.4 06/02/2015 CALCCA 9.7 06/02/2015 CALCGFR 98 06/14/2015 Lab Results Component Value Date/Time SODIUM 137 06/14/2015 06:05 SODIUM 137 06/13/2015 05:20 SODIUM 133* 06/12/2015 05:25 SODIUM 134* 06/11/2015 06:36 Lab Results Component Value Date INR 1.0 06/02/2015 Lab Results Component Value Date WBC 8.49 06/14/2015 HCT 29.4* 06/14/2015 MCV 90 06/14/2015 MCH 30.5 06/14/2015 MCHC 34.0 06/14/2015 PLT 183 06/14/2015 RBC 3.27* 06/14/2015 RDWCV 12.5 06/14/2015 Lab Results Component Value Date/Time HCT 29.4* 06/14/2015 06:05 HCT 29.4* 06/13/2015 05:20 HCT 30.0* 06/12/2015 05:25 HCT 36.1* 06/11/2015 06:36 Lab Results Component Value Date/Time GLUCOSE, FINGERSTICK 96 06/14/2015 07:30 GLUCOSE, FINGERSTICK 102* 06/13/2015 11:26 GLUCOSE, FINGERSTICK 101* 06/13/2015 07:17 GLUCOSE, FINGERSTICK 123* 06/12/2015 05:36 GLUCOSE, FINGERSTICK 131* 06/11/2015 06:10 ASSESSMENT: The patient is medically stable to continue in the rehabilitation program. Team notes reviewed. Ongoing gains. Active Hospital Problems Diagnosis ??? Status post total bilateral knee replacement [Z96.653] ??? Gait difficulty [R26.9] ??? Atrial fibrillation with RVR [I48.91] ??? Impaired mobility and ADLs [Z74.09] ??? Hypertension [I10] ??? Bilateral knee pain [M25.561, M25.562] ??? Family history of DVT [Z82.49] ??? Morbid obesity [E66.01] Team/Patient/Family Communication: Patient/: Pain medication regimen PLAN: #Impaired mobility and ADLs s/p B TKR: PT/OT acute level therapies to address mobility, self-care, ADL deficits ?? surg nurse for self-care ADL support, education, patient/family training # Status post total bilateral knee replacement 06/10/15 (Dr. Horan): [place] out postoperative day 10-14.? Mepilex border dressing.?? Monitor for infection. ?? CBC on Tuesday to monitor postoperative blood loss anemia ??# Atrial fibrillation with RVR: Reverted without medication intervention.?? Monitor closely in therapies. ?Internal medicine consultation.?? Question need for event monitor.?? Review timing to resume patient's home aspirin 81 mg. ? # Morbid obesity: Assess need for bariatric equipment.?? Staph therapy sessions appropriately for patient and staff safety. #Hypertension: Lisinopril 10 mg.?? Continue home dose. ? # Family history of DVT: Monitor for DVT.?? On prophylaxis as per orthopedic protocol Risk Stratification for DVT Prophylaxis Patient is high risk for DVT/PE and standard risk for significant bleeding; therefore, ?--Dalteparin 5000 units subcutaneously daily through POD#10 (06/20/2015); followed by Xarelto 10 mg with dinner through POD#28 (07/08/2015) Discharge Plan: Home with home health ELOS: One week Betty Galan MD Future Appointments Date Time Provider Department Center 06/30/2015 15:15 Keenan Horan MD [facility] None * Benji Harris, PT - 06/14/2015 1642 EST Rehabilitation Therapies [facility] Physical Therapy Initial Evaluation Note-Total Knee Replacement Date of Service: 06/14/2015 Reason for Referral: Evaluate and Treat Precautions: Total knee precautions, WBTT, Activity as tolerated, ambulate with assistive device; no twisting, pivoting or kneeling SUBJECTIVE: Im getting settled. Pain: Location: B knees R>L Intensity: 2/10 (at present), 2/10 (at best), 6/10 (at worst) Frequency: constant Quality: ache Aggravating factors: Mobility, ROM Alleviating factors: Rest, medication, ice OBJECTIVE: Patient Profile: Patient is a 64 y.o. male admitted on 06/14/2015 secondary to s/p B TKR. The patientlives at [address] [place] [id number] History of present illness: Taken from Dr Galan's History and Physical dated 06/14/2015: HPI As obtained from full chart review: Julio is a 64-year-old gentleman who underwent elective bilateral total knee replacement on 06/10/15by Dr. Keenan Horan.?? He was admitted for postoperative management. He was noted on 06/13 to have rapid heart rate of 133 with atrial fibrillation on monitoring.?? He was asymptomatic.?? He was monitored in the cardiac telemetry unit and converted back to normal sinus rhythm without medication intervention.?? He was followed by the internal medicine service. He had no prior history of known atrial fibrillation.?? Echocardiogram was checked.?? EF 55-60 percent.?? Left atrium-mildly to moderately dilated.?? Reported as consistent with grade 1 diastolic dysfunction per note from Dr. Maryjo Jimenez M.D.?? Oral anticoagulation not recommended at this time but has per the medicine service would need to be considered if atrial fib recurs. Home Environment Lives: with family Caregiver Support: 24-hour assist Equipment Available: Cane and Standard walker Home Environment: house Home Layout: Multi-level. Will stay on first floor Entry Stairs: two with rails Interior Stairs: No stairs Bedroom: Downstairs Bathroom: Downstairs Prior Level of Function: Independent within limitations of knee pain Services prior to admission: None Work/Leisure: Retired Medical/Surgical History: Current: Patient Active Problem List Diagnosis ??? Morbid obesity ??? Family history of DVT ??? Bilateral knee pain ??? Bilateral primary osteoarthritis of knee ??? Status post total bilateral knee replacement ??? Gait difficulty ??? Atrial fibrillation with RVR ??? Impaired mobility and ADLs ??? Hypertension Past: Past Medical History Diagnosis Date ??? Hypertension ??? Colon polyp Past Surgical History Procedure Laterality Date ??? Cervical disc arthroplasty ??? Tonsillectomy ??? Knee arthroscopy left Labs: Hgb/Hct: 04/03. Medications: Medications reviewed Arousal, Attention, and Cognition: Alert Oriented to Person, Place and Time Cardiopulmonary: Vital Signs: Activity Heart rate (bpm) Blood Pressure (mmHg) Respiratory rate (breaths/min) Oxygen Sat/ Fractions of inspired Oxygen SPO2/FIO2 % Pre 79 101/53 During Post 85 143/57 Integumentary/Anthropometric Characteristics: Palpation/Observation: edema: BLE Incision: Mepilex dressing in place Posture: no problems noted Height: Height: 177.8 cm (70) Weight: Weight : (!) 126.554 kg (279 lb) Range of Motion and Joint Integrity: Active Range of Motion: Within normal limits except as noted Upper Quarter: Left Upper Extremity: WNL Right Upper Extremity: WNL Cervical Spine: Lower Quarter: tested in supine BLE Hip: Left Right Flexion WNL WNL Extension WNL WNL Abduction WNL WNL Adduction WNL WNL Internal Rotation WNL WNL External Rotation WNL WNL Knee: Left Left Flexion: supine 60 58 Flexion: Sitting 62 61 Extension -5 -5 Ankle: Left Right Dorsiflexion WNL WNL Plantarflexion WNL WNL Lumbar Spine: not assessed due to focus on functional performance Muscle Performance: Strength: Upper Quarter: BUE grossly 5/5 Left Upper Extremity: Right Upper Extremity: Cervical Spine: Lower Quarter: MMT LOWER QUARTER HIP: Right Left Flexion 3 3 Extension 3 3 Abduction 3 3 Adduction 3 3 Knee: Right Left Flexion 3- 3- Extension 3 3 Ankle: Right Left Dorsiflexion 5 5 Plantarflexion 5 5 Toe Flexion (gross, all toes) 5 5 Extensor Hallucis Longus 5 5 Lumbar Spine: not assessed due to pain B knees, limited weight bearing for this type of exam Sensation, Reflexes, and Nerve Integrity: Light Touch Sensation: Upper Quarter: Intact C2-T1 Lower Quarter: Intact for lower extremities, Proprioception: Neuromotor Function/Development: No problems noted Balance, Locomotion, and Gait: Balance: No loss of balance observed throughout physical therapy session with use of assistive device and physical assist. Patient requires bilateral upper extremity assist to attain and maintain stance. Locomotion: Wheelchair: Wheelchair mobility: Able to self propel 50' with supervision. Requires assist for Leg extensions, turns Wheelchair FIM:2 Gait: Assistive device: Rolling walker Distance/Assist/Deviations: 10 feet, min contact assist x 2, with decreased heel /toe progression, wide base of support, decreased knee flexion in swing phase, and decreased gait speed. Walk FIM:1 Stairs: Not evaluated due to unable to tolerate. Stairs FIM:0 Not evaluated - Unsafe/unable due to severity of impairments Self-Care, Home Management, Work, and Leisure: Bed mobility: supine to sit: min assist of LE's, HOB elevated sit to supine: Min assist of LE's, HOB elevated Transfers: sit <> stand: mod assist x 2 from low surface Stand step with rolling walker: min contact assist x 2 for safety. Transfers - Bed, Chair, Wheelchair FIM: 1 Outcome Measures: Not evaluated due to not indicated for this patient population. Informed Consent: The patient consented to the physical therapy evaluation. The patient agrees to and understands the physical therapy treatment plan and goals. Interventions Completed Today: Physical Therapy today at: 1500 Examination: 40 minutes Intervention: 10 minutes Start time: 1500, Total Therapy Minutes: 50 minute(s) Therapeutic Exercise (1) B lower extremity therapeutic exercises The patient was instructed in and performed exercise below. Verbal and manual cues provided throughout to ensure optimal performance for maximum gains: Supine: 10 active repetitions Ankle pumps Quadricep sets Gluteal sets Supine: 10 AA repetitions, assist with all on technique and to increase ROM Hip flexion/knee flexion Hip abduction Short arc quads Cryocuff: Patient educated on how to fill, empty, position cuff and cooler. Ice changed in cooler and cuff placed back on patients knees. Patient/Family Education: Topic: Role of PT, TKR precautions, weight bearing status, therapeutic exercise program, pain management Learner: patient Method: verbal, handout and demonstration Barriers to Learning: none noted Outcome: needs practice Team Communication: Patient's mobility and transfer status updated to team. Request for pre-medication for therapy treatments. ASSESSMENT: Patient presents to acute rehab with the physical therapy diagnosis of impaired mobility s/p B TKR on 06/10/15. The patient???s primary impairments include decreased lower extremity ROM, strength, endurance, balance. Post op course complicated by Afib (resolved). These impairments contribute to the following functional limitations: mod assistance for transfer and gait, risk of knee buckling due to poor control, decreased tolerance to activity. Upper Quarter Screen: No problems noted. Patient will require instruction in overuse signs and symptoms due to heavy workload on UE's with RW. Physical Therapy Prognosis: Prior to admission, patient was independent. He requires skilled physical therapy in acute rehab to assist with progression of LE ROM, functional mobility. Expect patient to reach independent with household ambulation and transfers, supervision for stairs. Patient demonstrates poor quality of gait, which will likely improve as pain decreases. Barriers to Discharge: Pain, risk of falls, need for assist with all mobility Estimated Length of Stay: 7-10 days Short Term Goals: deferred due to anticipated short length of stay Long- Term Goals: 7-10 days ?? The patient will be able to perform bed mobility independently demonstrating appropriate sequencing/motor planning and adherence to TKR precautions ?? The patient will be able to perform bed <> chair, stand step transfer with rolling walker with modified independence, and car transfer with minimal contact assist of 1/(S) while demonstrating appropriate hand placement with assistive device use. ?? The patient will be able to perform car transfers with supervision of family member ?? The patient will be able to ambulate with modified independence > 150 ft. level surfaces 3x day with rolling walker, demonstrating heel strike on initial contact, stable knee in stance, step through gait pattern, upright trunk posture and increased hip/knee flexion in swing. ?? The patient and/or caregiver will be able to recall and demonstrate precautions without cues. ?? The patient will be able to perform 4 stairs with modified independence with use of B rails, demonstrating proper LE sequencing. ?? The patient/caregiver will be aware of the recommendations provided and demonstrate an appropriate technique/understanding of the Exercise, equipment, follow up care and precaution recommendations. ?? The patient will be able to perform therapeutic exercises 10 times actively with good technique with written copy of exercises ?? The patient will demonstrate and increase to 90 degrees of knee flexion and 0 extension PLAN: Treatment/Intervention: Physical therapy will be provided by physical therapist and/or therapist multimedia production assistant as appropriate. Frequency: 2 times/day for at least 5 days per week Intensity: 30-60 minutes/session, 90 minutes per day Duration: During rehab admission Interventions May Include: Therapeutic exercise, Therapeutic activities, Gait Training, Self-Care/Home management and endurance activities Further Data: repeat ROM measurements, monitor HR Patient/Family Education: Precautions, home exercise program, equipment, follow- up care, safety Recommended Discharge Destination: Home with caregiver Recommended Discharge Services: Home health physical therapy Recommended Equipment Needs: Rolling walker Other recommendations: None Contact information: Pager: [phone] BENJI HARRIS PT 06/14/2015 16:35 documented in this encounter H&P Notes * Betty Galan MD - 06/14/2015 1039 EST Images from the original note were not included. Acute Rehab Admission H+P Admit Date: 06/14/2015 Date of Service: 06/14/2015 PCP: [facility] Admission Diagnosis: Bilateral knee replacements 06/10/15, Dr. Horan with postoperative complication, gait and functional impairments Chief Complaint: Knee pain, limited walking HPI As obtained from full chart review: Julio is a 64-year-old gentleman who underwent elective bilateral total knee replacement on 06/10/15by Dr. Keenan Horan. He was admitted for postoperative management. He was noted on 06/13 to have rapid heart rate of 133 with atrial fibrillation on monitoring. He was asymptomatic. He was monitored in the cardiac telemetry unit and converted back to normal sinus rhythm without medication intervention. He was followed by the internal medicine service. He had no prior history of known atrial fibrillation. Echocardiogram was checked. EF 55-60 percent.Left atrium-mildly to moderately dilated. Reported as consistent with grade [address] Dr[address] Maryjo Jimenez M.D. Oral anticoagulation not recommended at this time but has per the medicine service would need to be considered if atrial fib recurs. Patient was able to advance to a regular diet, tolerated oral pain medications. Tolerated skilled therapies and mobility out of bed and was not yet independent enough to be discharged to the home setting. I had reviewed pre-admission screen and chart and recommended acute inpatient rehabilitation. Upon arrival at the rehabilitation unit patient reports no new changes. He reports he is feeling well. His pain levels vary from 2 at minimum to 6 at maximum. He is tolerating the pain medications well. Denies nausea or reflux, chest pain, shortness of breath, diaphoresis or palpitations. He denied any symptoms at the time that his rapid heart rate was identified. Her evaluation by Dr. Wallace Pierce at that time he described some slight lightheadedness. Has had one bowel movement. Is emptying his bladder adequately. Reports a history of low back pain with lumbar spinal stenosis but no other significant osteoarthritic limitations. Previous functional level was Independent. Resides with his in [facility]. He is retired. Patient Active Problem List Diagnosis Date Noted ??? (H)Status post total bilateral knee replacement 06/14/2015 Priority: Medium ??? (H)Gait difficulty 06/14/2015 Priority: Medium ??? (H)Atrial fibrillation with RVR 06/14/2015 Priority: Medium ??? (H)Impaired mobility and ADLs 06/14/2015 Priority: Medium ??? (H)Bilateral knee pain 06/10/2015 Priority: Medium ??? (H)Bilateral primary osteoarthritis of knee 06/10/2015 Priority: Medium ??? Family history of DVT 04/08/2015 Brother age 53, DVT following shoulder surgery Father, age late 70s in setting of cardiac disease Mother, late 70s, early 80s ??? (H)Morbid obesity 08/10/2012 PMH PSH Past Medical History Diagnosis Date ??? Hypertension ??? Colon polyp Past Surgical History Procedure Laterality Date ??? Cervical disc arthroplasty ??? Tonsillectomy ??? Knee arthroscopy left Social History Family History History Substance Use Topics ??? Smoking status: Former Smoker Quit date: 06/06/1991 ??? Smokeless tobacco: Not on file ??? Alcohol Use: 3.0 oz/week 6 Not specified per week Family History Problem Relation Age of Onset ??? Colon Polyps Mother ??? Colon Polyps Sister ??? Colon Polyps Brother ??? Breast Cancer Neg Hx ??? Colon Cancer Neg Hx ??? Endometrial Cancer Neg Hx ??? Esophageal Cancer Neg Hx ??? Ovarian Cancer Neg Hx ??? Pancreatic Cancer Neg Hx ??? Rectal Cancer Neg Hx ??? Stomach Cancer Neg Hx Medications Prescriptions prior to admission Medication Sig Dispense Refill Last Dose ??? Aspirin 81 mg Tab Take 81 mg by mouth daily. 06/10/2015 ??? lisinopril (PRINIVIL, ZESTRIL) 20 mg tablet Take 10 mg by mouth daily. 06/09/2015 ??? Multivitamins with Minerals tablet Take 1 Tab by mouth daily Past Month ??? naproxen sodium (ALEVE) 220 mg cap Take 2 Caps by mouth 2 times daily Past Month Allergies No Known Allergies Review of Systems: A ten point review of systems was performed. Pertinent positives and negatives are in the history of present illness. There is no history of diabetes. There is no history of peripheral vascular disease. Objective/Physical Exam: VS: Patient Vitals for the past 8 hrs: BP Pulse Resp Temp SpO2 O2 Device 06/14/15 1211 118/56 mmHg 78 16 - 97 % None 06/14/15 1147 - - - 36.5 ??C (97.7 ??F) - - Patient Vitals for the past 72 hrs: BP Temp Temp src Pulse Resp SpO2 Height Weight 06/14/15 1212 - - - - - - 177.8 cm (70) (!) 126.554 kg (279 lb) 06/14/15 1211 118/56 mmHg - - 78 16 97 % - - 06/14/15 1147 - 36.5 ??C (97.7 ??F) Tympanic - - - - - Pain: Patient Vitals for the past 8 hrs: Numeric Pain Level (Scale 1-10) 06/14/15 1221 3 06/14/15 1213 3 Weight: BMI: Estimated body mass index is 39.14 kg/(m^2) as calculated from the following: Height as of 06/10/15: 177.8 cm (70). Weight as of 06/02/15: 123.741 kg (272 lb 12.8 oz). Glucose Readings (last 8 readings): Recent Labs 06/12/15 0536 06/13/15 0717 06/13/15 1126 06/14/15 0730 GLUCOSEFINGE 123* 101* 102* 96 Exam: Constitutional: Well developed, well nourished, overweight: no acute distress, non-toxic appearance Eyes: PERRL, conjunctiva normal HENT: Atraumatic, external ears normal, nose normal, oropharynx moist, tongue slightly coated, no pharyngeal exudates. Neck- normal range of motion, no tenderness, supple Respiratory: No respiratory distress, normal breath sounds, no rales, no wheezing Cardiovascular: Normal rate, normal rhythm, no murmurs, no gallops, no rubs GI: Soft, distended, normal bowel sounds, nontender, unable to assess for organomegaly or mass withobesity, no rebound, no guarding : No Sánchez catheter Musculoskeletal: . Anticipated postsurgical knee edema. Osteoarthritic deformity at wrists. Back- no tenderness Integument: Well hydrated, no rash Lymphatic: 1-2 + edema bilateral calves Neurologic: Alert & oriented x 3, CN 2-12 normal, normal motor function, normal sensory function, no focal deficits noted . As expected post operative limitation of knee extension knee flexion effort due to pain, swelling. Psychiatric: Speech and behavior appropriate Pressure Ulcer Present on admission? No Data Review: Labs: I have personally reviewed CBC: Lab Results Component Value Date WBC 8.49 06/14/2015 RBC 3.27* 06/14/2015 HGB 10.0* 06/14/2015 HCT 29.4* 06/14/2015 MCV 90 06/14/2015 MCH 30.5 06/14/2015 MCHC 34.0 06/14/2015 PLT 183 06/14/2015 NEUTROABS 5.78 06/02/2015 BMP: Lab Results Component Value Date NA 137 06/14/2015 K 4.1 06/14/2015 CL 100 06/14/2015 CO2 28 06/14/2015 BUN 16 06/14/2015 CREATININE 0.71 06/14/2015 GLUCOSEFINGE 96 06/14/2015 CALCIUM 9.4 06/02/2015 LABALBU 4.1 09/11/2012 Coagulation: Lab Results Component Value Date PROTIME 11.4 06/02/2015 INR 1.0 06/02/2015 PTT 29 06/02/2015 LFT: Lab Results Component Value Date TBIL 0.7 09/11/2012 ALKPHOS 79 09/11/2012 AST 29 09/11/2012 ALT 62 09/11/2012 Other Studies: X-rays reviewed as below 06/10/15 postop x-ray Assessment/Problems: (update problem list daily as appropriate) Active Hospital Problems Diagnosis ??? Status post total bilateral knee replacement [Z96.653] ??? Gait difficulty [R26.9] ??? Atrial fibrillation with RVR [I48.91] ??? Impaired mobility and ADLs [Z74.09] ??? Hypertension [I10] ??? Bilateral knee pain [M25.561, M25.562] ??? Family history of DVT [Z82.49] ??? Morbid obesity [E66.01] This patient's current status is similar to the pre-admission screening and is appropriate for inpatient rehabilitation admission. Patient has had a significant decline in function as the result of bilateral total knee replacement with postoperative complication of 1 episode of A. fib. This patient has impaired self care, balance, and functional mobility. An acute inpatient rehab setting is medically necessary for physician monitoring of cardiac function, rhythm, surgical healing, DVT risk management, pain management. This patient is not yet safe to return to the home setting and requires 24 hour nursing care, and acute level therapies including PT, OT for 3 hours per day, 5 days per week. Patient has excellent rehab potential and is expected to be independent with rolling walker for household level activities and independent with independent to min assist with durable medical equipmentfor self-care at discharge. Plan: #Impaired mobility and ADLs s/p B TKR: PT/OT acute level therapies to address mobility, self-care, ADL deficits ?? surg nurse for self-care ADL support, education, patient/family training # Status post total bilateral knee replacement 06/10/15 (Dr. Horan): Pietro out postoperative day 10-14. Mepilex border dressing. Monitor for infection # Atrial fibrillation with RVR: Reverted without medication intervention. Monitor closely in therapies. ?? Internal medicine consultation. Question need for event monitor. Review timing to resume patient's home aspirin 81 mg. # Morbid obesity: Assess need for bariatric equipment. Staph therapy sessions appropriately for patient and staff safety. #Hypertension: Lisinopril 10 mg. Continue home dose. # Family history of DVT: Monitor for DVT. On prophylaxis as per orthopedic protocol Risk Stratification for DVT Prophylaxis Patient is high risk for DVT/PE and standard risk for significant bleeding; therefore, ?--Dalteparin 5000 units subcutaneously daily through POD#10 (06/20/2015); followed by Xarelto 10 mg with dinner through POD#28 (07/08/2015) Discharge Plan: Home with home health ELOS: One week Betty Galan MD 06/14/2015 10:39 Medications ordered at time of admission: Current Facility-Administered Medications Medication Route Frequency ??? acetaminophen (TYLENOL) tablet 650 mg oral BID PRN ??? acetaminophen (TYLENOL) tablet 650 mg oral QID ? ? aluminum & magnesium hydroxide-simethicone (MYLANTA-DS) 400-400-40 mg/5 mL suspension 30 mLoral Q4H PRN ??? ascorbic acid (VITAMIN C) tablet 500 mg oral QHS ??? bisacodyl (DULCOLAX) suppository 10 mg rectal Daily PRN ??? calcium carbonate (TUMS) 200 mg calcium (500 mg) per chewable tablet tablet,chewable 1-2 Tab oral Q2H PRN ??? cholecalciferol (Vitamin D3) tablet 2,000 Units oral QHS ??? [START ON 06/15/2015] dalteparin (FRAGMIN) 5,000 anti-Xa unit/0.2 mL injection 5,000 Units subcutaneous DAILY ??? docusate sodium (COLACE) capsule 100-200 mg oral BID PRN ??? docusate sodium (COLACE) capsule 200 mg oral BID ??? docusate sodium (ENEMEEZ) enema 1 Enema rectal Daily PRN ??? gabapentin (NEURONTIN) capsule 600 mg oral TID ??? [START ON 06/15/2015] lisinopril (PRINIVIL, ZESTRIL) tablet 10 mg oral DAILY ??? magnesium hydroxide (MILK OF MAGNESIA) 400 mg/5 mL suspension 30 mL oral BID PRN ??? magnesium hydroxide (MILK OF MAGNESIA) 400 mg/5 mL suspension 30 mL oral DAILY ??? Multivitamins with Minerals tablet 1 Tab oral DAILY ??? oxyCODONE (ROXICODONE) immediate release tablet 5-10 mg oral Q3H PRN ??? [START ON 06/15/2015] pantoprazole (PROTONIX) tablet 40 mg oral DAILY ??? PEG 3350-Electrolytes (MIRALAX) packet 17 g oral PRN ??? PEG 3350-Electrolytes (MIRALAX) packet 17 g oral DAILY ??? prochlorperazine (COMPAZINE) 25 mg suppository 25 mg rectal Q12H PRN ??? [START ON 06/21/2015] rivaroxaban (XARELTO) tablet 10 mg oral DAILY WITH DINNER ??? senna (SENOKOT) tablet 1-3 Tab oral Daily PRN ??? senna (SENOKOT) tablet 2 Tab oral BID ??? sodium phosphate (FLEET) enema 1 Enema rectal Daily PRN ??? traMADol (ULTRAM) tablet 50-100 mg oral TID ??? traMADol (ULTRAM) tablet 50-100 mg oral Daily PRN ??? zinc sulfate (ZINCATE) capsule 220 mg oral QHS documented in this encounter Consult Notes * Radha Coreas MD - 06/16/2015 1312 EST MEDICINE CONSULT Requested by: Dr. Raya Reason: Bilateral total knee arthroplasty, atrial fibrillation-paroxysmal, chronic diastolic heart failure Date of admission to hospital: 06/10/2015 Date of admission to [facility] Rehabilitation: 06/14/2015 HPI: Patient presented for elective bilateral total knee arthroplasty. As he describes it, he has been trying to put this off but inevitably elected to pursue bilateral total knee arthroplasty due to chronic knee osteoarthritis. He had a hospital course notable for A. fib with rapid ventricular response but has been asymptomatic in terms of chest pain, palpitation, dyspnea, presyncope. He is on dalteparin currently with plans to transition to Xarelto for DVT prophyla xis once he gets back home. He was transferred to acute rehabilitation for continued functional therapies. At present: Some discomfort in his knees with activity/weightbearing but otherwise comfortable A 10 point review of systems was conducted and negative for: Fever, chills Vision change, diplopia Chest pain, palpitation Dyspnea, cough Nausea, vomiting Urine change, hematuria, dysuria Rash Weakness, slurred speech, ataxia Depression, anxiety Diabetes, thyroid disease PMH: Past Medical History Diagnosis Date ??? Hypertension ??? Colon polyp MEDS: List reviewed. Current Facility-Administered Medications Medication Route Frequency ??? acetaminophen (TYLENOL) tablet 650 mg oral BID PRN ??? acetaminophen (TYLENOL) tablet 650 mg oral QID ? ? aluminum & magnesium hydroxide-simethicone (MYLANTA-DS) 400-400-40 mg/5 mL suspension 30 mLoral Q4H PRN ??? ascorbic acid (VITAMIN C) tablet 500 mg oral QHS ??? bisacodyl (DULCOLAX) suppository 10 mg rectal Daily PRN ??? calcium carbonate (TUMS) 200 mg calcium (500 mg) per chewable tablet tablet,chewable 1-2 Tab oral Q2H PRN ??? cholecalciferol (Vitamin D3) tablet 2,000 Units oral QHS ??? dalteparin (FRAGMIN) 5,000 anti-Xa unit/0.2 mL injection 5,000 Units subcutaneous DAILY ??? docusate sodium (COLACE) capsule 100-200 mg oral BID PRN ??? docusate sodium (COLACE) capsule 200 mg oral BID ??? docusate sodium (ENEMEEZ) enema 1 Enema rectal Daily PRN ??? gabapentin (NEURONTIN) capsule 600 mg oral TID ??? lisinopril (PRINIVIL, ZESTRIL) tablet 10 mg oral DAILY ??? magnesium hydroxide (MILK OF MAGNESIA) 400 mg/5 mL suspension 30 mL oral BID PRN ??? magnesium hydroxide (MILK OF MAGNESIA) 400 mg/5 mL suspension 30 mL oral DAILY ??? Multivitamins with Minerals tablet 1 Tab oral DAILY ??? oxyCODONE (ROXICODONE) immediate release tablet 5-10 mg oral Q3H PRN ??? pantoprazole (PROTONIX) tablet 40 mg oral DAILY ??? PEG 3350-Electrolytes (MIRALAX) packet 17 g oral PRN ??? PEG 3350-Electrolytes (MIRALAX) packet 17 g oral DAILY ??? prochlorperazine (COMPAZINE) 25 mg suppository 25 mg rectal Q12H PRN ??? [START ON 06/21/2015] rivaroxaban (XARELTO) tablet 10 mg oral DAILY WITH DINNER ??? senna (SENOKOT) tablet 1-3 Tab oral Daily PRN ??? senna (SENOKOT) tablet 2 Tab oral BID ??? sodium phosphate (FLEET) enema 1 Enema rectal Daily PRN ??? tiZANidine (ZANAFLEX) tablet 2 mg oral TID PRN ??? traMADol (ULTRAM) tablet 50-100 mg oral TID ??? traMADol (ULTRAM) tablet 50-100 mg oral Daily PRN ??? zinc sulfate (ZINCATE) capsule 220 mg oral QHS ALL: No Known Allergies SOCIAL: Lives in [place], [place] with his Retired Independent, hard-working [facility] FAMILY: Family History Problem Relation Age of Onset ??? Colon Polyps Mother ??? Colon Polyps Sister ??? Colon Polyps Brother ??? Breast Cancer Neg Hx ??? Colon Cancer Neg Hx ??? Endometrial Cancer Neg Hx ??? Esophageal Cancer Neg Hx ??? Ovarian Cancer Neg Hx ??? Pancreatic Cancer Neg Hx ??? Rectal Cancer Neg Hx ??? Stomach Cancer Neg Hx ROS: See hpi. EXAM: BP 120/55 mmHg Pulse 72 Temp(Src) 36.6 ??C (97.9 ??F) (Tympanic) Resp 16 Ht 177.8 cm (70) Wt 126.554 kg (279 lb) BMI 40.03 kg/m2 SpO2 97% Very pleasant, dressed, sitting up in bed, on room air Fully oriented to self, place, time, situation No JVD No thrush Regular rhythm without appreciable murmur Scattered slight rhonchi in his bilateral bases otherwise clear Abdomen soft, nontender No Sánchez Extensive ecchymoses on his posterior thighs bilaterally Both knees are being iced and not taken down today Limited edema in his bilateral lower extremities Strength grossly symmetric throughout No dysarthria No facial droop DATA: Ref. Range 06/16/2015 05:52 WBC Latest Range: 4.0-10.4 K/cmm 8.70 RBC Latest Range: 4.36-5.78 M/cmm 3.17 (L) Hemoglobin Latest Range: 13.8-17.3 gm/dl 9.9 (L) HCT Latest Range: 39.5-50.2 % 29.9 (L) MCV Latest Range: 81-95 fl 94 MCH Latest Range: 27.6-33.0 pg 31.2 MCHC Latest Range: 32.8-36.4 gm/dl 33.1 RDW-CV Latest Range: 11.8-14.1 % 12.6 RDW-SD Latest Range: 36.5-45.9 fl 41.0 PLT Latest Range: 141-377 K/cmm 219 MPV Latest Range: 9.5-12.7 fl 11.8 Echocardiogram 06/13/2015: Summary: ? 1. Left ventricle: The cavity size was normal. Wall thickness was normal. ? Systolic function was normal. The estimated ejection fraction was 55-60%. ? Wall motion was normal; there were no regional wall motion abnormalities. ? Doppler parameters are consistent with abnormal left ventricular relaxation ? (grade 1 diastolic dysfunction). There was no evidence of elevated ? ventricular filling pressure by Doppler parameters. ?? 2. Right ventricle: The cavity size was at the upper limits of normal. Systolic ? function was normal. ?? 3. Left atrium: The atrium was mildly to moderately dilated. IMPRESSION: 1. Elective bilateral total knee arthroplasty 2. Paroxysmal atrial fibrillation 3. Chronic diastolic heart failure 4. Morbid obesity. BMI 40. 5. Hypertension SUGGESTIONS: 1. Elective bilateral total knee arthroplasty PT/OT Frequent and regular inspirometry in the postop period-reviewed with him today Pain control without oversedation DVT prophylaxis: Dalteparin as a bridge to Xarelto 2. Paroxysmal atrial fibrillation - no obvious sign of recurrence Note that he will be effectively anticoagulated for the next month in the setting of DVT prophylaxis postoperatively Follow-up with PCP in the next month 3. Chronic diastolic heart failure BP control 4. Morbid obesity. BMI 40. Overall general health will benefit from weight loss if possible, but possibly improved with his new knee surgery. Consider nutrition consultation Continue frequent, focused activities daily Monitor hemoglobin A1c as an outpatient as his blood glucoses were somewhat elevated in the hospital 5. Hypertension Continue lisinopril and monitor MD Joss documented in this encounter Miscellaneous Notes * Plan of Care - Henry Cruz RN - 06/21/2015 0700 EST Problem: Daily Care Plan Goals Goal: Care Plan Documentation Outcome: Met This Shift 06/21/15 0233 Care Plan Focus Area of Focus Pain/ Comfort Goal This Shift Pain level will be at 3 out of 10 or less at or near end of shift. Data: S/p bilateral TKRs on 06/10/15. Pt with complaint of 4 out of 10 (4/10) intensity level bilateral knee pain at 0010 AM. Action: Cryo cuffs refilled with ice and water and applied to pt's knees. RN administered oxycodoneir 10 mg to the pt at 0010 AM. RN administered oxycodone ir 10 mg and Tylenol 650 mg at 0450 AM. Response: Pain level of knees at 4/10 level at 0305 and 0450 AM. Pain level down to 3/10 at 0648 per pt. Pt's VS at 0642 stable and WNL. Henry Cruz RN 06/21/2015 9:37 * Plan of Care - Briana Parra RN - 06/20/2015 0556 EST Problem: Daily Care Plan Goals Goal: Care Plan Documentation Outcome: Ongoing 06/20/15 1746 Care Plan Focus Area of Focus Pain/ Comfort Goal This Shift (pt will remain free from pain) Data: pt c/o moderate pain r/t b/l knee replacement Action: prn pain meds given per orders Response: decrease in pain Briana Parra RN 06/20/2015 23:39 * Plan of Care - Marysol Ponce RN - 06/20/2015 0755 EST Problem: Daily Care Plan Goals Goal: Care Plan Documentation Outcome: Met This Shift 06/20/15 0000 Care Plan Focus Area of Focus Sleep Goal This Shift Patient will have adequate sleep. Patient asleep on most hourly rounds. Cryo cuffs and CPAP on all shift. Medicated for bilateral knee pain (see eMAR) with positive effect. Safe; rings appropriately. * Plan of Care - Leatha Richmond RN - 06/19/2015 2141 EST Problem: Daily Care Plan Goals Goal: Care Plan Documentation Outcome: Met This Shift 06/19/15 1638 Care Plan Focus Area of Focus Pain/ Comfort Goal This Shift Pain is well managed Pt c/o 4/10 Aman knee pain at HS, reports I'm trying to stay ahead of the pain. See Mar for dosing. Cyro cuffs to aman knees, CPM on aman knees x 11/2 hours. * Plan of Care - Debora Gaviria RN - 06/19/2015 1518 EST Problem: Daily Care Plan Goals Goal: Care Plan Documentation Outcome: Met This Shift 06/19/15 0900 Care Plan Focus Area of Focus Pain/ Comfort Goal This Shift pt will have adequate level of pain during this shift D: Patient has been rest or during therapy at hourly rounds. Adequate pain level during this shiftCall light and bedside stand within reach. Pt received sedating meds and is currently breathing w/o difficulty. A: Monitored for safety as well as abillity to sleep/rest; rounding hourly and attending to requests for personal care needs and change in comfort level (see flow sheet). Assisted with personal care as needed. Patient continues to require skilled Rehab nursing care., Encouraged patient to use call light if any need for assistance develops. R: Monitor for adequate sleep patterns, personal care needs, and any change in comfort. * Plan of Care - Marysol Ponce RN - 06/19/2015 0807 EST Problem: Daily Care Plan Goals Goal: Care Plan Documentation Outcome: Met This Shift 06/19/15 0000 Care Plan Focus Area of Focus Sleep Goal This Shift Patient will have adequate sleep. Patient asleep on most hourly rounds. Cryo cuffs and CPAP on all night. Used urinal independently. Medicated for bilateral knee pain x 2 (see eMAR) with positive effect. No unsafe behavior. * Plan of Care - Leatha Richmond RN - 06/18/2015 2307 EST Problem: Daily Care Plan Goals Goal: Care Plan Documentation Outcome: Met This Shift 06/18/15 1639 Care Plan Focus Area of Focus Pain/ Comfort Goal This Shift Pain is well managed Pt c/o Aman knee pain at HS, rates pain @ 3, given Oxy IR 5 mg and scheduled Oxy contin. Pt tolerated having CPM's on aman LE for over 1 1/2 this shift. * Plan of Care - Kyle Canela RN - 06/18/2015 1348 EST Problem: Daily Care Plan Goals Goal: Care Plan Documentation 06/18/15 0817 Care Plan Focus Area of Focus Pain/ Comfort Goal This Shift pain controlled Pain more controlled with addition of long acting medication. PRN and scheduled interventions also effective, as well as use of cryo cuffs. Pain rated as low 3/10 after interventions. * Plan of Care - Marysol Ponce RN - 06/18/2015 0717 EST Problem: Daily Care Plan Goals Goal: Care Plan Documentation Outcome: Met This Shift 06/18/15 0000 Care Plan Focus Area of Focus Sleep Goal This Shift Patient will have adequate sleep. Patient asleep on most hourly rounds. Cryo cuffs and CPAP on all night. Patient safe and rang appropriately. Medicated x 1 for bilateral knee pain (see eMAR) with positive results. Voiding independently with urinal. * Plan of Care - Kyle Canela RN - 06/17/2015 1359 EST Problem: Daily Care Plan Goals Goal: Care Plan Documentation Outcome: Ongoing 06/17/15 1000 06/17/15 1357 Care Plan Focus Area of Focus Pain/ Comfort -- Goal This Shift -- pain controlled Pain rated as high as 5/10. Pt c/o throbbing in bilateral knees. Medication moderately effective. MD Raya aware, pt will start on long acting pain medication tomorrow. * Plan of Care - Marysol Ponce RN - 06/17/2015 0653 EST Problem: Daily Care Plan Goals Goal: Care Plan Documentation Outcome: Met This Shift 06/17/15 0000 Care Plan Focus Area of Focus Sleep Goal This Shift Patient will have adequate sleep. Patient asleep on all hourly rounds. Cryo cuffs and CPAP on all shift. Bilateral knee dressings CDI. Medicated with prn Oxy 10 mg at 0624 for bilateral knee pain (see eMAR); awaiting results. * Plan of Care - Debora Gaviria RN - 06/16/2015 3387 EST Problem: Daily Care Plan Goals Goal: Care Plan Documentation Outcome: Met This Shift 06/16/15 2253 Care Plan Focus Area of Focus Pain/ Comfort Goal This Shift pt will be adequate during this shift D: Patient has been found resting in his bed at hourly rounds. Pt had adequate pain level during this shift. Call light and bedside stand within reach. Pt received no sedating med at and is currently breathing w/o difficulty. A: Monitored for safety as well as abillity to sleep/rest; rounding hourly and attending to requests for personal care needs and change in comfort level (see flow sheet). Assisted with personal care as needed. Patient continues to require skilled Rehab nursing care., Encouraged patient to use call light if any need for assistance develops. R: Monitor for adequate sleep patterns, personal care needs, and any change in comfort. Establish and maintain patient's night time rituals to promote sleep, paying attention to morning nursing/therapy schedules. * Patient Care Conference - Hector Raya MD - 06/16/2015 0223 EST Inpatient Acute Rehabilitation Unit - Interdisciplinary Team Conference Note Julio Cardoza 64 y.o. male Team Conference Date/Time: 06/17/2015 @1205 Admit Date/Time: 06/14/2015 10:08 Primary Rehab diagnosis: Knee Replacement - Bilateral Comorbid Conditions: Patient Active Problem List Diagnosis ??? Morbid obesity ??? Family history of DVT ??? Bilateral knee pain ??? Bilateral primary osteoarthritis of knee ??? Status post total bilateral knee replacement ??? Gait difficulty ??? Atrial fibrillation with RVR ??? Impaired mobility and ADLs ??? Hypertension Progress towards goals: Nursing: Inc. line C/D/I. Pain moderately controlled on scheduled and PRN interventions. Cryo cuffsaid in pain relief. OT: Notable gains include pt is making progress with ADL at an ambulatory level with use of adaptive equipment. Progress limited primarily by pain and decreased ROM B LE. Requesting that pt receive 2hours PT/1 hour OT. See below for additional barriers PT: Notable gains include: decreased assist with bed mobility and sit<>stand, increased distance ambulation with improved quality gait and Progress limited primarily by: pain, edema B knees, limited knee flexion B. See below for additional barriers Gait: The patient ambulates with supervison, cues and assistance of 1 with rolling walker for 300 feet. Stairs: Patient negotiates with min contact assist of 2 up and down 1 six [address] stair with 2 rails. Self-Care:Bed Mobility: Sit->supine: with supervison, cues and assistance of 1 with flat bed and no rails. Supine->sit: with supervison, cues and assistance of 1 with head of the bed up. Transfers: Bed < > Chair: stand-step with min contact assist of 1 RN ADMIT: Medical Complications: Pain control at the knees, anticoagulation Level of Risk & Environmental Privilege: A Pre-Hospital Living Setting and Support System: Pt lives in [place], [place] with in 2 story home with 2 REKHA with B rail. Pt lives with . She is retired and available to assist as needed. Barriers to Discharge: s/p B TKR on 06/10/15 with decreased lower extremity ROM, strength, endurance,balance. Post op course complicated by Afib (resolved). Functional deficits with self-care and mobility requiring mod assistance for transfer and gait, risk of knee buckling due to poor control, decreased tolerance to activity. Efforts to Remove Barriers: Patient is tolerating Acute IP Rehab Program intensity well and making significant functional progress. Full rehab program to increase the patient's level of independence with self- care and functional mobility to decrease the amount of assistance and/or supervision needed at discharge. Additional Team Conference Discussion: Team discussion of initial evaluations, progress to date andgoals for Inpatient Acute Rehab program. Making progress toward AR goals. Pain limiting progress - focus of goals on PT 2 hours per day with OT 1 Hour per day. Patient may benefit from CPM to improverehab course. Anticipated Actual Discharge Disposition: Discharge Location: Home Caregiver at Discharge: Spouse/significant other/domestic partner Supervision/Assistance at Discharge: Intermittent physical assistance Discharge Date: 06/21/2015 Follow-Up Services: Home health with Nursing and PT Anticipated Home Care Needs: None anticipated Reassessment of goals or treatment program: Goals maintained Assessment of need for Acute Rehabilitation level of care: The expected course of treatment continues to require an interdisciplinary approach to maximize interventions and progress towards functional goals established., The patient generally participates actively in therapy at expected intensity levels., Continue therapies by OT and PT and For a total of 3 hours per day, 5 days per week Additional interdisciplinary team information: Patient/Caregiver Communication: Nurse will inform patient/family of discharge plan and estimated length of stay Team Conference Attendees: Rehab Physician: Hector Raya MD Security Operations Specialist: LEEROY Pittman Display Fabricator: Inna Mathew RN Nurse: Larry Canela RN OT: NATASHA LEBLANC OT PT: Natasha Ibanez, PT HOME STAGER: RN ADMIT: * Plan of Care - Kamran John RN - 06/16/2015 1530 EST Problem: Daily Care Plan Goals Goal: Care Plan Documentation Outcome: Ongoing 06/16/15 0800 Care Plan Focus Area of Focus Pain/ Comfort Goal This Shift pain will be well managed Data: Pt states that he let the pain get ahead of him yesterday. Action: Administered PRN oxycodone-ir 10 mg at 08 and at 1200 with scheduled acetaminophen 650 mg. Administered scheduled tramadol 100 mg at 0800 and at 1400 (0800 dose of tramadol was incorrectly charted as 50 mg. Administered scheduled gabapentin 600 mg at 0800 and 1400. Also used cryocuffs to alleviate pain. Response: Pt reports that pain was well managed . Kamran John RN 06/16/2015 15:27 * Plan of Care - Marysol Ponec RN - 06/16/2015 0743 EST Problem: Daily Care Plan Goals Goal: Care Plan Documentation Outcome: Met This Shift 06/16/15 0000 Care Plan Focus Area of Focus Sleep Goal This Shift Patient will have adequate sleep. Patient asleep on most hourly rounds. Cryo cuffs on all shift. Patient used urinal independently voiding a large amount. Medicated for bilateral knee pain (see eMAR) with positive effect. * Plan of Care - Alize Adams RN - 06/15/2015 9446 EST Problem: Pain: Goal: Pain level will decrease Data: Pain in bilateral knees 5/10. Action: Pt given 5mg oxy IR. Cryo cuffs in place. Response: Reports pain has not improved upon reassessment. Pt given PRN dose of tramadol, see MAR. Rates pain 10 upon reassessment. Education done on pain control/pain medications. Alize Adams RN 06/15/2015 22:38 * Plan of Care - Sarah Beth Bernal RN - 06/15/2015 1439 EST Problem: Daily Care Plan Goals Goal: Care Plan Documentation Outcome: Met This Shift 06/15/15 0755 Care Plan Focus Area of Focus Pain/ Comfort Goal This Shift Adequate pain control. Data: Bilateral total knee replacements, 06/10, post op day # 5. Action: Rating pain 1-09/13 this shift. Scheduled Tylenol/Ultram administered. Good appetite. Voiding qs. BM 06/14. Mepilex dressings on, dressing pulled back, pietro intact, no drainage. Using cryo cuffs while in bed all morning. Knees warm to touch, minimal local swelling. OOB to lounge chair @ 1300, tubigrips on, legs elevated. at bedside visiting. Response: Pain management goals met. Sarah Beth Bernal RN 06/15/2015 14:27 * Plan of Care - Marysol Ponce RN - 06/15/2015 0622 EST Problem: Daily Care Plan Goals Goal: Care Plan Documentation Outcome: Met This Shift 06/15/15 0000 Care Plan Focus Area of Focus Sleep Goal This Shift Patient will have adequate sleep. Patient has been asleep on all hourly rounds. Cryocuffs on bilateral knees. CPAP on all shift. Ableto reposition self. Patient stated he slept like a rock. Medicated at 0650 with Oxy 5 mg po for 4/10 bilateral knee pain (see eMAR); cryo cuffs refilled and replaced on knees. * Plan of Care - Alize Adams RN - 06/14/2015 9353 EST Problem: Daily Care Plan Goals Goal: Care Plan Documentation 06/14/15 1806 Care Plan Focus Area of Focus Pain/ Comfort Goal This Shift adequate pain control Pt rates pain in bilateral knees 6/10. Pt given tylenol and 5mg Oxy IR upon request. Rates pain 3/10 upon reassessment. OOB recliner for dinner. Ambulated to with 2 assist and walker, tolerated well. Cryo cuffs are in place. No s/s of distress. No unsafe behavior. Continue to monitor. * Plan of Care - Sarah Beth Bernal RN - 06/14/2015 1501 EST Problem: Daily Care Plan Goals Goal: Care Plan Documentation Outcome: Met This Shift 06/14/15 1237 Care Plan Focus Area of Focus Pain/ Comfort Goal This Shift Adequate pain managment. Data: Bilateral total knee replacements 06/[address] Horan. Post op day#4. New diagnosis A-Fib. Admitted to Rehab 2 today. Action: Pt arrived to Rehab 2 @ 1000 via ambulance. Daughter Evelyne and Mary followed. VSS on admission HR=78 regular. Rated pain 3/10 pain. Up to 5/10 is acceptable. Scheduled Tylenol and Ultram effective. Oxy IR available, last medicated @ 0830. Bilateral knees have mepilex intact, staplesnoted, scant drainage on right noted. Tubigrips covering knees over mepilex, +1 edema at knees, none to trace at ankles. Tubigrips (size E) applied to lower legs. Bruising noted on left leg. CSMT's WNL's. Large scratch on buttocks, not draining. Using cryo cuffs for comfort. Lungs clear. Using IS independently, up to 1900. Using urinal independently, voided x2. Has own CPAP machine. Response: Adequate pain management since admission. Therapy @ 1500. Sarah Beth J Rockingham, RN 06/14/2015 14:40 documented in this encounter Plan of Treatment Scheduled Referrals Name Type Priority Associated Diagnoses Orde r Schedule FROM - AMB CONS/FOLLOW UP HOME HEALTH SERVICES Outpatient Referral Routine Bilateral knee pain Impaired mobility and ADLs Ordered: 06/18/2015 documented as of this encounter Procedures Procedure Name Priority Date/Time Associated Diagnosis Comments COMPLETE BLOOD COUNT Routine 06/16/2015 5:52 EST documented in this encounter Results * (ABNORMAL) HEMAGRAM (06/16/2015 5:52 EST) WBC 8.70 4.0 - 10.4 K/cmm 06/16/2015 8:08 [facility] RBC 3.17(L) 4.36 - 5.78 M/cmm 06/16/2015 8:08 [facility] Hemoglobin 9.9(L) 13.8 - 17.3 gm/dl 06/16/2015 8:08 [facility] HCT 29.9(L) 39.5 - 50.2 % 06/16/2015 8:08 [facility] MCV 94 81 - 95 fl 06/16/2015 8:08 [facility] MCH 31.2 27.6 - 33.0 pg 06/16/2015 8:08 [facility] MCHC 33.1 32.8 - 36.4 gm/dl 06/16/2015 8:08 [facility] RDW-CV 12.6 11.8 - 14.1 % 06/16/2015 8:08 [facility] RDW-SD 41.0 36.5 - 45.9 fl 06/16/2015 8:08 [facility] PLT 219 141 - 377 K/cmm 06/16/2015 8:08 [facility] Comment:Note new reference r ashlyn effective 06/16/15 MPV 11.8 9.5 - 12.7 fl 06/16/2015 8:08 [facility] Comment: Note new reference range effective 15 Performed at [facility], [place], [place] Blood specimen (specimen) BLOOD SPECIMEN / Unknown 06/16/2015 5:52 EST 06/16/2015 8:08 EST Betty Galan MD HEMATOLOGY & PF4 ORDERABLES Final Result [facility] [address] [place] [address] documented in this encounter Visit Diagnoses Diagnosis Impaired mobility and ADLs- Primary Other ill-defined conditions Bilateral knee pain Pain in joint, lower leg Atrial fibrillation with RVR (HCC-CMS) Atrial fibrillation Impaired mobility and ADLs Other ill-defined conditions Status post total bilateral knee replacement Family history of DVT Family history of other cardiovascular diseases Essential hypertension Unspecified essential hypertension Morbid obesity, unspecified obesity type (HCC-CMS) Morbid obesity due to excess calories (HCC-CMS) Bilateral primary osteoarthritis of knee Gait difficulty Abnormality of gait Bilateral knee pain Pain in joint, lower leg Morbid obesity (HCC-CMS) Morbid obesity Status post total bilateral knee replacement Gait difficulty Abnormality of gait Atrial fibrillation with RVR (HCC-CMS) Atrial fibrillation Family history of DVT Family history of other cardiovascular diseases Hypertension Unspecified essential hypertension documented in this encounter Administered Medications Inactive Administered Medications - up to 3 most recent administrations Medication Order MAR Action Action Date Dose Rate Site acetaminophen (TYLENOL) tablet 650 mg 650 mg, oral, 4 TIMES DAILY, First dose (after last modification) on 06/14/15 at 1200, Until Discontinued, Routine Given 06/18/2015 11:14 EST 650 mg Given 06/18/2015 7:43 EST 650 mg Given 06/17/2015 20:23 EST 650 mg acetaminophen (TYLENOL) tablet 650 mg 650 mg, oral, EVERY 4 HOURS PRN, Starting on Tue06/18/15 at 1645, Until 06/21/15 at 1257, Pain, Routine Given 06/21/2015 4:50 EST 650 mg Given 06/20/2015 6:35 EST 650 mg Given 06/19/2015 17:22 EST 650 mg ascorbic acid (VITAMIN C) tablet 500 mg 500 mg, oral, AT BEDTIME, 6 doses, First dose (after last modification) on 06/14/15 at 2100, Last dose on Krystal 06/19/15 at 2100, Routine Given 06/17/2015 2 0:21 EST 500 mg Given 06/16/2015 20:49 EST 500 mg Given 06/15/2015 20:06 EST 500 mg cholecalciferol (Vitamin D3) tablet 1,000 Units 1,000 Units, oral, AT BEDTIME, First dose (after last modification) on Tue06/18/15 at 2100, Until Discontinued, Routine Given 06/20/2015 20:22 EST 1,000 Uni ts Given 06/19/2015 20:18 EST 1,000 Units Given 06/18/2015 20:55 EST 1,000 Units cholecalciferol (Vitamin D3) tablet 2,000 Units 2,000 Units, oral, AT BEDTIME, First dose (after last modification) on 06/14/15 at 2100, Until Discontinued, Routine Given 06/17/2015 20:22 EST 2,000 Units Given 06/16/2015 20:49 EST 2,000 Units Given 06/15/2015 20:09 EST 2,000 Units dalteparin (FRAGMIN) 5,000 anti-Xa unit/0.2 mL injection 5,000 Units 5,000 Units, subcutaneous, DAILY, 6 doses, First dose (after last modification) on Tue06/15/15 at 0800, Last dose on Tue06/20/15 at 0800, Routine Given 06/20/2015 8:19 EST 5,000 Units Abdomina l Tissue Given 06/19/2015 8:20 EST 5,000 Units Given 06/18/2015 7:43 EST 5,000 Units Abdo naty Tissue docusate sodium (COLACE) capsule 200 mg 200 mg, oral, 2 TIMES DAILY, First dose (after last modification) on 06/14/15 at 2100, Until Discontinued, Routine Given 06/21/2015 8:28 EST 200 mg Given 06/20/2015 20:22 EST 200 mg Given 06/20/2015 8:18 EST 200 mg gabapentin (NEURONTIN) capsule 600 mg 600 mg, oral, 3 TIMES DAILY, First dose (after last modification) on 06/14/15 at 1400, Until Discontinued, Routine Given 06/18/2015 14:45 EST 600 mg Given 06/18/2015 7:42 EST 600 mg Given 06/17/2015 20:21 EST 600 mg lisinopril (PRINIVIL, ZESTRIL) tablet 10 mg 10 mg, oral, DAILY, First dose (after last modification) on Tue06/15/15 at 0800, Until Discontinued, Routine Given 06/21/2015 8:28 EST 10 mg Given 06/20/2015 8:18 EST 10 mg Given 06/19/2015 8:20 EST 10 mg magnesium hydroxide (MILK OF MAGNESIA) 400 mg/5 mL suspension 30 mL 30 mL, oral, DAILY, First dose (after last modification) on Tue06/14/15 at 1615, Until Discontinued, Routine Given 06/18/2015 7:41 EST 30 mL Given 06/16/2015 8:03 EST 30 mL Multivitamins with Minerals tablet 1 Tab 1 Tablet, oral, DAILY, First dose (after last modification) on Tue06/14/15 at 1100, Until Discontinued, Routine Given 06/21/2015 8:28 EST 1 Tablet Given 06/20/2015 8:19 EST 1 Tablet Given 06/19/2015 8:20 EST 1 Tablet ondansetron (ZOFRAN-ODT) disintegrating tablet 4 mg 4 mg, oral, EVERY 4 HOURS PRN, Starting on Tue06/20/15 at 1305, Until Tue06/21/15 at 1257, Nausea, Routine Given 06/20/2015 13:12 EST 4 mg oxyCODONE (OXYCONTIN) CR tablet 10 mg 10 mg, oral, EVERY 12 HOURS, 6 doses, First dose on Tue06/17/15 at 2000, Last dose on Tue06/20/15 at 0800, Routine Given 06/20/2015 8:19 EST 10 mg Given 06/19/2015 19:27 EST 10 mg Given 06/19/2015 8:20 EST 10 mg oxyCODONE (ROXICODONE) immediate release tablet 5-10 mg 5-10 mg, oral, EVERY 3 HOURS PRN, Starting on Tue06/14/15 at 1036, Until Tue06/18/15 at 1648, Pain, Routine Given 06/18/2015 14:45 EST 10 mg Given 06/18/2015 11:14 EST 10 mg Given 06/18/2015 7:55 EST 10 mg oxyCODONE (ROXICODONE) immediate release tablet 5-10 mg 5-10 mg, oral, EVERY 4 HOURS PRN, Starting on Tue06/18/15 at 1800, Until Tue06/21/15 at 1257, Pain, Routine Given 06/21/2015 9:56 EST 5 mg Given 06/21/2015 4:50 EST 10 mg Given 06/21/2015 0:10 EST 10 mg pantoprazole (PROTONIX) tablet 40 mg 40 mg, oral, DAILY, First dose (after last modification) on 06/15/15 at 0800, Until Discontinued, Routine Given 06/18/2015 7:42 EST 40 mg Given 06/17/2015 7:32 EST 40 mg Given 06/16/2015 7:57 EST 40 mg PEG 3350-Electrolytes (MIRALAX) packet 17 g 17 g, oral, DAILY, First dose (after last modification) on 06/14/15 at 1615, Until Discontinued, Routine Given 06/21/2015 8:28 EST 17 g Given 06/20/2015 8:18 EST 17 g Given 06/19/2015 8:20 EST 17 g senna (SENOKOT) tablet 2 Tab 2 Tablet, oral, 2 TIMES DAILY, First dose (after last modification) on 06/14/15 at 2100, Until Discontinued, Routine Given 06/21/2015 8:28 EST 2 Tablets Given 06/20/2015 20:21 EST 2 Tablets Given 06/20/2015 8:19 EST 2 Tablets traMADol (ULTRAM) tablet 50-100 mg 50-100 mg, oral, 3 TIMES DAILY, First dose (after last modification) on 06/14/15 at 2100, Until Discontinued, Routine Given 06/18/2015 14:45 EST 100 mg Given 06/18/2015 7:42 EST 100 mg Given 06/17/2015 20:23 EST 50 mg traMADol (ULTRAM) tablet 50-100 mg 50-100 mg, oral, DAILY PRN, Starting on 06/14/15 at 1222, Until 06/18/15 at 1646, Pain, Routine Given 06/16/2015 4:15 EST 100 mg Given 06/15/2015 17:14 EST 100 mg Given 06/14/2015 13:58 EST 50 mg traMADol (ULTRAM) tablet 50-100 mg 50-100 mg, oral, EVERY 4 HOURS PRN, Starting on 06/18/15 at 1700, Until 06/21/15 at 1257, Pain, Routine Given 06/20/2015 6:35 EST 100 mg Given 06/19/2015 14:29 EST 100 mg Given 06/19/2015 10:38 EST 100 mg zinc sulfate (ZINCATE) capsule 220 mg 220 mg, oral, AT BEDTIME, 6 doses, First dose (after last modification) on 06/14/15 at 2100, Last dose on Krystal 06/19/15 at 2100, Routine Given 06/17/2015 2 0:22 EST 220 mg Given 06/16/2015 20:50 EST 220 mg Given 06/15/2015 20:07 EST 220 mg documented in this encounter Discontinued Medications Medication Sig Discontinue Reason Start Date End Da te Aspirin 81 mg Tab Take 81 mg by mouth daily. 06/21/2015 naproxen sodium (ALEVE) 220 mg cap Take 2 Caps by mouth 2 times daily 06/21/2015 documented as of this encounter Active and Recently Administered Medications Times are shown in EST. Scheduled Medication Order 06/19/2015 06/20/2015 06/21/2015 cholecalciferol (Vitamin D3) tablet 1,000 Units 1,000 Units, oral, AT BEDTIME, First dose (after last modification) on Tue06/18/15 at 2100, Until Discontinued, Routine 2017 (Given - Provider: Leatha Richmond, ALEXEI) 2021 (Given - Provider: Briana Parra, RN) dalteparin (FRAGMIN) 5,000 anti-Xa unit/0.2 mL injection 5,000 Units (COMPLETED) 5,000 Units, subcutaneous, DAILY, 6 doses, First dose (after last modification) on Tue06/15/15 at 0800, Last dose on Tue06/20/15 at 0800, Routine 0820 (Given - Provider: Debora Gaviria RN) 08 (Given - Provider: Kyle Canela, RN) docusate sodium (COLACE) capsule 200 mg 200 mg, oral, 2 TIMES DAILY, First dose (after last modification) on 06/14/15 at 2100, Until Discontinued, Routine 08 (Given - Provider: Debora Gaviria RN)2016 (Given - Provider: Leatha Richmond RN) 817 (Given - Provider: Kyle Canela, RN)2021 (Given - Provider: Briana aPrra, RN) 827 (Given - Provider: Kyle Canela, RN) lisinopril (PRINIVIL, ZESTRIL) tablet 10 mg (CANCELED) 10 mg, oral, DAILY, First dose (after last modification) on Tue06/15/15 at 0800, Until Discontinued, Routine 0820 (Given - Provider: Debora Gaviria RN) 0818 (Given - Provider: Kyle Canela RN) 0828 (Given - Provider: Kyle Canela RN) Multivitamins with Minerals tablet 1 Tab (CANCELED) 1 Tablet, oral, DAILY, First dose (after last modification) on Tue06/14/15 at 1100, Until Discontinued, Routine 0820 (Given - Provider: Debora Gaviria RN) 0819 (Given - Provider: Kyle Canela RN) 0828 (Given - Provider: Kyle Canela RN) oxyCODONE (OXYCONTIN) CR tablet 10 mg (COMPLETED) 10 mg, oral, EVERY 12 HOURS, 6 doses, First dose on Tue06/17/15 at 2000, Last dose on Tue06/20/15 at 0800, Routine 0820 (Given - Provider: Debora Gaviria RN)192 (Given - Provider: Leatha Richmond RN) 0819 (Given - Provider: Kyle Canela RN) PEG 3350-Electrolytes (MIRALAX) packet 17 g 17 g, oral, DAILY, First dose (after last modification) on Tue06/14/15 at 1615, Until Discontinued, Routine 0820 (Given - Provider: Debora Gaviria RN) 0818 (Given - Provider: Kyle Canela RN) 0828 (Given - Provider: Kyle Canela RN) rivaroxaban (XARELTO) tablet 10 mg 10 mg, oral, DAILY WITH DINNER, 18 doses, First dose (after last modification) on Tue06/21/15 at 1700, Last dose on Tue07/08/15 at 1700, Indication for rivaroxaban: DVT prophylaxis post-knee replacement, If indication is for treatment of VTE or PE, did you receive hematology approval? N/A, Routine senna (SENOKOT) tablet 2 Tab 2 Tablet, oral, 2 TIMES DAILY, First dose (after last modification) on Tue06/14/15 at 2100, Until Discontinued, Routine 08 (Given - Provider: Debora Gaviria RN)2016 (Given - Provider: Leatha Richmond RN) 0819 (Given - Provider: Kyle Canela RN)202 (Given - Provider: Briana Parra, RN) 0828 (Given - Provider: Kyle Canela RN) PRN Medication Order 06/19/2015 06/20/2015 06/21/2015 acetaminophen (TYLENOL) tablet 650 mg 650 mg, oral, EVERY 4 HOURS PRN, Starting on Tue06/18/15 at 1645, Until 06/21/15 at 1257, Pain, Routine 0435 (Given - Provider: Marysol Ponce RN)1320 (Given - Provider: Angie Gomez RN)1722 (Given - Provider: Leatha Richmond, ALEXEI) 0635 (Given - Provider: Marysol Ponce, ALEXEI) 0450 (Given - Provider: Henry Cruz, ALEXEI) ondansetron (ZOFRAN-ODT) disintegrating tablet 4 mg (CANCELED) 4 mg, oral, EVERY 4 HOURS PRN, Starting on Tue06/20/15 at 1305, Until 06/21/15 at 1257, Nausea, Routine 1312 (Given - Provider: Kyle Canela RN) oxyCODONE (ROXICODONE) immediate release tablet 5-10 mg 5-10 mg, oral, EVERY 4 HOURS PRN, Starting on Tue06/18/15 at 1800, Until 06/21/15 at 1257, Pain, Routine 0205 (Given - Provider: Marysol Ponce, ALEXEI)1038 (Given - Provider: Debora Gaviria RN)1430 (Given - Provider: Debora Gaviria RN)1927 (Given - Provider: Leatha Richmond, ALEXEI) 0230 (Given - Provider: Marysol Ponce, ALEXEI)0903 (Given - Provider: Kyle Canela, RN)1311 (Given - Provider: Kyle Canela, RN)1804 (Given - Provider: Briana Parra, ALEXEI) 0010 (Given - Provider: Henry Cruz, ALEXEI)0450 (Given - Provider: Henry Cruz, ALEXEI)0956 (Given - Provider: Kyle Canela, RN) traMADol (ULTRAM) tablet 50-100 mg 50-100 mg, oral, EVERY 4 HOURS PRN, Starting on Tue06/18/15 at 1700, Until 06/21/15 at 1257, Pain, Routine 0435 (Given - Provider: Marysol Ponce, ALEXEI)1038 (Given - Provider: Debora Gaviria, ALEXEI)1429 (Given - Provider: Debora Gaviria RN) 0635 (Given - Provider: Maryosl Ponce, ALEXEI) documented in this encounter Orders Medications Ordered That Derrick ht Not Have Been Administered Count Last Ordered Date First Ordered Date tiZANidine (ZANAFLEX) tablet 2 mg 1 016 acetaminophen (TYLENOL) tablet 650 mg 1 02/2016 aluminum & magnesium hydroxi de-simethicone (MYLANTA-DS) 400-400-40 mg/5 mL suspension 30 mL 1 06/14/2015 bisacodyl (DULCOLAX) suppository 10 mg 1 calcium carbonate (TUMS) 200 mg calcium (500 mg) per chewable tablet tablet,chewable 1-2 Tab 1 06/14/2015 dalteparin (FRAGMIN) 5,000 a nti-Xa unit/0.2 mL injection 5,000 Units 1 06/14/2015 docusate sodium (COLACE) cap opal 100-200 mg 1 06/14/2015 docusate sodium (ENEMEEZ) enema 1 Enema 1 0 06/14/2015 magnesium hydroxide (MILK OF MAGNESIA) 400 mg/5 mL suspension 30 mL 1 06/14/2015 PEG 3350-Electrolytes (MILENA AX) packet 17 g 1 06/14/2015 prochlorperazine (COMPAZINE) 25 mg suppository 25 mg 1 06/14/2015 rivaroxaban (XARELTO) tablet 10 mg 3 2015 senna (SENOKOT) tablet 1-3 Tab 1 06/14/2015 sodium phosphate (FLEET) enema 1 Enema 1 traMADol (ULTRAM) tablet 50-100 mg 1 2015 Diet Count Last Ordered Date First Orde red Date DISCHARGE DIET 1 06/18/2015 Nursing Count Last Ordered Date First Orde red Date VTE PHARMACOLOGIC PROPHYLAXI S CURRENTLY ORDERED OR ON ALTERNATIVE THER 1 06/14/2015 Admission Count Last Ordered Date First Orde red Date STATUS: INPATIENT REHAB ADMISSION 1 016 Transfer Count Last Ordered Date First Orde red Date NOTIFY PPS OF DISCHARGE COMPLETE 06/21/19 16 Discharge Count Last Ordered Date First Orde red Date DISCHARGE PATIENT 1 06/20/2015 Legal Count Last Ordered Date First Orde red Date MISCELLANEOUS DISCHARGE INSTRUCTIONS 06/06 documented in this encounter Care Teams Wound Care Technician Relationship Specialty Start Date End Date Nic Padilla MD [address] [place] [address] PCP - General 05/18/12 documented as of this encounter
--- OUTSIDE RECORDS SUMMARY | 2024-04-18 09:23 | XMS_ITS | Referral Summary ---
Author Organization [facility] Address [address] [place] [address] Care Team Providers Care Mainstreaming Facilitator Name Role Phone Nic Padilla MD Primary Care Provider [phone] Allergies No known active allergies Medications lisinopril [...] Gait difficulty 06/14/2015 Atrial fibrillation with RVR ([facility]) 6 Overview (06/14/2015): 06/13/15: Asymptomatic 3 days postoperatively. Reverted without medication or cardioversion Impaired mobility and ADLs 06/14/2015 Bilateral knee pain 06/10/2015 Bilateral primary osteoarthritis of knee 016 Family history of DVT 04/08/2015 Overview (04/08/2015): Brother age 53, DVT following shoulder surgery Father, age late 70s in setting of cardiac disease Mother, late 70s, early 80s Morbid obesity ([facility]) 08/10/2012 Hypertension Immunizations Name Administration Dates Next Due Influenza Vaccine =>1yo Split IM 05/06/2015 Social History Tobacco Use Types Packs/Day Years [...] Body Mass Index 40.03 06/14/2015 1212 EST Functional Status * Are you deaf or do you have serious difficulty hearing? Answer Date of Assessment Author No 06/14/2015 12:32 EST Trish Bernal RN * Are you blind or do you have serious difficulty seeing, even when wearing glasses? Answer Date of Assessment Author No 06/14/2015 12:32 EST Trish Bernal RN * Do you have serious difficulty [...] Author Yes 06/14/2015 12:32 Trish Louis RN Mental Status * Because of a physical, mental, or emotional condition, do you have serious difficulty concentrating, remembering, or making decisions? (5 years old or older) Answer Entry Date Author No 06/14/2015 12:32 Trish Louis RN Plan of Treatment Not on file Procedures Procedure Name Priority Date/Time Associated Diagnosis Comments COLONOSCOPY PROCEDURE Routine 07/26/2012 GERD (gastroesophageal reflux disease) Colon polyps from Last 3 Months or Most Recently Relevant to Health Maintenance Results * COLONOSCOPY (07/26/2012) Colonoscopy [facility] Comment:F/U COLONOSCOPY/5 YE ARS Colonoscopy, External [facility] Anatomical Region Laterality Modality Endoscopy 07/26/2012 Jerson Bridges MD GI PROCEDURE ORDERAB LES Final Result from Last 3 Months or Most Recently Relevant to Health Maintenance Insurance MEDICARE Advance Directives For more information, please contact: [phone] Documents on File Type Date Recorded Patient Insurance Underwriting Assistant Expl anation Advance Directive 06/10/2015 6:09 Durable P ower of Top Lift Compresser- * Full Code (Latest Code Status on [...] the discussion? Not Discusse d Care Teams Mainstreaming Facilitator Relationship Specialty Start Date End Date Nic Padilla MD [address] [place] [id number] PCP - General 05/18/12
--- OUTSIDE RECORDS SUMMARY | 2024-04-18 09:23 | XMS_ITS | Encounter Summary ---
Author Organization [facility] Address [facility] [place] [address] Care Team Providers Care Mule Driver Name Role Phone Denis Weston MD Primary Care Provider [phone] Encounter Details Date Type Department Care Team (Late st Contact Info) Description 12/12/2023 10:00 AM EDT - 12/12/2023 11:30 AM EDT Surgery [place] [address] Sharan Candelario MD [facility] [place] [address] COLONOSCOPY, POLYPECTOMY, REMOVAL LESION BY SNARE (WRVU 4.57) Social History Tobacco Use Types Packs/Day Years [...] Mass Index 34.44 12/12/2023 9:18 AM EDT documented in this encounter Discharge Instructions * Discharge Instructions* Ghazal Lopez RN - 12/12/2023 11:36 AM EDT Colonoscopy and polyp removal What to expect after the procedure You may feel a little more gassy or bloated than usual, this is normal. You should expect the return of normal bowel function in the next 2 to 3 days. Because some polyps were removed, you may see a little blood with the next few bowel movements, this should be a small amount ( less than a few tablespoons) and will resolve on it's own. ACTIVITY Because of the sedation that you received Your judgement and reaction time are effected Go home and rest for the remainder for the day. You may resume your normal activities tomorrow Change from one position to the next slowly because you may lose your balance unexpectedly. Be careful on stairs, as you may be unsteady. FOR THE NEXT [address] OR OPERATE MACHINERY DO NOT DRINK ALCOHOLIC BEVERAGES DO NOT SIGN LEGAL DOCUMENTS If you are a smoker: DO NOT SMOKE WHILE YOU ARE ALONE Diet Start by eating small portions of foods that ordinarily will not upset your stomach, avoid gas producing foods for the next few days. Be gentle with what you choose to start with Drink plenty of fluids ( unless your doctor has told you not to). Medicines Avoid medicines that influence the way your blood clots for the next week. These would include anti-inflammatory medicine, such as ibuprofen( Advil, Motrin) and naproxen ( Aleve). If you need something for discomfort, Tylenol (Acetaminophen) is safe if used as directed. Your Doctor will tell you when to restart your prescribed blood thinners The IV site-- slight tenderness, or redness is normal, you can use warm compresses if you get concerned. If the tenderness +/or redness increases or foul drainage and a red streak occurs, please contact your PCP immediately. When should you call for help? Call 911 anytime you think you may need emergency care. For example If you pass out (loss of consciousness) If you pass maroon or bloody stools If you have severe belly pain Call your healthcare provider or seek immediate medical care if: Your stools are black or tar like Your stools have streaks of blood that is more pronounced with each BM You have belly pain, or your belly is swollen and firm You vomit You have a fever You are very dizzy Watch closely for changes in your health, and be sure to contact your doctor if you have any problems. Your Doctor will let you know when you will need your next colonoscopy. The results of your test and your risk for colorectal cancer will help your doctor decide how often you need to be checked. Tuesday-Tuesday Same Day Endo [phone] [id number] Otherwise contact [phone] and ask to speak to the venetian blind tape cutter remote control mirror installer Follow up care is a majano part of your treatment and safety. Be sure to make and go to all appointments, and call your doctor if you are having problems. Discharge instructions reviewed with patient who expresses understanding documented in this encounter Medications at Time of Discharge Medication Sig Dispensed Refills Start Date End Date acetaminophen (Tylenol) 325 mg tablet Take 650 mg by mouth Every 4 hours as needed. 06/18/2015 atorvastatin (Lipitor) 20 mg tablet Take 20 mg by mouth nightly. 10/05/2023 cholecalciferoL (Vitamin D3) 1,000 unit tablet Take 1 tablet by mouth nightly. 06/18/2015 docusate sodium (Colace) 100 mg capsule Take 200 mg by mouth Twice daily. 06/18/2015 lisinopriL (Zestril) 20 mg tablet Take 10 mg by mouth Daily @ 0600. documented as of this encounter Progress Notes * Ghazal Lopez RN - 12/12/2023 11:40 AM EDT Patient alert and oriented, vital signs stable. Reviewed discharge instructions; patient and brother verbalized understanding. Copy of instruction sheet with contact numbers for questions/concerns. Pain assessment documented. Patient escorted out of department via wheelchair with brother/marine engine driver. documented in this encounter H&P Notes * Godfrey Almonte MD - 12/12/2023 9:33 AM EDT Gastroenterology and Hepatology Pre-Procedure History and Physical Exam Procedure: colo Indication: large cecal TVA resection (colo 10/2023 at [facility]), EXAM: HEENT: Airway examined, oropharynx clear Mallampati Score: per anesthesia LUNGS: Clear to auscultation HEART: Regular rate and rhythm, normal S1, S2 ABDOMEN: Normal bowel sounds, soft, non tender, non distended A/P: Proceed with the planned endoscopic procedure. ASA 3 - Patient with moderate systemic disease with functional limitations Sedation Plan: anesthesia Risks and benefits of the procedure explained to the patient. Consent form signed and included in the patient's chart. Godfrey Almonte MD Advanced Endoscopy Fellow Gastroenterology & Hepatology documented in this encounter Plan of Treatment Scheduled Procedures Name Priority Associated Diagnoses Date/Ti me COLONOSCOPY, DIAGNOSTIC (WRV U 3.26) Tubulovillous adenoma of colon documented as of this encounter Procedures Procedure Name Priority Date/Time Associated Diagnosis Comments SPECIMEN TO PATHOLOGY Routine 12/12/2023 10:53 AM EDT SPECIMEN TO PATHOLOGY Routine 12/12/2023 10:53 AM EDT SPECIMEN TO PATHOLOGY Routine 12/12/2023 10:53 AM EDT SPECIMEN TO PATHOLOGY Routine 12/12/2023 10:53 AM EDT SURGICAL PATHOLOGY REPORT Routine 12/12/2023 9:48 AM EDT Colonoscopy, Flexible W Control Bleeding, Any Method ([id number]) 12/12/2023 9:34 AM EDT [place] with any advanced MD in next 1 - 2 months for large cecal TVA. Book for 90 minutes. Should hold any anticoag/antiPLT meds. Colonoscopy, Biopsy ([id number]) 12/12/2023 9:34 AM EDT [place] with any advanced MD in next 1 - 2 months for large cecal TVA. Book for 90 minutes. Should hold any anticoag/antiPLT meds. Colonoscpy, Flexible, W Endoscopic Mucosal Resection ([id number]) 12/12/2023 9:34 AM EDT [place] with any advanced MD in next 1 - 2 months for large cecal TVA. Book for 90 minutes. Should hold any anticoag/antiPLT meds. Colonoscpy, Flex, W/Dir Submuc Inject ([id number]) 12/12/2023 9:34 AM EDT [place] with any advanced MD in next 1 - 2 months for large cecal TVA. Book for 90 minutes. Should hold any anticoag/antiPLT meds. Colonoscopy, Remv Lesn, Snare ([id number]) 12/12/2023 9:34 AM EDT [place] with any advanced MD in next 1 - 2 months for large cecal TVA. Book for 90 minutes. Should hold any anticoag/antiPLT meds. COLONOSCOPY Routine 12/12/2023 8:48 AM EDT documented in this encounter Results * Specimen to Pathology (12/12/2023 10:53 AM EDT) AP Specimen 12/12/2023 10:5 3 AM EDT 12/12/2023 10:53 AM EDT Narrative [facility] - 12/12/2023 10:53 AM EDT Specimen requisition ordered. ??Separate Pathology report to follow Sharan Candelario MD PATHOLOGY/CYTOLOGY O [place] Performing Organization Address [facility]/ZIP Co de Phone Number [facility] [place] [address] * Specimen to Pathology (12/12/2023 10:53 AM EDT) AP Specimen 12/12/2023 10:5 3 AM EDT 12/12/2023 10:53 AM EDT Narrative [facility] - 12/12/2023 10:53 AM EDT Specimen requisition ordered. ??Separate Pathology report to follow Sharan Candelario MD PATHOLOGY/CYTOLOGY O [place] [facility] [place] [address] * Specimen to Pathology (12/12/2023 10:53 AM EDT) AP Specimen 12/12/2023 10:5 3 AM EDT 12/12/2023 10:53 AM EDT Narrative [facility] - 12/12/2023 10:53 AM EDT Specimen requisition ordered. ??Separate Pathology report to follow Sharan Candelario MD PATHOLOGY/CYTOLOGY O [place] Performing Organization Address [facility] de Phone Number [facility] [place] [address] * Specimen to Pathology (12/12/2023 10:53 AM EDT) AP Specimen 12/12/2023 10:5 3 AM EDT 12/12/2023 10:53 AM EDT Narrative [facility] - 12/12/2023 10:53 AM EDT Specimen requisition ordered. ??Separate Pathology report to follow Shraan Candelario MD PATHOLOGY/CYTOLOGY O [place] Performing Organization Address [facility] de Phone Number [facility] [place] [address] * Surgical Pathology Report (12/12/2023 9:48 AM EDT) Final Diagnosis [id number] ? Location: ; 08; A The signing pathologist has (i) examined the relevant preparation(s) for the specimen(s) and (ii) rendered or confirmed the diagnosis(es). . ?Surgical Pathology DIAGNOSIS A - transverse colon polyp x2, resection (2) - ??Tubular adenoma. B - smaller cecal polyp x1, resection (1) - ??Hyperplastic polyp. C - cecal polyp x1 (3cm), resection (Multiple) - ??Fragments of tubulovillous adenoma. D - bx of residual base of 3cm cecal polyp, r/o cancer, biopsy (Multiple) - ??Fragments of tubular adenoma. CR-PX Electronically signed by: ?Aj Gallegos MD Verified: ??12/14/2023 16:31 ??Pathologist Performed at: ??-[facility] Dept. of Pathology, [place] [address] Staff Training And Development Manager: Savage Medina MD, FCAP, ??CLIA Certificate: [id number] SPECIMEN(S) SUBMITTED A - transverse colon polyp x2, resection (2) B - smaller cecal polyp x1, resection (1) C - cecal polyp x1 (3cm), resection (Multiple) D - bx of residual base of 3cm cecal polyp, r/o cancer, biopsy (Multiple) CLINICAL INFORMATION 73-year-old male with colon polyps SPECIMEN PROCESSING A - Labeled/Fixative: Transverse colon polyp x 2, formalin. Quantity/Size: Two, averaging 0.4 cm. Tissue Description: Soft, collins-pink tissues. Sections/Processi ng: Submitted in toto ??in 1 cassette labeled A1. B - Labeled/Fixative: Smaller cecal polyp x 1, formalin. Quantity/Size: Single, 0.3 cm. Tissue Description: Soft, collins-pink tissue. Sections/Processi ng: Submitted in toto ??in 1 cassette labeled B1. C - Labeled/Fixative: Cecal polyp x 1 3 cm, formalin. Quantity/Size: Fragments, ranging from 0.1 to 0.7 cm. Tissue Description: Soft, collins-pink, polypoid tissues. Sections/Processi ng: Submitted in toto ??in 6 cassettes labeled C1-C6. D - Labeled/Fixative: BX of residual base of 3 cm ce..., formalin. Quantity/Size: Fragments, averaging 0.2 cm. Tissue Description: Soft, collins-pink tissues. . SPECIMEN PROCESSING Sections/Processi ng: Submitted in toto ??in 2 cassettes labeled D1-D2. ??CCP 12/14/2023 4:31 PM EDT [facility] GI Biopsy 12/12/2023 9:48 AM EDT 12/12/2023 9:48 AM EDT GI Biopsy 12/12/2023 9:48 AM EDT 12/12/2023 9:48 AM EDT GI Biopsy 12/12/2023 9:48 AM EDT 12/12/2023 9:48 AM EDT GI Biopsy 12/12/2023 9:48 AM EDT 12/12/2023 9:48 AM EDT Sharan Candelario MD PATHOLOGY/CYTOLOGY O [place]A [facility] [place] [address] * COLONOSCOPY (12/12/2023 8:48 AM EDT) COLONOSCOPY [facility] Endoscopy Procedure Date: 12/12/2023 8:48 AM ? Patient Name: Julio Cardoza ? Date of : 1950 ? Age: 73 ? Order #: [id number] ? Instrument Name: [id number] ? Procedure: ? Colonoscopy Indications: ? For [...] the ? physician, the nurse, the ? microgrinder operator and the survey field technician. The ? procedure was verified in [...] care under ? the supervision of a CORROSION ENGINEER was ? determined to be medically ? [...] preparation was evaluated ? using the BBPS (Andrews Bowel ? Preparation Scale) with scores of: [...] were successfully placed (MR conditional). Clip ? after school caregiver: [employer]. There was no ? bleeding at the [...] Weston MD GENERAL SURGICAL ORD ERABLES [employer]ATION documented in this encounter Visit Diagnoses Not on filedocumented in this encounter Administered Medications Inactive Administered Medications - up to 3 most recent administrations Medication Order MAR Action Action Date Dose Rate Site lactated ringers infusion 100 mL/hr, Intravenous, CONTINUOUS, Starting on Tue12/12/23 at 0930, Until Tue12/12/23 at 1136, Endoscopy (Day of Procedure) New Bag 12/12/2023 9:32 AM EDT 100 mL/hr 100 mL/hr documented in this encounter Active and Recently Administered Medications Times are shown in EDT. Continuous Medication Order 12/10/2023 12/11/2023 12/12/2023 lactated ringers infusion (CANCELED) 100 mL/hr, Intravenous, CONTINUOUS, Starting on Tue12/12/23 at 0930, Until Tue12/12/23 at 1136, Endoscopy (Day of Procedure) 0932 (New Bag - Prov ider: Tali Dale RN) documented in this encounter Care Teams Mule Driver Relationship Specialty Start Date End Date Denis Weston MD [address] [place] [address] PCP - General Family Medicine 11/04/23 documented as of this encounter
--- OUTSIDE RECORDS SUMMARY | 2024-04-18 09:23 | XMS_ITS | Encounter Summary ---
[place] [address] Care Team Providers Care Joggle Press Operator Name Role Phone Denis Weston MD Primary Care Provider [phone] Reason for Referral * Consultation (Urgent) - Closed Specialty Diagnoses / Procedures Referred By Jeremy t Referred To Contact Gastroenterology Diagnoses Polyposis of colon CLUSTER OF CECAL POLYPOSIS APPROXIMATELY 2.5 TO 3 CM. UNABLE TO REMOVE COLONOSCOPICALLY Procedures [place] with any advanced MD in next 1 - 2 months for large cecal TVA. Book for 90 minutes. Should hold any anticoag/antiPLT meds. Mikal Meneses MD [address] [place] [address] [address] [place] [address] [facility] Endoscopy [address] [place] [address] Referral ID Status Reason Start Date Expiration Date V isits Requested Visits Authorized [id number] Closed Consult, Test & Treat PCP Updated and/or Approved 11/04/2023 05/05/2024 6 6 Encounter Details Date Type Department Care Team (Late st Contact Info) Description 11/04/2023 Transcribe Orders eDH Incoming Referrals [phone] Mikal Meneses MD [address] [place] [address] [address] [place], [place] [id number] Polyposis of colon Social History Tobacco Use Types Packs/Day Years Used Date Smoking Tobacco: Never Assessed Sex and Gender Information Value Date Recorded Sex Assigned at Not on file Gender Identity Not on file Sexual Orientation Not on file documented as of this encounter Plan of Treatment Scheduled Procedures Name Priority Associated Diagnoses Date/Ti me COLONOSCOPY, DIAGNOSTIC (WRV U 3.26) Tubulovillous adenoma of colon Scheduled Referrals Name Type Priority Associated Diagnoses Order Schedule Referral to Gastroenterology Outpatient Referral Urgent Polyposis of colon Ordered: 11/04/2023 documented as of this encounter Visit Diagnoses Diagnosis Polyposis of colon Benign neoplasm of colon documented in this encounter Care Teams Joggle Press Operator Relationship Specialty Start Date End Date Denis Weston MD [address] [place] [address] PCP - General Family Medicine 11/04/23 documented as of this encounter
--- OUTSIDE RECORDS SUMMARY | 2024-04-18 09:23 | XMS_ITS | Encounter Summary ---
Author Organization Count Includes [facility] Address [facility] [place] [address] Care Team Providers Care Tonnage Compilation Clerk Name Role Phone Denis Weston MD Primary Care Provider [phone] Encounter Details Date Type Department Care Team (Latest Contact Info) Description 12/12/2023 9:04 AM EDT - 12/12/2023 11:43 AM EDT Hospital [place] [address] Sharan Candelario MD [facility] [place] [address] Discharge Disposition: Home Social History Tobacco Use Types Packs/Day Years [...] to be checked. Tuesday-Tuesday Same Day Endo [phone] Otherwise contact [phone] and ask to speak to the elementary principal expanded function dental assistant Follow up care is a majano part [...] escorted out of department via wheelchair with brother/rear load truck driver. documented in this encounter H&P Notes * Godfrey Almonte MD - 12/12/2023 9:33 AM EDT Gastroenterology and Hepatology Pre-Procedure History and Physical Exam Procedure: colo Indication: large cecal TVA resection (colo 10/2023 at [facility]), EXAM: HEENT: Airway examined, oropharynx clear Mallampati [...] Scheduled Procedures Name Priority Associated Diagnoses Date/Ti in COLONOSCOPY, DIAGNOSTIC (WRV U 3.26) Tubulovillous adenoma [...] Colonoscopy, Flexible W Control Bleeding, Any Method ([id number]) 12/12/2023 9:34 AM EDT [place] with any advanced MD in next 1 - 2 months for large cecal TVA. Book for 90 minutes. Should hold any anticoag/antiPLT meds. Colonoscopy, Biopsy ([id number]) 12/12/2023 9:34 AM EDT [place] with any advanced MD in next 1 - 2 months for large cecal TVA. Book for 90 minutes. Should hold any anticoag/antiPLT meds. Colonoscpy, Flexible, W Endoscopic Mucosal Resection ([id number]) 12/12/2023 9:34 AM EDT [place] with any advanced MD in next 1 - 2 months for large cecal TVA. Book for 90 minutes. Should hold any anticoag/antiPLT meds. Colonoscpy, Flex, W/Dir Submuc Inject ([id number]) 12/12/2023 9:34 AM EDT [place] with any advanced MD in next 1 - 2 months for large cecal TVA. Book for 90 minutes. Should hold any anticoag/antiPLT meds. Colonoscopy, Remv Lesn, Snare ([id number]) 12/12/2023 9:34 AM EDT [place] with any advanced MD in next 1 - 2 months for large cecal TVA. Book for 90 minutes. Should hold any anticoag/antiPLT meds. COLONOSCOPY Routine 12/12/2023 8:48 AM EDT documented in this encounter Results * Specimen to Pathology (12/12/2023 10:53 AM EDT) AP Specimen 12/12/2023 10:5 3 AM EDT 12/12/2023 10:53 AM EDT Narrative [facility] - 12/12/2023 10:53 AM EDT Specimen requisition ordered. ??Separate Pathology report to follow Sharan Candelario MD PATHOLOGY/CYTOLOGY O [place] Performing Organization Address City/[facility]/ZIP Co de Phone Number [facility] [place] [address] * Specimen to Pathology (12/12/2023 10:53 AM EDT) AP Specimen 12/12/2023 10:5 3 AM EDT 12/12/2023 10:53 AM EDT Narrative [facility] - 12/12/2023 10:53 AM EDT Specimen requisition ordered. ??Separate Pathology report to follow Sharan Candelario MD PATHOLOGY/CYTOLOGY O RDISABELA Performing Organization Address City/[facility]/ZIP Co de Phone Number [facility] [place] [address] * Specimen to Pathology (12/12/2023 10:53 AM EDT) AP Specimen 12/12/2023 10:5 3 AM EDT 12/12/2023 10:53 AM EDT Narrative [facility] - 12/12/2023 10:53 AM EDT Specimen requisition ordered. ??Separate Pathology report to follow Sharan Candelario MD PATHOLOGY/CYTOLOGY O [place] Performing Organization Address [facility] [place] [address] * Specimen to Pathology (12/12/2023 10:53 AM EDT) AP Specimen 12/12/2023 10:5 3 AM EDT 12/12/2023 10:53 AM EDT Narrative [facility] - 12/12/2023 10:53 AM EDT Specimen requisition ordered. ??Separate Pathology report to follow Sharan Candelario MD PATHOLOGY/CYTOLOGY O [place] Performing Organization Address [facility] de Phone Number [facility] [place] [address] * Surgical Pathology Report (12/12/2023 9:48 AM EDT) Pathologist [facility] Final Diagnosis [id number] ? Location: 4; 08; A The signing pathologist has (i) [...] MD Verified: ??12/14/2023 16:31 ??Pathologist Performed at: ??-[facility] Dept. of Pathology, [place] [address] Drilling Field Specialist: Savage Medina MD, FCAP, ??CLIA Certificate: [id number] SPECIMEN(S) SUBMITTED A - transverse colon polyp [...] labeled D1-D2. ??CCP 12/14/2023 4:31 PM EDT [facility] GI Biopsy 12/12/2023 9:48 AM EDT 12/12/2023 9:48 AM EDT GI Biopsy 12/12/2023 9:48 AM EDT 12/12/2023 9:48 AM EDT GI Biopsy 12/12/2023 9:48 AM EDT 12/12/2023 9:48 AM EDT GI Biopsy 12/12/2023 9:48 AM EDT 12/12/2023 9:48 AM EDT Sharan Candelario MD PATHOLOGY/CYTOLOGY O RDERABUBBA Performing Organization Address [facility]/State/ZIP Co de Phone Number [facility] [place] [address] * COLONOSCOPY (12/12/2023 8:48 AM EDT) COLONOSCOPY [facility] Endoscopy Procedure Date: 12/12/2023 8:48 AM ? Patient Name: Julio Cardoza ? N: [id number] ? Date of : 1950 ? Age: 73 ? Order #: [id number] ? Instrument Name: [id number] ? Procedure: ? Colonoscopy Indications: ? For [...] the ? physician, the nurse, the ? stationary engineer and the field service technician poultry. The ? procedure was verified in the [...] care under ? the supervision of a DIVISION ORDER ANALYST was ? determined to be medically ? [...] preparation was evaluated ? using the BBPS (Boling Bowel ? Preparation Scale) with scores of: [...] were successfully placed (MR conditional). Clip ? supervisor estimator and drafter: Nova Ratio. There was no ? bleeding at the [...] RN) documented in this encounter Care Teams Tonnage Compilation Clerk Relationship Specialty Start Date End Date Denis Weston MD [address] [place] [address] PCP - General Family Medicine 11/04/23 documented as of this encounter
--- OUTSIDE RECORDS SUMMARY | 2024-04-18 09:24 | XMS_ITS | Encounter Summary ---
Author Organization [facility] Address [address] [place] [address] Care Team Providers Care Music Specialist Name Role Phone Nic Padilla MD Primary Care Provider [phone] Reason for Referral * Prior Authorization (3 - 10 Business Days) - Authorized Specialty Diagnoses / Procedures Referred By Contmadeleine t Referred To Contact Diagnoses Family history of DVT Morbid obesity, unspecified obesity type ([facility]) Jazmin Donato NP Phone: tel: fax: Referral ID Status Reason Start Date Expiration Date V isits Requested Visits Authorized [id number] Authorized Other 05/22/2015 1 1 Question Answer Medication to be Prior Authorized: emeraldto [facility] Precertification Request for Medications 05/22/2015 URGENT: No Medication Administration: PO Patient Name: Julio Cardoza Patient : [id number] Ordering MD: eugenio Nurse: john Phone: [phone] Is this a dosage change, renewal or a new medication? New Med Medication Start Date & Number of Cycles: 06/13/15 PT BSA: There is no height or weight on file to calculate BSA. What is the reason for taking this medication? DVT ppx post op Is this an on label usage of this medication? Yes What is the patient's current drug regimen? na Similar drugs patient has been on and failed? na Please Prior Auth Medications Listed below: Xarelto 10mg po daily x 30 days How many days will patient be on the above regimen in a month? 30 Qty per 30 days: 30 Number of Refills: 0 Local Pharmacy: Encounter Details Date Type Department Care Team (Late st Contact Info) Description 05/22/2015 Orders Only [facility] Hematology & Oncology - Main [place] [address] [place] [address] John Owen, ALEXEI [address] [place] [address] Family history of DVT (Primary Dx); Morbid obesity, unspecified obesity type (CMS-HCC) (HCC-CMS) Social History Tobacco Use Types Packs/Day Years [...] as of this encounter Functional Status * Because of a physical, mental, or emotional condition, does this person have difficulty doing errands alone such as visiting a doctor's office or shopping? Answer Date of Assessment Author No 02/12/2015 14:00 EDT documented as of this encounter Mental Status * Because of a physical, mental, or emotional condition, does this person have serious difficulty concentrating, remembering, or making decisions? Answer Entry Date Author No 02/12/2015 14:00 EDT documented in this encounter Ordered Prescriptions Prescription Sig Dispense Quantity Refills Last Filled Start Date End Date rivaroxaban (XARELTO) 10 mg tablet tabletIndications: Family history of DVT,Morbid obesity, unspecified obesity type ([facility]) Take 1 Tab by mouth daily START 24 hours after last dose lovenox given in hospital 30 Tab 0 06/13/2015 6 documented in this encounter Plan of Treatment Scheduled Referrals Name Type Priority Associated Diagnoses Order Schedule AMB MEDICATION PRIOR AUTHORIZATION Outpatient Referral Routine Family history of DVT Morbid obesity, unspecified obesity type (CMS-HCC) (HCC-CMS) Ordered: 05/22/2015 documented as of this encounter Visit Diagnoses Diagnosis Family history of DVT- Primary Family history of other cardiovascular diseases Morbid obesity, unspecified obesity type (HCC-CMS) documented in this encounter Care Teams Music Specialist Relationship Specialty Start Date End Date Nic Padilla MD [address] [place] [address] PCP - General 05/18/12 documented as of this encounter
--- OUTSIDE RECORDS SUMMARY | 2024-04-18 09:24 | XMS_ITS | Encounter Summary ---
Author Organization [facility] Address [address] [place] [address] Care Team Providers Care Director Product Management Name Role Phone Nic Padilla MD Primary Care Provider [phone] Reason for Visit * Reason Onset Date Comments Appointment Related 04/07/2015 Encounter Details Date Type Department Care Team (Late st Contact Info) Description 04/07/2015 Telephone [facility] Total Joint Program - [address] [place], [place] [id number] Keenan Horan MD Appointment Related Social History Tobacco Use Types Packs/Day Years [...] 02/12/2015 14:00 EDT documented in this encounter Miscellaneous Notes * Telephone Encounter - Raya Mace - 04/07/2015 1139 EST Name: Julio Cardoza : 1950 Surgery: Bilateral TKA; Journey II DOS: 06/10/2015 MRI/ X-ray: 05/06/2015 @ 3:15 pm @ [facility] [phone] if needed. documented in this encounter Plan of Treatment Not on file documented as of this encounter Visit Diagnoses Not on filedocumented in this encounter Care Teams Director Product Management Relationship Specialty Start Date End Date Nic Padilla MD [address] [place] [address] PCP - General 05/18/12 documented as of this encounter
--- OUTSIDE RECORDS SUMMARY | 2024-04-18 09:24 | XMS_ITS | Encounter Summary ---
Author Organization [facility] Address [address] [place] [address] Care Team Providers Care Relay Associate Name Role Phone Nic Padilla MD Primary Care Provider [phone] Encounter Details Date Type Department Care Team (Latest Contact Info) Description 08/30/2012 13:11 EDT - 08/30/2012 14:31 EDT Hospital Encounter [facility] Endoscopy Outpatient [address] [place] [address] Mahendra Person MD Discharge Disposition: Home or Self Care Social [...] Sign Reading Time Taken Comments Blood Pressure 158/97 08/30/2012 1340 EDT Pulse - - Temperature 35.6 ??C (96.1 ??F) 08/30/2012 1340 EDT Respiratory Rate 18 08/30/2012 1415 EDT Oxygen Saturation 96% 08/30/2012 1340 EDT Inhaled Oxygen Concentration - - Weight 138.3 kg (305 lb) 08/30/2012 1337 EDT Height 177.8 cm (5' 10) 08/30/2012 1337 EDT Body Mass Index 43.76 08/30/2012 1337 EDT documented in this encounter Medications at Time of Discharge lisinopril (PRINIVIL, ZESTRIL) 20 mg tablet Take 10 mg by mouth daily. Aspirin 81 mg Tab Take 81 mg by mouth daily. 6 naproxen sodium (ALEVE) 220 mg cap Take 2 Caps by mouth 2 times daily 6 [place]-3 Fatty Acids-Vitamin E (FISH OIL) 1,000 mg cap Take 2,000 mg by mouth daily. 5 PEG 3350-Electrolyte s (GOLYTELY) Instructions mailed once procedure scheduled. Questions: Esvin Mccray GI Dept.: [phone] or GI Doctor's Office. 4 L 0 07/13/2012 3 documented as of this encounter Discharge Disposition Disposition Code Departure Means Destination Home or Self Care documented in this encounter Procedure Notes * COLLECTIONS ASSOCIATE, SCAN 2 - 09/06/2012 0833 EDTAssociated Order(s): PROCEDURE REPORTS - SCANNED * COLLECTIONS ASSOCIATE, SCAN 2 - 08/31/2012 0913 EDTAssociated Order(s): PROCEDURE REPORTS - SCANNED * Mahendra Person MD - 08/30/2012 1352 EDTProcedure(s): ESOPHAGEAL MANOMETRY High resolution esophageal manometry Procedure: Patient arrived after overnight fast. A motility catheter with 36 circumferential sensors on 1 cm spacing was inserted transnasally after application of topical anesthesia to the nasal passage. The catheter was positioned so that at least 2 distal sensors were in the stomach and 2 proximal sensors were located above the UES. A 5 minute acclimation period was provided followed by 10 wet swallows of 5 cc water. Indications: GERD, Abnormal esophagram Interpretation/Findings: Normal resting LES pressure with complete relaxation with wet swallows. Contractions in the body ofthe esophagus are 100% peristaltic with normal amplitude. 1.9 cm hiatal hernia. Impression: Normal LES. Normal peristalsis. Hiatal hernia. documented in this encounter Miscellaneous Notes * Scanned Note-Null - COLLECTIONS ASSOCIATE, SCAN 2 - 08/31/2012 0913 EDT documented in this encounter Plan of Treatment Pending Results Name Type Priority Associated Diagnoses Date /Time OUTSIDE IMAGES - PLAIN FILM MSK Imaging 12/30/2014 15:33 EDT OUTSIDE IMAGES - PLAIN FILM MSK Imaging 12/30/2014 15:33 EDT OUTSIDE IMAGES - PLAIN FILM MSK Imaging 12/30/2014 15:33 EDT OUTSIDE IMAGES - PLAIN FILM MSK Imaging 12/30/2014 15:33 EDT Scheduled Orders Name Type Priority Associated Diagnoses Orde r Schedule OUTSIDE IMAGES - PLAIN FILM MSK Imaging One Time for 1 Occurrences starting 12/30/2014 until 12/30/2014 OUTSIDE IMAGES - PLAIN FILM MSK Imaging One Time for 1 Occurrences starting 12/30/2014 until 12/30/2014 OUTSIDE IMAGES - PLAIN FILM MSK Imaging One Time for 1 Occurrences starting 12/30/2014 until 12/30/2014 OUTSIDE IMAGES - PLAIN FILM MSK Imaging One Time for 1 Occurrences starting 12/30/2014 until 12/30/2014 documented as of this encounter Procedures Procedure Name Priority Date/Time Associated Diagnosis Comments MR EXTREMITY KNEE WO CONTRAST 05/06/2015 15:01 EST PROCEDURE REPORTS - SCANNED 09/06/2012 8:33 EDT PROCEDURE REPORTS - SCANNED 08/31/2012 9:13 EDT documented in this encounter Results * MR EXTREMITY KNEE WO CONTRAST (05/06/2015 15:01 EST) Anatomical Region Laterality Modality Other 05/06/2015 15:0 1 EST 05/12/2015 12:31 EST Narrative 05/12/2015 12:31 EST MR EXTREMITY LEFT KNEE WO CONTRAST ??05/06/2015 3:01 PM Signs and Symptoms/Comments: ?? M17.0-Bilateral primary osteoarthritis of knee-ICD-10; bilateral knee osteoarthritis anatomic eval for bilateral total knee replacement dos-06/10/2015 [facility] protocol Comparison: Concurrent radiographs of the left knee obtained the same day on May 06, 2015. Outside knee radiographs dated December 17, 2014 and August 06, 2011. Technique: A single sagittal proton-density 2-D SANDRA sequence of the left knee was obtained as our [facility] protocol for preoperative anatomic evaluation in this patient scheduled for bilateral total knee replacements. Findings LEFT knee: There are severe degenerative changes in the medial femorotibial compartment with large areas of full-thickness cartilage loss on the weightbearing portions of the medial femoral condyle and medial tibial plateau as well as degenerative tearing of the medial meniscus. There are milder degenerative changes in the lateral femorotibial compartment, there is undersurface fraying in the body of the lateral meniscus, however no discrete lateral meniscal tear is seen on this single sequence. There is thickening and altered intrasubstance signal of the ACL with indistinctness of its fibers, this may be sequela from a prior partial tear or likely due to mucoid degeneration, probably a combination of both. The PCL has a more normal appearance. An accurate assessment of the medial and lateral supporting structures of the knee including the MCL and LCL complexes is precluded in the absence of additional images in the different orthogonal planes. The extensor apparatus of the left knee appears grossly intact. There is a trace left knee joint effusion. Procedure Note Manuelito Alfaro MD - 05/12/2015 MR EXTREMITY LEFT KNEE WO CONTRAST 05/06/2015 3:01 PM Signs and Symptoms/Comments: M17.0-Bilateral primary osteoarthritis of knee-ICD-10; bilateral knee osteoarthritis anatomic eval for bilateral total knee replacement dos-06/10/2015 [facility] protocol Comparison: Concurrent radiographs of the left knee obtained the same day on May 06, 2015. Outside knee radiographs dated December 17, 2014 and August 06, 2011. Technique: A single sagittal proton-density 2-D SANDRA sequence of the left knee was obtained as our [facility] protocol for preoperative anatomic evaluation in this patient scheduled for bilateral total knee replacements. Findings LEFT knee: There are severe degenerative changes in the medial femorotibial compartment with large areas of full-thickness cartilage loss on the weightbearing portions of the medial femoral condyle and medial tibial plateau as well as degenerative tearing of the medial meniscus. There are milder degenerative changes in the lateral femorotibial compartment, there is undersurface fraying in the body of the lateral meniscus, however no discrete lateral meniscal tear is seen on this single sequence. There is thickening and altered intrasubstance signal of the ACL with indistinctness of its fibers, this may be sequela from a prior partial tear or likely due to mucoid degeneration, probably a combination of both. The PCL has a more normal appearance. An accurate assessment of the medial and lateral supporting structures of the knee including the MCL and LCL complexes is precluded in the absence of additional images in the different orthogonal planes. The extensor apparatus of the left knee appears grossly intact. There is a trace left knee joint effusion. us Keenan Horan MD IMG MRI ORDERABLES Fin al Result * PROCEDURE REPORTS - SCANNED (09/06/2012 8:33 EDT) 09/06/2012 8:33 EDT Narrative 09/06/2012 8:37 EDT Procedure Note COLLECTIONS ASSOCIATE, SCAN 2 - 09/06/2012 8:33 EDT us Scan 2 Machine Maintenance Repairer PROCEDURE/MINOR SURGICAL OR DERABLES Final Result * PROCEDURE REPORTS - SCANNED (08/31/2012 9:13 EDT) 08/31/2012 9:13 EDT Narrative 08/31/2012 10:15 EDT Procedure Note COLLECTIONS ASSOCIATE, SCAN 2 - 08/31/2012 9:13 EDT us Scan 2 Machine Maintenance Repairer PROCEDURE/MINOR SURGICAL OR DERABLES Final Result documented in this encounter Visit Diagnoses Not on filedocumented in this encounter Orders Medications Ordered That Derrick ht Not Have Been Administered Count Last Ordered Date First Ordered Date fentaNYL citrate (PF) 50 mcg /mL injection 100-250 mcg 1 08/30/2012 flumazenil (ROMAZICON) injection 0.2 mg 1 0 08/30/2012 lactated ringers (LR) infusion 1 08/30/2012 meperidine (PF) (DEMEROL) 10 0 mg/mL injection 25-200 mg 1 08/30/2012 midazolam (VERSED) injection 1-10 mg 1 08/05 naloxone (NARCAN) injection 0.4 mg 1 2012 ondansetron (PF) (ZOFRAN) injection 2-4 mg 1 08/30/2012 Transfer Count Last Ordered Date First Orde red Date NOTIFY PPS OF DISCHARGE COMPLETE 1 08/31/19 13 documented in this encounter Care Teams Relay Associate Relationship Specialty Start Date End Date Nic Padilla MD [address] [place] [address] PCP - General 05/18/12 documented as of this encounter
--- OUTSIDE RECORDS SUMMARY | 2024-04-18 09:24 | XMS_ITS | Encounter Summary ---
Author Organization [facility] Address [address] [place] [address] Care Team Providers Care Assistant Manager Name Role Phone Nic Padilla MD Primary Care Provider [phone] Encounter Details Date Type Department Care Team (Latest Contact Info) Description 06/02/2015 13:37 EST - 06/02/2015 23:59 EST Hospital Encounter [address] [address] Keenan Horan MD Discharge Disposition: Home or Self Care [...] shopping? Answer Date of Assessment Author No 06/02/2015 9:44 EST documented as of this encounter Mental Status * Because of a physical, mental, or emotional condition, does this person have serious difficulty concentrating, remembering, or making decisions? Answer Entry Date Author No 06/02/2015 9:44 EST documented in this encounter Discharge Diagnoses Diagnosis M25.561 Pain in right knee-M25.561[ICD-10-CM] M25.562 Pain in left knee-M25.562[ICD-10-CM] M17.0 Bilateral primary osteoarthritis of knee-M17.0[ICD-10-CM] Z82.49 Family history of ischemic heart disease and other diseases of the circulatory system-Z82.49[ICD-10-CM] Z51.81 Encounter for therapeutic drug level monitoring-Z51.81[ICD-10-CM] Z79.01 director long term care (current) use of anticoagulants-Z79.01[ICD-10-CM] documented in this encounter Medications at Time of Discharge lisinopril (PRINIVIL, ZESTRIL) 20 mg tablet Take 10 mg by mouth daily. Multivitamins with Minerals tablet Take 1 Tab by mouth daily Aspirin 81 mg Tab Take 81 mg by mouth daily. 6 naproxen sodium (ALEVE) 220 mg cap Take 2 Caps by mouth 2 times daily 6 rivaroxaban (XARELTO) 10 mg tablet tabletIndications :Family history of DVT,Morbid obesity, unspecified obesity type ([facility]) Take 1 Tab by mouth daily START 24 hours after last dose lovenox given in hospital 30 Tab 0 06/13/2015 6 documented as of this encounter Discharge Disposition Disposition Code Departure Means Destination Home or Self Long Term documented in this encounter Plan of Treatment Not on file documented as of this encounter Visit Diagnoses Not on filedocumented in this encounter Care Teams Assistant Manager Relationship Specialty Start Date End Date Nic Padilla MD [address] [place] [address] PCP - General 05/18/12 documented as of this encounter
--- OUTSIDE RECORDS SUMMARY | 2024-04-18 09:24 | XMS_ITS | Encounter Summary ---
Author Organization [facility] Address [address] [place] [address] Care Team Providers Care Coal Dumping Equipment Operator Name Role Phone Nic Padilla MD Primary Care Provider Reason for Referral * (Routine/Next Available) - Closed Specialty Diagnoses / Procedures Referred By Jeremy hodges Referred To Contact Diagnoses Morbid obesity (HCC-CMS) Procedures SPLIT NIGHT (DIAGNOSTIC POLYSOMNOGRAM WITH SPLIT TO CPAP/BIPAP TITRATION) Reyes Jesus PA-C Phone: tel: fax: Referral ID Status Reason Start Date Expiration Date Visits Re quested Visits Authorized [id number] Closed 09/11/2012 1 1 * (Routine/Next Available) - Closed Specialty Diagnoses / Procedures Referred By Jeremy hodges Referred To Contact Diagnoses Morbid obesity (HCC-CMS) Procedures SPLIT NIGHT (DIAGNOSTIC POLYSOMNOGRAM WITH SPLIT TO CPAP/BIPAP TITRATION) Reyes Jesus PA-C Phone: tel: fax: Referral ID Status Reason Start Date Expiration Date Visits Re quested Visits Authorized [id number] Closed 09/11/2012 1 1 Reason for Visit * Reason Comments Obesity #2 Encounter Details Date Type Department Care Team (Late st Contact Info) Description 09/11/2012 14:30 EDT Office Visit [facility] Bariatric Surgery - [place] [address] [place] [address] Reyes Jesus PA-C [address] [place] [address], [facility] [address] [place] [address] Morbid obesity (HCC-CMS) (Primary Dx) Discharge Disposition: Auto Discharge Social History Tobacco Use Types Packs/Day Years [...] Sign Reading Time Taken Comments Blood Pressure 116/78 09/11/2012 1433 EDT Pulse 68 09/11/2012 1433 EDT Temperature - - Respiratory Rate - - Oxygen Saturation - - Inhaled Oxygen Concentration - - Weight 136.2 kg (300 lb 3.2 oz) 09/11/2012 1433 EDT Height 177.8 cm (5' 10) 09/11/2012 1433 EDT Body Mass Index 43.07 09/11/2012 1433 EDT documented in this encounter Discharge Disposition Disposition Code Departure Means Destination Auto Discharge documented in this encounter Progress Notes * [address] - 09/11/2012 1515 EDT Medical Nutrition Evaluation-PRE OP NOTE Bariatric Clinic Nutrition Pre-op Visit Visit Number: #3 Desired surgery: Gastric Sleeve Subjective: I'm eating more fruit than I ever have in my life! I had my knees injections last week so I'm starting to do more walking again. I've got lots of wood splitting waiting for me now too. Food logs: [employer] Meal pattern: good most days Average caloric intake: 1,500/day Meal composition: well-balanced, increased fruit and veggie intake, dinner meal lacks protein occasionally Snacking: fruit, butter-free popcorn Exercise: some walking now had knees injected Objective: Weight: 300.2 lbs Weight loss from last visit: -10.2 lbs Total weight loss: Weight loss goal: Total Loss in lbs (Weight from Initial Consult - Today's Weight): 23.2 lbs Approximately 16 lbs Surgery Date: Significant Medications and Supplements: omegas, Centrum Silver MVT Assessment: Patient has made progress towards lifestyle changes and met weight loss requirement for surgery. Excellent changes in diet, consuming 2-3 servings of both fruit and veggies daily. Reinforced importance of protein with all meals, particularly with large decrease in daily kcal consumption. Added daily MVT as recommended by RD at last visit. Has been able to start walking more the last few days following bilateral knee injections last week. Would like to attend post-op Nutrition Class next month. Plans to attend Support group next month if date does not coincide with planned vacation, otherwise will attend in November. Plan: Diet Goals: Include protein at least 3 times a day, Keep food records and Calorie goal 1,400-1,600/day. Exercise Goals: Increase time to 150 minutes/week as able (yard work, walking) Weight Loss Goal: Approximately 16 lbs Weight Loss Remaining to Goal: Approximately met Reviewed: Food/Activity Record Next Visit: Nutrition class scheduled on 10/25/12 * Reyes Jesus PA - 09/11/2012 1439 EDT Nic Padilla MD [facility] [address] [place] [address] Dear Randy : Thank you for referring your patient, Julio Cardoza, for evaluation and consideration of laparoscopic sleeve gastrectomy surgery. Mr. Cardoza met with Dr. Bridges for his initial consultation on 07/13/12. He denies any changes in his medical history or medications since his previous visit. Mr. Cardoza is a 62 y.o. male with adult-onset obesity. His comorbidities include GERD and hypertension. Review of Systems Constitutional: No fevers, chills. HEENT: No upper respiratory infection symptoms Cardiovascular: No chest pain, no shortness of breath, able to walk up a flight of stairs with no dyspnea or pain. Respiratory: No wheezing, + snoring, does not wake up gasping but wakes up frequently, does not wake up refreshed, Eldridge scale= 12 Renal: No dysuria or difficulty starting stream of urine, voids 2-3 times per night GI: No nausea or vomiting, no diarrhea or constipation Endocrine: No polyuria or polydipsia Hematology: No excessive bruising or bleeding, no history of DVT Eyes: No acute changes Neurology: No slurred speech, no headache, no unilateral weakness Musculoskeletal: No muscle or joint pain except knees and wrists Allergies/immunologic: No seasonal allergies Current outpatient prescriptions:lisinopril (PRINIVIL, ZESTRIL) 20 mg tablet, Take 20 mg by mouth daily. , Disp: , Rfl: ; Aspirin 81 mg Tab, Take 81 mg by mouth daily. , Disp: , Rfl: ; naproxen sodium (ALEVE) 220 mg cap, Take 2 Caps by mouth 3 times daily as needed. , Disp: , Rfl: ; Loxley-3 Fatty Acids-Vitamin E (FISH OIL) 1,000 mg cap, Take 2,000 mg by mouth daily. , Disp: , Rfl: PEG 3350-Electrolytes (GOLYTELY), Instructions mailed once procedure scheduled. Questions: [facility] Dept.: [phone] or GI Doctor's Office., Disp: 4 L, Rfl: 0 Allergies include: Review of patient's allergies indicates no known allergies. Past Surgical History Procedure Date ??? Cervical disc arthroplasty ??? Tonsillectomy ??? Knee arthroscopy left family history includes Colon Polyps in his brother, mother, and sister. There is no history of Breast Cancer, and Colon Cancer, and Endometrial Cancer, and Esophageal Cancer, and Ovarian Cancer, andPancreatic Cancer, and Rectal Cancer, and Stomach Cancer, . Patient reports that he quit smoking about 21 years ago. He does not have any smokeless tobacco history on file. He reports that he drinks about 3 ounces of alcohol per week. He reports that he does not use illicit drugs. For exercise Julio is walking about 30 minutes (getting better after recent knee injections). Julio met with our program architecture department chair for 30 minutes to review preoperative dietary recommendations. He has lost almost 23 pounds since starting in our program and he understands he has met his weight loss goal for surgery. I did consult our architecture department chair following her visit with the patient and agree with her findings and recommendations. On physical examination today, his BP 116/78 Pulse 68 Ht 177.8 cm (70) Wt 136.17 kg (300 lb 3.2 oz) BMI 43.07 kg/m2 and Body mass index is 43.07 kg/(m^2).. Also, on physical exam, his Physical Examination: General: No apparent distress, appears stated age HEENT: Moist mucous membranes Neck: No goiter Lungs: Clear to auscultation bilaterally Heart: Regular rate and rhythm Abdomen: Soft, non-distended, non-tender, +bowel sounds Musculoskeletal: Normal range of motion Neurological: Cranial nerves II-XII intact, strength intact in upper and lower extremities, patellar reflex 2+ bilaterally Mr. Cardoza is an appropriate candidate for laparoscopic sleeve gastrectomy surgery with a BMI of 43and multiple life threatening comorbidities. We will need the following things in order to proceed with his evaluation : Routine labs and a sleep study which I will order as well as a copy of a PSA from his upcoming visit in November. If you have any questions or concerns regarding any information in this letter, please do not hesitate to contact me. Julio Cardoza will be returning to our office in a few weeks for continued medically supervised weight loss in preparation for surgery. Sincerely Yours, SINA Gimenez CC: documented in this encounter Miscellaneous Notes * Scanned Note-Null - HOTEL ASSOCIATE, SCAN 2 - 09/20/2012 1315 EDT * Addendum Note - Reyes Jesus PA - 09/11/2012 1548 EDTAddended by: REYES JESUS on: 09/11/2012 15:48 Modules accepted: Orders documented in this encounter Plan of Treatment Scheduled Orders Name Type Priority Associated Diagnoses Orde r Schedule SPLIT NIGHT (DIAGNOSTIC POLYSOMNOGRAM WITH SPLIT TO CPAP/BIPAP TITRATION) [facility] Routine Morbid obesity ([facility]) Ordered: 09/11/2012 SPLIT NIGHT (DIAGNOSTIC POLYSOMNOGRAM WITH SPLIT TO CPAP/BIPAP TITRATION) Sleep Center Routine Morbid obesity ([facility]) Ordered: 09/11/2012 documented as of this encounter Results * TSH (09/11/2012 15:49 EDT) Pathologist [facility] TSH 2.10 0.35 - 5.00 uIU/ml [facility] Blood specimen (specimen) 09/11/2012 15:49 EDT 09/11/2012 17:47 EDT Reyes Jesus PA-C CHEMISTRY & BLOOD NE S ORDERABLES Final Result Performing Organization Address [facility] de Phone Number [facility] [address] [place] [address] * VITAMIN D (25,OH) (09/11/2012 15:49 EDT) Pathologist [facility] 25OH Vitamin D Tot 19.8 ng/ml [facility] Comment: Reference Range: Deficient = <10 ng/ml Insufficient = 10-30 ng/ml Sufficient = 30-100 ng/ml Toxic = >100 ng/ml Blood specimen (specimen) 09/11/2012 15:49 EDT 09/11/2012 17:47 EDT Reyes Jesus PA-C CHEMISTRY & BLOOD NE S ORDERABLES Final Result Performing Organization Address [facility] de Phone Number [facility] [address] [place] [address] * LIVER FUNCTION TESTS (09/11/2012 15:49 EDT) Pathologist [facility] Albumin 4.1 3.4 - 4.9 g/dl [facility] Total Protein 7.1 6.5 - 8.3 g/dl [facility] Total Alkaline Phosphatase 79 38 - 126 U/L [facility] ALT 62 21 - 72 U/L [facility] AST 29 15 - 46 U/L [facility] Unconjugated Bilirubin 0.3 0.1 - 1.1 mg/dl [facility] Conjugated Bilirubin 0.0 0.0 - 0.3 mg/dl [facility] Bilirubin, Total 0.7 0.2 - 1.3 mg/dl [facility]ATT Blood specimen (specimen) 09/11/2012 15:49 EDT 09/11/2012 17:47 EDT us Reyes ANDINO-C CHEMISTRY & BLOOD GA S ORDERABLES Final Result Performing Organization Address [facility] de Phone Number [facility] [address] [place] [address] * HEMOGLOBIN A1C (09/11/2012 15:49 EDT) Hemoglobin A1C 6.1 % [facility] Comment: Reference Range: <5.7% Normal 5.7-6.4% Increased risk for diabetes =>6.5% Diagnostic for diabetes (if confirmed) The A1c goal for non adults in general is <7%. The A1c goal for selected patients may be significantly lower than 7% if this can be achieved without significant hypoglycemia or other adverse effects of treatment. Est Avg Glucose 128 mg/dl [facility] Comment: eAG represents the A1c result expressed as average glucose in mg/dl. Blood specimen (specimen) 09/11/2012 15:49 EDT 09/11/2012 17:47 EDT us Reyes ANDINO-C CHEMISTRY & BLOOD GA S ORDERABLES Final Result Performing Organization Address [facility] de Phone Number [facility] [address] [place] [address] * CREATININE (09/11/2012 15:49 EDT) Creatinine 1.01 0.66 - 1.25 mg/dl [facility] GFR, Calculated >60 >60 ml/min/1.7 3m2 [facility] Blood specimen (specimen) 09/11/2012 15:49 EDT 09/11/2012 17:47 EDT us Reyes ANDINO-C CHEMISTRY & BLOOD GA S ORDERABLES Final Result Performing Organization Address [facility] de Phone Number [facility] [address] [place] [address] * (ABNORMAL) HEMAGRAM (09/11/2012 15:49 EDT) WBC 14.06(H) 4.0 - 10.4 K/cmm [facility] RBC 5.57 4.36 - 5.78 M/cmm [facility] Hemoglobin 17.0 13.8 - 17.3 gm/dl [facility] HCT 50.8(H) 39.5 - 50.2 % [facility] MCV 91 81 - 95 fl [facility] MCH 30.5 27.6 - 33.0 pg [facility] MCHC 33.4 32.8 - 36.4 gm/dl [facility] PLT 156 141 - 320 K/cmm [facility] RDW-CV 12.8 11.8 - 14.1 % [facility] Blood specimen (specimen) 09/11/2012 15:49 EDT 09/11/2012 17:47 EDT us Reyes Jesus PA-C HEMATOLOGY & PF4 ORD ERABLES Final Result [facility] [address] [place] [address] * (ABNORMAL) VITAMIN B12 (09/11/2012 15:49 EDT) Pathologist [facility] Vitamin B-12 933(H) 211 - 911 pg/ml [facility] Blood specimen (specimen) 09/11/2012 15:49 EDT 09/11/2012 17:47 EDT us Reyes Jesus PA-C CHEMISTRY & BLOOD GA S ORDERABLES Final Result [facility] [address] [place] [address] documented in this encounter Visit Diagnoses Diagnosis Morbid obesity ([facility])- Primary Morbid obesity documented in this encounter Care Teams Coal Dumping Equipment Operator Relationship Specialty Start Date End Date Nic Padilla MD [address] [place] [address] PCP - General 05/18/12 documented as of this encounter
--- OUTSIDE RECORDS SUMMARY | 2024-04-18 09:24 | XMS_ITS | Encounter Summary ---
Author Organization [facility] Address [address] [place] [address] Care Team Providers Care Research Intern Name Role Phone Nic Padilla MD Primary Care Provider [phone] Reason for Visit * Reason Comments Obesity Pre Op Encounter Details Date Type Department Care Team (Late st Contact Info) Description 02/01/2013 13:00 EDT Office Visit [facility] Bariatric Surgery [address] [address] Reyes Stevens PA-C [address] [place] [address], [facility] [address] [place] [address] Morbid obesity (HCC-CMS) (Primary Dx) [...] Sign Reading Time Taken Comments Blood Pressure 134/88 02/01/2013 1249 EDT Pulse 70 02/01/2013 1249 EDT Temperature - - Respiratory Rate - - Oxygen Saturation - - Inhaled Oxygen Concentration - - Weight 122.6 kg (270 lb 3.2 oz) 02/01/2013 1249 EDT Height 177.8 cm (5' 10) 02/01/2013 1249 EDT Body Mass Index 38.77 02/01/2013 1249 EDT documented in this encounter Discharge Disposition Disposition Code Departure Means Destination Auto Discharge documented in this encounter Progress Notes * Reyes Stevens PA - 02/01/2013 1700 EDT I was late getting here from hospital and Edward left before being seen. continues to lose weight. documented in this encounter Plan of Treatment Not on file documented as of this encounter Visit Diagnoses Diagnosis Morbid obesity (HCC-CMS)- Primary Morbid obesity documented in this encounter Care Teams Research Intern Relationship Specialty Start Date End Date Nic Padilla MD [address] [place] [address] PCP - General 05/18/12 documented as of this encounter
--- OUTSIDE RECORDS SUMMARY | 2024-04-18 09:24 | XMS_ITS | Encounter Summary ---
Author Organization [facility] Address [address] [place] [address] Care Team Providers Care Ase Master Mechanic Name Role Phone Nic Padilla MD Primary Care Provider [phone] Reason for Visit * Reason Onset Date Comments New Patient Visit 02/18/2015 Strong family hx of DVT Encounter Details Date Type Department Care Team (Late st Contact Info) Description 02/18/2015 Telephone [facility] - [address] [address] Keenan Horan MD New Patient Visit (Strong family hx of DVT) Social History Tobacco Use Types Packs/Day Years [...] encounter Miscellaneous Notes * Telephone Encounter - [place], [place] - 02/18/2015 1643 EDT I spoke with Julio and scheduled him for an appointment with Jazmin Donato NP on Tuesday, 04/07 at 11:15am. I let him know that new patient paperwork is going to be sent out to his home along with information about the appointment. He was agreeable to the appointment date/time. documented in this encounter Plan of Treatment Not on file documented as of this encounter Visit Diagnoses Not on filedocumented in this encounter Care Teams Ase Master Mechanic Relationship Specialty Start Date End Date Nic Padilla MD [address] [place] [address] PCP - General 05/18/12 documented as of this encounter
--- OUTSIDE RECORDS SUMMARY | 2024-04-18 09:24 | XMS_ITS | Encounter Summary ---
Author Organization [facility] Address [address] [place] [address] Care Team Providers Care Automobile Service Station Mechanic Name Role Phone Nic Padilla MD Primary Care Provider [phone] Encounter Details Date Type Department Care Team (Latest Contact Info) Description 06/02/2015 8:22 EST - 06/02/2015 13:36 EST Hospital Encounter [address] [address] Unknown, Provider, MD Horan, Keenan Lopez MD Discharge Disposition: Auto Discharge Social History Tobacco [...] Encounter for therapeutic drug level monitoring-Z51.81[ICD-10-CM] Z79.01 long-term (current) use of anticoagulants-Z79.01[ICD-10-CM] documented in this [...] of DVT,Morbid obesity, unspecified obesity type ([facility]) Take 1 Tab by mouth daily START 24 hours after last dose lovenox given in hospital 30 Tab 0 06/13/2015 6 documented as of this encounter Discharge Disposition Disposition Code Departure Means Destination Auto Discharge Home documented in this encounter Plan of Treatment Not on file documented as of this encounter Procedures Procedure Name Priority Date/Time Associated Diagnosis Comments TYPE AND SCREEN Routine 06/02/2015 9:39 EST UA REFLEX Routine 06/02/2015 8:30 EST HIGH SENSITIVITY C-REACTIVE PROTEIN (CARDIOVASCULAR DISEASE) Routine 06/02/2015 8:29 EST documented in this encounter Results * TYPE AND SCREEN (06/02/2015 9:39 EST) ABO O [facility] BLOOD [facility]ANK Rh Factor Positive [facility]LOOD [facility] Antibody Screen Negative [facility] BLOOD [facility] Specimen Expires: 06/13/2015 @ 23:59 [facility]OD [facility] 06/02/2015 9:39 EST us Keenan Horan MD BLOOD BANK TESTS Final Result [facility] [address] [place] [address] * UA REFLEX (06/02/2015 8:30 EST) UA Billing Microscopic not indicated. 06/02/2015 8:53 EST [facility] URINE / Unknown 06/02/2015 8 :30 EST 06/02/2015 8:43 EST Keenan Horan MD URINALYSIS ORDERABLES Final Result Performing Organization Address City/[facility]/ZIP Co de Phone Number [facility] [address] [place] [address] * C-REACTIVE PROTEIN HIGH SENSITIVITY (06/02/2015 8:29 EST) High Sensitivity CRP Cancelled by Physician/Vangie sing Unit mg/L 06/02/2015 9:30 EST [facility] Comment:PER NARA WRONG TEST ADDED BLOOD SPECIMEN / Unknown 06/02/2015 8:29 EST 06/02/2015 8:43 EST Keenan Horan MD CHEMISTRY & BLOOD GAS ORDERABLES Final Result Performing Organization Address [facility] Co de Phone Number [facility] [address] [place] [address] documented in this encounter Visit Diagnoses Not on filedocumented in this encounter Care Teams Automobile Service Station Mechanic Relationship Specialty Start Date End Date Nic Padilla MD [address] [place] [address] PCP - General 05/18/12 documented as of this encounter
--- OUTSIDE RECORDS SUMMARY | 2024-04-18 09:24 | XMS_ITS | Encounter Summary ---
Author Organization [facility] Address [address] [place] [address] Care Team Providers Care Retreader Name Role Phone Nic Padilla MD Primary Care Provider [phone] Reason for Visit * Reason Onset Date Comments Other 06/13/2013 Encounter Details Date Type Department Care Team (Late st Contact Info) Description 06/13/2013 Telephone [facility] Bariatric Surgery - [address] [address] Jerson Bridges MD [address] [place] [address] Other Social History Tobacco Use Types Packs/Day Years [...] encounter Miscellaneous Notes * Telephone Encounter - [place] - 06/13/2013 0844 EST Julio has called to cancel his appointments and will no longer continue with us at this time. He states he is doing well with his weight loss. He was informed that if he should change his mind he iswelcome to reschedule with us. documented in this encounter Plan of Treatment Not on file documented as of this encounter Visit Diagnoses Not on filedocumented in this encounter Care Teams Retreader Relationship Specialty Start Date End Date Nic Padilla MD [address] [place] [address] PCP - General 05/18/12 documented as of this encounter
--- OUTSIDE RECORDS SUMMARY | 2024-04-18 09:24 | XMS_ITS | Encounter Summary ---
Author Organization [facility] Address [address] [place] [address] Care Team Providers Care Sample Driller Name Role Phone Nic Padilla MD Primary Care Provider [phone] Reason for Visit * Reason Onset Date Comments Pre-op Exam 06/04/2015 Encounter Details Date Type Department Care Team (Late st Contact Info) Description 06/04/2015 Pre-Procedure Orders Encounter [facility] Total Joint Program - [address] [place], [place] [id number] Jennifer Mack LPN [address] [place] [address] Bilateral knee pain (Primary Dx); Bilateral primary osteoarthritis of knee Social History Tobacco Use Types Packs/Day Years [...] 06/02/2015 9:44 EST documented in this encounter Plan of Treatment Not on file documented as of this encounter Visit Diagnoses Diagnosis Bilateral knee pain- Primary Pain in joint, lower leg Bilateral primary osteoarthritis of knee documented in this encounter Care Teams Sample Driller Relationship Specialty Start Date End Date Nic Padilla MD [address] [place] [address] PCP - General 05/18/12 documented as of this encounter
--- OUTSIDE RECORDS SUMMARY | 2024-04-18 09:24 | XMS_ITS | Encounter Summary ---
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 Bilateral knee pain; Bilateral primary osteoarthritis of knee; Family history of blood clots; Anticoagulation management encounter Social History Tobacco Use Types Packs/Day [...] Procedure Name Priority Date/Time Associated Diagnosis Comments PTT Routine 06/02/2015 13:42 EST Bilateral knee pain Bilateral primary osteoarthritis of knee Family history of blood clots Anticoagulation management encounter PROTIME Routine 06/02/2015 13:42 EST Family history of blood clots Bilateral primary osteoarthritis of knee Bilateral knee pain Anticoagulation management encounter URINALYSIS WITH MICROSCOPIC IF POSITIVE Routine 06/02/2015 8:30 EST Bilateral primary osteoarthritis of knee Bilateral knee pain URINE CULTURE IF POSITIVE Routine 06/02/2015 8:30 EST Bilateral primary osteoarthritis of knee Bilateral knee pain PRE-OP TYPE AND SCREEN Routine 06/02/2015 8:29 EST Bilateral primary osteoarthritis of knee Bilateral knee pain COMPLETE BLOOD COUNT AND DIFFERENTIAL Routine 06/02/2015 8:29 EST Bilateral primary osteoarthritis of knee Bilateral knee pain BASIC METABOLIC PANEL (BMP) Routine 06/02/2015 8:29 EST Bilateral knee pain Bilateral primary osteoarthritis of knee documented in this encounter Results * PROTIME (06/02/2015 13:42 EST) Pro Time 11.4 10.1 - 13.0 secs 06/02/2015 15:41 EST [facility] I.N.R. 1.0 0.9 - 1.1 Ratio 06/02/2015 15:41 EST [facility] Comment: Moderate Intensity Coumadin INR = 2.0-3.0 Adjustments in anticoagulant therapy dose should be based upon the INR and NOT the Pro Time. Blood specimen (specimen) BLOOD SPECIMEN / Unknown 06/02/2015 13:42 EST 06/02/2015 14:54 EST us Keenan Horan MD HEMATOLOGY & PF4 ORDER ARMANDO Final Result [facility] [address] [place] [address] * PTT (06/02/2015 13:42 EST) PTT 29 26 - 37 secs 06/02/2015 15:41 EST [facility] Blood specimen (specimen) BLOOD SPECIMEN / Unknown 06/02/2015 13:42 EST 06/02/2015 14:54 EST Keenan Horan MD HEMATOLOGY & PF4 ORDER ARMANDO Final Result Performing Organization Address City/[facility]/ZIP Co de Phone Number [facility] [address] [place] [address] * URINE CULTURE IF UA POSITIVE - NON POCT URINALYSIS ONLY (06/02/2015 8:30 EST) Culture if Indicated Culture not indicated by urinalysis results. 06/02/2015 9:55 EST [facility] Urine specimen (specimen) TOPOGRAPHY UNKNOWN / Unknown 06/02/2015 8:30 EST 06/02/2015 8:43 EST Keenan Horan MD MICROBIOLOGY - GENERAL ORDERABLES Final Result Performing Organization Address [facility] Co de Phone Number [facility] [address] [place] [address] * URINALYSIS WITH REFLEX MICROSCOPIC (06/02/2015 8:30 EST) Color, UA Yellow 06/02/2015 8:53 [facility] Clarity, UA Clear 06/02/2015 8:53 [facility] Glucose, UA Neg Neg 06/02/2015 8:53 [facility] Bilirubin, UA Neg Neg 06/02/2015 8:53 [facility] Ketones, UA Neg Neg 06/02/2015 8:53 [facility] Specific [place], Urine >1.030 1.001 - 1.035 06/02/2015 8:53 [facility] Blood, UA Neg Neg 06/02/2015 8:53 [facility] pH, UA 5.5 4.6 - 8.0 06/02/2015 8:53 [facility] Protein, UA Neg Neg 06/02/2015 8:53 [facility] Urobilinogen, UA 0.2 0.2 - 1.0 E.U./dl 06/02/2015 8:53 [facility] Nitrite, UA Neg Neg 06/02/2015 8:53 [facility] Leuk Esterase Neg Neg 06/02/2015 8:53 [facility] Refractometer SG,Urine 1.032 1.001 - 1.035 06/02/2015 8:53 [facility] Urine specimen (specimen) URINE / Unknown 06/02/2015 8:30 EST 06/02/2015 8:43 EST Keenan Horan MD URINALYSIS ORDERABLES Final Result Performing Organization Address City/[facility] Co de Phone Number [facility] [address] [place] [address] * PRE-OP BLOOD BANK DRAW (06/02/2015 8:29 EST) Pathologist [facility] Pre-Op Blood Bank Lab Draw SPECIMEN RECEIVED ACCEPTABLE 06/02/2015 9:43 [facility] BLOOD SPECIMEN / Unknown 06/02/2015 8:29 EST 06/02/2015 8:43 EST Keenan Horan MD BLOOD BANK TESTS Final Result Performing Organization Address [facility] de Phone Number [facility] [address] [place] [address] * (ABNORMAL) HEMAGRAM AND DIFFERENTIAL (06/02/2015 8:29 EST) WBC 9.54 4.0 - 10.4 K/cmm 06/02/2015 9:07 [facility] RBC 5.19 4.36 - 5.78 M/cmm 06/02/2015 9:07 [facility] Hemoglobin 16.2 13.8 - 17.3 gm/dl 06/02/2015 9:07 [facility] HCT 47.7 39.5 - 50.2 % 06/02/2015 9:07 [facility] MCV 92 81 - 95 fl 06/02/2015 9:07 [facility] MCH 31.1 27.6 - 33.0 pg 06/02/2015 9:07 [facility] MCHC 33.9 32.8 - 36.4 gm/dl 06/02/2015 9:07 [facility] RDW-CV 12.6 11.8 - 14.1 % 06/02/2015 9:07 [facility] RDW-SD 39.8 36.5 - 45.9 fl 06/02/2015 9:07 [facility] PLT 144 141 - 320 K/cmm 06/02/2015 9:07 [facility] MPV 9.4 7.5 - 11.2 fl 06/02/2015 9:07 [facility] % Neutrophils 60.5 45.5 - 79.7 % 06/02/2015 9:07 [facility] % Lymphocytes 27.1 15.0 - 46.8 % 06/02/2015 9:07 [facility] % Monocytes 9.6 1.8 - 12.0 % 06/02/2015 9:07 [facility] % Eosinophils 2.2 0.6 - 6.9 % 06/02/2015 9:07 [facility] % Basophils 0.6 0.2 - 1.4 % 06/02/2015 9:07 [facility] ABS Neutrophils 5.78 2.20 - 8.85 K/cmm 06/02/2015 9:07 [facility] ABS Lymphs 2.59 1.09 - 3.30 K/cmm 06/02/2015 9:07 [facility] ABS Monocytes 0.92(H) 0.1 - 0.8 K/cmm 06/02/2015 9:07 [facility] ABS Eosinophils 0.21 0.03 - 0.61 K/cmm 06/02/2015 9:07 [facility] ABS Basophils 0.05 0.01 - 0.11 K/cmm 06/02/2015 9:07 [facility] Type of Diff: Automated 06/02/2015 9:07 [facility] Blood specimen (specimen) BLOOD SPECIMEN / Unknown 06/02/2015 8:29 EST 06/02/2015 8:43 EST us Keenan Horan MD PACKAGES & DNA PROBE O RDERABLES Final Result Performing Organization Address [facility] Co de Phone Number [facility] [address] [place] [address] * (ABNORMAL) BASIC METABOLIC PANEL (06/02/2015 8:29 EST) Sodium 141 136 - 145 mEq/L 06/02/2015 9:19 [facility] Potassium 4.3 3.5 - 5.0 mEq/L 06/02/2015 9:19 [facility] Chloride 105 96 - 110 mEq/L 06/02/2015 9:19 [facility] CO2 25 24 - 32 mEq/L 06/02/2015 9:19 [facility] BUN 24 10 - 26 mg/dl 06/02/2015 9:19 [facility] Creatinine 0.85 0.66 - 1.25 mg/dl 06/02/2015 9:19 [facility] GFR, Calculated 91 >60 ml/min/1.7 3m2 06/02/2015 9:19 [facility] Comment: eGFR calculated using CKD-EPI equation for non Americans. Multiply eGFR by 1.16 for Americans. Calcium 9.4 8.5 - 10.5 mg/dl 06/02/2015 9:19 [facility] Calculated Calcium 9.7 8.5 - 10.5 mg/dl 06/02/2015 9:19 [facility] Glucose, Serum 102(H) 70 - 100 mg/dl 06/02/2015 9:19 [facility] Fasting? Unknown 06/02/2015 9:19 [facility] Blood specimen (specimen) BLOOD SPECIMEN / Unknown 06/02/2015 8:29 EST 06/02/2015 8:43 EST Keenan Horan MD CHEMISTRY & BLOOD GAS ORDERABLES Final Result Performing Organization Address City/[facility]/ZIP Co de Phone Number [facility] [address] [place] [address] documented in this encounter Visit Diagnoses Diagnosis Bilateral knee pain Pain in joint, lower leg Bilateral primary osteoarthritis of knee Family history of blood clots Family history of other blood disorders Anticoagulation management encounter Encounter for therapeutic drug monitoring documented in this encounter Care Teams Center Medical Specialist Relationship Specialty Start Date End Date Nic Padilla MD [address] [place] [address] PCP - General 05/18/12 documented as of this encounter
--- OUTSIDE RECORDS SUMMARY | 2024-04-18 09:24 | XMS_ITS | Encounter Summary ---
Author Organization [facility] Address [address] [place] [address] Care Team Providers Care Mold Maker Plastic Molds Name Role Phone Nic Padilla MD Primary Care Provider [phone] Reason for Visit * Reason Onset Date Comments Appointment Related 04/07/2015 04/07/15@11:1 5am with Jazmin Donato; pt. will be there for 1:15pm Encounter Details Date Type Department Care Team (Late st Contact Info) Description 04/07/2015 Telephone [facility] Hematology & Oncology - [address] [id number] Nic Padilla MD [address] [place] [phone] Appointment Related (04/07/15@11:15am with Jazmin Donato; pt. will be there for 1:15pm) Social History Tobacco Use Types Packs/Day Years [...] encounter Miscellaneous Notes * Telephone Encounter - Jarvis Durham - 04/07/2015 1149 EST Pt. was confused over appointment times, and went to lab instead of appointment. Crawler Crane Operator spoke with Roxanne Vega, and Jazmin Donato can see pt. at 1:15pm; pt. was made aware, and will be at new appointment time. No call back required. documented in this encounter Plan of Treatment Not on file documented as of this encounter Visit Diagnoses Not on filedocumented in this encounter Care Teams Mold Maker Plastic Molds Relationship Specialty Start Date End Date Nic Padilla MD [address] [place] [address] PCP - General 05/18/12 documented as of this encounter
--- OUTSIDE RECORDS SUMMARY | 2024-04-18 09:24 | XMS_ITS | Encounter Summary ---
Author Organization [facility] Address [address] [place] [address] Care Team Providers Care Clinical Provider Trainer Name Role Phone Nic Padilla MD Primary Care Provider [phone] Reason for Visit * Reason Comments New Patient Visit * Consult (Routine) - Specialty Report Received Specialty Diagnoses / Procedures Referred By Jeremy hodges Referred To Contact Hematology Diagnoses Bilateral knee pain Osteoarthritis of both knees, unspecified osteoarthritis type Family history of DVT Keenan Horan MD Referral ID Status Reason Start Date Expiration Date Visits Requested Visits Authorized [id number] Specialty Report Received Specialty Services Required 02/14/2015 1 1 Encounter Details Date Type Department Care Team (Late st Contact Info) Description 04/07/2015 11:15 EST Office Visit [facility] Hematology & Oncology - [address] [address] Jazmin Donato NP [address] [facility], [address] [place] [id number] Family history of DVT (Primary Dx) Discharge Disposition: Auto Discharge Social [...] Sign Reading Time Taken Comments Blood Pressure 142/69 04/07/2015 1309 EST Pulse 83 04/07/2015 1309 EST Temperature 36.1 ??C (96.9 ??F) 04/07/2015 1309 EST Respiratory Rate 16 04/07/2015 1309 EST Oxygen Saturation 95% 04/07/2015 1309 EST Inhaled Oxygen Concentration - - Weight 123.7 kg (272 lb 12.8 oz) 04/07/2015 1309 EST Height 177.4 cm (5' 9.84) 04/07/2015 1309 EST Body Mass Index 39.32 04/07/2015 1309 EST documented in this encounter Functional Status * Because of [...] 02/12/2015 14:00 EDT documented in this encounter Discharge Diagnoses Diagnosis Z82.49 Family history of ischemic heart disease and other diseases of the circulatory system-Z82.49[ICD-10-CM] documented in this encounter Patient Instructions * Patient Instructions* Jazmin Donato NP - 04/07/2015 13:33 EST I recommend 4 weeks of post-operative anticoagulation. You will receive a low- dose injecatble anticoagulant while inpatient and switch to oral Xarelto 10 mg once daily upon discharge. I will [facility] for worm picker. Please start once home from surgery. Signs and symptoms to be concerned about: new onset, unilateral leg swelling or muscular pain/swelling, new onset shortness of breath and/or chest pain. Please call Roxanne Owen RN, if you find out your brother had a positive test for a clotting abnormality. We can order a test for you if so. Her direct phone number is: [phone] I enjoyed meeting you today in the Thrombosis and Hemostasis Clinic at the [facility]. Please feel free to contact me should you have any questions or concerns. I can be reached by phone at: [phone]. CRISTO Schrader Our Website: : [email or web address] documented in this encounter Discharge Disposition Disposition Code Departure Means Destination Auto Discharge documented in this encounter Progress Notes * Keenan Horan MD - 04/15/2015 1231 EST Attestation statement: Supervising Physician * Jazmin Donato NP - 04/07/2015 1523 EST Thrombosis & Hemostasis Program ([facility]) Consult H&P Date of Service: 04/07/2015 PCP: Nic Padilla Referring MD: Keenan Horan Reason for Visit: consult for perioperative DVT prophylaxis in male with strong family history DVTs HPI: Mr Julio Cardoza is a 64-year-old gentleman referred by his orthopedic surgeon, Dr Keenan Horan, for perioperative DVT prophylaxis recommendations for scheduled bilateral TKAs, 06/10/2015. Mr Cardoza is referred based on a strong family history of DVTs in his brother, mother and father. Per patient, he has no personal history of venous thromboembolism. His brother developed DVT following a shoulder surgery in his late 50s. Both his parents developed DVT PE in their late 70s, his father in the setting of cardiac disease. His father at age 89 from stroke. His mother also lived until age 89. Mr Cardoza is a former smoker with a 28-uhrf-[id number] history, having quit in 1994. He is with 2children who are no longer living at home. He suffers from hypertension, and takes lisinopril for this with good management. He had a colonoscopy in 2013 which was normal. On symptom review, he reports bilateral knee pain at rest and with ambulation. He denies exertional dyspnea, chest pain, palpitations, lightheadedness, abdominal pain, abnormal bleeding, lower extremity edema, lower extremity muscular pain, fevers, chills or sweats. ROS: Constitutional: Negative for fever, chills, weight loss, dizziness and malaise/fatigue. HENT: Negative for nosebleeds and congestion. Eyes: Negative for blurred vision. Respiratory: Negative for cough and shortness of breath. Cardiovascular: Negative for chest pain, palpitations and leg swelling. Gastrointestinal: Negative for heartburn, nausea, vomiting, constipation and diarrhea. Musculoskeletal: Negative for myalgias. Positive for bilateral knee arthralgias. Neurological: Negative for weakness, numbness and tingling. Endo/Heme/Allergies: Does not bruise/bleed easily. Past Medical History: Patient has a past medical history of Hypertension and Colon polyp. Past Surgical History: Patient has past surgical history that includes Cervical disc arthroplasty; Tonsillectomy; and Kneearthroscopy. Family History: Patient's Family History Problem Relation Age of Onset ??? Colon Polyps Mother ??? Colon Polyps Sister ??? Colon Polyps Brother ??? Breast Cancer Neg Hx ??? Colon Cancer Neg Hx ??? Endometrial Cancer Neg Hx ??? Esophageal Cancer Neg Hx ??? Ovarian Cancer Neg Hx ??? Pancreatic Cancer Neg Hx ??? Rectal Cancer Neg Hx ??? Stomach Cancer Neg Hx Social History: Patient reports that he quit smoking about 23 years ago. He does not have any smokeless tobacco history on file. He reports that he drinks about 3.0 oz of alcohol per week. He reports that he does not use illicit drugs. Medications: Aspirin, Multivitamins with Minerals, lisinopril, and naproxen sodium Allergies: Patient has No Known Allergies. Objective: BP 142/69 mmHg Pulse 83 Temp(Src) 36.1 ??C (96.9 ??F) (Tympanic) Resp 16 Ht 177.4 cm (69.84) Wt 123.741 kg (272 lb 12.8 oz) BMI 39.32 kg/m2 SpO2 95% Estimated body mass index is 39.32 kg/(m^2) as calculated from the following: Height as of this encounter: 177.4 cm (69.84). Weight as of this encounter: 123.741 kg (272 lb 12.8 oz). Physical Exam: General: No acute distress, alert and oriented times three; conversing appropriately HEENT: Pupils equal, anicteric. Neck supple with full range of motion, no cervical or supraclavicular lymphadenopathy. Cardiovascular: Regular rate and rhythm, no murmurs, no carotid bruits, no JVD Pulmonary: Clear to auscultation, No wheeze, good air movement throughout Gastrointestinal: Soft, non-tender, non-distended, positive active bowel sounds, No rebound/guarding Extremities: No dependent edema on either lower extremity. No palpable cords, nodularities, venous hyperpigmentation changes, or calf pain on compression. Labs: No recent labs Imaging: N/A Assessment: A 54-year-old male with hypertension and obesity who is referred for perioperative anticoagulation recommendations for bilateral TKAs with Keenan Horan 06/10/2015. The patient is referredbased on family history of postoperative DVT in his brother at age 53, and history of DVT/PE in both parents; however, they were in their late 70s at the time of VTE diagnoses. Mr Cardoza has no personal history of venous thromboembolism. Risk factors for DVT with upcoming surgery include type of surgery, obesity, advanced age, and family history of DVT. As such, I recommend a month of postoperative anticoagulation. Options were discussed with the patient and his and they have decided upon inpatient Lovenox with switch to oral Xarelto as an outpatient. Plan is detailed below. I reviewed the option of thrombophilia testing with Mr Cardoza for the benefit of himself and his children. He is unsure if his brother, who has beeb affected by VTE, has ever been tested. He will first discuss with his brother so we can willie thrombophilia testing, although he is unsure if he would like to move forward with this at all. I have left it to patient to contact us with brother's history and decision regarding thrombophilia testing. I did let him know that only about 50% of familial thrombophilias will show up on labwork, and that I would recommend postoperative anticoagulation with future surgeries regardless of results of panel. Plan: 1. Thromboprophylaxis recommendations for bilateral TKAs with Dr Keenan Horan on 06/10/2015: a. Please check baseline PT,PTT, CBC prior to surgery b. Recommend Venodynes while inpatient. c. 10 to 12 hours postop, administer Lovenox 40 mg subcu x1. Continue q.24 hours while inpatient. d. Day of hospital discharge, patient will switch to Xarelto 10 mg p.o. once daily. Prior authorization will be handled by our clinic and outpatient prescription sent to patient's local pharmacy for pickup prior to surgery. 2. I reviewed the signs and symptoms of DVT, PE and stroke with the patient as well as mild increased risk of bleeding while on prophylactic anticoagulation. He has no questions at this time. 3. Recommend good thromboprophylaxis with future major surgeries based on his family history. The patient will call us if he desires thrombophilia testing after speaking with his brother, who was affected by DVT to determine if he has had any testing done yet. I appreciate the opportunity to participate in this patient's care. Please let me know if you have any questions or concerns. I can be reached at [phone]. Thank you. Jazmin Donato NP *I spent a total of 50 minutes in face to face time with this patient today and >30 minutes was spent in direct education and counseling. cc: Nic Horan documented in this encounter Plan of Treatment Not on file documented as of this encounter Visit Diagnoses Diagnosis Family history of DVT- Primary Family history of other cardiovascular diseases documented in this encounter Care Teams Clinical Provider Trainer Relationship Specialty Start Date End Date Nic Padilla MD [address] [place] [address] PCP - General 05/18/12 documented as of this encounter
--- OUTSIDE RECORDS SUMMARY | 2024-04-18 09:24 | XMS_ITS | Encounter Summary ---
Author Organization [facility] Address [address] [place] [address] Care Team Providers Care Recruiter Specialist Name Role Phone Nic Padilla MD Primary Care Provider [phone] Encounter Details Date Type Department Care Team (Latest Contact Info) Description 08/10/2012 8:28 EST - 08/10/2012 23:59 EST Hospital Encounter [address] [address] Jerson Bridges MD [address] [place] [phone] Discharge Disposition: Auto Discharge Social History Tobacco [...] on file documented as of this encounter Medications at Time of Discharge lisinopril (PRINIVIL, ZESTRIL) 20 mg tablet Take 10 mg by mouth daily. Aspirin 81 mg Tab Take 81 mg by mouth daily. 6 naproxen sodium (ALEVE) 220 mg cap Take 2 Caps by mouth 2 times daily 6 [place]-3 Fatty Acids-Vitamin E (FISH OIL) 1,000 mg cap Take 2,000 mg by mouth daily. 5 PEG 3350-Electrolyte s (GOLYTELY) Instructions mailed once procedure scheduled. Questions: [facility] Dept.: [phone] or GI Doctor's Office. 4 L 0 07/13/2012 3 documented as of this encounter Discharge Disposition Disposition Code Departure Means Destination Auto Discharge Home documented in this encounter Plan of Treatment Not on file documented as of this encounter Visit Diagnoses Not on filedocumented in this encounter Care Teams Recruiter Specialist Relationship Specialty Start Date End Date Nic Padilla MD [address] [place] [address] PCP - General 05/18/12 documented as of this encounter
--- OUTSIDE RECORDS SUMMARY | 2024-04-18 09:24 | XMS_ITS | Encounter Summary ---
Author Organization [facility] Address [address] [place] [address] Care Team Providers Care Rn Lpn Lvn Name Role Phone Nic Padilla MD Primary Care Provider [phone] Reason for Visit * Reason Comments Obesity Class Encounter Details Date Type Department Care Team (Late st Contact Info) Description 10/25/2012 8:30 EDT Nutrition [facility] Bariatric Surgery - [address] [id number] [address] Solomon RD Morbid obesity (FORM[facility]LY [facility]) (Primary Dx); GERD (gastroesophageal reflux disease); HTN (hypertension) Social History Tobacco Use Types Packs/Day Years [...] Sign Reading Time Taken Comments Blood Pressure - - Pulse - - Temperature - - Respiratory Rate - - Oxygen Saturation - - Inhaled Oxygen Concentration - - Weight 132.7 kg (292 lb 9.6 oz) 10/25/2012 0808 EDT Height 177.8 cm (5' 10) 10/25/2012 0808 EDT Body Mass Index 41.98 10/25/2012 0808 EDT documented in this encounter Progress Notes * Samantha Solomon RD - 10/25/2012 1200 EDT Bariatric Clinic Nutrition Class - Post Operative Diet Visit #: 4 Weight : 132.722 kg (292 lb 9.6 oz),Weight at initial consult: 146.693 kg (323 lb 6.4 oz) Change in Weight: -7.6 lb since last visit, -30.8 lb overall Goal Weight: 16 lb Desired Surgery:Gastric Sleeve Patient attended class on The post operative diet after bariatric surgery. Topics discussed: Diet while in hospital, Diet Progression (Liquids, Blended, Soft Solids, Solids), Portion Control, Importance of Excercise, Importance of Food Diary and Recommended Protein Supplements Education was provided via slides, verbal instruction, samples, and written materials. Homework assignment(s) explained to patient and patient instructed to return them at the next visit. Patient completed post class Quiz with a score of 87%. Met weight loss goal! The Post op Nutrition Class is 120 min in length. documented in this encounter Miscellaneous Notes * Scanned Note-Null - MAILHOUSE OPERATOR, SCAN 2 - 11/23/2012 1139 EDT documented in this encounter Plan of Treatment Not on file documented as of this encounter Visit Diagnoses Diagnosis Morbid obesity (FORMERLY [facility])- Primary Morbid obesity GERD (gastroesophageal reflux disease) Esophageal reflux HTN (hypertension) Unspecified essential hypertension documented in this encounter Care Teams Rn Lpn Lvn Relationship Specialty Start Date End Date Nic Padilla MD [address] [place] [address] PCP - General 05/18/12 documented as of this encounter
--- OUTSIDE RECORDS SUMMARY | 2024-04-18 09:24 | XMS_ITS | Encounter Summary ---
Author Organization [facility] Address [address] [place] [address] Care Team Providers Care Manager Semiconductor Name Role Phone Nic Padilla MD Primary Care Provider [phone] Reason for Visit * Reason Onset Date Comments Pre-op Exam 05/28/2015 Encounter Details Date Type Department Care Team (Late st Contact Info) Description 05/28/2015 Orders Only [facility] Total Joint Program - [address] [place], [place] [id number] Jennifer Mack LPN [address] [place] [address] Bilateral knee pain (Primary Dx); Bilateral primary [...] 02/12/2015 14:00 EDT documented in this encounter Plan of Treatment Not on file documented as of this encounter Procedures Procedure Name Priority Date/Time Associated Diagnosis Comments SURGICAL MRSA/MSSA Routine 06/02/2015 16 :04 EST Bilateral knee pain Bilateral primary osteoarthritis of knee documented in this encounter Results * SURGICAL MRSA/MSSA (06/02/2015 16:04 EST) Result No Staphylococcus aureus detected by PCR. 06/03/2015 9:20 EST [facility] [address] / Unknown 06/02/2015 16:04 EST 06/02/2015 16:04 EST us Keenan Horan MD MICROBIOLOGY - GENERAL ORDERABLES Final Result [facility] [address] [place] [address] documented in this encounter Visit Diagnoses Diagnosis Bilateral knee pain- Primary Pain in joint, lower leg Bilateral primary osteoarthritis of knee documented in this encounter Care Teams Manager Semiconductor Relationship Specialty Start Date End Date Nic Padilla MD [address] [place] [address] PCP - General 05/18/12 documented as of this encounter
--- OUTSIDE RECORDS SUMMARY | 2024-04-18 09:24 | XMS_ITS | Encounter Summary ---
Author Organization [facility] Address [address] [place] [address] Care Team Providers Care Staffing Director Name Role Phone Nic Padilla MD Primary Care Provider [phone] Reason for Visit * Reason Comments Obesity Pre Op Encounter Details Date Type Department Care Team (Late st Contact Info) Description 02/21/2013 14:30 EDT Office Visit [facility] Bariatric Surgery [address] [id number] Reyes Stevens PA-C [address] [place] [address], [address] [place] [address] Morbid obesity (HCC-CMS) (Primary Dx) [...] Sign Reading Time Taken Comments Blood Pressure 128/86 02/21/2013 1427 EDT Pulse 66 02/21/2013 1427 EDT Temperature - - Respiratory Rate - - Oxygen Saturation - - Inhaled Oxygen Concentration - - Weight 121.9 kg (268 lb 12.8 oz) 02/21/2013 1427 EDT Height 177.8 cm (5' 10) 02/21/2013 1427 EDT Body Mass Index 38.57 02/21/2013 1427 EDT documented in this encounter Discharge Disposition Disposition Code Departure Means Destination Auto Discharge documented in this encounter Progress Notes * Samantha Solomon RD - 02/21/2013 1446 EDT Medical Nutrition Evaluation-PRE OP NOTE Bariatric Clinic Nutrition Pre-op Visit Visit Number: 7 Desired surgery: Gastric Sleeve Subjective: Still undecided if he wants surgery-family thinks he can continue to lose weight on his own Food logs: on [employer] Meal pattern: 3 Average caloric intake:8233-1684 shala Meal composition: generally well balanced, some days low in fruit Snacking: Exercise: cutting and stacking wood, some walking Objective: Weight: 268.8 lb Weight loss from last visit: -12 lb Total weight loss: Weight loss goal: Total Loss in lbs (Weight from Initial Consult - Today's Weight): 54.6 lbs Approximately 16 lb Surgery Date: Significant Medications and Supplements: omegas Assessment: Patient has met weight loss requirement for surgery Comments: excellent weight loss continues with overall good intake. Encouraged more consistent fruit intake and exercise Plan: Diet Goals: Keep food records, Eat more slowly and Add 2 servings of fruit each day Exercise Goals: Increase time to 150 min per week Weight Loss Goal: Approximately 16 lb Weight Loss Remaining to Goal: Approximately met Reviewed: Food/Activity Record Next Visit: Pre-op follow-up visit * Reyes Stevens PA - 02/21/2013 1443 EDT 02/21/2013 SUBJECTIVE: Julio returns to our office today for continued medically supervised weight loss in preparation for laparoscopic sleeve gastrectomy surgery. He is a 62 y.o. male with adult-onset obesity. His comorbidities include GERD and hypertension. Otherwise, he denies any changes to his medical history or medications since his previous visit. He has attended both classes and support group. Julio met with our program dietitian for 30 minutes to review preoperative dietary recommendations. I consulted with the dietitian following her visit with the patient and agree with her findings and recommendations. OBJECTIVE: On physical examination today, his BP 128/86 Pulse 66 Ht 177.8 cm (70) Wt 121.927kg (268 lb 12.8 oz) BMI 38.57 kg/m2 and Body mass index is 38.57 kg/(m^2).. ASSESSMENT AND PLAN: Julio will return to our office in a few weeks for continued medically-supervised weight loss in preparation for surgery. He understands that: May not want surgery, is still deciding, follow up 1 month. SINA Gimenez documented in this encounter Plan of Treatment Not on file documented as of this encounter Visit Diagnoses Diagnosis Morbid obesity (FORM[facility])- Primary Morbid obesity documented in this encounter Care Teams Staffing Director Relationship Specialty Start Date End Date Nic Padilla MD [address] [place] [address] PCP - General 05/18/12 documented as of this encounter
--- OUTSIDE RECORDS SUMMARY | 2024-04-18 09:24 | XMS_ITS | Encounter Summary ---
Author Organization [facility] Address [address] [place] [address] Care Team Providers Care Traveling Missionary Name Role Phone Nic Padilla MD Primary Care Provider [phone] Reason for Referral * Prior Authorization (Other (Specify in Question)) - Closed Specialty Diagnoses / Procedures Referred By Jeremy hodges Referred To Contact Diagnoses Family history of DVT Jazmin Donato NP Phone: tel: fax: Referral ID Status Reason Start Date Expiration Date V isits Requested Visits Authorized [id number] Closed Other 04/08/2015 1 1 Question Answer Medication to be Prior Authorized: [facility] Precertification Request for Medications 04/08/2015 URGENT: No Medication Administration: PO Patient Name: Julio Cardoza Patient : [id number] Ordering MD: Tanmay Nurse: john Phone: [phone] Is this a dosage change, renewal or a new medication? New Med Medication Start Date & Number of Cycles: 06/11/15 PT BSA: There is no height or weight on file to calculate BSA. What is the reason for taking this medication? DVT ppx s/p bilat TKA Is this an on label usage of this medication? Yes What is the patient's current drug regimen? na Similar drugs patient has been on and failed? na Please Prior Auth Medications Listed below: Xarelto 10 mg po daily How many days will patient be on the above regimen in a month? 30 Qty per 30 days: 30 Number of Refills: 0 Local Pharmacy: Encounter Details Date Type Department Care Team (Late st Contact Info) Description 04/08/2015 Orders Only [facility] Hematology & Oncology - [place] [address] [place] [address] John Owen, RN [address] [place] [address] Family history of DVT (Primary Dx) Social History Tobacco Use Types [...] Outpatient Referral Routine Family history of DVT Ordered: 04/08/2015 documented as of this encounter Visit Diagnoses Diagnosis Family history of DVT- Primary Family history of other cardiovascular diseases documented in this encounter Care Teams Traveling Missionary Relationship Specialty Start Date End Date Nic Padilla MD [address] [place] [address] PCP - General 05/18/12 documented as of this encounter
--- OUTSIDE RECORDS SUMMARY | 2024-04-18 09:24 | XMS_ITS | Encounter Summary ---
Author Organization [facility] Address [address] [place] [address] Care Team Providers Care Instructional Systems Specialist Name Role Phone Nic Padilla MD Primary Care Provider [phone] Reason for Visit * Reason Comments Pre-op Exam Bilateral TKA planne d 06/10/15 Encounter Details Date Type Department Care Team (Latest Contact Info) Description 06/02/2015 10:[address] [facility] Total Joint Program - [address] [place], [place] [id number] Keenan Horan MD Family history of DVT (Primary Dx); Morbid obesity, unspecified obesity type (CMS-HCC) (HCC-CMS); Bilateral primary osteoarthritis of knee Social History [...] - Inhaled Oxygen Concentration - - Weight 123.7 kg (272 lb 12.8 oz) 06/02/2015 0943 EST Height 177.4 cm (5' 9.84) 06/02/2015 0943 EST Body Mass Index 39.32 06/02/2015 0943 EST documented in this encounter Functional Status [...] 06/02/2015 9:44 EST documented in this encounter Progress Notes * Jennifer Boone LPN - 06/02/2015 1042 EST Nasal swab completed & sent to [facility] . All questions pertaining to surgery were answered & Chlorhexadine antiseptic provided. Jennifer Boone LPN * Keenan Horan MD - 06/02/2015 0931 EST Total Knee Arthroplasty (preoperative visit) Chief Complaint Patient presents with ??? Pre-op Exam Bilateral TKA planned 06/10/15 HPI: Julio Cardoza is a 64 y.o. male who presents for preoperative discussion and care coordination visit in preparation for his elective bilateral simultaneous total knee replacement. Detailed discussion about staged vs. simultaneous bilateral TKA completed with questions solicited and addressed. He feels he has failed comprehensive non-operative management including: ?? oral analgesics including OTC NSAID ?? a structured exercise program ?? injection therapy ?? the offer/use of external support. Previous office notes and imaging studies are reviewed. Past Medical History Diagnosis Date ??? Hypertension ??? Colon polyp Current Outpatient Prescriptions on File Prior to Visit Medication Sig Dispense Refill ??? Aspirin 81 mg Tab Take 81 mg by mouth daily. ??? lisinopril (PRINIVIL, ZESTRIL) 20 mg tablet Take 10 mg by mouth daily. ??? Multivitamins with Minerals tablet Take 1 Tab by mouth daily ??? naproxen sodium (ALEVE) 220 mg cap Take 2 Caps by mouth 2 times daily ??? [START ON 06/13/2015] rivaroxaban (XARELTO) 10 mg tablet tablet Take 1 Tab by mouth daily START 24 hours after last dose lovenox given in hospital 30 Tab 0 No current facility-administered medications on file prior to visit. REVIEW OF SYSTEMS: I reviewed and updated medical history and confirmed no changes in health status since PCP H&P visit. PHYSICAL EXAM: General: Well-appearing male in no acute distress. Vital Signs: Ht 177.4 cm (69.84) Wt 123.741 kg (272 lb 12.8 oz) BMI 39.32 kg/m2 Psychiatric: Mood and affect appropriate. A and O x3. Arises from seated position without pain, normal station with level pelvis in standing position. Musculoskeletal Exam: Gait - antalgic: right and left. Lumbar spine normal to inspection, palpation and motion Bilateral lower extremities show equal motion of the hips and ankles. BILATERAL KNEE: Skin: Intact to inspection and palpation. ROM 0 to 95 Stability testing shows no instability to AP or varus-valgus stress. Varus mal-alignment. 1+ effusion. Positive patellofemoral crepitus. Positive pain to palpation of the medial joint line. Normal strength, tone, and stability of both lower extremities distally. Neurologic Exam: Intact sensation and reflexes in both lower extremities. Vascular: 2+ pedal pulses of both lower extremities. IMAGING STUDY REVIEW: I have personally reviewed the available previous imaging studies with the following summary of pathologic changes: Joint space narrowing is noted medially and at the patellofemoral joint. No osseous loose bodies seen. No fractures, subluxations, dislocations, or destructive lesions seen. ASSESSMENT: Advanced bilateral knee DJD symptoms and signs refractory to non-operative management as noted above. Patient Active Problem List Diagnosis ??? Morbid obesity ??? Family history of DVT Pre-Op Checklist: H&P: completed by PCP and reviewed Modifiable risk factors addressed: Yes (Cardiac, DM, BMI, Anemia, Smoking, ) Chronic anticoagulation mgt: N/A Antifibrinolytic contraindication: TOPICAL TXA DMARDS mgt: N/A Pre-op labs: no pertinent abnormalities MRSA screen: performed Radiographs: [facility] PACS films reviewed X-ray marker ball(s): yes Consent process: complete Pre-op orders: reviewed and complete. VTE prophylaxis plan: Fragmen to Xarelto (Hematology completed prior auth for Xarelto) DME: rx's completed Discharge Plan: discharge to [facility] then home health PT services (Phase I) followed by early transition to out-patient PT. PLAN: Patient Education: Over the course of today's 35 minute office visit, we reaffirmed that his pain and functional limitation persists despite maximal non-operative therapies. With the degree of discomfort and disability, the patient would like to proceed with a knee arthroplasty. He understands the risks of knee arthroplasty include, but are not limited to, the risk of infection, anesthetic complications, neurovascular injury, deep venous thrombosis, pulmonary embolism,predictable wear of the implant, leg length discrepencies, loosening of the implant, instability, continued pain, revision surgery, and perioperative mortality. The patient's questions were solicited and answered with the patient's verbalized satisfaction. Thepatient's level of understanding of the information discussed was verified utilizing [id number]. Disposition: I feel this patient is appropriately prepared for planned surgical procedure. I spent a total of 35 minutes in face to face time with this patient today and >50% of that timewas spent counseling the patient on the risks and treatment options. CC: SINA Tobias documented in this encounter Plan of Treatment Not on file documented as of this encounter Visit Diagnoses Diagnosis Family history of DVT- Primary Family history of other cardiovascular diseases Morbid obesity, unspecified obesity type ([facility]) Bilateral primary osteoarthritis of knee documented in this encounter Care Teams Instructional Systems Specialist Relationship Specialty Start Date End Date Nic Padilla MD [address] [place] [address] PCP - General 05/18/12 documented as of this encounter
--- OUTSIDE RECORDS SUMMARY | 2024-04-18 09:24 | XMS_ITS | Encounter Summary ---
Author Organization [facility] Address [address] [place] [address] Care Team Providers Care Lawnmower Mechanic Name Role Phone Nic Padilla MD Primary Care Provider [phone] Encounter Details Date Type Department Care Team (Late st Contact Info) Description 04/07/2015 Phlebotomy Only [facility] [address] [place] [address] Messenger Copy, Outpatient Social History Tobacco Use Types Packs/Day Years [...] on filedocumented in this encounter Care Teams Lawnmower Mechanic Relationship Specialty Start Date End Date Nic Padilla MD [address] [place] [address] PCP - General 05/18/12 documented as of this encounter
--- OUTSIDE RECORDS SUMMARY | 2024-04-18 09:24 | XMS_ITS | Encounter Summary ---
Author Organization [facility] Address [address] [place] [address] Care Team Providers Care Bridge Game Director Name Role Phone Nic Padilla MD Primary Care Provider [phone] Reason for Visit * Reason Comments Obesity Pre Op - F/U COLO/EG D/ESO (Same Day) Encounter Details Date Type Department Care Team (Late st Contact Info) Description 08/10/2012 11:15 EST Office Visit [facility] Bariatric Surgery - [place] [address] [place] [address] Jerson Bridges MD [address] [place] [address] Morbid obesity (HCC-CMS) (Primary Dx) Social History Tobacco Use Types [...] Sign Reading Time Taken Comments Blood Pressure 120/78 08/10/2012 1008 EST Pulse 70 08/10/2012 1008 EST Temperature - - Respiratory Rate - - Oxygen Saturation - - Inhaled Oxygen Concentration - - Weight 140.8 kg (310 lb 6.4 oz) 08/10/2012 1008 EST Height 177.8 cm (5' 10) 08/10/2012 1008 EST Body Mass Index 44.54 08/10/2012 1008 EST documented in this encounter Progress Notes * Jerson Bridges MD - 08/10/2012 1120 EST Comes in today for results of his colonoscopy and EGD as well as his esophagram. Esophogram showed moderate to severe esophageal reflux with a B ring in addition to esophageal dysmotility. He had an upper endoscopy with Dr Lobo, which was normal, and he had a colonoscopy, which showed a hyperplastic polyp as well as a tubular adenoma in his right colon. The problem is that his esophagram and his EGD are not in sync with one another, and if he does have a degree of esophageal dysmotility, I would not recommend him undergoing a sleeve or a gastric bypass as this would make swallowing and eating much worse. I think the likelihood is low that he has dysmotility as he weighs 300 pounds, but I think it needs to be investigated prior to any stapling procedure. I would be more willing to try a Lap-Band at that juncture if there is any evidence of dysmotility with the caveat being we could always remove the Lap-Band if the patient has chronic vomiting. We will get him scheduled with Dr Person for esophageal manometry and then he will follow up with usin 1 month. * Samantha Solomon, RD - 08/10/2012 1110 EST Medical Nutrition Evaluation-PRE OP NOTE Bariatric Clinic Nutrition Pre-op Visit Visit Number: 2 Desired surgery: Gastric Sleeve Subjective: Needs a shot for his knees-not able to walk much. Has gazelle at home Food logs: my [employer] pal Meal pattern: 3 Average caloric intake:1600 shala, fairly steady Meal composition: well balanced except only 1 serving fruit per day, great protein and veggies! Snacking: Exercise: limited due to knees, as above Objective: Weight: 310.4 lb Weight loss from last visit: -13 lb Total weight loss: Weight loss goal: Total Loss in lbs (Weight from Initial Consult - Today's Weight): 13 lbs Approximately 16 lb Surgery Date: Significant Medications and Supplements: omegas Assessment: Patient has made progress towards lifestyle changes Comments: great weight loss with overall good intake. Encouraged 1 more fruit per day. Needs more activity-to retruri mazariegos, if unable to use due to knee pain, recommended he return for PT for advice. Plan: Diet Goals: Include protein at least 3 times a day, Keep food records and Add 1 servings of fruit each day Exercise Goals: Increase time to 150 min per week as able Weight Loss Goal: Approximately 16 lb Weight Loss Remaining to Goal: Approximately 3 lb Reviewed: Food/Activity Record Next Visit: Pre-op follow-up visit documented in this encounter Plan of Treatment Not on file documented as of this encounter Visit Diagnoses Diagnosis Morbid obesity (HCC-CMS)- Primary Morbid obesity documented in this encounter Care Teams Bridge Game Director Relationship Specialty Start Date End Date Nic Padilla MD [address] [place] [address] PCP - General 05/18/12 documented as of this encounter
--- OUTSIDE RECORDS SUMMARY | 2024-04-18 09:24 | XMS_ITS | Encounter Summary ---
Author Organization [facility] Address [address] [place] [id number] Care Team Providers Care Director Of Community Education Name Role Phone Nic Padilla MD Primary Care Provider [phone] Reason for Referral * Radiology Services (Routine) - Closed Specialty Diagnoses / Procedures Referred By Contac t Referred To Contact Diagnoses Primary osteoarthritis of both knees Procedures KNEE 1 OR 2 VIEWS Keenan Horan MD Referral ID Status Reason Start Date Expiration Date Visits Re quested Visits Authorized [id number] Closed 04/05/2015 1 1 * Radiology Services (Routine) - Closed Specialty Diagnoses / Procedures Referred By Contmadeleine t Referred To Contact Diagnoses Primary osteoarthritis of both knees Procedures BONE LENGTH STUDIES Keenan Horan MD Referral ID Status Reason Start Date Expiration Date Visits Re quested Visits Authorized [id number] Closed 04/05/2015 1 1 Reason for Visit * Reason Onset Date Comments Appointment Related 04/03/2015 [facility] and X-rays Encounter Details Date Type Department Care Team (Late st Contact Info) Description 04/03/2015 Orders Only [facility] Total Joint Program - [address] [place] [address] Keenan Horan MD Primary osteoarthritis of both knees (Primary Dx) Social History Tobacco Use Types [...] Procedure Name Priority Date/Time Associated Diagnosis Comments KNEE 1 OR 2 VIEWS Routine 05/06/2015 15: 16 EST Primary osteoarthritis of both knees BONE LENGTH STUDIES Routine 05/06/2015 15:16 EST Primary osteoarthritis of both knees MR EXTREMITY KNEE WO CONTRAST 05/06/2015 14:46 EST documented in this encounter Results * KNEE 1 OR 2 VIEWS (05/06/2015 15:16 EST) Anatomical Region Laterality Modality Other 05/06/2015 15:1 6 EST 05/12/2015 12:26 EST Narrative 05/12/2015 12:26 EST BONE LENGTH STUDIES, KNEE 1 OR 2 VIEWS, KNEE 1 OR 2 VIEWS ??05/06/2015 3:16 PM Signs and Symptoms/Comments: ?? M17.0-Bilateral primary osteoarthritis of knee-ICD-10; Bilateral knee pain Comparison: Outside radiographs of both knees dated December 17, 2014 and August 06, 2011. Findings: Right knee: AP and lateral standing views of the right knee show no evidence of acute fracture, no sizable right knee joint effusion is identified either. There are moderate to severe degenerative changes in the medial femorotibial and patellofemoral compartments, milder degenerative changes seen in the lateral femorotibial compartment. Mineralization is age-appropriate. Left knee: AP and lateral standing views of the right knee show no evidence of acute fracture, no sizable right knee joint effusion is identified either. There are moderate to severe degenerative changes in the medial femorotibial and patellofemoral compartments, milder degenerative changes seen in the lateral femorotibial compartment. Mineralization is age-appropriate. Bone length was determined for the lower extremities by measuring the distance from the superior aspect of the femoral head to the middle of the distal tibial plafond on both sides. The length of the femur was measured between the superior aspect of the femoral head to the middle of the medial femoral condyle on both sides. The length of the tibia was measured between the middle of the medial tibial plateau to the middle of the distal tibial plafond on both sides. Right lower extremity = 93.3 cm Right femur = 52.5 cm Right tibia = 40.3 cm The mechanical axis of the right lower extremity is passing approx. 2.4 cm medial to the midpoint of the intercondylar eminence of the right tibia. Left lower extremity = 93.8 cm Left femur = 52.9 cm Left tibia = 40.9 cm The mechanical axis of the left lower extremity is passing approx. 2 cm medial to the midpoint of the intercondylar eminence of the left tibia. Procedure Note Manuelito Alfaro MD - 05/12/2015 BONE LENGTH STUDIES, KNEE 1 OR 2 VIEWS, KNEE 1 OR 2 VIEWS 05/06/2015 3:16 PM Signs and Symptoms/Comments: M17.0-Bilateral primary osteoarthritis of knee-ICD-10; Bilateral knee pain Comparison: Outside radiographs of both knees dated December 17, 2014 and August 06, 2011. Findings: Right knee: AP and lateral standing views of the right knee show no evidence of acute fracture, no sizable right knee joint effusion is identified either. There are moderate to severe degenerative changes in the medial femorotibial and patellofemoral compartments, milder degenerative changes seen in the lateral femorotibial compartment. Mineralization is age-appropriate. Left knee: AP and lateral standing views of the right knee show no evidence of acute fracture, no sizable right knee joint effusion is identified either. There are moderate to severe degenerative changes in the medial femorotibial and patellofemoral compartments, milder degenerative changes seen in the lateral femorotibial compartment. Mineralization is age-appropriate. Bone length was determined for the lower extremities by measuring the distance from the superior aspect of the femoral head to the middle of the distal tibial plafond on both sides. The length of the femur was measured between the superior aspect of the femoral head to the middle of the medial femoral condyle on both sides. The length of the tibia was measured between the middle of the medial tibial plateau to the middle of the distal tibial plafond on both sides. Right lower extremity = 93.3 cm Right femur = 52.5 cm Right tibia = 40.3 cm The mechanical axis of the right lower extremity is passing approx. 2.4 cm medial to the midpoint of the intercondylar eminence of the right tibia. Left lower extremity = 93.8 cm Left femur = 52.9 cm Left tibia = 40.9 cm The mechanical axis of the left lower extremity is passing approx. 2 cm medial to the midpoint of the intercondylar eminence of the left tibia. Keenan Horan MD IM DIAGNOSTIC IMAGING ORDERABLES Final Result * BONE LENGTH STUDIES (05/06/2015 15:16 EST) Anatomical Region Laterality Modality Other 05/06/2015 15:1 6 EST 05/12/2015 12:26 EST Narrative 05/12/2015 12:26 EST BONE LENGTH STUDIES, KNEE 1 OR 2 VIEWS, KNEE 1 OR 2 VIEWS ??05/06/2015 3:16 PM Signs and Symptoms/Comments: ?? M17.0-Bilateral primary osteoarthritis of knee-ICD-10; Bilateral knee pain Comparison: Outside radiographs of both knees dated December 17, 2014 and August 06, 2011. Findings: Right knee: AP and lateral standing views of the right knee show no evidence of acute fracture, no sizable right knee joint effusion is identified either. There are moderate to severe degenerative changes in the medial femorotibial and patellofemoral compartments, milder degenerative changes seen in the lateral femorotibial compartment. Mineralization is age-appropriate. Left knee: AP and lateral standing views of the right knee show no evidence of acute fracture, no sizable right knee joint effusion is identified either. There are moderate to severe degenerative changes in the medial femorotibial and patellofemoral compartments, milder degenerative changes seen in the lateral femorotibial compartment. Mineralization is age-appropriate. Bone length was determined for the lower extremities by measuring the distance from the superior aspect of the femoral head to the middle of the distal tibial plafond on both sides. The length of the femur was measured between the superior aspect of the femoral head to the middle of the medial femoral condyle on both sides. The length of the tibia was measured between the middle of the medial tibial plateau to the middle of the distal tibial plafond on both sides. Right lower extremity = 93.3 cm Right femur = 52.5 cm Right tibia = 40.3 cm The mechanical axis of the right lower extremity is passing approx. 2.4 cm medial to the midpoint of the intercondylar eminence of the right tibia. Left lower extremity = 93.8 cm Left femur = 52.9 cm Left tibia = 40.9 cm The mechanical axis of the left lower extremity is passing approx. 2 cm medial to the midpoint of the intercondylar eminence of the left tibia. Procedure Note Manuelito Alfaro MD - 05/12/2015 BONE LENGTH STUDIES, KNEE 1 OR 2 VIEWS, KNEE 1 OR 2 VIEWS 05/06/2015 3:16 PM Signs and Symptoms/Comments: M17.0-Bilateral primary osteoarthritis of knee-ICD-10; Bilateral knee pain Comparison: Outside radiographs of both knees dated December 17, 2014 and August 06, 2011. Findings: Right knee: AP and lateral standing views of the right knee show no evidence of acute fracture, no sizable right knee joint effusion is identified either. There are moderate to severe degenerative changes in the medial femorotibial and patellofemoral compartments, milder degenerative changes seen in the lateral femorotibial compartment. Mineralization is age-appropriate. Left knee: AP and lateral standing views of the right knee show no evidence of acute fracture, no sizable right knee joint effusion is identified either. There are moderate to severe degenerative changes in the medial femorotibial and patellofemoral compartments, milder degenerative changes seen in the lateral femorotibial compartment. Mineralization is age-appropriate. Bone length was determined for the lower extremities by measuring the distance from the superior aspect of the femoral head to the middle of the distal tibial plafond on both sides. The length of the femur was measured between the superior aspect of the femoral head to the middle of the medial femoral condyle on both sides. The length of the tibia was measured between the middle of the medial tibial plateau to the middle of the distal tibial plafond on both sides. Right lower extremity = 93.3 cm Right femur = 52.5 cm Right tibia = 40.3 cm The mechanical axis of the right lower extremity is passing approx. 2.4 cm medial to the midpoint of the intercondylar eminence of the right tibia. Left lower extremity = 93.8 cm Left femur = 52.9 cm Left tibia = 40.9 cm The mechanical axis of the left lower extremity is passing approx. 2 cm medial to the midpoint of the intercondylar eminence of the left tibia. Keenan Horan MD [facility] DIAGNOSTIC IMAGING ORDERABLES Final Result * MR EXTREMITY KNEE WO CONTRAST (05/06/2015 14:46 EST) Anatomical Region Laterality Modality Other 05/06/2015 14:4 6 EST 05/12/2015 12:32 EST Narrative 05/12/2015 12:32 EST MR EXTREMITY RIGHT KNEE WO CONTRAST ??05/06/2015 2:46 PM Signs and Symptoms/Comments: ?? M17.0-Bilateral primary [...] scheduled for bilateral total knee replacements. Findings RIGHT knee: There are severe degenerative changes in the medial femorotibial compartment with large areas of full-thickness cartilage loss on the weightbearing portions of the medial femoral condyle and medial tibial plateau as well as degenerative tearing of the medial meniscus. There are milder degenerative changes in the lateral femorotibial compartment, no discrete tear seen in the lateral meniscus. There is thickening and altered intrasubstance signal of the ACL with indistinctness of its fibers, this may be sequela from a prior partial tear or likely due to mucoid degeneration, probably a combination of both, similar to the contralateral side. The PCL has a more normal appearance. An accurate assessment of the medial and lateral supporting structures of the knee including the MCL and LCL complexes is precluded in the absence of additional images in the different orthogonal planes. The extensor apparatus of the right knee appears grossly intact. There is a trace right knee joint effusion. Procedure Note Manuelito Alfaro MD - 05/12/2015 MR EXTREMITY RIGHT KNEE WO CONTRAST 05/06/2015 2:46 PM Signs and Symptoms/Comments: M17.0-Bilateral primary osteoarthritis [...] scheduled for bilateral total knee replacements. Findings RIGHT knee: There are severe degenerative changes in the medial femorotibial compartment with large areas of full-thickness cartilage loss on the weightbearing portions of the medial femoral condyle and medial tibial plateau as well as degenerative tearing of the medial meniscus. There are milder degenerative changes in the lateral femorotibial compartment, no discrete tear seen in the lateral meniscus. There is thickening and altered intrasubstance signal of the ACL with indistinctness of its fibers, this may be sequela from a prior partial tear or likely due to mucoid degeneration, probably a combination of both, similar to the contralateral side. The PCL has a more normal appearance. An accurate assessment of the medial and lateral supporting structures of the knee including the MCL and LCL complexes is precluded in the absence of additional images in the different orthogonal planes. The extensor apparatus of the right knee appears grossly intact. There is a trace right knee joint effusion. Keenan Horan MD IMG MRI ORDERABLES Fin al Result documented in this encounter Visit Diagnoses Diagnosis Primary osteoarthritis of both knees- Primary Primary localized osteoarthrosis, lower leg documented in this encounter Care Teams Director Of Community Education Relationship Specialty Start Date End Date Nic Padilla MD [address] [place] [id number] PCP - General 05/18/12 documented as of this encounter
--- OUTSIDE RECORDS SUMMARY | 2024-04-18 09:24 | XMS_ITS | Encounter Summary ---
Author Organization [facility] Address [address] [place] [address] Care Team Providers Care Fire Extinguisher Installer Name Role Phone Nic Padilla MD Primary Care Provider [phone] Reason for Visit * Reason Comments Knee Pain Bilateral R> L knee pain Encounter Details Date Type Department Care Team (Latest Contact Info) Description 02/12/2015 13:30 EDT Office Visit [facility] Total Joint Program - [facility] [address] [place], [place] [id number] Keenan Horan MD Primary osteoarthritis of both [...] - Inhaled Oxygen Concentration - - Weight 117.9 kg (260 lb) 02/12/2015 1400 EDT Height 177.8 cm (5' 10) 02/12/2015 1400 EDT Body Mass Index 37.31 02/12/2015 1400 EDT documented in this encounter Functional Status * [...] 02/12/2015 14:00 EDT documented in this encounter Progress Notes * Sung Ngo III, MD - 02/12/2015 1440 EDT DECISION FOR KNEE SURGERY NOTE Chief Complaint Patient presents with ??? Knee Pain Bilateral R> L knee pain SUBJECTIVE: Julio Cardoza presents today for the purpose of discussing and scheduling elective bilateral kneesurgery to address his knee pain and functional limitations that have been refractory to non-operative therapies so far. Uses aleve bid with little relief, has been bridging his pain with synvisc andnow cortisone injections for years with symptomatic relief with injections spanning only 4-6 weeks at a time. He was referred by Dr. Bourne for bilateral TKA. Sparta Knee Score 25 He feels he has failed comprehensive non-operative management for a minimum of three months including: anti-inflammatory medications and analgesics flexibility and muscle strengthening exercises supervised physical therapy reasonable activity restrictions weight reduction as appropriate therapeutic injections into the joint as appropriate. Previous pertinent office notes and prior imaging studies were reviewed. PMH, SH and ROS completed in [facility] Current Outpatient Prescriptions on File Prior to Visit Medication Sig Dispense Refill ??? Aspirin 81 mg Tab Take 81 mg by mouth daily. ??? lisinopril (PRINIVIL, ZESTRIL) 20 mg tablet Take 10 mg by mouth daily. ??? Multivitamins with Minerals tablet Take 1 Tab by mouth daily ??? naproxen sodium (ALEVE) 220 mg cap Take 2 Caps by mouth 2 times daily No current facility-administered medications on file prior to visit. MEDICAL RISK FACTORS SCREEN: Smoking history? No; quit 15 years prior If yes, rationale for smoking cessation discussed (hard stop) Metal sensitivity? no If yes, consider LTT testing Skin reaction to adhesive tape? no Allergy to latex? no Allergy to local anesthetics (Lidocaine/Marcaine)? no Allergy to Iodine/Chlorhexadine?: no Diabetes Mellitus: no If yes, rationale for glycemic control with hgbA1c < 7.5 discussed (hard stop) Infection history? MRSA no VRE no If yes, adjust prophylactic antibiotic accordingly. Cardiac history? H/o [place]? No CHF? no S/p stents <24 months prior? no (if yes, no TXA) S/p CABG no Personal/family VTE history? Not personal history; brother, mother and father - DVT (brother's was s/p shoulder surgery) If yes, consider hematology consult, no TXA order Bleeding history? no If yes, consider hematology consult Pulmonary: Pneumonia ? (last 12 months) no Obstructive sleep apnea ? Yes; CPAP at home, uses sometimes (does not know settings) If yes, inquire regarding CPAP use Vascular disease?: no Neurologic disease?: no Acute/Chronic Anemia? no If yes, follow algorithm If hgb 10- 13, consider iron supplementation or erythropoietin therapy If hgb < 10 request further w/u by PCP/Hematology (hard stop) Renal failure? no Malnutrition? no If BMI < 20 or >40, order screening nutrition labs. Obesity? Body mass index is 37.31 kg/(m^2). If > 40.0, discussed rationale for weight reduction and target of < 40.0 (hard stop) Cognitive disorder? Perioperative delirium history no Alzheimer's/Dementia no elderly (> 80 yrs) Heterotopic bone (higher risk)? no If yes, consider XRT vs. NSAID Genitourinary history? Frequent UTI's no Obstructive symptoms? no If yes, order follow-up urology consultation (hard stop) ORTHOPAEDIC RISK FACTORS FOR TKA: Smoking (305.1): no- quit 15 years ago Chronic anticoagulant use (V58.61): no Morbid obesity (BMI > 40) (278.01): no Knee angular deformity greater than 15?? (736.6): no Chronic narcotic use (305.51): no Workmens compensation case (V70.3): no Previous intra-articular infection (711.08): no Previous knee ORIF (715.26): no Depression/psychiatric disease (300.9): no PHYSICAL EXAM: He is well appearing and in no acute distress. VS and pain report reviewed. General: Well-appearing male in no acute distress. Mood and affect appropriate. A and O x3. gait: Arises from seated position with pain, normal station with level pelvis in standing position with aslowed but nonantalgic gait on bilateral side limb length: none alignment: mild varus bilateral hip: AROM = PROM without reproduction of his characteristic knee pain. MMT: 5/5 for all hip girdle muscles tested bilateral knee: skin: Healthy appearing mobile skin ROM exam shows 0 to 125 motion. manual muscle testing: Knee extension 5/5 and knee flexion 5/5 ligament stability testing shows no instability to AP or varus-valgus stress. Alignment: mild varus 1+ effusion on R; no effusion on L No patellofemoral crepitus. bilateral Lower leg: skin: Healthy in appearance, no trophic changes ankle: no pathologic malalignment or laxity neurologic Exam: Intact light touch sensation below the knee. vascular: 2+ PT 2+DP Rt = Lt, no ulcers/skin lesions REVIEW OF IMAGING STUDIES: Weight bearing arthritis series including bilateral AP knees and lateral knee(s) are personally reviewed revealing: Right knee: Kellgren-Darnell grade 4 medial tibiofemoral & grade 2 lateral tibiofemoral changes Kellgren-Darnell grade 1 patellofemoral changes. No loose bodies or ectopic calcifications seen. Normal soft tissue patterns Left knee: Kellgren-Darnell grade 4 medial tibiofemoral & grade 2 lateral tibiofemoral changes Kellgren-Darnell grade 1 patellofemoral changes. No loose bodies or ectopic calcifications seen. Normal soft tissue patterns ASSESSMENT: bilateral knee DJD, gradually worsening with marked pain, somewhat restricted ROM and loss of mobility that does negatively impact the activities of daily living despite self-care and non-operative interventions. Treatment option(s): We discussed the spectrum of evidence-based non-operative (cane, restorative PT, oral medication and short-term relief with injection) and non- arthroplasty/arthroplasty operative treatment options asdelineated in the 2013 [place] osteoarthritic knee clinical practice guideline using informed decis ion-making techniques, printed educational materials and [facility] online decision support tools. As part of the patient education via material provided, the role of total knee arthroplasty was reviewed in detail along with the common associated benefits of decreased pain and improved function and risks including but not limited - acute and delayed infection, fracture, stiffness possibly requiring manipulation, fixation failure and component loosening, the spectrum of venous thromboembolic disease and its implications, polyethylene wear and associated osteolysis, heterotopic bone formation,allergic reactions to materials, vascular injury requiring urgent invention, neurologic injury fromsurgical manipulation or anesthesia interventions, temporary or permanent worsening of other medical conditions, anesthetic complications, and perioperative mortality (). Specifically, the potential for additional surgical procedures to address one or more of these perioperative complications was reviewed. He was also made aware that there can be complications that we did not discuss today given the nature of surgical intervention. Preoperative health habit risk-reduction recommended. The patient's questions were solicited and responded to with the patient's verbalized satisfaction. Greater than 50% of today's minute encounter was devoted to counseling and care coordination (20 minutes) . DISPOSITION: The patient's questions were solicited and responded to with the patient's verbalized satisfaction.With his degree of discomfort and disability, he decided he would like to proceed with elective bilateral total knee arthroplasty. We discussed partial vs. bicompartmental vs.tricompartmental arthroplasty techniques and we collectively favor the latter. ELECTIVE SURGERY TIMING: Proceed with scheduling INDICATIONS: TKA is considered reasonable and necessary for this patient because of: 1. Advanced Joint disease: ?? The joint disease is evidenced by conventional radiography ?? Pain or functional disability attributable to the advanced joint disease ?? Unsuccessful non-surgical medical management attempted for a minimum of 3 months. PROCEDURE BOOKING: bilateral total knee arthroplasty (CPT 29721) Diagnostic: Routine preop labs Pre-operative consultation with PCP for risk factor assessment and co-morbid condition treatment recommendations Pre-operative Anesthesia Consultation: not indicated Therapeutic: [facility] Pre-operative PT Referral - therapeutic exercise Rx, assess role for TENS, Cryo- cuff education Dental prophylaxis screening appointment VTE prophylaxis plan: Per primary and preoperative risk stratification/ medical assessment Discharge Plan: Home vs. Rehab. TBD. Sung Ngo MD P: [id number] 02/12/2015 14:56 Attestation statement: I saw and examined the patient. I agree with the findings and plan of care documented in the resident's note. Keenan Horan MD * Raya Mace - 02/12/2015 3405 EDT Sparta knee score 25 (Bilateral R > L) Raya Mace 14:15 documented in this encounter Plan of Treatment Not on file documented as of this encounter Visit Diagnoses Diagnosis Primary osteoarthritis of both knees- Primary Primary localized osteoarthrosis, lower leg documented in this encounter Care Teams Fire Extinguisher Installer Relationship Specialty Start Date End Date Nic Padilla MD [address] [place] [address] PCP - General 05/18/12 documented as of this encounter
--- OUTSIDE RECORDS SUMMARY | 2024-04-18 09:24 | XMS_ITS | Encounter Summary ---
Author Organization [facility] Address [address] [place] [id number] Care Team Providers Care Airport Operations Officer Name Role Phone Nic Padilla MD Primary Care Provider [phone] Reason for Visit * Reason Comments Obesity Pre Op Encounter Details Date Type Department Care Team (Late st Contact Info) Description 03/22/2013 13:45 EDT Office Visit [facility] Bariatric Surgery [address] [address] Reyes Stevens PA-C [address] [place] [address], [facility] [address] [place] [address] Morbid obesity (HCC-CMS) (Primary Dx) [...] Sign Reading Time Taken Comments Blood Pressure 126/80 03/22/2013 1340 EDT Pulse 68 03/22/2013 1340 EDT Temperature - - Respiratory Rate - - Oxygen Saturation - - Inhaled Oxygen Concentration - - Weight 119.7 kg (264 lb) 03/22/2013 1340 EDT Height 177.8 cm (5' 10) 03/22/2013 1340 EDT Body Mass Index 37.88 03/22/2013 1340 EDT documented in this encounter Discharge Diagnoses Diagnosis 278.01 MORBID OBESITY[ICD-9-CM] documented in this encounter Discharge Disposition Disposition Code Departure Means Destination Auto Discharge documented in this encounter Progress Notes * Samantha Solomon RD - 03/22/2013 1359 EDT Medical [facility] Nutrition Visit # 8 Subjective: doing well, no hunger, no problems maintaining diet as is Food Logs: on computer Meal Pattern: 3 Meal Consistency: generally well balanced with ample plant-based foods and protein Average Calorie Intake:9485-9515 shala Exercise:walking (hunting) and chopping wood Objective: Current Weight:264 lb Weight Loss from last visit: -4.8 lb Weight Loss overall:-49.8 lb Assessment: Doing well with balanced intake and adequate exercise. To discuss with PA follow up schedule Plan: Follow up in clinic * Reyes Stevens PA - 03/22/2013 1350 EDT 03/22/2013 SUBJECTIVE: Julio returns to our office today [...] OBJECTIVE: On physical examination today, his BP 126/80 Pulse 68 Ht 177.8 cm (70) Wt 119.75 kg (264 lb) BMI 37.88 kg/m2 and Body mass index is 37.88 kg/(m^2).. ASSESSMENT AND PLAN: Julio will return to our office in a few weeks for continued medically-supervised weight loss in preparation for surgery. He understands that: Good weight loss, has met requirements but not sure if wants surgery, still deciding but unlikely as he feels he can do it on his own,will make appointments every [address] Jenkins was present in the clinic when I saw this patient. SINA Reynoso I work closely with the Physician Tape Sewer , Dietitian and Psychologist to develop a comprehensivecare plan for this patient. I have reviewed the chart of Juloi Cardoza and have provided general supervision of our physician seismic survey assistant, I am in agreement with their findings and recommendations documented in this encounter Plan of Treatment Not on file documented as of this encounter Visit Diagnoses Diagnosis Morbid obesity ([facility]-CMS)- Primary Morbid obesity documented in this encounter Care Teams Airport Operations Officer Relationship Specialty Start Date End Date Nic Padilla MD [address] [place] [address] PCP - General 05/18/12 documented as of this encounter
--- OUTSIDE RECORDS SUMMARY | 2024-04-18 09:24 | XMS_ITS | Encounter Summary ---
Author Organization [facility] Address [address] [place] [address] Care Team Providers Care Pharm Tech Name Role Phone Nic Padilla MD Primary Care Provider [phone] Reason for Referral * (Routine) - Closed Specialty Diagnoses / Procedures Referred By Jeremy hodges Referred To Contact Williams Muller MD Referral ID Status Reason Start Date Expiration Date V isits Requested Visits Authorized [id number] Closed Specialty Services Required 06/14/2015 1 1 Comments See Keenan Horan MD. [facility] is located at [address] [place] [address]. * (Routine) - Closed Specialty Diagnoses / Procedures Referred By Jeremy hodges Referred To Contact Williams Muller MD Referral ID Status Reason Start Date Expiration Date V isits Requested Visits Authorized [id number] Closed Specialty Services Required 06/14/2015 1 1 Comments - Odor from incision - Redness, swelling or drainage from the wound - Temperature greater than 101 degrees Fahrenheit - Numbness in your extremity - Poor circulation (skin is cool to the touch or blue) - Shortness of breath - Pain unrelieved by medication - No bowel movement within 3 days of discharge - A skin rash Encounter Details Date Type Department Care Team (Latest Contact Info) Description 06/10/2015 5:58 EST - 06/14/2015 9:47 EST Hospital Encounter [facility] Cardiac/Telemetry Unit [address] [place] [address] Keenan Horan MD Bilateral knee pain (Primary Dx); Bilateral primary osteoarthritis of knee; Atrial fibrillation with RVR ([facility]); Anemia, unspecified type; Impaired mobility and ADLs; Status post total bilateral knee replacement Discharge Disposition: Discharged to Other Facility Social History Tobacco Use Types Packs/Day Years [...] Sign Reading Time Taken Comments Blood Pressure 122/42 06/14/2015 0753 EST Pulse 87 06/13/2015 0313 EST patient converted to NSR Temperature 37 ??C (98.6 ??F) 06/14/2015 075 3 EST Respiratory Rate 20 06/14/2015 0753 EST Oxygen Saturation 96% 06/14/2015 075 3 EST Inhaled Oxygen Concentration - - Weight 120.2 kg (265 lb) 06/10/2015 180 0 EST Height 177.8 cm (5' 10) 06/10/2015 180 0 EST Body Mass Index 38.02 06/10/2015 1800 EST documented in this encounter Functional Status * Are you deaf or do you have serious difficulty hearing? Answer Date of Assessment Author No 06/10/2015 18:00 Sara Tang RN * Are you blind or do you have serious difficulty seeing, even when wearing glasses? Answer Date of Assessment Author No 06/10/2015 18:00 Sara Tang RN * Do you have serious difficulty walking or climbing stairs? (5 years old or older) Answer Date of Assessment Author No 06/10/2015 18:00 Sara Tang RN * Do you have difficulty dressing or bathing? (5 years old or older) Answer Date of Assessment Author No 06/10/2015 18:00 Sara Tang RN * Because of a physical, mental, or emotional condition, do you have difficulty doing errands alone such as visiting a doctor's office or shopping? (15 years old or older) Answer Date of Assessment Author No 06/10/2015 18:00 EST Trembley, H eather, RN documented as of this encounter Mental Status * Because of a physical, mental, or emotional condition, do you have serious difficulty concentrating, remembering, or making decisions? (5 years old or older) Answer Entry Date Author No 06/10/2015 18:00 Sara Tang RN documented in this encounter Discharge Summaries * Williams Muller MD - 06/10/2015 0747 EST Discharge Summary Note Primary Care Provider: Nic Padilla Attending Physician: Keenan Horan MD Admit Date: 06/10/2015 Discharge Date: 06/14/2015 Disposition: Acute Rehab Problems and Procedures Admitting Diagnosis: Bilateral knee pain Principal/Final Diagnosis: Bilateral knee osteoarthritis Additional Problems Managed in the Hospital Active Hospital Problems Diagnosis Date Noted ??? *Bilateral primary osteoarthritis of knee 06/10/2015 ??? Bilateral knee pain 06/10/2015 ??? Morbid obesity 08/10/2012 Principal Procedure: Bilateral total knee arthroplasty Date: 06/10/2015 Secondary Procedures: none Hospital Course Patient is a 64 y.o. male admitted to [facility] after undergoing uncomplicated bilateral TKA. Postop, patient was started on the pain protocol and dalteparin for DVT prophylaxis. He worked with PT, had good pain management with PO meds and voided independently after Gomez was removed. He developed asymptomatic a fib with RVR and converted back to NSR on his own without medication. An echo was obtained, please see below for summary of results. Patient had no further cardiac issues. Patient was discharged to acute rehab in stable condition. Risk Stratification for DVT Prophylaxis Patient is high risk for DVT/PE and standard risk for significant bleeding; therefore, --Dalteparin 5000 units subcutaneously daily through POD#10 (06/20/2015); followed by Xarelto 10 mg with dinner through POD#28 (07/08/2015) Activity/Weight Bearing Activity as tolerated Weight bearing as tolerated Allergies and Immunizations No Known Allergies Immunization History Administered Date(s) Administered ? ? Influenza Vaccine =>3yo Split IM 05/06/2015 Transition of Care Plans Condition at Discharge Stable Assessment at Discharge Vital signs: Patient Vitals for the past 12 hrs: BP Heart Rate Resp Temp SpO2 O2 Device 06/14/15 0753 122/42 mmHg 81 BPM 20 37 ??C (98.6 ??F) 96 % None 06/14/15 0115 109/72 mmHg 76 BPM 20 36.1 ??C (97 ??F) 97 % None Results Pending at Discharge Test results still pending from this admission None Relevant Studies at Discharge Echo 06/13/15: Summary: ? 1. Left ventricle: The cavity [...] The atrium was mildly to moderately dilated. Last Lab Results at Discharge BUN: Lab Results Component Value Date BUN 16 06/14/2015 Creatinine: Lab Results Component Value Date CREATININE 0.71 06/14/2015 CBC: Lab Results Component Value Date WBC 8.49 06/14/2015 RBC 3.27* 06/14/2015 HGB 10.0* 06/14/2015 HCT 29.4* 06/14/2015 MCV 90 06/14/2015 MCH 30.5 06/14/2015 MCHC 34.0 06/14/2015 PLT 183 06/14/2015 DIFFTYPE Automated 06/02/2015 Electrolytes: Lab Results Component Value Date NA 137 06/14/2015 K 4.1 06/14/2015 CL 100 06/14/2015 CO2 28 06/14/2015 Discharge Follow Up Appointments Scheduled with [facility] in the next 3 months These [facility] appointments have already been scheduled Jun 30, 2015 15:15 Post-Op Visit with Keenan Horan MD [facility] - [facility] (--) [address] [place] [address] Appointments and Procedures Recommended to Patient None Studies We Will Schedule None Williams Muller MD 06/14/2015 8:50 Cosigned by Keenan Horan MD at 06/16/2015 7:35 EST documented in this encounter Discharge Instructions * Discharge Instructions* Keenan Horan MD - 06/10/2015 11:43 EST ATTENDING PHYSICIAN INSTRUCTIONS: Nursing to review prior to discharge with patient written acknowledgement. 1. Mobilize full weight bearing as tolerated with home PT per [facility] phase I rehabilitation protocol at home. 2. It is important when ambulating to use an appropriate walking aid (walker, two crutches, one crutch or cane) until your post-op visit, even if you feel that you don't need to. This is important toprevent a fall that could result in an injury including a fracture around your new joint. 3. Limit time sitting to 30 - 60 minutes at a time for the first 4 weeks to limit dependent edema. 4. When not ambulating, resting in a supine position with operative leg elevated is preferred. 5. Knee high KEATON stockings until one month post-op office visit, off for skin hygiene/care daily. Provide two sets for home to permit cleaning. 6. Provide replacement Mepilex dressing for home. 7. Leave current dressing in place until POD #7 then replace with new Mepilex dressing for an additional 5 days then discontinue dressing as long as the wound is sealed and dry. 8. [facility] PT to resume at home this week (referral completed) 9. Patient or family should call his Primary Care Office within 24-48 hours to notify his care teamthat the patient has been discharged and to facilitate care coordination/address any routine healthconcerns. 10. If you or your family have any questions related to the surgery and your recovery please call Dr Keenan Horan at [phone] during regular business hours and if after 4:30 pm or over the weekend, please call [phone] Horan paged. If Dr. Horan is not available then ask to asto speak with the On-Call Orthopaedic Surgeon. Keenan Horan M.D Pager [phone] #[phone] documented in this encounter Medications at Time [...] Tabs by mouth 2 times daily 06/18/2015 Aspirin 81 mg Tab Take 81 mg by mouth daily. 06/21/2015 naproxen sodium (ALEVE) 220 mg cap Take 2 Caps by mouth 2 times daily 06/21/2015 traMADol (ULTRAM) 50 mg tablet Take 1-2 Tabs by mouth every 4 hours as needed for Pain Daily Max: 600 mg 40 Tab 0 06/18/2015 06/30/2015 documented as of this encounter Discharge Disposition Disposition Code Departure Means Destination Discharged to Other Facility documented in this encounter Progress Notes * Dudley Boswell MD - 06/14/2015 1009 EST Pt discharged before my eval. But it seems pt's HR was under control and ll defer anti-coagulation decision up to primary/rehab team Dudley Boswell MD * Williams Muller MD - 06/14/2015 0897 EST Orthopaedics Recon Progress Note Admit Date: 06/10/2015 Hospital LOS: 4 days Postoperative Day 4 Procedure: *Right And Left Total Knee Arthroplasty M17.0 Bilateral primary osteoarthritis of knee-M17.0[ICD-10-CM] [Keenan Horan MD] Subjective: Feels good. Denies fevers, chills, chest pain, shortness of breath, nausea, vomiting, lightheadedness. Eating ok this morning. Voiding independently. +flatus. Objective: Afebrile Patient Vitals for the past 8 hrs: BP Temp Temp src Resp SpO2 06/14/15 0753 122/42 mmHg 37 ??C (98.6 ??F) Tympanic 20 96 % 06/14/15 0115 109/72 mmHg 36.1 ??C (97 ??F) Tympanic 20 97 % Intake/Output Summary (Last 24 hours) at 06/14/15 0848 Last data filed at 06/14/15 0649 Gross per 24 hour Intake 720 ml Output 1325 ml Net -605 ml Awake, alert, in no apparent distress Dressings Clean/Dry/Intact 10/08 GS/TA/EHL/FHL/peroneals muscle groups BLE LTSI DP/SP/SN/TN distributions BLE Feet WWP 2+ DP pulse Data Review Recent Labs 06/12/15 0525 06/13/15 0520 06/14/15 0605 WBC 10.53* 8.52 8.49 HCT 30.0* 29.4* 29.4* PLT 132* 143 183 NA 133* 137 137 K 5.1* 4.3 4.1 CL 100 102 100 CO2 27 29 28 BUN 31* 15 16 CREATININE 0.97 0.81 0.71 Recent Labs 06/12/15 0536 06/13/15 0717 06/13/15 1126 06/14/15 0730 GLUCOSEFINGE 123* 101* 102* 96 Assessment: Postoperative Day 4 s/p *Right And Left Total Knee Arthroplasty M17.0 Bilateral primary osteoarthritis of knee-M17.0[ICD-10-CM]. Asymptomatic a fib with RVR now insinus. 1. Bilateral knee pain 2. Bilateral primary osteoarthritis of knee 3. Atrial fibrillation with RVR 4. Anemia, unspecified type 5. Impaired mobility and ADLs 6. Status post total bilateral knee replacement Patient Active Problem List Diagnosis ??? Morbid obesity ??? Family history of DVT ??? Bilateral knee pain ??? Bilateral primary osteoarthritis of knee Plan: 1. Appreciate medicine input regarding afib w/ RVR - back in NSR 2. 23 hr post-op antibiotics. Cefazolin completed 3. DVT ppx: Dalt-Xarelto SCD's while in bed. 4. Continue PT 5. Weight Bearing: WBAT. 6. Precautions: None 7. Encourage PO intake. Advance diet as bowel function returns. 8. Dispo: [facility] today Morning Checklist: Hyponatremia (Na less than 133): No Acute Blood Loss Anemia (2 pt drop in hemoglobin):Yes 16.2-12-10 - stable Urinary retention: No Acute renal faliure: No Acute respiratory failure: none Acute heart failure: none BMI >40: No Body mass index is 38.02 kg/(m^2). Williams Muller MD 06/14/2015 8:48 Pager #: [phone] Cosigned by Keenan Horan MD at 06/16/2015 7:42 EST * Keli Voss, PT - 06/13/2015 1632 EST [facility] Rehabilitation Therapy Acute Therapies [facility] Physical Therapy Discontinue/Discharge Note Date of Service: 06/13/2015 Precautions: Total knee precautions, WBTT, activity as tolerated, ambulate with assistive device, Knee immobilizer: use on surgical leg when ambulating while femoral nerve block in effect SUBJECTIVE: AM:Once I'm up it's not that bad PM: Let's try it OBJECTIVE: Intervention completed today: Physical Therapy today at: [id number] Total treatment time: 40 minutes. Timed code treatment minutes: 40 Vital signs were monitored and were stable throughout physical therapy session.?? HR 80-109 with activity, BP 121/95 sitting on edge of bed,?? O2 sats 96 % on room air Incision/involved limb: knee high KEATON stockings bilaterally.?? Mepilex dressing over incision with tubi-adult basic studies teacher over knee. Therapeutic exercise: Reinforced therapeutic exercises with patient and provided pt with cueing to facilitate improved technique/proper performance in order to optimize outcome.? Active (A):?? X 10 reps Supine Ankle pumps Quad sets Gluteal Sets Passive knee extension x 30 seconds Active Assisted (AA*) /Active (A)?? x 10 reps?? Supine Hip abduction/adduction Heel slides Short arc quads Active (A)/Active Assistive (AA):? Seated Knee flexion/extension-with stretch ROM:? Flexion: supine knee flexion left 60, right 50 ?? knee extension?? -5 bilateral Therapeutic Activity: Bed Mobility: patient performed supine -> sit with min contact assist for lower extremities and verbal cues for sequencing and technique including operative limb management and minimizing unnecessary compensation techniques.?? right side of bed with bed features. Patient performed sit->supine with min contact to mod assist for lower extremities and verbal cues for sequencing and technique including operative limb management and minimizing unnecessary compensation techniques.?? right side of bed without bed features. Transfers: patient performed sit -> stand transfer from bed with height elevated, with max assist X 2 and verbal cues for technique, hand placement/ safety and operative limb management Patient performed stand -> sit transfer to bed, with max assist X 2 to slow descent and?? verbalcues for hand placement/ safety and operative limb management. Gait Training: Patient ambulated with a rolling walker, equivelent of ~ 10 feet, stepping laterally next to bed left and right and then stepping in place with increased knee flexion and lifting foot off floor, min contact assist X 2 with verbal cues for use of walker, technique, and sequencing throughout Ice (cryocuff):?? Cryocuff prepared appropriately for use on patient.?? Cryocuff applied and patient was?? instructed in use at end of session Patient positioned with knees in extension with SCD's on at end of session. PM session: Intervention completed today: Physical Therapy today at: [id number] Total treatment time: 40 minutes. Timed code treatment minutes: 40 Vital signs were monitored and were stable throughout physical therapy session. Incision/involved limb:?? Same as morning session Diann-incisional exam: firm to touch, edematous, ecchymosis Therapeutic exercise: Reinforced therapeutic exercises with patient and provided pt with cueing to facilitate improved technique/proper performance in order to optimize outcome.? Active (A):?? X 10 reps Supine Ankle pumps Quad sets Gluteal Sets Active Assisted (AA*) /Active (A)?? x 10 reps?? Supine Hip abduction/adduction Heel slides Short arc quads Straight leg raise Active (A)/Active Assistive (AA):?? X 3 reps Seated Knee flexion with stretch IS: The patient was instructed in and performed 7 repetitions of incentive spirometry to 2200 mls with verbal cues for technique to maximize lung expansion and pacing. ROM:? Flexion:?? sitting knee flexion: 60 bilaterally Extension: supine knee extension -5 STRENGTH: Bilateral hips ~ 3/5, knees < 3/5, Ankle dorsiflexion 5/5 Therapeutic Activity: Bed Mobility: patient performed supine -> sit with min contact assist for lower extremities and verbal cues for sequencing and technique including operative limb management and minimizing unnecessary compensation techniques.?? left side of bed with bed features. Patient performed sit->supine with min contact to mod assist for lower extremities and verbal cues for sequencing and technique including operative limb management and minimizing unnecessary compensation techniques.?? left side of bed without bed features. Transfers: patient performed sit -> stand transfer from bed with height elevated, with max assist X 2 and verbal cues for hand placement/ safety and operative limb management Patient performed stand -> sit transfer to bed with max assist X 2 and?? verbal cues for hand placement/ safety and operative limb management. ?? Gait Training: Patient ambulated with a rolling walker, equivelent of ~ 15 feet, stepping laterally next to bed left and right and then stepping in place with increased knee flexion and lifting foot off floor, min contact assist X 2 with verbal cues for use of walker, technique, and sequencing throughout Ice (cryocuff):?? Cryocuff prepared appropriately for use on patient.?? Cryocuff applied and patient was again instructed in use at end of session Patient positioned with heels floated and knees in extension with SCD's on at end of session. Patient/Family Education: Topic: Assistive device/technique Bed mobility Breathing exercises Discharge planning Exercise Gait Home program Positioning Precautions/protocol Role of therapy Safety Transfers Learner: patient Method: verbal and demonstration Barriers to Learning: none noted Outcome: needs practice and verbalized understanding Team Communication: spoke with nursing prior to and after PT session Patient has been seen in physical therapy since 06/11/15 for Therapeutic exercises, Therapeutic activities and Gait training. In this reporting period 06/11/15 to 06/13/15 the patient has been seen by a physical therapist. Frequency: twice a day for 3 times per week. Intensity: 15-45 minutes per session. Duration:During this hospitalization. Please refer to the physical therapy notes for specifics on the patient's functional status and treatment sessions. Relevant objective findings: CARDIOPULMONARY: Please refer above to Interventions Completed Today Patient on telemetry secondary to episode of Afib INTEGUMENTARY/ANTHROPOMETRIC CHARACTERISTICS: Please refer above to Interventions Completed Today RANGE OF MOTION AND JOINT INTEGRITY: Please refer above to Interventions Completed Today MUSCLE PERFORMANCE: Please refer above to Interventions Completed Today BALANCE, MOBILITY, AND GAIT: Please refer above to Interventions Completed Today ASSESSMENT: Physical therapy services in this setting have been discontinued secondary to: Patient has been or will be discharged from the hospital Physical Therapy Diagnosis: This patient status post TKR presented with a PT diagnosis of decreasedROM, decreased strength, and decreased functional balance impacting functional mobility with post operative pain. ? Impaired joint mobility, motor function, muscle performance and ROM associated with joint arthroplasty Physical Therapy Prognosis: Patient has progressed with therapy and has made gains in mobility. Anticipate patient will continue to make steady progress, but may be slow or limited by pain and natureof bilateral impairments. Patient is below baseline level of function and is appropriate for skilled PT and acute rehab with multidisciplinary approach to maximize function and increase safety and independence with mobility prior to return home. Goals progressing and discontinued in this setting. 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 The patient will be able to perform bed mobility independently ? The patient will be able to perform transfers with min contact assist and RW ?? The patient will be able to ambulate at least 20 feet with RW and min contact assist ?? Patient demonstrates knee flexion to 75 degrees in supine, bilaterally PLAN: D/C Physical Therapy Recommended Discharge Destination: Acute rehabilitation Recommended Discharge Services: Physical therapy at rehabilitation facility Recommended Equipment Needs: To be determined by next care provider Other recommendations: No other consults recommended at this time Pager: [phone] KELI VOSS, PT 06/13/2015 16:32 * Supriya Hernandez, RN - 06/13/2015 1626 EST Acute Inpatient Rehabilitation Rehab Referral Review Patient Review: EMR reviewed. 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 Refer to IP Rehab Pre-Admission Assessment Note in Inpatient Rehabilitation Medical record for further details. Rehab Admission Date: 06/14/15 Transportation: [facility] Rehab Admission Time: 0900 Rehab Floor/Number for Report: [x] Rehab 2 ([id number]) Supriya Hernandez RN 06/13/2015 16:26 * Maryjo Jimenez MD - 06/13/2015 1306 EST Brief medicine progress note Assumed care on medicine consult this am. Patient seen this am. AF was self limited, has been in sinus since transfer to [address] Remains symptomatic. Did not receive dilt. (does not need unless recurrent AF/RVR) TSH wnl. Echo c/w grade 1 diastolic dysfunction. Axyhm8icbv = 2. Will need to discuss AC, particularly if develops recurrent AF. This is a little less clear cut if remains in NSR. D/w Dr Zhou Pierce this am. Dr Boswell to f/u in am. Maryjo Jimenez MD 06/13/2015 13:12 * Williams Muller MD - 06/13/2015 0646 EST Orthopaedics Recon Progress Note Admit Date: 06/10/2015 Hospital LOS: 3 days Postoperative Day 3 Procedure: *Right And Left Total Knee Arthroplasty M17.0 Bilateral primary osteoarthritis of knee-M17.0[ICD-10-CM] [Keenan Horan MD] Subjective: Asymptomatic a fib with RVR overnight prompting transfer to [facility]. Back in sinus and otherwise doingwell. Denies fevers, chills, nausea, vomiting, chest pain, shortness of breath. Voiding independently. Improved flatus but no BM yet. Full liquid diet right now. Objective: Afebrile Patient Vitals for the past 8 hrs: BP Temp Temp src Pulse Resp SpO2 06/13/15 0357 121/54 mmHg 36 ??C (96.8 ??F) Tympanic - 16 96 % 06/13/15 0313 125/61 mmHg - - 87 - - 06/13/15 0245 (!) 144/62 mmHg - - (!) 127 - - 06/13/15 0207 125/71 mmHg 35.9 ??C (96.6 ??F) - - - - Intake/Output Summary (Last 24 hours) at 06/13/15 0646 Last data filed at 06/13/15 0245 Gross per 24 hour Intake 1960 ml Output 800 ml Net 1160 ml Awake, alert, in no apparent distress Dressings Clean/Dry/Intact / GS/TA/EHL/FHL/peroneals muscle groups BLE LTSI DP/SP/SN/TN distributions BLE Feet WWP 2+ DP pulse Data Review Recent Labs 06/11/15 0636 06/12/15 0525 06/13/15 0520 WBC 13.49* 10.53* 8.52 HCT 36.1* 30.0* 29.4* PLT 166 132* 143 NA 134* 133* 137 K 5.2* 5.1* 4.3 CL 101 100 102 CO2 25 27 29 BUN 35* 31* 15 CREATININE 1.23 0.97 0.81 Recent Labs 06/11/15 0610 06/12/15 0536 GLUCOSEFINGE 131* 123* Assessment: Postoperative Day 3 s/p *Right And Left Total Knee Arthroplasty M17.0 Bilateral primary osteoarthritis of knee-M17.0[ICD-10-CM]. Asymptomatic a fib with RVR now insinus. Will discuss with medicine regarding further workup if needed. 1. Bilateral knee pain 2. Bilateral primary osteoarthritis of knee 3. Atrial fibrillation with RVR 4. Anemia, unspecified type Patient Active Problem List Diagnosis ??? Morbid obesity ??? Family history of DVT ??? Bilateral knee pain ??? Bilateral primary osteoarthritis of knee Plan: 1. Appreciate medicine input regarding afib w/ RVR. Possible echo 2. 23 hr post-op antibiotics. Cefazolin completed 3. DVT ppx: Dalt-Xarelto SCD's while in bed. 4. Continue PT 5. Weight Bearing: WBAT. 6. Precautions: None 7. Encourage PO intake. Advance diet as bowel function returns. 8. Dispo: likely to [facility] Morning Checklist: Hyponatremia (Na less than 133): No Acute Blood Loss Anemia (2 pt drop in hemoglobin):Yes 16.2-12-10 Urinary retention: No Acute renal faliure: No, Cr improved back to 0.81 Acute respiratory failure: none Acute heart failure: none BMI >40: No Body mass index is 38.02 kg/(m^2). Williams Muller MD 06/13/2015 6:46 Pager #: [phone] Cosigned by Keenan Horan MD at 06/13/2015 8:15 EST Associated attestation - Keenan Horan MD - 06/13/2015 0815 EST Attestation statement: I saw and examined the patient. I agree with the findings and plan of care documented in the resident's note. Keenan Horan MD * Morgan Espinoza MD - 06/13/2015 4145 EST Called re asymptomatic tachycardia. EKG shows Afib with RVR, significantly different than previous EKG. Medicine consulted and discussed need for rate control agent. Will begin 60 mg diltiazem every 6 hours for rate control for present and see if this improves his tachycardia. Will hold on diltiazem drip but begin tele and ransfer to tele floor, pps called Morgan Espinoza MD * Betty Galan MD - 06/12/2015 1636 EST [facility] Inpatient Acute Rehabilitation Unit Pre-Admission Screening Name: Julio Monk : 1950 Age: 64 y.o. Sex: male Rehab Admission Date: 06/14/2015 Rehab Unit: Rehab 2 From: B392/02 Arriving via Ambulance Time: 0900 Height: 177.8 cm (70) Weight : (!) 120.203 kg (265 lb) Body mass index is 38.02 kg/(m^2). Admit W/C: Standard, Bilateral elevating foot rests Bed to wheelchair transfers for transfer: with moderate assist, with assist of 2 helpers and with walker Immediate Rehab Needs: Precautions: Fall risk TKR precautions, WBTT, activity as tolerated, ambulate with assistive device Safety/Behavior: A&Ox3 Lines/Tubes: PIV: to be d/c'd Primary Rehab Diagnosis: Knee Replacement - Bilateral Hx of Present Illness: Pt admitted s/p bilateral TKR. POD # 2 developed A-fib w/ RVR. Transferred to cardiac floor. Converted to NSR spontaneously. C/O reflux POD # 1, diet changed to clear liquids & has slowly been advanced. Acute Admission Date: 06/10/2015 Expected length of stay: 7 days Ongoing Medical Concerns: Patient Active Problem List Diagnosis ??? Morbid obesity ??? Family history of DVT ??? Bilateral knee pain ??? Bilateral primary osteoarthritis of knee Past Medical History: Past Medical History Diagnosis Date ??? Hypertension ??? Colon polyp Pre-Hospital Living Setting and Support System: Lives in [place], [place] with , Margie . Services prior to admission: none Retired Equipment Available: Rolling walker Prior Level of Function: Ambulated: independently Completed Self-care: independently Current Functional Status: Care Management: Pain Management: ongoing assessment, pain controlled on oral meds,, Bladder: gomez,d/c'd, voiding QS,, Bowel: Pt has been receiving po meds for bowels, passing flatus, ,,, Wound Care: bilateral knee incisions,, Positioning: for comfort,, Medication Management: teaching as indicated,, Safety: fall risk, and Functional mobility: carryover of therapy techniques, Transfers: with moderate assist, with assist of 2 helpers and with walker Locomotion: From: ambulatory level with minimal assist and with device Self-care: with moderate assist IADLs: Deficits below baseline with:, meal preparation, home management, community management and driving Swallowing: Intact Communication: Intact Cognition: Intact Rehab Eligibility Assessment: Conditions that caused the need for rehabilitation: Patient has had a significant decline in function as the result of Knee Replacement - Bilateral . Need for Close Medical Supervision: An acute inpatient rehab setting is medically necessary to monitor and manage the Ongoing Medical Concerns listed above and to develop and oversee the plan of carefor Current Functional Deficits also listed above. Active Multi-Disciplinary problems: Daily Care Plan Goals [785906] (06/10/15) FALL RISK [[id number]] (06/10/15) Bowel/Gastric: [109976] (06/11/15) Urinary Elimination: [[id number]] (06/11/15) DVT proph, surgical incision monitoring Risk for Clinical Complications: Julio is at Moderate risk for medical complications from these medical issues, impacting ability to participate in the rehabilitation program. Rehab Potential: Julio has realistic goals and excellent rehab potential. Patient's condition is sufficiently stable at the time of admission to allow this patient to actively participate in an intensive rehabilitation program. Appropriate Therapy Needs: Rehab Nursing , Occupational Therapy and Physical Therapy including patient/caregiver education and DME recommendations and training. Expected Frequency and Duration of Treatment: Anticipate patient will be able to tolerate an acute rehab level intensity of care and for a total of 3 hours per day, 5 days per week, and be expected to make measurable improvement that will be of practical value to improve Julio Monk's functional capacity or adaptation to impairments. Expected level of improvement: Expect Julio to complete functional mobility independently and complete self-care independently at discharge. Anticipated Discharge: Location: Home Support available at discharge: Supportive Anticipated Post-Discharge Treatments: Home health with Nursing and PT Physician Agreement: Co-signature of this note indicates that I have reviewed this pre-admission screening document and concur with the findings. I believe Julio Monk meets criteria, is sufficiently stable to allow participation in the program, and requires and intensive level of therapy, close medical supervision and an interdisciplinary team approach provided through an individualized planof care. I approve admitting this patient for an intensive, inpatient rehabilitation hospital program. Cosigned by Betty Galan MD 06/13/15 16:36 * Supriya Hernandez, RN - 06/12/2015 1457 EST Acute Inpatient Rehabilitation Rehab Referral Review Patient Review: EMR reviewed. and Spoke with Patient and Patient's family/caregiver Referral Status and Assessment: Pt on clear liquid diet since yesterday d/t minimal flatus & reflux s/s. Advanced to full liquid diet this afternoon. (+) flatus per nursing. POD # 2. Worked with PT today, has not been OOB to chair or bathroom. Follow-up Plan: Will follow up tomorrow POD # 3 & anticipate d/c to Acute rehab when tolerating regular diet & (+) flatus. Supriya Hernandez RN 06/12/2015 14:58 * Oksana Pal RN - 06/12/2015 1343 EST alert and oriented. Room air. Lungs diminished bases. Tolerating clear liquids. No complaints of nausea or vomiting. dressing clean dry and intact. Cryo cuffs on and recharged. Rates pain 5/10. Tylenol, tramadol, oxycodone ir and neurontin given. Voiding in good quantities. Positive flatus * Sb Mccartney, PT - 06/12/2015 1252 EST [facility] Rehabilitation Therapy Acute Therapies [facility] Physical Therapy Encounter Note Date of Service: 06/12/2015 SUBJECTIVE: AM:Patient noting increased pain and stiffness in LEs today PM: Continued pain but willing to work with PT OBJECTIVE: Intervention completed today: Physical Therapy today at: 5994-6643 AM; 9871-9010 PM Total treatment time: 30 AM; 20 PM Timed code treatment minutes: 30 AM, 20 PM Vital signs have been stable with interventions and were not monitored. Therapeutic exercise: Reinforced therapeutic exercises with patient and provided pt with cueing to facilitate improved technique/proper performance in order to optimize outcome. Repetitions advanced as able. Active (A): X 10-15 reps Supine Ankle pumps Quad sets Passive knee extension x 1 minute Straight leg raise Active Assisted (AA*) /Active (A) x 10 reps Supine Hip abduction/adduction Heel slides Short arc quads Active (A)/Active Assistive (AA): sitting Gentle knee flexion stretch, prolonged at EOB ROM: Left: Flexion: supine knee flexion 45 ; sitting knee flexion: 55 Extension: supine knee extension -5 degrees Right: Flexion: supine knee flexion 40 degrees ; sitting knee flexion: 50 degrees Extension: supine knee extension -5 degrees Therapeutic Activity: Sup to sit to right with min contact assist<>supervision and cues to reinforce technique. Increased time to complete and use of bedrail with HOB elevated. Scooting at EOB with min contact assist and cues for UE placement, LE positioning and weight shifting to facilitate. Sit to sup to left with min contact assist to elevate LEs onto bed. Scooting up in bed with min contact assist with cues for technique, including cues to promote increased recruitment of LEs to facilitate. PM session: Intervention completed today: Therapeutic exercise (0): Patient instructed in prolonged knee flexion stretch in supine with use of sheet and in use of sheet to facilitate knee extension stretch as well. In sitting performed prolonged knee flexion stretch bilaterally. Therapeutic Activity: Sup to sit to right with supervision. Sit to stand with max assist of 2, from EOB, with standing achieved on second attempt once bed elevated. Min contact<>mod assist for stand to sit. Cues forUE placement, LE positioning provided. Marching in place x 2 mintues with min contact assist and walker, with cues to maximize LE clearance and decrease weight through UEs. Patient/Family Education: Topic: Bed mobility Exercise Gait Learner: patient Method: verbal Barriers to Learning: none noted Outcome: needs practice Team Communication: Discussed current level of mobility and recommendations with nursing for assistance with mobility and positioning outside of PT. ASSESSMENT: Steady gains, though with increased discomfort today. Able to march at EOB. Anticipate d/c to [facility] once medically stable. PLAN: Continue per plan of care Recommended Discharge Destination: Acute rehabilitation Recommended Discharge Services: Physical therapy at rehabilitation facility Recommended Equipment Needs: To be determined by next care provider Other recommendations: No other consults recommended at this time Primary Therapist: Pager: [phone] SB MCCARTNEY PT 06/12/2015 12:52 * Keenan Horan MD - 06/12/2015 1112 EST ATTENDING POSTOP DAY 2 ROUNDS NOTE: ASSESSMENT: Uncomplicated perioperative course following bilateral TKA. On track with total joint pathway goals. PLAN: Multimodal pain management protocol. Mobilize per total joint pathway with skilled PT. PATIENT EDUCATION: Postop Day 2 total joint pathway goals reviewed. Questions answered to patient's verbalized satisfaction. CARE COORDINATION: Care plan discussed with house staff. Discharge planning in progress. Keenan Horan M.D. * Randee Tapia - 06/12/2015 1041 EST Initial Case Management/Social Work Assessment and Discharge Plan/Readmission Risk Assessment Reason for Admission: Bilateral primary osteoarthritis of the knee The patient is a 64 year old male POD #2 Right And Left??Total Knee Arthroplasty Patient Contact Information: Spouse Margie Monk LIVING ARRANGEMENTS AND ACCESSIBILITY ISSUES: The patient lives with his spouse in [place], [place]. There are two stairs to the entrance of the house. What in home social supports are available to the patient? Spouse Margie Monk ADVANCED DIRECTIVES, POA &/or COLST IN PLACE: The patient has a [place]. AD. His spouse is the DPOA. CULTURAL, BAPTIST and/or LANGUAGE factors affecting health care/discharge planning: N/A Insurance in Place: Yes Type of Insurance: Medicare, Commercial insurance: Aetna and AARP for Rx coverage with the [facility] DISCHARGE RISK ASSESSMENT: Acute wound, Requires assistance with ADLs/IADLs Total # selected above: Score of 1 - 2: This patient is at LOW RISK for re-hospitalization Tentative plan to address the risk of re-hospitalization for those at HIGH MODERATE RISK: Early inpatient rehab therapy or other consultation FUNCTIONAL & PSYCHOSOCIAL INFORMATION: The patient is independent with ADL's at baseline. He has a rolling walker and a cane at home. MEDICAL AND COMMUNITY SERVICES: Primary Care Provider: Dr. Nic Padilla Specialists: None Skilled home care services: None DME Provider: None Pharmacy: [facility] in [place], [place]. Other: None POST HOSPITAL TRANSITION PLAN: The discharge plan is for acute rehab at [facility] when medically ready The CM met the patient. A referral was sent to the acute rehab coordinator for placement at [facility] when medically ready. His spouse can transport him home from rehab. Randee Tapia RN CCM MSN MAGNETIC TAPE COMPOSER OPERATOR-C #[id number] 06/12/2015 10:42 covering dependency case manager * Williams Muller MD - 06/12/2015 0640 EST Orthopaedics Recon Progress Note Admit Date: 06/10/2015 Hospital LOS: 2 days Postoperative Day 2 Procedure: *Right And Left Total Knee Arthroplasty M17.0 Bilateral primary osteoarthritis of knee-M17.0[ICD-10-CM] [Keenan Horan MD] Subjective: No Acute Events. Doing well. Denies fevers, chills, nausea, vomiting, chest pain, shortness of breath. Voiding independently. Minimal flatus. Had some reflux type symptoms yesterday. Changed to clears for now. Objective: Afebrile Patient Vitals for the past 8 hrs: BP Temp Temp src Resp SpO2 06/12/15 0530 120/68 mmHg 36 ??C (96.8 ??F) Tympanic 16 99 % Intake/Output Summary (Last 24 hours) at 06/12/15 0640 Last data filed at 06/12/15 0028 Gross per 24 hour Intake 1416.67 ml Output 0 ml Net 1416.67 ml Awake, alert, in no apparent distress Dressings Clean/Dry/Intact / GS/TA/EHL/FHL/peroneals muscle groups BLE LTSI DP/SP/SN/TN distributions BLE Feet WWP 2+ DP pulse Data Review Recent Labs 06/11/15 0636 WBC 13.49* HCT 36.1* PLT 166 NA 134* K 5.2* CL 101 CO2 25 BUN 35* CREATININE 1.23 Recent Labs 06/11/15 0610 06/12/15 0536 GLUCOSEFINGE 131* 123* Assessment: Postoperative Day 2 s/p *Right And Left Total Knee Arthroplasty M17.0 Bilateral primary osteoarthritis of knee-M17.0[ICD-10-CM]. Stable overnight. On Pathway. 1. Bilateral knee pain 2. Bilateral primary osteoarthritis of knee Patient Active Problem List Diagnosis ??? Morbid obesity ??? Family history of DVT ??? Bilateral knee pain ??? Bilateral primary osteoarthritis of knee Plan: 1. 23 hr post-op antibiotics. Cefazolin 2. DVT ppx: Dalt-Xarelto SCD's while in bed. 3. Continue PT 4. Weight Bearing: WBAT. 5. Precautions: None 6. Encourage PO intake. Advance diet as bowel function returns. 7. Dispo: likely to [facility] Morning Checklist: Hyponatremia (Na less than 133): No Acute Blood Loss Anemia (2 pt drop in hemoglobin):Yes 16.2-12 Urinary retention: No Acute renal faliure: No, although creatinine increased from baseline to 1.23 - will monitor Acute respiratory failure: none Acute heart failure: none BMI >40: No Body mass index is 38.02 kg/(m^2). Williams Muller MD 06/12/2015 6:40 Pager #: [phone] Cosigned by Keenan Horan MD at 06/12/2015 11:41 EST * Jazz Gonsales - 06/11/2015 1546 EST CM following. Chart reviewed. Case discussed with Supriya Hernandez, adm coordinator @ [facility]. Current d/c plan is for pt to discharge to [facility] when medically stable. TOAN vs Tuesday. Full CM/receiving dock checker note will follow marshall. Jazz Gonsales RN/CCM #[id number]. * Georgia Cadet PA - 06/11/2015 1455 EST Mr. Monk is doing ok today. However, this morning he had a bump in his creatinine to 1.23 from 0.85 pre-op. So, I discontinued his naprosyn. Also, patient is not passing gas and has noted onset of gastric reflux with minimal bowel sounds per nursing. I changed his diet to clear liquid and restarted fluids of NS at 100 ml/hr. Will continue to monitor. Patient's dressings were changed. Wounds are clean, dry and intact. Mepilex border dressing, KEATON stocking and TubiGrip placed. Additional pair of TEDS and Tubigrip sleeves given for pt's use at home after discharge from acute rehab. Benita Cadet, PAC * Supriya Hernandez RN - 06/11/2015 1350 EST Acute Inpatient Rehabilitation Admission Coordinator Initial Assessment Reason for Hospitalization: Admitted s/p bilateral TKR Living Arrangements: Lives with spouse in [place] Current Functional Status: Limited mobility POD # 1 Patient/Caregiver Education: Met with pt to provide education about Acute Rehabilitation and left abrochure. Also explained referral review process and answered questions about [facility]'s Acute IP Rehab Center and programs. Social Supports/Discharge Plan: Lives with , Insurance/Financial Needs: Medicare Review of Acute IP Rehab Admission Criteria Condition causing need for acute rehabilitation: ??? Patient has a significant decline in function as the result of Knee Replacement - Bilateral. Need for Close Medical Supervision: ??? An acute inpatient rehab setting is medically necessary to monitor and manage the ongoing medical and functional concerns and to develop and oversee the plan of care. Appropriate Therapy Needs: ??? Patient requires the active and ongoing therapeutic intervention of acute rehab intensity therapy including physical therapy. Intensive Therapy: ??? Patient is reasonably expected to tolerate at least 3 hours of therapy per day at least 5 days per week. ??? Patient is expected to make measurable improvement that will be of practical value to improve the patient???s functional capacity or adaptation to impairments within 7 to 14 days of admission to acute inpatient rehabilitation. ??? Patient is willing to participate in an intensive rehabilitation program. Initial Determination for [facility]'s Acute Inpatient Rehabilitation Center: ??? Will likely be able to Offer a Bed for an Acute Inpatient Rehabilitation level of care based oncurrent [place] regulations, this individual patient's insurance coverage, clinical documentation and this initial screening assessment. Plan: ??? Rehab Admission Coordinator will continue to follow daily. This IRF Eligibility Assessment is subject to change: The above documented assessment is based on information available and this patient???s status on this date. For final determination, this patientmust meet all of the IP Rehab Eligibility Criteria on the day of admission to an IRF. If the information available and/or patient???s status changes between the timing of this assessment and the timepatient is ready for discharge from the acute care hospital, then the eligibility assessment may change. * Sb Mccartney, PT - 06/11/2015 1014 EST [facility] Rehabilitation Therapy Acute Therapies [facility] Physical Therapy Initial Evaluation Note Date of Service: 06/11/2015 Reason for Referral: Evaluate and treat Precautions: Total knee precautions, WBTT, activity as tolerated, ambulate with assistive device, Knee immobilizer: use on surgical leg when ambulating while femoral nerve block in effect SUBJECTIVE: Patient reports feeling his pain is well controlled Pain: Location: bilateral knees Intensity: 2/10 (at present), 2/10 (at best), 8/10 (at worst) Frequency: constant Quality: sore Aggravating factors: Mobility and ROM Alleviating factors: Rest, medication, ice OBJECTIVE: PatientProfile: Patient is a 64 y.o. male admitted on 06/10/2015 secondary to *Right And Left Total Knee Arthroplasty M17.0 Bilateral primary osteoarthritis of knee-M17.0[ICD-10-CM] The patient lives at [address] [place] [address] Home environment Lives:with Caregiver Support: Supervision Equipment Available: Rolling walker Home Environment: house Home Layout: need to clarify details Prior Level of Function: Independent Services prior to admission: None Work/Leisure: Retired Medical/Surgical History: Patient Active Problem List Diagnosis ??? Morbid obesity ??? Family history of DVT ??? Bilateral knee pain ??? Bilateral primary osteoarthritis of knee Past: Past Medical History Diagnosis Date ??? Hypertension ??? Colon polyp Past Surgical History Procedure Laterality Date ??? Cervical disc arthroplasty ??? Tonsillectomy ??? Knee arthroscopy left Medications: Medications reviewed Arousal, Attention, and Cognition: Orientation: Alert Oriented to person, place, and time Cardiopulmonary: Vital Signs: Activity Heart rate (bpm) Blood Pressure (mmHg) Respiratory rate (breaths/min) Oxygen Sat/ Fractions of inspired Oxygen SPO2/FIO2 % Pre- activity - supine 82 123/60 97%on ra During Post- activity - sitting 142/72 Integumentary/Anthropometric Characteristics: Palpation/Observation: Skin: skin intact, incisions not evaluated due to intact dressing. Dressings C/D/I Edema: bilateral knee, overall edema is difficult to assess given bulky dressing Posture: No problem noted Range of Motion and Joint Integrity: Active Range of Motion: Within normal limits except as noted Upper Quarter: Left Upper Extremity: Right Upper Extremity: Cervical Spine: Lower Quarter: Left Lower Extremity: ~-5 to 50 knee flexion in supine RightLower Extremity: ~-5 to 60 knee flexion in supine Lumbar Spine: N/E formally, functional motion noted during mobility portions of exam Muscle Performance: Strength: Upper Quarter: Left Upper Extremity: grossly at least 3/5 throughout all major muscle groups Right Upper Extremity: grossly at least 3/5 throughout all major muscle groups Cervical Spine: at least 3/5 as noted with AROM examination in sitting Lower Quarter: Non operated Lower Extremity: able to perform straight leg raise with full extension x 5 repetitions without assistance. Ankle and hip grossly at least 3/5 throughout. Operated Lower Extremity: able to perform straight leg raise with full extension x 5 repetitions without assistance. Ankle and hip grossly at least 3/5 throughout. Lumbar Spine: N/E formally, functional strength noted with mobility including sitting and standing activities Sensation, Reflexes, and Nerve Integrity: Light Touch Sensation: Upper Quarter: Intact C2-T1 Lower Quarter: Diminished: at operated knee medial and anterior, anticipated effects of nerve block Neuromotor Function/Development: No problems noted Balance, Mobility, and Gait: Balance: No loss of balance observed throughout physical therapy session in sitting examination. Mobility: Mobility evaluation as follows: Sup to sit: min contact assist, to right, with cues for technique and HOB elevated, use of rail Sit to sup: min contact assist to left, with cues for technique and use of rail, HOB flat Scooting at EOB: with min contact assist to right, with cues for UE placement and weight shifting to facilitate Gait: Unable to ambulate at time of examination Self-Care, Home Management, Work, and Leisure: N/E at this time Outcomes: N/A in the acute care setting Informed Consent: The patient consented to the physical therapy evaluation. The patient agrees to and understands the physical therapy treatment plan and goals. Interventions Completed Today: Physical Therapy today at: 7402-6021; [id number] Total treatment time: 45 minutes AM, 25 minutes PM. Timed code treatment minutes: 25 AM, 25 PM Intervention included: Therapeutic exercises: All TKR precautions were reviewed in detail. This patient was instructed in exercises as noted below and patient performed exercises below with cues and/or physical assistance to improve exercise quality. Exercises were performed bilateral LEs Active (A): X 10 reps Supine Ankle pumps Quad sets Passive knee extension x 1 minute Straight leg raise Active Assisted (AA*) /Active (A) x 10 reps Supine Hip abduction/adduction Heel slides Active (A)/Active Assistive (AA): seated gravity assisted knee flexion with focus on quadricep relaxation and eccentric control Ice applied to knee post treatment via cryocuff. Educated patient on rationale for ice use and how/when to use ice in this setting and after discharge. Patient positioned with LE 's elevated, knees in extension and heels floated, SCD's on. Therapeutic activity: This patient was provided with education on how current sensory and motor deficits from nerve catheter can impact mobility and safety with mobility. Instructed in technique for sup<>sit, and cues provided througout task for sequencing. Instructed in UE placement and weight shifting to facilitate scooting at EOB PM session: Therapeutic exercise: As per AM session Therapeutic activity: Bed mobility: further instruction in technique for sup<>sit provided and patient performed with min contact assist as per AM session. Instruction in LE positioning, UE placement and weight shifting to facilitate sit<>stand transfer, and patient able to perform with max assist of 2 to initiate. Able to stand ~ 2 minutes with min contact assist and walker and perform sidesteps x 3-4 with min contact assist. Patient/Family Education: Topic: Bed mobility Discharge planning Exercise Gait Positioning Precautions/protocol Role of therapy Transfers Learner: patient Method: verbal Barriers to Learning: none noted Outcome: needs practice and verbalized understanding Team Communication: Discussed current level of mobility and recommendations with nursing for assistance with mobility and positioning outside of PT. ASSESSMENT: Upper Quarter Screen: Positive findings do not have an impact on the patient's function and requireno monitoring, treatment, or detailed examination. Given new use of assistive device and increased UE demand after LE surgery, this patient has been instructed in proper use of UE during mobility andprevention of overuse injuries as well as signs to watch for. Physical Therapy Diagnosis: This patient status post TKR presented with a PT diagnosis of decreasedROM, decreased strength, and decreased functional balance impacting functional mobility with post operative pain. ?? Impaired joint mobility, motor function, muscle performance and ROM associated with joint arthroplasty Physical Therapy Prognosis: Skilled PT services are indicated to promote functional recovery and improved ROM and strength following bilateral TKR. Patient tolerated progression of mobility well, andanticipate that he will make steady progress. Feel that he will benefit highly from an acute rehab admission in order to optimize mobility prior to return home. SHORT TERM GOALS TIME FRAME: N/A RUBBER STAMP MAKER GOALS TIME FRAME:3-5 days ?? The patient will be able to perform bed mobility independently ?? The patient will be able to perform transfers with min contact assist and RW ?? The patient will be able to ambulate at least 20 feet with RW and min contact assist ?? Patient demonstrates knee flexion to 75 degrees in supine, bilaterally PLAN: Treatment/Intervention: Physical therapy will be provided by physical therapist and/or physical therapist assistant tennis coach when medically appropriate. Frequency: Frequency: daily to twice a day for 5-7 times per week as determined by the patient???s medical stability, tolerance to activity, and progression of functional activities Intensity: 15-60 minutes per session Duration: During hospitalization Interventions may include:Therapeutic exercises, Therapeutic activities and Gait training Patient/family education: Discharge planning, Equipment, Family training as appropriate, Precautions, Recommendations, Role of physical therapy/rehabilitation, Safety Further Data: n/a Recommended Discharge Destination: Acute rehabilitation Recommended Discharge Services: Physical therapy at rehabilitation facility Recommended Equipment Needs: To be determined by next care provider Other recommendations: Inpatient rehab consult Pager: [phone] SB MCCARTNEY, PT 06/11/2015 10:14 * Rahul Prado DO - 06/11/2015 0838 EST Anesthesia Pain Service Subjective: This is a 64 y.o. male now POD # 1 s/p bilateral TKA Pain Level 2-3/10 Slept well overnight. Able to move the legs this morning. Eating well. No complaints. A 10 point ROS was reviewed and negative except as stated in the HPI. Objective: Vitals: Blood pressure 115/56, temperature 35.4 ??C (95.7 ??F), temperature source Tympanic, resp. rate 16, height 177.8 cm (70), weight 120.203 kg (265 lb), SpO2 96 %. Scheduled Medications: Current Facility-Administered Medications Medication Route Frequency ??? acetaminophen (TYLENOL) tablet 650 mg oral Q6H ??? ascorbic acid (VITAMIN C) tablet 500 mg oral QHS ??? aspirin EC tablet 325 mg oral BID ??? calcium carbonate (TUMS) 200 mg calcium (500 mg) per chewable tablet tablet,chewable 1-2 Tab oral Q2H PRN ??? cholecalciferol (Vitamin D3) tablet 2,000 Units oral QHS ??? [START ON 06/12/2015] dalteparin (FRAGMIN) 5,000 anti-Xa unit/0.2 mL injection 5,000 Units subcutaneous DAILY ??? docusate sodium (COLACE) capsule 200 mg oral BID ??? gabapentin (NEURONTIN) capsule 600 mg oral TID ??? lactated ringers (LR) infusion intravenous CONTINUOUS ??? [START ON 06/13/2015] lisinopril (PRINIVIL, ZESTRIL) tablet 10 mg oral DAILY ??? methocarbamol (ROBAXIN) tablet 500-1,000 mg oral Q6H PRN ??? Multivitamins with Minerals tablet 1 Tab oral QHS ??? naproxen (NAPROSYN) tablet 500 mg oral BID (BREAKFAST/DINNER) ??? ondansetron (PF) (ZOFRAN) injection 2-4 mg intravenous Q6H PRN ??? oxyCODONE (ROXICODONE) immediate release tablet 5-20 mg oral Q3H PRN ??? pantoprazole (PROTONIX) tablet 40 mg oral DAILY ??? PEG 3350-Electrolytes (MIRALAX) packet 17 g oral DAILY ??? PEG 3350-Electrolytes (MIRALAX) packet 17 g oral Daily PRN ??? prochlorperazine (COMPAZINE) 25 mg suppository 25 mg rectal Q12H PRN ??? senna (SENOKOT) tablet 2 Tab oral DAILY ??? sodium chloride 0.9 % (NS) infusion intravenous CONTINUOUS ??? sodium chloride 0.9 % flush 3 mL intravenous PRN ??? [START ON 06/13/2015] sodium phosphate (FLEET) enema 1 Enema rectal Daily PRN ??? traMADol (ULTRAM) tablet 50-100 mg oral Q6H ??? zinc sulfate (ZINCATE) capsule 220 mg oral QHS Allergies: No Known Allergies Labs: Lab Results Component Value Date WBC 13.49* 06/11/2015 HGB 12.0* 06/11/2015 HCT 36.1* 06/11/2015 MCV 92 06/11/2015 PLT 166 06/11/2015 Lab Results Component Value Date INR 1.0 06/02/2015 PROTIME 11.4 06/02/2015 Examination: General: NAD, A/Ox3, lying in bed comfortably Resp: non-labored Neuro: Motor Bilateral LE 5/5. slr 5/5 B/L, Quads 5/5 b/l Site: C/D/I without swelling or tenderness Analysis and Plan: This is a 64 y.o. male now POD # 1 s/p bilateral TKA. Motor strength 5/5 bilaterally. Pain control excellent. APS will sign off, please page #[phone] with any questions. Figueroa Lomeli MD 06/11/2015, 8:38 Attestation statement: I saw and examined the patient with the resident/fellow. I agree with the findings and plan of care documented in the resident's/fellow's note. Rahul Prado DO 06/11/2015 9:05 * Williams Muller MD - 06/11/2015 0553 EST Orthopaedics Recon Progress Note Admit Date: 06/10/2015 Hospital LOS: 1 day Postoperative Day 1 Procedure: *Right And Left Total Knee Arthroplasty M17.0 Bilateral primary osteoarthritis of knee-M17.0[ICD-10-CM] [Keenan Horan MD] Subjective: No Acute Events. Doing well. Pain controlled. Denies fevers, chills, nausea, vomiting, chest pain, shortness of breath. Objective: Afebrile Patient Vitals for the past 8 hrs: BP Temp Temp src Resp SpO2 06/11/15 0100 128/57 mmHg 35.6 ??C (96.1 ??F) Tympanic 16 98 % 06/10/15 2210 107/55 mmHg 35.5 ??C (95.9 ??F) - 18 96 % Intake/Output Summary (Last 24 hours) at 06/11/15 0553 Last data filed at 06/10/15 1553 Gross per 24 hour Intake 2916.67 ml Output 975 ml Net 1941.67 ml Patient is alert and oriented times three. Dressing Clean/Dry/Intact 5/5 GS/TA/EHL/FHL muscle groups BLE LTSI DP/SP/SN/TN distributions BLE Feet WWP 2+ DP pulse Data Review No results for input(s): WBC, HCT, PLT, NA, K, CL, CO2, BUN, CREATININE, INR in the last 72 hours. No results for input(s): GLUCOSEFINGE in the last 72 hours. Assessment: Postoperative Day 1 s/p *Right And Left Total Knee Arthroplasty M17.0 Bilateral primary osteoarthritis of knee-M17.0[ICD-10-CM]. Stable overnight. On Pathway. 1. Bilateral knee pain 2. Bilateral primary osteoarthritis of knee Patient Active Problem List Diagnosis ??? Morbid obesity ??? Family history of DVT ??? Bilateral knee pain ??? Bilateral primary osteoarthritis of knee Plan: 1. 23 hr post-op antibiotics. Cefazolin 2. DVT ppx: Dalt-Xarelto SCD's while in bed. 3. Begin PT today 4. Weight Bearing: WBAT. 5. Precautions: knee immobilizers while nerve blocks working 6. D/C gomez catheter 7. Encourage PO intake 8. Dispo: Pending PT evaluation Morning Checklist: Hyponatremia (Na less than 133): AM labs pending Acute Blood Loss Anemia (2 pt drop in hemoglobin):AM labs pending Urinary retention: NA Acute renal faliure: AM labs pending Acute respiratory failure: none Acute heart failure: none BMI >40: No Body mass index is 38.02 kg/(m^2). Williams Muller MD 06/11/2015 5:53 Pager #: [phone] Cosigned by Keenan Horan MD at 06/11/2015 9:30 EST * Keenan Horan MD - 06/10/2015 7536 EST ATTENDING DAY OF SURGERY ROUNDS NOTE: ASSESSMENT: Uncomplicated early perioperative course following bilateral TKA. Post-operative x-ray reviewed: components in good position. PLAN: Multimodal pain managment protocol. Acute postop total joint care plan. Prophylactic antibiotic per protocol. Fall prevention protocol. PATIENT EDUCATION; Surgical details and post-op x-ray results reviewed with patient. Day of surgery total joint pathway goals reviewed. Questions answered to patient's verbalized satisfaction. CARE COORDINATION: Acute postop plan of care reviewed with house staff. Keenan Horan M.D. * Trudi Puckett RN - 06/03/2015 0930 EST Julio Monk has been instructed as follows regarding medication administration for the day of the scheduled procedure. Date of Surgery: 06/10/14 Instructions for Taking Medications Day of Surgery Medication Sig Last Dose Hold DOS Take DOS Aspirin 81 mg Tab Take 81 mg by mouth daily. Yes lisinopril (PRINIVIL, ZESTRIL) 20 mg tablet Take 10 mg by mouth daily. Yes per surgeon Multivitamins with Minerals tablet Take 1 Tab by mouth daily 06/03/15 naproxen sodium (ALEVE) 220 mg cap Take 2 Caps by mouth 2 times daily 06/03/15 rivaroxaban (XARELTO) 10 mg tablet tablet Take 1 Tab by mouth daily START 24 hours after last dose lovenox given in hospital Yes-post op documented in this encounter H&P Notes * Keenan Horan MD - 06/10/2015 0703 EST The preoperative history and physical which was performed within 30 days of this procedure has been reviewed and the clinically appropriate elements of the physical examination have been repeated. There are no changes to the documented history and physical or if so such changes are documented below. Patient Active Problem List Diagnosis ??? Morbid obesity ??? Family history of DVT ??? Bilateral knee pain ??? Bilateral primary osteoarthritis of knee Keenan Horan MD 06/10/2015 7:04 Source Note - DIETARY MANAGER, JIL 2 - 06/02/2015 11:33 EST documented in this encounter Consult Notes * Piter Pierce MD - 06/13/2015 0259 EST MEDICINE CONSULT ATTENDING NOTE Admit Date: 06/10/2015 Date of Service: 06/13/2015 REASON FOR CONSULT: AFIB, anemia CONSULT REQUESTED BY: Dr. Horan PRIMARY CARE PHYSICIAN: Dr. Nic Padilla HISTORY OF PRESENT ILLNESS: Patient is a 64 y.o. male with PMHx of obesity, FRANKO, HTN, borderline DM (A1C in 2012 6.1%, BGs up to 130's here), colon polyps, and OA s/p a bilateral TKR on 06/10/15 who early this morning developed new onset AFIB. Pt noted to have an elevated HR on masimo. He feels a little lightheaded but otherwise no different. He denies prior AFIB, as well as CP, SOB, N/V, or mental status change. PMHx/PSHx as above FHx notable for DVT SHx: lives in [place] with his . Prior tobacco use. Drinks one ETOH daily Medications: Reviewed in the medication list Allergies: Reviewed in the allergy list REVIEW OF SYSTEMS: A complete 10 point review of systems was performed and is otherwise negative. OBJECTIVE: Temp: [35.9 ??C (96.6 ??F)-36.2 ??C (97.2 ??F)] , Pulse: [127] , Resp: [16] , BP: (119-144)/(60-71), SpO2: [92 %-99 %] Exam: Stable appearing, pleasant, no distress Lungs CTA ant/lat Normal S1, S2, irregular Abdomen soft, NT with normal BS LE with minimal edema Alert and fully oriented Data Review Recent Labs 06/11/15 0636 06/12/15 0525 WBC 13.49* 10.53* HGB 12.0* 10.2* HCT 36.1* 30.0* PLT 166 132* Recent Labs 06/11/15 0636 06/12/15 0525 NA 134* 133* K 5.2* 5.1* CL 101 100 CO2 25 27 BUN 35* 31* CREATININE 1.23 0.97 ECG: rapid AFIB 130 IMPRESSION: 64 y.o. male with PMHx of obesity, FRANKO, HTN, borderline DM (A1C in 2012 6.1%, BGs up to 130's here), colon polyps, and OA s/p a bilateral TKR on 06/10/15 who early this morning developed new onset AFIB. While his Hgb is reasonable at 10.2, this is a fairly big drop from where he started and could be playing a role. However, his BP remains good in the 120-140 systolic range and his renal function isnormal. Other considerations include PE given his surgery and strong family history but he is on VTE prophylaxis with fragmin and rivaroxaban. His HR was initially quite high in the 130s but is now in the 80's. RECOMMENDATIONS: 1. Repeat EKG to assess for spontaneous conversion 2. Transfer to telemetry 3. If he remains in AFIB with RVR then would start diltiazem 60 mg q 6 hrs 4. Check TSH (ordered) 5. Follow CBC daily 6. Echocardiogram (ordered) 7. If he becomes hypoxic would consider a CT scan to r/o PE Totla time of 40 minutes spent in critical care for atrial fibrillation with RVR. Date of service 06/13/15. Dr. Mary Jimenez to see later today Piter Pierce MD 06/13/2015 2:59 Addendum: patient looks to have spontaneously converted back to NSR. Will still watch him on telemetry but hold the diltiazem. documented in this encounter OR Notes * OR Surgeon - Keenan Horan MD - 06/10/2015 1139 EST DATE OF SERVICE: 06/10/2015 PREOPERATIVE DIAGNOSIS: 1) Right knee tricompartmental osteoarthritis 2) Left knee tricompartmental osteoarthritis 3) Varus right and left knee deformity POSTOPERATIVE DIAGNOSIS: 1) Right knee tricompartmental osteoarthritis 2) Left knee tricompartmental osteoarthritis 3) Varus right and left knee deformity PROCEDURE: 1) Right total knee replacement (22785) VISION[employer] JOURNEY II BCS 2) Left total knee replacement (03006) VISIONAIRE JOURNEY II BCS SURGEON: Keenan Horan MD ASSISTANTS: SINA Calderon PA ANESTHESIA: Spinal with sedation and FNB INDICATIONS: Julio Monk is a 64 year old patient who presents for bilateral TKR to address refractory symptoms despite comprehensive medical management (including a Tylenol/NSAID therapeutic trial, a structured exercise regimen for 3 months, and the use of external support) with radiographic signs of knee arthropathy (including joint space narrowing, osteophytes, and subchondral sclerosis/cysts) The assistant tennis coach participated in majano and critical portions of the surgery. RIGHT KNEE FINDINGS: Synovium: modest non-proliferative synovial thickening Patellofemoral joint grade 4 Medial tibiofemoral grade 4 Lateral tibiofemoral grade 3 Bone defects: none LEFT KNEE FINDINGS: Synovium: modest non-proliferative synovial thickening Patellofemoral joint grade 4 Medial tibifoemoral grade 4 Lateral tibiofemoral grade 3 Bone defects: none COMPONENTS INSERTED: Femoral: Left size 6 [employer] JOURNEY II BCS Oxinium primary constrained, cemented Right size 6 [employer] JOURNEY II BCS Oxinium primary constrained, cemented Tibial insert: Left 11 mm BCS XLPE polyethylene insert, size 5-6 Right 11 mm BCS XLPE polyethylene insert, size 5-6 Tibial tray: Left size 5 [employer] JOURNEY II primary, cemented Right size 5 [employer] JOURNEY II primary, cemented Patella: Left 35 mm [employer] resurfacing all-poly patella, cemented Right 32 mm [employer] resurfacing all-poly patella, cemented PMMA: 2 bags Simplex P with Tobramycin for each knee SPECIMENS: none ESTIMATED BLOOD LOSS: 250 mL TOURNIQUET TIME: 54 minutes left and 59 minutes right at 250 mmHg. SPONGE, NEEDLE, INSTRUMENT COUNT: Correct x 2 for each knee. X-rays reviewed. DRAINS: No wound drains. Gomez catheter to closed bag drainage COMPLICATIONS: none identified NARRATIVE: After obtaining appropriate consent and completion of preoperative evaluation, the patient was seenin the preoperative hold area where the correct knee was identified and marked as the appropriate surgical site. Our informed consent understanding was reaffirmed and the patient's questions were solicited and answered. The patient was oriented to the planned sequence of events for the day. The patient was then escorted to the operating room, where after completion of the preprocedure briefing, the patient was administered the selected anesthetic, a gomez catheter was placed, a cycling IPC boot was placed on the non-operative leg for VTE prophylaxis and the operative leg was scrubbed,prepped and draped in the usual sterile fashion. The selected prophylactic antibiotic was administered within 30 minutes of skin incision. Tranexamic acid 1 gram IV was given at start of the case andone gram IV given at the end of the case as part of our routine multimodal blood conservation program. EUA: Right knee extension 5 degrees , flexion 110 degrees Right knee varus deformity was passively correctable. Left knee extension 10 degrees , flexion 115 degrees Left knee varus deformity was passively correctable. Preoperative time-out and sign your site protocols were complied with. After esmarch exsanguination, a padded proximal thigh tourniquet was inflated to 250 mmHg. Through a midline longitudinal incision and a medial parapatellar arthrotomy with a triradian split, the left knee was exposed, documenting the arthropathy as noted above. In stepwise fashion, using the [employer] PSI femoral alignment/cutting block, the left femur was prepared by making the distal femoral cut first with an oscillating saw. An additional 0 mm were removed to position the distal cut at the optimal level to balance the knee. The femoral 5 in 1 cutting block was then positioned to place the anterior cut flush with the anterior cut of the femur. The planned anterior resection was checked with the ashley wing to prevent notching. The five femoral cuts were made sequentially with the oscillating saw and compared to the pre-op plan resections. The anterior cut was flush with the anterior cortex with the appropriate grand piano shape confirmed. Any remaining marginal osteophytes were then removed. The left tibia was then prepared with the [employer] PSI tibial alignment/cutting block and verified with outrigger/drop jacek technique. The proximal tibial cut was performed with an oscillating saw and with deep retractors protecting the collateral ligaments and popliteus at all times. The tibial cut thickness was confirmed to be a match with the pre-op plan. Residual meniscal tissue and bone were removed from the tibia and residual posterior femoral osteophytes were resected using the osteotome, curette and rongeur sequence. The soft tissues were assessed with laminar sap business objects consultant verification. A stage 1 release was performed to balance the knee in the coronal plane on the medial side. The posterior capsule was released medially to balance the knee in the sagittal plane and then was infiltrated with the prepared local anesthetic solution. A trial tibial tray was inserted and a 11 mm trial poly placed. The knee passive ROM (with the patella reduced and capsulotomy approximated) was neutral extension and gravity hang flexion of 130 degrees. No A/P instability detected. The knee was balanced in the sagittal and coronal planes. The left patella was prepared for a 35 mm diameter all-polyethylene resurfacing patellar construct reconstituting 24 mm thickness. Tibial baseplate size, position and rotation were determined using standard three step verification technique (coverage, matching femur and medial border of tibial tuberosity). Trials were removed, the bone ends were prepared with pulsating lavage, drilling and Carbojet debridement, while a double batch of Simplex P cement with tobramycin was prepared under vacuum-mixing conditions. Thereafter, the proximal tibial cut surface was coated with cement, using pressurization with the cement gun, the tibial component impacted and the excess cement debrided. Similarily, the femoral cut surfaces were coated with cement, pressurized with cement gun and the femoral component was impacted with excess cement debrided. Each bone cement interface was pressurized with the goal of approximately 3 - 5 mm cement intrusion. Finally, the patellar cut surface was coated with cement, pressurized with the cement gun and the all-polyethylene resurfacing patella engaged and held in place with a clamp while debriding the excess cement. The selected 11 mm thickness BCS articular insert was engaged in a single attempt with solid capture. The cement was hard at 14 minutes and the tourniquet was released. Hemostasis was obtained with electrocautery. The left knee soft tissues and component surfaces were irrigated with 3000 mL of irrigation fluid and the soft tissues (including arthrotomy site and ligamentous origins and insertions) were infiltrated with the prepared local anesthetic solution. The wound was closed in layers of #1 PDS suture forarthrotomy, 2-0 Monocryl for subcutaneous layers and surgical clips with sealant for skin. After conferring with anesthesia, then the decision was made to proceed with the right knee. Gloves, bovie tip and suction were changed. After esmarch exsanguination, a padded proximal thigh tourniquet was inflated to 260 mmHg. Through a midline longitudinal incision and a medial parapatellar arthrotomy with a triradian split, the right knee was exposed, documenting the arthropathy as noted above. The tourniquet was released after completion of the approach. In stepwise fashion, using the [employer] PSI femoral alignment/cutting block, the right femur was prepared by making the distal femoral cut first with an oscillating saw. An additional 0 mm were removed to position the distal cut at the optimal level to balance the knee. The femoral 5 in 1 cutting block was then positioned to place the anterior cut flush with the anterior cut of the femur. The planned anterior resection was checked with the ashley wing to prevent notching. The five femoral cuts were made sequentially with the oscillating saw and compared to the pre-op plan resections. The anterior cut was flush with the anterior cortex with the appropriate grand piano shape confirmed. Any remaining marginal osteophytes were then removed. The right tibia was then prepared with the VISION[employer]RE PSI tibial alignment/cutting block and verified with outrigger/drop jacek technique. The proximal tibial cut was performed with an oscillating saw and with deep retractors protecting the collateral ligaments and popliteus at all times. The tibial cut thickness was confirmed to be a match with the pre-op plan. Residual meniscal tissue and bone were removed from the tibia and residual posterior femoral osteophytes were resected using the osteotome, curette and rongeur sequence. The soft tissues were assessed with laminar sap business objects consultant verification. A stage 1 release was performed to balance the knee in the coronal plane on the medial side. The posterior capsule was released medially to balance the knee in the sagittal plane and then was infiltrated with the prepared local anesthetic solution. A trial tibial tray was inserted and a 11 mm trial poly placed. The knee passive ROM (with the patella reduced and capsulotomy approximated) was neutral extension and gravity hang flexion of 130 degrees. No A/P instability detected. The knee was balanced in the sagittal and coronal planes. The patella was prepared for a 35 mm diameter all-polyethylene resurfacing patellar construct reconstituting 24 mm thickness. Tibial baseplate size, position and rotation were determined using standard three step verification technique (coverage, matching femur and medial border of tibial tuberosity). Trials were removed, the bone ends were prepared with pulsating lavage, drilling and Carbojet debridement, while a double batch of Simplex P cement with tobramycin was prepared under vacuum-mixing conditions. Thereafter, the proximal tibial cut surface was coated with cement, using pressurization with the cement gun, the tibial component impacted and the excess cement debrided. Similarily, the femoral cut surfaces were coated with cement, pressurized with cement gun and the femoral component was impacted with excess cement debrided. Each bone cement interface was pressurized with the goal of approximately 3 - 5 mm cement intrusion. Finally, the patellar cut surface was coated with cement, pressurized with the cement gun and the all-polyethylene resurfacing patella engaged and held in place with a clamp while debriding the excess cement. The selected 11 mm thickness BCS articular insert was engaged in a single attempt with solid capture. The cement was hard at 14 minutes and the tourniquet was released. Hemostasis was obtained with electrocautery. The right knee soft tissues and component surfaces were irrigated with 3000 mL of irrigation fluid and the soft tissues (including arthrotomy site and ligamentous origins and insertions) were infiltrated with the prepared local anesthetic solution. The wound was closed in layers of #1 PDS suture for arthrotomy, 2-0 Monocryl for subcutaneous layers and surgical clips with sealant for skin. Post-procedure debrief was initiated by the attending surgeon and completed as a team. DISPOSITION: The patient was discharged to the recovery room after uncomplicated emergence from anesthesia with a plan for postoperative femoral nerve catheter. REHABILITATION PLAN: Weight bearing to tolerance with total knee clinical pathway. Temporary total disability 6 weeks, followed by temporary partial disability 6 weeks. VTE PROPHYLAXIS: Mechanical compression bilateral lower extremities. Risk Stratification for DVT Prophylaxis Moderate risk and standard or high risk for bleeding, therefore --Fragmen to Xarelto ANTIBIOTIC PROPHYLAXIS: Cefazolin one gram IV every 8 hours X 23 hours, then discontinue. documented in this encounter Miscellaneous Notes * Plan of Care - Tali Tapia RN - 06/14/2015 1017 EST Problem: Daily Care Plan Goals Goal: Care Plan Documentation Outcome: Completed Date Met: 06/14/15 D: Discharge order in chart. A: Report called to [facility]. Tele and piv dc'haley. R: Transferred to [facility] at 0915. * Plan of Care - Tali Tapia RN - 06/13/2015 1235 EST Problem: Daily Care Plan Goals Goal: Care Plan Documentation Outcome: Ongoing D: Pt POD #3 bilateral KR, alert and oriented,BP 121/95 mmHg Pulse 87 Temp(Src) 38.1 ??C (100.6??F) (Tympanic) Resp 18 SpO2 96% on r/a. Reports 3- 5/10 bilateral knee pain. OOB with PT.Cryo/cuffs on bilaterally, family in to visit. No BM yet, passing flatus. A: Medicated with tylenol/tramadol alternating with oxycodone, encouraging inspirometer. Bowel medsas ordered, prune juice. Tele shows sinus rhythm, rate 70s. R: Continuing to monitor. * Plan of Care - Yumiko Kilpatrick RN - 06/13/2015 0416 EST Problem: Daily Care Plan Goals Goal: Care Plan Documentation Outcome: Ongoing 06/13/15 0414 Care Plan Focus Area of Focus Circulatory Status Goal This Shift monitor on telem D: Pt arrived from [place] where he had episode of elevated HR and was found to be in [facility]. Per reportof [place] 3 RN, pt then spontaneously returned to [facility]. Pt transferred to for tele monitoring. Pt is POD #3 for bilateral TKR. Cryocuffs on both knees, SCDs in place. Pt denies pain, SOB or nausea. A: VS recorded. Pt acquainted with tele box and monitoring. R: Verbalizes understanding. Call light in reach. Monitor on telem for rhythm changes. * Plan of Care - Aimee Garcia RN - 06/13/2015 3335 EST Problem: Daily Care Plan Goals Goal: Care Plan Documentation Data: Assumed care of patient at 2330. POD#3 s/p bilateral knee replacements. HR alarming on Héctor continuous pulse oximeter monitoring around 1:00 am. HR in the 130s. Action: HR irregularity and rate confirmed with auscultation and STAT EKG. BP stable and patient asymptomatic except for some dizziness. MD notified and to bedside for evaluation. At approximately 0300 pt spontaneously converted to NSR in the 80s. CATS present with bedside monitoring and repeat EKGtaken for confirmation. MD wishes to continue with transfer in order to have cardiac monitoring. Response: Patient verbalized understanding of plan of care. Report called to Yumiko on M5. Pt transferred off the unit at 0345. AIMEE Garcia RN 06/13/2015 3:48 * Plan of Care - Dejah Fuller - 06/12/2015 1939 EST Problem: Daily Care Plan Goals Goal: Care Plan Documentation Outcome: Met This Shift 06/12/15 1546 Care Plan Focus Area of Focus Mobility BP 119/61 mmHg Temp(Src) 36.2 ??C (97.2 ??F) (Tympanic) Resp 16 Ht 177.8 cm (70) Wt 120.203 kg (265 lb) BMI 38.02 kg/m2 SpO2 93% Data: Patient POD#2 for BLTK. Patient reports he has not had BM since 06/09/15. Action: Assisted patient to chair (2 assist), patient ordered dinner. Encouraged patient to take all BMs meds this evening. Response: Patient BTB, family at bedside, call light within reach. Dejah Fuller RN 06/12/2015 19:36 * Plan of Care - Nadia Sandoval RN - 06/12/2015 0334 EST Problem: Daily Care Plan Goals Goal: Care Plan Documentation Outcome: Met This Shift 06/12/15 0006 Care Plan Focus Area of Focus Pain/ Comfort Goal This Shift will have tolerable pain level Data: Patient c/o pain in knees, BP 128/85 mmHg Temp(Src) 36 ??C (96.8 ??F) (Tympanic) Resp 16 Ht 177.8 cm (70) Wt 120.203 kg (265 lb) BMI 38.02 kg/m2 SpO2 90%. Patient tolerating fluids, denies nausea, dressings CDI to knees, cryo cuffs in place, voiding qs. Action: Patient medicated as per WHIT, cryo cuffs refreshed. Response: Patient has slept, w/o further c/o, will continue to monitor and intervene to maintain comfortable pain level. Nadia Sandoval RN 06/12/2015 3:24 * Plan of Care - Snehal Mcpherson RN - 06/11/2015 2335 EST Problem: Daily Care Plan Goals Goal: Care Plan Documentation Outcome: Met This Shift 06/11/15 2044 Care Plan Focus Area of Focus Pain/ Comfort Goal This Shift tolerable pain Data: Bilat knee pain 09/13. Action: Medicated with oxy. Response: Pt reported relief from pain, feeling comfortable. SNEHAL MCPHERSON RN 06/11/2015 23:34 * Plan of Care - Sandra Alvarez RN - 06/11/2015 1833 EST Problem: Daily Care Plan Goals Goal: Care Plan Documentation Outcome: Met This Shift 06/11/15 1548 Care Plan Focus Area of Focus GI//Elimination Goal This Shift Pt will void by end of shift Data: Pt DTV at 1200. Bladder scanned for 440 mL at beginning of this RN shift. Order to replace Gomez catheter for volume over 500mL Action: Encouraged pt to increase PO intake. IVF infusing at 100mL/hr. Response: Pt able to void 200mL in urinal. Will continue to monitor. Call goetz within reach. Sandra Alvarez RN 06/11/2015 18:31 * Plan of Care - Danica Walker RN - 06/11/2015 1344 EST Problem: Bowel/Gastric: Goal: Gastrointestinal status for postoperative course will improve Data: Pt states,I'm starting to have some acid reflux. Pt alert and oriented x3. Rotund abdomen with hyoactive BS and no flatus this shift. Tolerated regular diet and ate breakfast and c/o decreased appetite at lunch. Pt encouraged to hold on eating lunch. Denies nausea but now c/o some acid reflux. Tolerating clears liquids well and DTV since gomez removed this morning. Bladder scan 274ml. Action: Adriana Cadet COAT CHECKER updated and plan to restart IV fluids. See MAR. Diet changed to clear liquids and reviewed with pt. Tums available if needed for reflux and pt aware. Response: Cont to monitor. Danica Walker RN 06/11/2015 13:40 * Plan of Care - Danica Walker RN - 06/11/2015 1339 EST Problem: Daily Care Plan Goals Goal: Care Plan Documentation Outcome: Met This Shift 06/11/15 0810 Care Plan Focus Area of Focus Pain/ Comfort Goal This Shift maintain pain at tolerable level * Anesthesia Post-Eval - Sung Lewis - 06/11/2015 0919 EST Post Anesthesia Evaluation Note Date of Service: 06/11/2015 Julio Monk, a 64 y.o. year old male has received Regional Anesthetic He has been evaluated, assessed and discharged from anesthesia care with stable cardiorespiratory function and alert mental status. The last set of recorded vital signs and pain rating were reviewed: ,Numeric Pain Level (Scale 1-10): 3 Julio Monk participated in this evaluation unless otherwise noted. His pain, nausea and vomiting have been managed and his body temperature and fluid balance have been restored. Additional monitoring and assessment needs have been addressed. If present, any postoperative events are documented below. If the regional block for postoperative analgesia was intended to last greater than 48 hours, Julio Monk will be followed by the Acute Pain Service. Sung Lewis 06/11/2015 9:19 * Plan of Care - Vicky Willams RN - 06/11/2015 0315 EST Problem: Daily Care Plan Goals Goal: Care Plan Documentation Outcome: Ongoing 06/10/15 2140 Care Plan Focus Area of Focus Pain/ Comfort Goal This Shift promote rest Data: Patient s/p bilateral TKA. Patient rating pain 2-3/10 at the start of shift. Action: Medicated patient with scheduled pain medications per AUG. Refilled cryo cuffs as needed. Assisted with repositioning for comfort as requested. Clustered care to promote rest. Discussed pain control at start of shift, and educated patient on importance of requesting medication prior to the pain becoming severe, and available prn medications. Response: Patient sleeping comfortably at this time, call goetz within reach. Will continue to monitor, and intervene as necessary. Vicky Willams RN 06/11/2015 3:10 * Plan of Care - Raya Campos RN - 06/10/2015 1856 EST Problem: Daily Care Plan Goals Goal: Care Plan Documentation Outcome: Met This Shift 06/10/15 1539 Care Plan Focus Area of Focus Education Goal This Shift Education provided on room/unit Data: Pt admitted from PACU ~1545. BP 128/59 mmHg Temp(Src) 35.7 ??C (96.3 ??F) (Tympanic) Resp18 Ht 177.8 cm (70) Wt 120.203 kg (265 lb) BMI 38.02 kg/m2 SpO2 99%. Rating pain 4/10 on numeric scale. Dressing to Aman lower extremities c/d/i. Cryo cuffs intact. Gomez draining clear, yellow urine. IVF running. Bowel sounds active and pt denies n/v/sob. CSMT's intact. Action: Education provided on orientation of room/unit. Instructed pt how to use call goetz, bed controls, telephone, and how to order from room service menu. Repositioned pt for comfort. Response: Pt expressed understanding of room/unit. Resting comfortably in bed with call goetz in reach. Will monitor. Raya Campos RN 06/10/2015 18:53 * Anesthesia Post-Eval - Reba Dykes - 06/10/2015 1527 EST Post Anesthesia Evaluation Note Date of Service: 06/10/2015 Julio Monk, a 64 y.o. year old male has received Regional Anesthetic He has been evaluated, assessed and discharged from anesthesia care with stable cardiorespiratory function and alert mental status. The last set of recorded vital signs and pain rating were reviewed: Temp: 36.3 ??C (97.3 ??F) (06/10/15 143), Heart Rate: 85 BPM (06/10/15 143), BP: (!) 114/92 mmHg (06/10/15 143), Resp: 18 (06/10/151429), SpO2: 99 % (06/10/151429),Numeric Pain Level (Scale 1-10): 4 Julio Monk participated in this evaluation unless otherwise noted. His pain, nausea and vomiting have been managed and his body temperature and fluid balance have been restored. Additional monitoring and assessment needs have been addressed. If present, any postoperative events are documented below. If the regional block for postoperative analgesia was intended to last greater than 48 hours, Julio Monk will be followed by the Acute Pain Service. Reba Dykes MD 06/10/2015 15:27 * Brief Op Note - Heather Pimentel PA - 06/10/2015 0746 EST BRIEF OP NOTE Surgeon: Keenan Horan MD Assistants: SINA Tinsley Pre op Diagnosis/Indications: Bilateral primary osteoarthritis of knee Post op Diagnosis: Same Procedure: *Right And Left Total Knee Arthroplasty M17.0 Bilateral primary osteoarthritis of knee-M17.0[ICD-10-CM] , 06/10/2015 Anesthesia: Spinal Findings: Please see dictated note. Fluids: Blood loss: 400 ml; IV fluids: 1700 ml lactated ringers; Urine output: 350 ml Specimens sent: None Cultures sent: None Tourniquet time: 54 minutes left, 59 minutes right Complications: None Condition: Stable Disposition: Pacu Cosigned by Keenan Horan MD at 06/10/2015 11:47 EST * Plan of Care - Sung Umana MD - 06/01/2015 1046 EST Pre-operative evaluation for Total Knee Arthoplasty The following is a list of known issues and planned treatments for this patient and does not constitute a complete medical history or medical evaluation. This data is gathered from a chart review. Diagnosis: Bilateral Knee Osteoarthritis Planned Procedure: Bilateral Total Knee Arthroplasty [Keenan Horan MD] HPI: 64 y.o. male. Obesity, HTN, FRANKO (cpap) Bilateral aching knee pain Constant, +night, no radiation Worse with activity, stairs and walking Uses aleve bid with little relief, has been bridging his pain with synvisc and now cortisone injections for years with symptomatic relief with injections spanning only 4-6 weeks at a time Past Medical History Diagnosis Date ??? Hypertension ??? Colon polyp Patient Active Problem List Diagnosis Date Noted ??? Family history of DVT 04/08/2015 Brother age 53, DVT following shoulder surgery Father, age late 70s in setting of cardiac disease Mother, late 70s, early 80s ??? Morbid obesity 08/10/2012 Past Surgical History Procedure Laterality Date ??? Cervical disc arthroplasty ??? Tonsillectomy ??? Knee arthroscopy left Medical Risk Factors ?? Age: 64 y.o. (if >80 years) ?? BMI: There is no weight on file to calculate BMI. (if >30) ?? Diabetes: No Lab Results Component Value Date HGBA1C 6.1 09/11/2012 ? Malnutrition: No ?? Anemia: No Lab Results Component Value Date WBC 14.06* 09/11/2012 HGB 17.0 09/11/2012 HCT 50.8* 09/11/2012 MCV 91 09/11/2012 PLT 156 09/11/2012 ?? Cardiac disease: No ?? Pulmonary disease: Yes ?? Pneumonia (last 12 months): No ?? Obstructive sleep apnea: Yes ?? Bleeding disorder: No ?? Venous thromboembolism: No (Family history of DVTs in multiple people) ?? Heterotopic ossification risk factors: No ?? Renal disease: No Lab Results Component Value Date CREATININE 1.01 09/11/2012 No results found for: NA, K, KEXT, CL, CLEXT, CO2, CO2EXT ?? Genitourinary disease: No ?? Dementia: No ?? Delirium: No ?? Narcotic sensitivity: No Calculation of the Charlson Comorbidity Index (* near all positive findings) Score for each condition 1 Myocardial infarct 1 Congestive heart failure 1 Peripheral vascular disease 1 Cerebrovascular disease 1 Dementia 1 Chronic pulmonary disease 1 Connective tissue disease 1 Ulcer disease 1 Mild liver disease 1 Diabetes 2 Hemiplegia 2 Moderate or severe renal disease 2 Diabetes with end organ damage 2 Any tumor 2 Leukemia 2 Lymphoma 3 Moderate or severe liver disease 6 Metastatic solid tumor 6 Acquired immunodeficiency syndrome Charlson Comorbidity Index (CCI): 0 Allergies: No Known Allergies Nasal Swab: not done Pain control pre-op protocol: tylenol 1000 mg PO, lyrica 75 mg PO, oxycontin 10 mg PO, dexamethasone 8 mg IV Post-op pain control:tylenol 650 mg q6h, naproxen 500 mg BID, , oxycodone PO PRN, Gabapentin 600 TID Perioperative antibiotics: Ancef pending swab results Perioperative tranexamic acid: Yes TOPICAL (given family history) Postoperative DVT prophylaxis: Dr Horan would prefer Dalteparin (instead of the heparin recommended by Maritza) while patient is in house and Xarelto upon discharge. Hematology Recs 1. Thromboprophylaxis recommendations for bilateral TKAs with Dr Keenan Horan on 06/10/2015: ?? a.?? Please check baseline PT,PTT, CBC prior to surgery ?? b. Recommend Venodynes while inpatient. ?? c.?? 10 to 12 hours postop, administer Lovenox 40 mg subcu x1. Continue q.24 hours while inpatient. ?? d.?? Day of hospital discharge, patient will switch to Xarelto 10 mg p.o. once daily. Prior authorization will be handled by our clinic and outpatient prescription sent to patient's local pharmacyfor pickup prior to surgery. Pre-op H&P complete?: No Hospitalist consult needed: No Other consults: None Discharge plan: Home vs. Rehab. TBD. Special needs or concerns not already mentioned:None Sung Umana MD 06/01/2015, 10:47 documented in this encounter Plan of Treatment Scheduled Referrals Name Type Priority Associated Diagnoses Order Schedule PROVIDER FOLLOW-UP INSTRUCTIONS Outpatient Referral Routine Ordered: 06/14/2015 PROVIDER FOLLOW-UP INSTRUCTIONS Outpatient Referral Routine Ordered: 06/14/2015 documented as of this encounter Procedures Procedure Name Priority Date/Time Associated Diagnosis Comments ECG REPORT - SCANNED 06/23/2015 10:07 EST ECG REPORT - SCANNED 06/23/2015 10:07 EST ECG REPORT - SCANNED 06/23/2015 9:57 EST ECG REPORT - SCANNED 06/20/2015 14:17 EST GLUCOSE, GLUCOMETER Routine 06/14/2015 7 :30 EST COMPLETE BLOOD COUNT Routine 06/14/2015 6:05 EST BUN Routine 06/14/2015 6:05 EST CREATININE Routine 06/14/2015 6:05 EST ELECTROLYTES Routine 06/14/2015 6:05 EST GLUCOSE, GLUCOMETER Routine 06/13/2015 1 1:26 EST ECHOCARDIOGRAM Routine 06/13/2015 11:11 EST GLUCOSE, GLUCOMETER Routine 06/13/2015 7 :17 EST COMPLETE BLOOD COUNT Routine 06/13/2015 5:20 EST BUN Routine 06/13/2015 5:20 EST TSH Routine 06/13/2015 5:20 EST CREATININE Routine 06/13/2015 5:20 EST ELECTROLYTES Routine 06/13/2015 5:20 EST EKG 12-LEAD STAT 06/13/2015 3:30 EST EKG 12-LEAD STAT 06/13/2015 2:32 EST IMPLANT RECORD - SCANNED 06/12/2015 9:45 EST GLUCOSE, GLUCOMETER Routine 06/12/2015 5 :36 EST COMPLETE BLOOD COUNT Routine 06/12/2015 5:25 EST BUN Routine 06/12/2015 5:25 EST CREATININE Routine 06/12/2015 5:25 EST ELECTROLYTES Routine 06/12/2015 5:25 EST SCREENING GLUCOSE Routine 06/11/2015 6:3 6 EST COMPLETE BLOOD COUNT Routine 06/11/2015 6:36 EST BUN Routine 06/11/2015 6:36 EST CREATININE Routine 06/11/2015 6:36 EST ELECTROLYTES Routine 06/11/2015 6:36 EST GLUCOSE, GLUCOMETER Routine 06/11/2015 6 :10 EST ANESTHESIA NERVE BLOCK FEMORAL Routine 06/10/2015 12:15 EST ANESTHESIA NERVE BLOCK FEMORAL Routine 06/10/2015 12:15 EST KNEE 1 OR 2 VIEWS Routine 06/10/2015 11: 44 EST KNEE 1 OR 2 VIEWS Routine 06/10/2015 11: 43 EST ORDERS - SCANNED 06/04/2015 11:2 4 EST ECG REPORT - SCANNED 06/02/2015 11:33 EST documented in this encounter Results * ECG REPORT - SCANNED (06/23/2015 10:07 EST) 06/23/2015 10:0 7 EST us Scan 2 [employer] Intern PROCEDURE/MINOR SURGICAL OR DERABLES Final Result * ECG REPORT - SCANNED (06/23/2015 10:07 EST) 06/23/2015 10:0 7 EST us Scan 2 [employer] Intern PROCEDURE/MINOR SURGICAL OR DERABLES Final Result * ECG REPORT - SCANNED (06/23/2015 9:57 EST) 06/23/2015 9:57 EST us Scan 2 [employer] Intern PROCEDURE/MINOR SURGICAL OR DERABLES Final Result * ECG REPORT - SCANNED (06/20/2015 14:17 EST) 06/20/2015 14:1 7 EST us Scan 2 [employer] Intern PROCEDURE/MINOR SURGICAL OR DERABLES Final Result * GLUCOSE, GLUCOMETER (06/14/2015 7:30 EST) Glucose, Fingerstick 96 70 - 100 mg/dl 06/14/2015 7:46 [facility] Rivet Passer ID [id number] 06/14/2015 7:46 EST [facility] Comment:Test Performed by [facility] BLOOD SPECIMEN / Unknown 06/14/2015 7:30 EST 06/14/2015 7:46 EST us Keenan Horan MD CHEMISTRY & BLOOD GAS ORDERABLES Final Result [facility] [address] [place] [address] * (ABNORMAL) HEMAGRAM (06/14/2015 6:05 EST) WBC 8.49 4.0 - 10.4 K/cmm 06/14/2015 6:32 EST [facility] RBC 3.27(L) 4.36 - 5.78 M/cmm 06/14/2015 6:32 [facility] Hemoglobin 10.0(L) 13.8 - 17.3 gm/dl 06/14/2015 6:32 [facility] HCT 29.4(L) 39.5 - 50.2 % 06/14/2015 6:32 [facility] MCV 90 81 - 95 fl 06/14/2015 6:32 [facility] MCH 30.5 27.6 - 33.0 pg 06/14/2015 6:32 [facility] MCHC 34.0 32.8 - 36.4 gm/dl 06/14/2015 6:32 [facility] RDW-CV 12.5 11.8 - 14.1 % 06/14/2015 6:32 [facility] RDW-SD 39.4 36.5 - 45.9 fl 06/14/2015 6:32 [facility] PLT 183 141 - 320 K/cmm 06/14/2015 6:32 [facility] MPV 9.2 7.5 - 11.2 fl 06/14/2015 6:32 [facility] Blood specimen (specimen) BLOOD SPECIMEN / Unknown 06/14/2015 6:05 EST 06/14/2015 6:19 EST Heather Pimentel PA-C HEMATOLOGY & PF4 ORDERABL ES Final Result [facility] [address] [place] [address] * CREATININE (06/14/2015 6:05 EST) Creatinine 0.71 0.66 - 1.25 mg/dl 06/14/2015 6:47 [facility] GFR, Calculated 98 >60 ml/min/1.7 3m2 06/14/2015 6:47 [facility] Comment: eGFR calculated using CKD-EPI equation for non Americans. Multiply eGFR by 1.16 for Americans. Blood specimen (specimen) BLOOD SPECIMEN / Unknown 06/14/2015 6:05 EST 06/14/2015 6:19 EST us Heather Pimentel PA-C CHEMISTRY & BLOOD GAS ORD ERABLES Final Result Performing Organization Address City/[facility]/ZIP Co de Phone Number [facility] [address] [place] [address] * BUN (06/14/2015 6:05 EST) BUN 16 10 - 26 mg/dl 06/14/2015 6:47 EST [facility] Blood specimen (specimen) BLOOD SPECIMEN / Unknown 06/14/2015 6:05 EST 06/14/2015 6:19 EST Heather Pimentel PA-C CHEMISTRY & BLOOD GAS ORD ERABLES Final Result Performing Organization Address [facility] Co de Phone Number [facility] [address] [place] [address] * ELECTROLYTES (06/14/2015 6:05 EST) Pathologist [facility] Sodium 137 136 - 145 mEq/L 06/14/2015 6:47 [facility] Potassium 4.1 3.5 - 5.0 mEq/L 06/14/2015 6:47 [facility] Chloride 100 96 - 110 mEq/L 06/14/2015 6:47 [facility] CO2 28 24 - 32 mEq/L 06/14/2015 6:47 [facility] Blood specimen (specimen) BLOOD SPECIMEN / Unknown 06/14/2015 6:05 EST 06/14/2015 6:19 EST Heather Pimentel PA-C CHEMISTRY & BLOOD GAS ORD ERABLES Final Result Performing Organization Address City/[facility]/ZIP Co de Phone Number [facility] [address] [place] [address] * (ABNORMAL) GLUCOSE, GLUCOMETER (06/13/2015 11:26 EST) Glucose, Fingerstick 102(H) 70 - 100 mg/dl 06/13/2015 11:39 [facility] Rivet Passer ID [id number] 06/13/2015 11:39 [facility] Comment:Test Performed by [facility] BLOOD SPECIMEN / Unknown 06/13/2015 11:26 EST 06/13/2015 11:39 EST Keenan Horan MD CHEMISTRY & BLOOD GAS ORDERABLES Final Result [facility] [address] [place] [address] * ECHOCARDIOGRAM (06/13/2015 11:11 EST) Anatomical Region Laterality Modality Other 06/13/2015 11:1 1 EST Narrative 06/13/2015 11:40 EST *Interpreting Group:* *[facility]* [address] [place] [address] ?? Date of study: 06/13/2015 ?? Transthoracic Echocardiography M-mode, complete 2D, complete spectral Doppler, color Doppler, and IV contrast *STUDY CONCLUSIONS* Summary: 1. Left ventricle: The cavity size was normal. Wall thickness was normal. ?? Systolic function was normal. The estimated ejection fraction was 55-60%. ?? Wall motion was normal; there were no regional wall motion abnormalities. ?? Doppler parameters are consistent with abnormal left ventricular relaxation ?? (grade 1 diastolic dysfunction). There was no evidence of elevated ?? ventricular filling pressure by Doppler parameters. 2. Right ventricle: The cavity size was at the upper limits of normal. Systolic ?? function was normal. 3. Left atrium: The atrium was mildly to moderately dilated. *PATIENT PRESENTATION* Height: ? 177.8cm (70in ) S/D Pressure: 115 / 52 Weight: ? 120.2kg (264.4lb ) BSA: ?2.49m^2 Test start time: ??10:27 AM. Test stop time: ??11:06 AM. ORDERING ? Piter Pierce REFERRING ?Nic Padilla ADMITTING ?Keenan Horan ATTENDING ?Keenan Horan FELLOW ? Mala Miles HOUSEHOLD REFRIGERATOR MECHANIC ??Yamini Meneses PERFORMING ?? [facility], *PROCEDURE DATA* Procedure information: ??This study was interpreted by [facility]. Pertinent images and digital data are archived for permanent storage and are available for subsequent review. ??Study status: Routine. Transthoracic echocardiography. ??M-mode, complete 2D, complete spectral Doppler, color Doppler, and intravenous contrast injection. A Transthoracic Echocardiogram was performed. Scanning was performed from the parasternal, apical, subcostal, and suprasternal notch acoustic windows. Images were obtained using a Love IE33 6 cardiac ultrasound machine. Image quality was suboptimal. The study was technically limited due to body habitus. 2ml of Intravenous contrast (Definity) was administered by Yamini Meneses [facility] to enhance delineation of left ventricular endocardial borders. Prior to administration at least two (2) contiguous segments of the left ventricular border were not visualized. A total of 1 vial(s) of Definity was used. ??Study completion: ??The patient tolerated the procedure well. There were no complications. *INDICATIONS AND HISTORY* Indications: ?? Atrial Fibrillation I48.91, known, pre-procedure. *CARDIAC ANATOMY* Left ventricle: ??The cavity size was normal. Wall thickness was normal. Systolic function was normal. The estimated ejection fraction was 55-60%. Wall motion was normal; there were no regional wall motion abnormalities. Doppler parameters are consistent with abnormal left ventricular relaxation (grade 1 diastolic dysfunction). There was no evidence of elevated ventricular filling pressure by Doppler parameters. Aortic valve: ?? Probably trileaflet; mildly thickened leaflets. Mobility was not restricted. ??Doppler: ??Transvalvular velocity was within the normal range. There was no stenosis. ??No regurgitation. Aorta: ??Aortic root: The aortic root was normal in size. Ascending aorta: The ascending aorta was normal in size. Mitral valve: ?? Mildly thickened leaflets. Mobility was not restricted. Doppler: ??Transvalvular velocity was within the normal range. There was no evidence for stenosis. ??No regurgitation. Left atrium: ??The atrium was mildly to moderately dilated. Right ventricle: ??The cavity size was at the upper limits of normal. Systolic function was normal. Pulmonic valve: ?? Poorly visualized. ??Doppler: ??Transvalvular velocity was within the normal range. There was no evidence for stenosis. ??No regurgitation. Tricuspid valve: ?? Structurally normal valve. ?Doppler: ??Transvalvular velocity was within the normal range. There was no evidence for stenosis. Trivial regurgitation. Pulmonary artery: ?? Poorly visualized. ??Systolic pressure could not be accurately estimated. Right atrium: ??The atrium was normal in size. Pericardium: ??There was no pericardial effusion. Systemic veins: Inferior vena cava: Poorly visualized. *MEASUREMENT TABLES* 2D measurements ? Normal Aorta Root diameter, ED ? 31 mm ? ------- Ascending aorta anterior-posterior diameter, S ?25 mm ? ------- Left atrium Anterior-posterior dimension ?47 mm ? ------- Anterior-posterior dimension index ?1.89 cm/m^2 <2.2 Superior-inferior dimension, A4C ?47 mm ? 29-53 ?? M-mode measurements ? Normal Left ventricle LV internal dimension, ED ?*62 mm ? 37-56 LV internal dimension, ES ? 39 mm ? ------- Fractional shortening ? 37 % ?29- 45 LV posterior wall, ED ?*13 mm ? 6-11 Septal/posterior wall ratio, ED ?1 ?------- Relative wall thickness, ED ?0.4 ?<0.45 Volume, ED, Teichholz ?194 ml ? ------- Volume, ES, Teichholz ? 65.9 ml ? ------- Ejection fraction, Teichholz ?66 % ?64-83 Volume index, ED, Teichholz ? 78 ml/m^2 ------- Volume index, ES, Teichholz ? 27 ml/m^2 ------- Wall mass ?369.3 g ?------- Wall mass index ?148.6 g/m^2 ??------- Mass/height ? 2.08 g/cm ?? ------- Ventricular septum Septal thickness, ED ?13 mm ? ------- ?? Doppler measurements ?Normal Left ventricle IVRT ?81 ms ? 60-100 Ea, lateral annulus, tissue Doppler ? 7.57 cm/s ?? ------- E/Ea, lateral annulus, tissue Doppler ?8.3 ?------- Mitral valve Peak E-wave velocity ?62.7 cm/s ?? ------- Peak A-wave velocity ?89.3 cm/s ?? ------- Deceleration time ? *261 ms ? 150-230 Peak E/A ratio ? 0.7 ?------- Legend: Mean values are shown as u=mean value. Asterisk (*) carson values outside specified normal range. I have personally reviewed the images and have reviewed and edited the reported findings. Electronically signed by Shay Guzmán MD 06/13/2015 11:40 Procedure Note Shay Guzmán MD - 06/13/2015 *Interpreting Group:* *[facility]* [address] [place] [id number] Date of study: 06/13/2015 Transthoracic Echocardiography M-mode, complete 2D, complete spectral Doppler, color Doppler, and IVcontrast *STUDY CONCLUSIONS* Summary: 1. Left ventricle: The cavity size was normal. Wall thickness was normal. Systolic function was normal. The estimated ejection fraction [id number]%. Wall motion was normal; there were no regional wall motionabnormalities. Doppler parameters are consistent with abnormal left ventricularrelaxation (grade 1 diastolic dysfunction). There was no evidence of elevated ventricular filling pressure by Doppler parameters. 2. Right ventricle: The cavity size was at the upper limits of normal.Systolic function was normal. 3. Left atrium: The atrium was mildly to moderately dilated. *PATIENT PRESENTATION* Height: 177.8cm (70in ) S/D Pressure: 115 / 52 Weight: 120.2kg (264.4lb ) BSA: 2.49m^2 Test start time: 10:27 AM. Test stop time: 11:06 AM. ORDERING Piter Pierce Timothy ADMITTING Keenan Horan ATTENDING Keenan Horan FELLOW Mala Miles HOUSEHOLD REFRIGERATOR MECHANIC Yamini Meneses [facility], *PROCEDURE DATA* Procedure information: This study was interpreted by [facility]. Pertinent images and digital data are archivedfor permanent storage and are available for subsequent review. Study status: Routine. Transthoracic echocardiography. M-mode, complete 2D, completespectral Doppler, color Doppler, and intravenous contrast injection. ATransthoracic Echocardiogram was performed. Scanning was performed from the parasternal, apical, subcostal, and suprasternal notch acoustic windows. Images wereobtained using a Love IE33 6 cardiac ultrasound machine. Image quality wassuboptimal. The study was technically limited due to body habitus. 2ml of Intravenous contrast (Definity) was administered by Yamini Meneses [facility] to enhance delineation of left ventricular endocardial borders. Prior toadministration at least two (2) contiguous segments of the left ventricular border were not visualized. A total of 1 vial(s) of Definity was used. Study completion:The patient tolerated the procedure well. There were no complications. *INDICATIONS AND HISTORY* Indications: Atrial Fibrillation I48.91, known, pre-procedure. *CARDIAC ANATOMY* Left ventricle: The cavity size was normal. Wall thickness was normal.Systolic function was normal. The estimated ejection fraction was 55-60%. Wallmotion was normal; there were no regional wall motion abnormalities. Dopplerparameters are consistent with abnormal left ventricular relaxation (grade 1 diastolic dysfunction). There was no evidence of elevated ventricular fillingpressure by Doppler parameters. Aortic valve: Probably trileaflet; mildly thickened leaflets. Mobilitywas not restricted. Doppler: Transvalvular velocity was within the normal range.There was no stenosis. No regurgitation. Aorta: Aortic root: The aortic root was normal in size. Ascending aorta: The ascending aorta was normal in size. Mitral valve: Mildly thickened leaflets. Mobility was not restricted. Doppler: Transvalvular velocity was within the normal range. There was no evidence for stenosis. No regurgitation. Left atrium: The atrium was mildly to moderately dilated. Right ventricle: The cavity size was at the upper limits of normal.Systolic function was normal. Pulmonic valve: Poorly visualized. Doppler: Transvalvular velocity was within the normal range. There was no evidence for stenosis. Noregurgitation. Tricuspid valve: Structurally normal valve. Doppler: Transvalvular velocity was within the normal range. There was no evidence for stenosis. Trivial regurgitation. Pulmonary artery: Poorly visualized. Systolic pressure could not be accurately estimated. Right atrium: The atrium was normal in size. Pericardium: There was no pericardial effusion. Systemic veins: Inferior vena cava: Poorly visualized. *MEASUREMENT TABLES* 2D measurements Normal Aorta Root diameter, ED 31 mm ------- Ascending aorta anterior-posterior diameter, S 25 mm ------- Left atrium Anterior-posterior dimension 47 mm ------- Anterior-posterior dimension index 1.89 cm/m^2 <2.2 Superior-inferior dimension, A4C 47 mm 29-53 M-mode measurements Normal Left ventricle LV internal dimension, ED *62 mm 37-56 LV internal dimension, ES 39 mm ------- Fractional shortening 37 % 29-45 LV posterior wall, ED *13 mm 6-11 Septal/posterior wall ratio, ED 1 ------- Relative wall thickness, ED 0.4 <0.45 Volume, ED, Teichholz 194 ml ------- Volume, ES, Teichholz 65.9 ml ------- Ejection fraction, Teichholz 66 % 64-83 Volume index, ED, Teichholz 78 ml/m^2 ------- Volume index, ES, Teichholz 27 ml/m^2 ------- Wall mass 369.3 g ------- Wall mass index 148.6 g/m^2 ------- Mass/height 2.08 g/cm ------- Ventricular septum Septal thickness, ED 13 mm ------- Doppler measurements Normal Left ventricle IVRT 81 ms 60-100 Ea, lateral annulus, tissue Doppler 7.57 cm/s ------- E/Ea, lateral annulus, tissue Doppler 8.3 ------- Mitral valve Peak E-wave velocity 62.7 cm/s ------- Peak A-wave velocity 89.3 cm/s ------- Deceleration time *261 ms 150-230 Peak E/A ratio 0.7 ------- Legend: Mean values are shown as u=mean value. Asterisk (*) carson values outside specified normal range. I have personally reviewed the images and have reviewed and edited thereported findings. Electronically signed by Shay Guzmán MD 06/13/2015 11:40 us Piter Pierce MD CARDIAC ECHO ORDERABLES Final Result * (ABNORMAL) GLUCOSE, GLUCOMETER (06/13/2015 7:17 EST) Glucose, Fingerstick 101(H) 70 - 100 mg/dl 06/13/2015 7:18 [facility] Rivet Passer ID [id number] 06/13/2015 7:18 [facility] Comment:Test Performed by [facility] Services BLOOD SPECIMEN / Unknown 06/13/2015 7:17 EST 06/13/2015 7:18 EST Keenan Horan MD CHEMISTRY & BLOOD GAS ORDERABLES Final Result Performing Organization Address City/[facility]/ZIP Co de Phone Number [facility] [address] [place] [address] * TSH (06/13/2015 5:20 EST) TSH 1.36 0.55 - 4.78 uIU/ml 06/13/2015 8:56 [facility] Blood specimen (specimen) BLOOD SPECIMEN / Unknown 06/13/2015 5:20 EST 06/13/2015 5:56 EST us Piter Pierce MD CHEMISTRY & BLOOD GAS ORDERABL ES Final Result Performing Organization Address City/[facility]/ZIP Co de Phone Number [facility] [address] [place] [address] * (ABNORMAL) HEMAGRAM (06/13/2015 5:20 EST) WBC 8.52 4.0 - 10.4 K/cmm 06/13/2015 6:04 [facility] RBC 3.26(L) 4.36 - 5.78 M/cmm 06/13/2015 6:04 [facility] Hemoglobin 10.0(L) 13.8 - 17.3 gm/dl 06/13/2015 6:04 [facility] HCT 29.4(L) 39.5 - 50.2 % 06/13/2015 6:04 [facility] MCV 90 81 - 95 fl 06/13/2015 6:04 [facility] MCH 30.6 27.6 - 33.0 pg 06/13/2015 6:04 [facility] MCHC 34.0 32.8 - 36.4 gm/dl 06/13/2015 6:04 [facility] RDW-CV 12.5 11.8 - 14.1 % 06/13/2015 6:04 [facility] RDW-SD 39.4 36.5 - 45.9 fl 06/13/2015 6:04 [facility] PLT 143 141 - 320 K/cmm 06/13/2015 6:04 [facility] MPV 9.7 7.5 - 11.2 fl 06/13/2015 6:04 [facility] Blood specimen (specimen) BLOOD SPECIMEN / Unknown 06/13/2015 5:20 EST 06/13/2015 5:56 EST Heather Pimentel PA-C HEMATOLOGY & PF4 ORDERABL ES Final Result Performing Organization Address [facility] Co de Phone Number [facility] [address] [place] [address] * CREATININE (06/13/2015 5:20 EST) Creatinine 0.81 0.66 - 1.25 mg/dl 06/13/2015 6:40 [facility] GFR, Calculated 93 >60 ml/min/1.7 3m2 06/13/2015 6:40 [facility] Comment: eGFR calculated using CKD-EPI equation for non Americans. Multiply eGFR by 1.16 for Americans. Blood specimen (specimen) BLOOD SPECIMEN / Unknown 06/13/2015 5:20 EST 06/13/2015 5:56 EST Heather Pimentel PA-C CHEMISTRY & BLOOD GAS ORD ERABLES Final Result Performing Organization Address City/[facility]/ZIP Co de Phone Number [facility] [address] [place] [address] * BUN (06/13/2015 5:20 EST) BUN 15 10 - 26 mg/dl 06/13/2015 6:40 [facility] Blood specimen (specimen) BLOOD SPECIMEN / Unknown 06/13/2015 5:20 EST 06/13/2015 5:56 EST Heather Pimentel PA-C CHEMISTRY & BLOOD GAS ORD ERABLES Final Result Performing Organization Address [facility] Co de Phone Number [facility] [address] [place] [address] * ELECTROLYTES (06/13/2015 5:20 EST) Sodium 137 136 - 145 mEq/L 06/13/2015 6:40 EST [facility] Potassium 4.3 3.5 - 5.0 mEq/L 06/13/2015 6:40 EST [facility] Chloride 102 96 - 110 mEq/L 06/13/2015 6:40 EST [facility] CO2 29 24 - 32 mEq/L 06/13/2015 6:40 EST [facility] Blood specimen (specimen) BLOOD SPECIMEN / Unknown 06/13/2015 5:20 EST 06/13/2015 5:56 EST Heather Pimentel PA-C CHEMISTRY & BLOOD GAS ORD ERABLES Final Result Performing Organization Address [facility] de Phone Number [facility] [address] [place] [address] * EKG 12-LEAD (06/13/2015 3:30 EST) 06/13/2015 3:30 EST Narrative [facility] EKG - 06/20/2015 9:38 EST ? [facility] ? Test Date: ?2015-06-13 Pat Name: ? JULIO MONK ?Department: ?? ROBERT Avendano ? Room: ? B392 Gender: ? M ?Outsoles Channel Opener: ?? [id number] : ?1950 ? Requested By: JANAY PITER Shasta Order Number: [id number] ? Reading MD: ?? LUCERO MARTINEZ MD ? Measurements Intervals ?[place] ? Rate: ? 83 ? P: ?38 [place]: ? 168 ?QRS: ?18 QRSD: ? 105 ?T: ?69 QT: ? 371 ? QTc: ?437 ? Interpretive Statements SINUS RHYTHM NONSPECIFIC T-WAVE ABNORMALITY I reviewed the tracing and have either agreed or edited the findings in this report. Electronically Signed On 06-20-15 09:38:17 EST by LUCERO MARTINEZ MD. Procedure Note Lucero Martinez MD - 06/20/2015 [facility] Test Date: 2015-06-13 Pat Name: JULIO MONK Department: JONES 3 Room: [facility] Gender: M Outsoles Channel Opener: [id number] : 1950 Requested By: JANAY Vegas Order Number: [id number] Reading MD: LUCERO MARTINEZ MD Measurements Intervals [place] Rate: 83 P: 38 [place]: 168 QRS: 18 QRSD: 105 T: 69 QT: 371 QTc: 437 Interpretive Statements SINUS RHYTHM NONSPECIFIC T-WAVE ABNORMALITY I reviewed the tracing and have either agreed or edited the findings inthis report. Electronically Signed On 06-20-15 09:38:17 EST by LUCERO HUNTER. us Piter Pierce MD CARDIAC ECG ORDERABLES Final R esult [facility] EKG * EKG 12-LEAD (06/13/2015 2:32 EST) 06/13/2015 2:32 EST Narrative [facility] EKG - 06/18/2015 16:13 EST ? [facility] ? Test Date: ?2015-06-13 Pat Name: ? JULIO MONK ?Department: ?? JONES 3 ? Room: ? [facility] Gender: ? M ?Outsoles Channel Opener: ?? [id number] : ?1950 ? Requested By: DEE Vega Order Number: [id number] ? Lakesha SNOWDEN: ?? JULIO TYSON MD ? Measurements Intervals ?[place] ? Rate: ? 133 ?P: ? [place]: ? 0 ?QRS: ?21 QRSD: ? 101 ?T: ?19 QT: ? 324 ? QTc: ?483 ? Interpretive Statements ATRIAL FIBRILLATION WITH RAPID VENTRICULAR RESPONSE NONSPECIFIC ST & T-WAVE ABNORMALITY ABNORMAL RHYTHM ECG Compared to ECG 01/18/1997 13:04:00 Atrial fibrillation now present I reviewed the tracing and have either agreed or edited the findings in this report. Electronically Signed On 06-18-15 16:13:17 EST by JULIO TYSON MD. Procedure Note Julio Tyson MD - 06/18/2015 [facility] Test Date: 2015-06-13 Pat Name: JULIO MONK Department: [place] [address] Room: [facility] Gender: M Outsoles Channel Opener: [id number] : 1950 Requested By: DEE Vega Order Number: [id number] Reading MD: JULIO TYSON MD Measurements Intervals [place] Rate: 133 P: [place]: 0 QRS: 21 QRSD: 101 T: 19 QT: 324 QTc: 483 Interpretive Statements ATRIAL FIBRILLATION WITH RAPID VENTRICULAR RESPONSE NONSPECIFIC ST & T-WAVE ABNORMALITY ABNORMAL RHYTHM ECG Compared to ECG 01/18/1997 13:04:00 Atrial fibrillation now present I reviewed the tracing and have either agreed or edited the findings inthis report. Electronically Signed On 06-18-15 16:13:17 EST by JULIO ALLEN. us Morgan Espinoza MD CARDIAC ECG ORDERABLES Final Result [facility] EKG * IMPLANT RECORD - SCANNED (06/12/2015 9:45 EST) 06/12/2015 9:45 EST us Scan 2 [employer] Intern PROCEDURE/MINOR SURGICAL OR DERABLES Final Result * (ABNORMAL) GLUCOSE, GLUCOMETER (06/12/2015 5:36 EST) Glucose, Fingerstick 123(H) 70 - 100 mg/dl 06/12/2015 5:36 EST [facility] Rivet Passer ID [id number] 06/12/2015 5:36 EST [facility] Comment:Test Performed by [facility] Services BLOOD SPECIMEN / Unknown 06/12/2015 5:36 EST 06/12/2015 5:37 EST us Keenan Horan MD CHEMISTRY & BLOOD GAS ORDERABLES Final Result [facility] [address] [place] [address] * (ABNORMAL) HEMAGRAM (06/12/2015 5:25 EST) WBC 10.53(H) 4.0 - 10.4 K/cmm 06/12/2015 7:05 [facility] RBC 3.27(L) 4.36 - 5.78 M/cmm 06/12/2015 7:05 [facility] Hemoglobin 10.2(L) 13.8 - 17.3 gm/dl 06/12/2015 7:05 [facility] HCT 30.0(L) 39.5 - 50.2 % 06/12/2015 7:05 [facility] MCV 92 81 - 95 fl 06/12/2015 7:05 [facility] MCH 31.3 27.6 - 33.0 pg 06/12/2015 7:05 [facility] MCHC 34.0 32.8 - 36.4 gm/dl 06/12/2015 7:05 [facility] RDW-CV 12.4 11.8 - 14.1 % 06/12/2015 7:05 [facility] RDW-SD 39.4 36.5 - 45.9 fl 06/12/2015 7:05 [facility] PLT 132(L) 141 - 320 K/cmm 06/12/2015 7:05 [facility] MPV 10.2 7.5 - 11.2 fl 06/12/2015 7:05 [facility] Blood specimen (specimen) BLOOD SPECIMEN / Unknown 06/12/2015 5:25 EST 06/12/2015 6:36 EST Heather Pimentel PA-C HEMATOLOGY & PF4 ORDERABL ES Final Result [facility] [address] [place] [address] * CREATININE (06/12/2015 5:25 EST) Creatinine 0.97 0.66 - 1.25 mg/dl 06/12/2015 7:40 [facility] GFR, Calculated 81 >60 ml/min/1.7 3m2 06/12/2015 7:40 [facility] Comment: eGFR calculated using CKD-EPI equation for non Americans. Multiply eGFR by 1.16 for Americans. Blood specimen (specimen) BLOOD SPECIMEN / Unknown 06/12/2015 5:25 EST 06/12/2015 6:36 EST Heather Pimentel PA-C CHEMISTRY & BLOOD GAS ORD ERABLES Final Result Performing Organization Address City/[facility]/ZIP Co de Phone Number [facility] [address] [place] [address] * (ABNORMAL) BUN (06/12/2015 5:25 EST) BUN 31(H) 10 - 26 mg/dl 06/12/2015 7:40 [facility] Blood specimen (specimen) BLOOD SPECIMEN / Unknown 06/12/2015 5:25 EST 06/12/2015 6:36 EST Heather Pimentel PA-C CHEMISTRY & BLOOD GAS ORD ERABLES Final Result Performing Organization Address City/[facility]/ZIP Co de Phone Number [facility] [address] [place] [address] * (ABNORMAL) ELECTROLYTES (06/12/2015 5:25 EST) Sodium 133(L) 136 - 145 mEq/L 06/12/2015 7:40 [facility] Potassium 5.1(H) 3.5 - 5.0 mEq/L 06/12/2015 7:40 [facility] Chloride 100 96 - 110 mEq/L 06/12/2015 7:40 [facility] CO2 27 24 - 32 mEq/L 06/12/2015 7:40 [facility] Blood specimen (specimen) BLOOD SPECIMEN / Unknown 06/12/2015 5:25 EST 06/12/2015 6:36 EST us Heather Pimentel PA-C CHEMISTRY & BLOOD GAS ORD ERABLES Final Result [facility] [address] [place] [address] * (ABNORMAL) HEMAGRAM (06/11/2015 6:36 EST) WBC 13.49(H) 4.0 - 10.4 K/cmm 06/11/2015 7:15 [facility] RBC 3.93(L) 4.36 - 5.78 M/cmm 06/11/2015 7:15 [facility] Hemoglobin 12.0(L) 13.8 - 17.3 gm/dl 06/11/2015 7:15 [facility] HCT 36.1(L) 39.5 - 50.2 % 06/11/2015 7:15 [facility] MCV 92 81 - 95 fl 06/11/2015 7:15 [facility] MCH 30.5 27.6 - 33.0 pg 06/11/2015 7:15 [facility] MCHC 33.2 32.8 - 36.4 gm/dl 06/11/2015 7:15 [facility] RDW-CV 12.7 11.8 - 14.1 % 06/11/2015 7:15 [facility] RDW-SD 40.7 36.5 - 45.9 fl 06/11/2015 7:15 [facility] PLT 166 141 - 320 K/cmm 06/11/2015 7:15 [facility] MPV 9.8 7.5 - 11.2 fl 06/11/2015 7:15 [facility] Blood specimen (specimen) BLOOD SPECIMEN / Unknown 06/11/2015 6:36 EST 06/11/2015 6:50 EST us Heather Pimentel PA-C HEMATOLOGY & PF4 ORDERABL ES Final Result [facility] [address] [place] [address] * CREATININE (06/11/2015 6:36 EST) Creatinine 1.23 0.66 - 1.25 mg/dl 06/11/2015 7:28 [facility] GFR, Calculated 61 >60 ml/min/1.7 3m2 06/11/2015 7:28 [facility] Comment: eGFR calculated using CKD-EPI equation for non Americans. Multiply eGFR by 1.16 for Americans. Blood specimen (specimen) BLOOD SPECIMEN / Unknown 06/11/2015 6:36 EST 06/11/2015 6:50 EST us Heather Pimentel PA-C CHEMISTRY & BLOOD GAS ORD ERABLES Final Result Performing Organization Address City/[facility]/ZIP Co de Phone Number [facility] [address] [place] [address] * (ABNORMAL) BUN (06/11/2015 6:36 EST) BUN 35(H) 10 - 26 mg/dl 06/11/2015 7:28 [facility] Blood specimen (specimen) BLOOD SPECIMEN / Unknown 06/11/2015 6:36 EST 06/11/2015 6:50 EST Heather Pimentel PA-C CHEMISTRY & BLOOD GAS ORD ERABLES Final Result Performing Organization Address City/[facility]/ZIP Co de Phone Number [facility] [address] [place] [address] * (ABNORMAL) ELECTROLYTES (06/11/2015 6:36 EST) Sodium 134(L) 136 - 145 mEq/L 06/11/2015 7:28 [facility] Potassium 5.2(H) 3.5 - 5.0 mEq/L 06/11/2015 7:28 [facility] Chloride 101 96 - 110 mEq/L 06/11/2015 7:28 [facility] CO2 25 24 - 32 mEq/L 06/11/2015 7:28 [facility] Blood specimen (specimen) BLOOD SPECIMEN / Unknown 06/11/2015 6:36 EST 06/11/2015 6:50 EST Heather Pimentel PA-C CHEMISTRY & BLOOD GAS ORD ERABLES Final Result Performing Organization Address City/[facility]/ZIP Co de Phone Number [facility] [address] [place] [address] * (ABNORMAL) SCREENING GLUCOSE (06/11/2015 6:36 EST) Glucose, Screening 129(H) 70 - 100 mg/dl 06/11/2015 7:28 EST [facility] Blood specimen (specimen) BLOOD SPECIMEN / Unknown 06/11/2015 6:36 EST 06/11/2015 6:50 EST Heather Pimentel PA-C CHEMISTRY & BLOOD GAS ORD ERABLES Final Result Performing Organization Address [facility] Co de Phone Number [facility] [address] [place] [address] * (ABNORMAL) GLUCOSE, GLUCOMETER (06/11/2015 6:10 EST) Glucose, Fingerstick 131(H) 70 - 100 mg/dl 06/11/2015 6:11 EST [facility] Rivet Passer ID [id number] 06/11/2015 6:11 EST [facility] Comment:Test Performed by Nu rsing Services BLOOD SPECIMEN / Unknown 06/11/2015 6:10 EST 06/11/2015 6:11 EST Keenan Horan MD CHEMISTRY & BLOOD GAS ORDERABLES Final Result Performing Organization Address [facility]/ZIP Co de Phone Number [facility] [address] [place] [address] * ANESTHESIA NERVE BLOCK FEMORAL (06/10/2015 12:15 EST) Anatomical Region Laterality Modality Other 06/10/2015 12:1 5 EST Narrative 06/10/2015 12:15 EST Non Reportable Exam Procedure Note SODA DRIER FEEDER, IMAGING - 06/11/2015 Non Reportable Exam Figueroa Lomeli MD [facility] ORDERABLES Final Resul t * ANESTHESIA NERVE BLOCK FEMORAL (06/10/2015 12:15 EST) Anatomical Region Laterality Modality Other 06/10/2015 12:1 5 EST Narrative 06/10/2015 12:15 EST Non Reportable Exam Procedure Note SODA DRIER FEEDER, IMAGING - 06/11/2015 Non Reportable Exam Figueroa Lomeli MD [facility] ORDERABLES Final Resul t * KNEE 1 OR 2 VIEWS (06/10/2015 11:44 EST) Anatomical Region Laterality Modality Other 06/10/2015 11:4 4 EST 06/10/2015 12:15 EST Narrative 06/10/2015 12:15 EST KNEE 1 OR 2 VIEWS, KNEE 1 OR 2 VIEWS ??06/10/2015 11:43 AM Clinical History/Comments: Osteoarthrosis of bilateral knees S/P bilateral total knee replacement -routine post op for no count ??R/O check hardware, FB Comparison: Knee radiographs of May 06, 2015 Findings: AP and lateral views of both knees were obtained immediately postoperatively. The patient has undergone bilateral total knee arthroplasty. No unexpected radiopaque foreign body is present. The hardware is intact and well seated. Postoperative pneumarthrosis is present. Surgical tamir project over the anterior soft tissues. I have personally reviewed the images and the above interpretation and agree with the findings. Procedure Note David Duval MD - 06/10/2015 KNEE 1 OR 2 VIEWS, KNEE 1 OR 2 VIEWS 06/10/2015 11:43 AM Clinical History/Comments: Osteoarthrosis of bilateral knees S/P bilateral total knee replacement -routine post op for no count R/O check hardware, FB Comparison: Knee radiographs of May 06, 2015 Findings: AP and lateral views of both knees were obtained immediately postoperatively. The patient has undergone bilateral total knee arthroplasty. No unexpected radiopaque foreign body is present. The hardware is intact and well seated. Postoperative pneumarthrosis is present. Surgical tamir project over the anterior soft tissues. I have personally reviewed the images and the above interpretation and agree with the findings. Keenan Horan MD [facility] [place] DIAGNOSTIC IMAGING ORDERABLES Final Result * KNEE 1 OR 2 VIEWS (06/10/2015 11:43 EST) Anatomical Region Laterality Modality Other 06/10/2015 11:4 3 EST 06/10/2015 12:15 EST Narrative 06/10/2015 12:15 EST KNEE 1 OR 2 VIEWS, KNEE 1 OR 2 VIEWS ??06/10/2015 11:43 AM Clinical History/Comments: Osteoarthrosis of bilateral knees S/P bilateral total knee replacement -routine post op for no count ??R/O check hardware, FB Comparison: Knee radiographs of May 06, 2015 Findings: AP and lateral views of both knees were obtained immediately postoperatively. The patient has undergone bilateral total knee arthroplasty. No unexpected radiopaque foreign body is present. The hardware is intact and well seated. Postoperative pneumarthrosis is present. Surgical tamir project over the anterior soft tissues. I have personally reviewed the images and the above interpretation and agree with the findings. Procedure Note David Duval MD - 06/10/2015 KNEE 1 OR 2 VIEWS, KNEE 1 OR 2 VIEWS 06/10/2015 11:43 AM Clinical History/Comments: Osteoarthrosis of bilateral knees S/P bilateral total knee replacement -routine post op for no count R/O check hardware, FB Comparison: Knee radiographs of May 06, 2015 Findings: AP and lateral views of both knees were obtained immediately postoperatively. The patient has undergone bilateral total knee arthroplasty. No unexpected radiopaque foreign body is present. The hardware is intact and well seated. Postoperative pneumarthrosis is present. Surgical tamir project over the anterior soft tissues. I have personally reviewed the images and the above interpretation and agree with the findings. Keenan Horan MD [facility] – [place] DIAGNOSTIC IMAGING ORDERABLES Final Result * ORDERS - SCANNED (06/04/2015 11:24 EST) 06/04/2015 11:2 4 EST us Scan 2 [employer] [facility] ADMISSION ORDERABLES Final Result * ECG REPORT - SCANNED (06/02/2015 11:33 EST) 06/02/2015 11:3 3 EST us Scan 2 [employer] [facility] PROCEDURE/MINOR SURGICAL OR DERABLES Final Result documented in this encounter Visit Diagnoses Diagnosis Bilateral primary osteoarthritis of knee- Primary Bilateral knee pain Pain in joint, lower leg Bilateral primary osteoarthritis of knee Atrial fibrillation with RVR ([facility]) Atrial fibrillation Anemia, unspecified type Impaired mobility and ADLs Other ill-defined conditions Status post total bilateral knee replacement Bilateral knee pain Pain in joint, lower leg Morbid obesity ([facility]) Morbid obesity documented in this encounter Administered Medications Inactive Administered Medications - up to 3 most recent administrations Medication Order MAR Action Action Date Dose Rate Site acetaminophen (TYLENOL) tablet 1,000 mg 1,000 mg, oral, PRE-OP ONCE, 1 dose, On Tue06/10/15 at 0645, Routine, Pre-Op DOS Rx Approved Given 06/10/2015 6:47 EST 1,000 mg acetaminophen (TYLENOL) tablet 1,000 mg 1,000 mg, oral, PRN, 1 dose, Starting on Tue06/10/15 at 1107, Until Tue06/10/15 at 1442, Pain, Routine, Recovery (only) Given 06/10/2015 14:42 EST 1,000 mg acetaminophen (TYLENOL) tablet 650 mg 650 mg, oral, EVERY 6 HOURS, First dose on Tue06/10/15 at 1730, Until Discontinued, Routine, On Unit Given 06/14/2015 6:50 EST 650 mg Given 06/14/2015 1:15 EST 650 mg Given 06/13/2015 18:15 EST 650 mg ascorbic acid (VITAMIN C) tablet 500 mg 500 mg, oral, AT BEDTIME, First dose on Tue06/10/15 at 2100, Until Discontinued, Routine, On Unit Given 06/13/2015 21:36 EST 500 mg Given 06/12/2015 20:43 EST 500 mg Given 06/11/2015 21:33 EST 500 mg aspirin EC tablet 325 mg 325 mg, oral, 2 TIMES DAILY, First dose on Tue06/11/15 at 0900, Until Discontinued, Routine, On Unit Given 06/11/2015 8:10 EST 325 mg aspirin EC tablet 650 mg 650 mg, oral, NOW X1, 1 dose, On Tue06/10/15 at 2100, Routine, On Unit Given 06/10/2015 21:12 EST 650 mg bisacodyl (DULCOLAX) suppository 10 mg 10 mg, rectal, DAILY, 1 dose, First dose on Tue06/13/15 at 1700, Routine Given 06/13/2015 16:59 EST 10 mg ceFAZolin (ANCEF) 1,000 mg in sodium chloride 0.9 % 50 mL IVPB 1,000 mg, intravenous, Administer over 30 Minutes, NOW X1, 1 dose, On Tue06/10/15 at 1130, Routine, Recovery (only) Given 06/10/2015 12:17 EST 1,000 mg ceFAZolin (ANCEF) 1,000 mg in sodium chloride 0.9 % 50 mL IVPB 1,000 mg, intravenous, Administer over 30 Minutes, EVERY 8 HOURS, 2 doses, First dose on Tue06/10/15 at 2000, Last dose on Tue06/11/15 at 0400, Routine, On Unit Given 06/11/2015 4:52 EST 1,000 mg Given 06/10/2015 21:10 EST 1,000 mg ceFAZolin (ANCEF) syringe 1 g 1 g, intravenous, Administer over 10 Minutes, NOW X1, 1 dose, On Tue06/10/15 at 0930, Routine Given by Other 06/10/2015 9:15 EST 1 g ceFAZolin (ANCEF) syringe 3 g 3 g, intravenous, Administer over 10 Minutes, PRE-OP ONCE, 1 dose, On Tue06/10/15 at 0930, Routine, Pre-Op DOS Rx Approved Given by Other 06/10/2015 8:04 EST 3 g celecoxib (CELEBREX) capsule 200 mg 200 mg, oral, PRE-OP ONCE, 1 dose, On Tue06/10/15 at 0645, Routine, Pre-Op DOS Rx Approved Given 06/10/2015 6:48 EST 200 mg cholecalciferol (Vitamin D3) tablet 2,000 Units 2,000 Units, oral, AT BEDTIME, First dose on Tue06/10/15 at 2100, Until Discontinued, Routine, On Unit Given 06/13/2015 21:35 EST 2,000 Units Given 06/12/2015 20:44 EST 2,000 Units Given 06/11/2015 21:34 EST 2,000 Units dalteparin (FRAGMIN) 2,500 anti-Xa unit/0.2 mL injection 2,500 Units 2,500 Units, subcutaneous, DAILY, 1 dose, First dose on Tue06/11/15 at 0900, Routine Given 06/11/2015 8:11 EST 2, 500 Units dalteparin (FRAGMIN) 5,000 anti-Xa unit/0.2 mL injection 5,000 Units 5,000 Units, subcutaneous, DAILY, 10 doses, First dose on Krystal 06/12/15 at 0900, Last dose on 06/21/15 at 0900, Routine Given 06/14/2015 8:03 EST 5,000 Units Given 06/13/2015 8:17 EST 5,000 Units Given 06/12/2015 8:34 EST 5,000 Units dexaMETHasone (DECADRON) injection 8 mg 8 mg, intravenous, PRE-OP ONCE, 1 dose, On Tue06/10/15 at 0645, Routine, Pre-Op DOS Rx Approved Given 06/10/2015 6:49 EST 8 mg docusate sodium (COLACE) capsule 200 mg 200 mg, oral, 2 TIMES DAILY, First dose on Tue06/10/15 at 2100, Until Discontinued, Routine, On Unit Given 06/14/2015 8:08 EST 200 mg Given 06/13/2015 21:35 EST 200 mg Given 06/13/2015 8:19 EST 200 mg gabapentin (NEURONTIN) capsule 1,200 mg 1,200 mg, oral, PRE-OP ONCE, 1 dose, On Tue06/10/15 at 0645, Routine, Pre-Op DOS Rx Approved Given 06/10/2015 6:48 EST 1,200 mg gabapentin (NEURONTIN) capsule 600 mg 600 mg, oral, 3 TIMES DAILY, First dose on Tue06/11/15 at 0900, Until Discontinued, Routine, On Unit Given 06/14/2015 8:04 EST 600 mg Given 06/13/2015 21:35 EST 600 mg Given 06/13/2015 14:33 EST 600 mg lactated ringers (LR) infusion at 25 mL/hr, intravenous, CONTINUOUS, Starting on Tue06/10/15 at 0645, Until Tue06/14/15 at 1009, Routine, Pre-Op DOS Rx Approved New Bag 06/10/2015 6:48 EST 25 mL/hr lisinopril (PRINIVIL, ZESTRIL) tablet 10 mg 10 mg, oral, DAILY, First dose on Tue06/13/15 at 0900, Until Discontinued, Routine Given 06/14/2015 8:04 EST 10 mg Given 06/13/2015 8:21 EST 10 mg magnesium hydroxide (MILK OF MAGNESIA) 400 mg/5 mL suspension 30 mL 30 mL, oral, DAILY, First dose on Tue06/13/15 at 1700, Until Discontinued, Routine Given 06/13/2015 16:59 EST 30 mL methocarbamol (ROBAXIN) tablet 500-1,000 mg 500-1,000 mg, oral, EVERY 6 HOURS PRN, Starting on Tue06/10/15 at 1116, Until 06/14/15 at 1009, muscle spasms, Routine, On Unit Given 06/12/2015 20:43 EST 1,000 mg Given 06/12/2015 5:49 EST 500 mg Given 06/11/2015 21:33 EST 500 mg metoCLOPramide (REGLAN) injection 10 mg 10 mg, intravenous, PRN, 1 dose, Starting on Tue06/10/15 at 1107, Until Tue06/10/15 at 1158, Nausea, Routine, Recovery (only) Given 06/10/2015 11:58 EST 10 mg Multivitamins with Minerals tablet 1 Tab 1 Tablet, oral, AT BEDTIME, First dose on Tue06/10/15 at 2100, Until Discontinued, Routine, On Unit Given 06/13/2015 21:34 EST 1 Tablet Given 06/12/2015 20:43 EST 1 Tablet Given 06/11/2015 21:34 EST 1 Tablet naproxen (NAPROSYN) tablet 500 mg 500 mg, oral, 2 TIMES DAILY WITH BREAKFAST & DINNER, First dose on Tue06/10/15 at 1700, Until Discontinued, Routine, On Unit Given 06/11/2015 8:10 EST 500 mg Given 06/10/2015 18:12 EST 500 mg ondansetron (PF) (ZOFRAN) injection 2-4 mg 2-4 mg, intravenous, EVERY 6 HOURS PRN, Starting on Tue06/10/15 at 1542, Until 06/14/15 at 1009, Nausea, Routine, On Unit Given 06/10/2015 18:12 EST 4 mg oxyCODONE (OXYCONTIN) CR tablet 10 mg 10 mg, oral, PRE-OP ONCE, 1 dose, On Tue06/10/15 at 0645, Routine, Pre-Op DOS Rx Approved Given 06/10/2015 6:48 EST 10 mg oxyCODONE (OXYCONTIN) CR tablet 10 mg 10 mg, oral, EVERY 12 HOURS, 1 dose, First dose on Tue06/10/15 at 2100, Routine, On Unit Given 06/10/2015 21:13 EST 10 mg oxyCODONE (ROXICODONE) immediate release tablet 5-20 mg 5-20 mg, oral, EVERY 3 HOURS PRN, Starting on Tue06/10/15 at 1116, Until 06/14/15 at 1009, Pain, Routine, On Unit Given 06/14/2015 8:38 EST 5 mg Given 06/13/2015 14:38 EST 5 mg Given 06/13/2015 9:11 EST 5 mg pantoprazole (PROTONIX) tablet 40 mg 40 mg, oral, DAILY, First dose on Tue06/10/15 at 1600, Until Discontinued, Routine, On Unit Given 06/14/2015 8:04 EST 40 m g Given 06/13/2015 8:21 EST 40 mg Given 06/12/2015 8:34 EST 40 mg PEG 3350-Electrolytes (MIRALAX) packet 17 g 17 g, oral, DAILY, First dose on Tue06/10/15 at 1600, Until Discontinued, Routine, On Unit Given 06/13/2015 8:22 EST 17 g Given 06/12/2015 8:34 EST 17 g Given 06/11/2015 8:11 EST 17 g PEG 3350-Electrolytes (MIRALAX) packet 17 g 17 g, oral, DAILY PRN, Starting on Tue06/10/15 at 1542, Until 06/14/15 at 1009, Constipation, Routine, On Unit Given 06/12/2015 20:52 EST 17 g senna (SENOKOT) tablet 2 Tab 2 Tablet, oral, DAILY, First dose on Tue06/10/15 at 1600, Until Discontinued, Routine, On Unit Given 06/13/2015 8:21 EST 2 Tablets Given 06/12/2015 8:34 EST 2 Tablets Given 06/11/2015 8:10 EST 2 Tablets senna (SENOKOT) tablet 2 Tab 2 Tablet, oral, 2 TIMES DAILY, First dose (after last modification) on Tue06/13/15 at 2100, Until Discontinued, Routine, On Unit Given 06/14/2015 8:08 EST 2 Ta blets Given 06/13/2015 21:36 EST 2 Tablets sodium chloride 0.9 % (NS) infusion at 100 mL/hr, intravenous, CONTINUOUS, Starting on Tue06/10/15 at 1145, Until Tue06/11/15 at 1316, Routine, On Unit Rate Documented 06/11/2015 3:25 EST 100 mL/hr New Bag 06/10/2015 23:15 EST 100 mL/hr Rate Documented 06/10/2015 19:25 EST 100 mL/hr sodium chloride 0.9 % (NS) infusion at 100 mL/hr, intravenous, CONTINUOUS, Starting on Tue06/11/15 at 1345, Until Tue06/14/15 at 1009, Routine New Bag 06/12/2015 0:28 EST 100 mL/hr New Bag 06/11/2015 13:38 EST 100 mL/hr traMADol (ULTRAM) tablet 50-100 mg 50-100 mg, oral, EVERY 6 HOURS, First dose on Tue06/10/15 at 1200, Until Discontinued, Routine, On Unit Given 06/14/2015 6:56 EST 50 mg Given 06/14/2015 1:15 EST 50 mg Given 06/13/2015 18:16 EST 50 mg zinc sulfate (ZINCATE) capsule 220 mg 220 mg, oral, AT BEDTIME, First dose on Tue06/10/15 at 2100, Until Discontinued, Routine, On Unit Given 06/13/2015 21:34 EST 220 mg Given 06/12/2015 20:44 EST 220 mg Given 06/11/2015 21:33 EST 220 mg documented in this encounter Discontinued Medications Medication Sig Discontinue Reason Start Date End Da te rivaroxaban (XARELTO) 10 mg tablet tabletIndications:Family history of DVT,Morbid obesity, unspecified obesity type (HCC-CMS) Take 1 Tab by mouth daily START 24 hours after last dose lovenox given in hospital 06/13/2015 06/14/2015 documented as of this encounter Active and Recently Administered Medications Times are shown in EST. Scheduled Medication Order 06/12/2015 06/13/2015 06/14/2015 acetaminophen (TYLENOL) tablet 650 mg (CANCELED) 650 mg, oral, EVERY 6 HOURS, First dose on Tue06/10/15 at 1730, Until Discontinued, Routine, On Unit 0015 (Given - Provider: Nadia Sandoval, RN)0549 (Given - Provider: Nadia Sandoval, RN)1135 (Given - Provider: Oksana Pal, RN)1835 (Given - Provider: Dejah Fuller) 0004 (Given - Provider: Aimee Garcia RN)0535 (Given - Provider: Margarito Gallego RN)1217 (Given - Provider: Tali Tapia, RN)1815 (Given - Provider: Tali Tapia, ALEXEI) 0115 (Given - Provider: Yvrose Cadet, RN)0650 (Given - Provider: Yvrose Cadet, ALEXEI) ascorbic acid (VITAMIN C) tablet 500 mg (CANCELED) 500 mg, oral, AT BEDTIME, First dose on Tue06/10/15 at 2100, Until Discontinued, Routine, On Unit 2042 (Given - Provider: Linnea Mane RN) 213 (Given - Provider: Yvrose Cadet, ALEXEI) bisacodyl (DULCOLAX) suppository 10 mg (COMPLETED) 10 mg, rectal, DAILY, 1 dose, First dose on Tue06/13/15 at 1700, Routine 1659 (Given - Provider: Tali Tapia, ALEXEI) cholecalciferol (Vitamin D3) tablet 2,000 Units (CANCELED) 2,000 Units, oral, AT BEDTIME, First dose on Tue06/10/15 at 2100, Until Discontinued, Routine, On Unit 2043 (Given - Provider: Linnea Mane, ALEXEI) 213 (Given - Provider: Yvrose Cadet, ALEXEI) dalteparin (FRAGMIN) 5,000 anti-Xa unit/0.2 mL injection 5,000 Units (CANCELED)(Linked Group 1) 5,000 Units, subcutaneous, DAILY, 10 doses, First dose on Krystal 06/12/15 at 0900, Last dose on Tue06/21/15 at 0900, Routine 0834 (Given - Provider: Oksana Pal RN) 0817 (Given - Provider: Tali Tapia RN) 0803 (Given - Provider: Tali Tapia RN) docusate sodium (COLACE) capsule 200 mg (CANCELED) 200 mg, oral, 2 TIMES DAILY, First dose on Tue06/10/15 at 2100, Until Discontinued, Routine, On Unit 0833 (Given - Provider: Oksana Pal RN)204 (Given - Provider: Linnea Mane RN) 0819 (Given - Provider: Tali Tapia RN)213 (Given - Provider: Yvrose Cadet RN) 0808 (Given - Provider: Tali Tapia RN) gabapentin (NEURONTIN) capsule 600 mg (CANCELED) 600 mg, oral, 3 TIMES DAILY, First dose on Tue06/11/15 at 0900, Until Discontinued, Routine, On Unit 0833 (Given - Provider: Oksana Pal RN)1403 (Given - Provider: Oksana Pal RN)204 (Given - Provider: Linnea Mane RN) 0820 (Given - Provider: Tali Tapia RN)1433 (Given - Provider: Tali Tapia RN)213 (Given - Provider: Yvrose Cadet RN) 0804 (Given - Provider: Tali Tapia RN) lisinopril (PRINIVIL, ZESTRIL) tablet 10 mg (CANCELED) 10 mg, oral, DAILY, First dose on Tue06/13/15 at 0900, Until Discontinued, Routine 0821 (Given - Provider: Tali Tapia RN) 0804 (Given - Provider: Tali Tapia RN) magnesium hydroxide (MILK OF MAGNESIA) 400 mg/5 mL suspension 30 mL (CANCELED) 30 mL, oral, DAILY, First dose on Tue06/13/15 at 1700, Until Discontinued, Routine 1659 (Given - Provider: Tali Tapia RN) 0805 (Not Given - Provider: Tali Tapia RN - Reason: Other - Comment: BM yest) Multivitamins with Minerals tablet 1 Tab (CANCELED) 1 Tablet, oral, AT BEDTIME, First dose on Tue06/10/15 at 2100, Until Discontinued, Routine, On Unit 2042 (Given - Provider: Linnea Mane, RN) 2133 (Given - Provider: Yvrose Cadet, ALEXEI) pantoprazole (PROTONIX) tablet 40 mg (CANCELED) 40 mg, oral, DAILY, First dose on Tue06/10/15 at 1600, Until Discontinued, Routine, On Unit 0834 (Given - Provider: Oksana Pal RN) 0821 (Given - Provider: Tali Tapia RN) 0804 (Given - Provider: Tali Tapia RN) PEG 3350-Electrolytes (MIRALAX) packet 17 g (CANCELED) 17 g, oral, DAILY, First dose on Tue06/10/15 at 1600, Until Discontinued, Routine, On Unit 0834 (Given - Provider: Oksana Pal RN) 0822 (Given - Provider: Tali Tapia RN) 0805 (Not Given - Provider: Tali Tapia RN - Reason: Other - Comment: BM yest) senna (SENOKOT) tablet 2 Tab (CANCELED) 2 Tablet, oral, DAILY, First dose on Tue06/10/15 at 1600, Until Discontinued, Routine, On Unit 0834 (Given - Provider: Oksana Pal RN) 0821 (Given - Provider: Tali Tapia RN) senna (SENOKOT) tablet 2 Tab (CANCELED) 2 Tablet, oral, 2 TIMES DAILY, First dose (after last modification) on Tue06/13/15 at 2100, Until Discontinued, Routine, On Unit 2136 (Given - Provider: Yvrose Cadet, ALEXEI) 0808 (Given - Provider: Tali Tapia RN) traMADol (ULTRAM) tablet 50-100 mg (CANCELED) 50-100 mg, oral, EVERY 6 HOURS, First dose on Tue06/10/15 at 1200, Until Discontinued, Routine, On Unit 0015 (Given - Provider: Nadia Sandoval, RN)0548 (Given - Provider: Nadia Sandoval, RN)1135 (Given - Provider: Oksana Pal RN)1835 (Given - Provider: Dejah Fuller) 0004 (Given - Provider: Aimee Garcia RN)0535 (Given - Provider: Margarito Gallego RN)1217 (Given - Provider: Tali Tapia, RN)1816 (Given - Provider: Tali Tapia RN) 0115 (Given - Provider: Yvrose Cadet, RN)0656 (Given - Provider: Yvrose Cadet, RN) zinc sulfate (ZINCATE) capsule 220 mg (CANCELED) 220 mg, oral, AT BEDTIME, First dose on Tue06/10/15 at 2100, Until Discontinued, Routine, On Unit 204 (Given - Provider: Linnea Mane, RN) 2134 (Given - Provider: Yvrose Cadet, RN) Continuous Medication Order 06/12/2015 06/13/2015 06/14/2015 sodium chloride 0.9 % (NS) infusion (CANCELED) at 100 mL/hr, intravenous, CONTINUOUS, Starting on Tue06/11/15 at 1345, Until 06/14/15 at 1009, Routine 0028 (New Bag - Provider: Nadia Sandoval RN)0928 (IV Stopped - Provider: Oksana Pal RN) PRN Medication Order 06/12/2015 06/13/2015 06/14/2015 methocarbamol (ROBAXIN) tablet 500-1,000 mg (CANCELED) 500-1,000 mg, oral, EVERY 6 HOURS PRN, Starting on Tue06/10/15 at 1116, Until 06/14/15 at 1009, muscle spasms, Routine, On Unit 0549 (Given - Provider: Nadia Sandoval RN)204 (Given - Provider: Linnea Mane, ALEXEI) oxyCODONE (ROXICODONE) immediate release tablet 5-20 mg (CANCELED) 5-20 mg, oral, EVERY 3 HOURS PRN, Starting on Tue06/10/15 at 1116, Until 06/14/15 at 1009, Pain, Routine, On Unit 0843 (Given - Provider: Oksana Pal RN)1219 (Given - Provider: Oksana Pal RN)2045 (Given - Provider: Linnea Mane, RN) 0911 (Given - Provider: Tali Tapia RN)1438 (Given - Provider: Tali Tapia RN) 0838 (Given - Provider: Tali Tapia RN) PEG 3350-Electrolytes (MIRALAX) packet 17 g (CANCELED) 17 g, oral, DAILY PRN, Starting on 06/10/15 at 1542, Until 06/14/15 at 1009, Constipation, Routine, On Unit 2 (Given - Provider: Linnea Mane RN) Linked Groups Order Group 1: dalteparin (FRAGMIN) 2,500 anti-Xa unit/0.2 mL injection 2,500 Units (COMPLETED) 2,500 Units, subcutaneous, DAILY, 1 dose, First dose on Tue06/11/15 at 0900, Routine Followed by dalteparin (FRAGMIN) 5,000 anti-Xa unit/0.2 mL injection 5,000 Units (CANCELED)Jump to med 5,000 Units, subcutaneous, DAILY, 10 doses, First dose on Krystal 06/12/15 at 0900, Last dose on 06/21/15 at 0900, Routine documented in this encounter Orders Medications Ordered That Derrick ht Not Have Been Administered Count Last Ordered Date First Ordered Date bisacodyl (DULCOLAX) suppository 10 mg 1 DILTiazem (CARDIZEM) tablet 60 mg 1 016 rivaroxaban (XARELTO) tablet 10 mg 1 2015 atropine 0.1 mg/mL syringe 0.5 mg 1 016 calcium carbonate (TUMS) 200 mg calcium (500 mg) per chewable tablet tablet,chewable 1-2 Tab 1 06/10/2015 ceFAZolin (ANCEF) syringe 2 g 1 06/10/2015 diphenhydrAMINE (BENADRYL) i njection 6.25 mg 1 06/10/2015 fentaNYL citrate (PF) 50 mcg /mL injection 25-100 mcg 1 06/10/2015 HYDROmorphone (DILAUDID) tablet 2 mg 10/2015 HYDROmorphone (PF) (DILAUDID ) 1 mg/mL injection 0.2-1 mg 1 06/10/2015 lactated ringers (LR) infusion 1 06/10/2015 nalOXone (NARCAN) injection 0.2 mg 1 2015 prochlorperazine (COMPAZINE) 25 mg suppository 25 mg 1 06/10/2015 sodium chloride 0.9 % flush 3 mL 1 06/10/19 16 sodium phosphate (FLEET) enema 1 Enema 1 tranexamic acid (CYKLOKAPRON ) topical syringe 1,000 mg 2 06/09/2015 Diet Count Last Ordered Date First Orde red Date DISCHARGE DIET 1 06/14/2015 Nursing Count Last Ordered Date First Orde red Date ACTIVITY INSTRUCTIONS 1 06/14/2015 BATHING INSTRUCTIONS 1 06/14/2015 WOUND CARE INSTRUCTIONS 1 06/14/2015 APPLY WARMING BLANKET 1 06/10/2015 INSERT GOMEZ CATHETER 1 06/10/2015 VTE PHARMACOLOGIC PROPHYLAXI S CURRENTLY ORDERED OR ON ALTERNATIVE THER 1 06/10/2015 PT Count Last Ordered Date First Orde red Date PT EVALUATION AND TREAT 1 06/10/2015 Admission Count Last Ordered Date First Orde red Date STATUS: INPATIENT DOSA/DOPA DAY OF SURGERY/PROCEDURE ADMISSION 1 06/10/2015 Transfer Count Last Ordered Date First Orde red Date NOTIFY PPS OF DISCHARGE COMPLETE 1 06/14/19 16 PPS NOTIFICATION OF PATIENT ARRIVAL ON UNIT 2 06/13/2015 06/10/2015 TRANSFER PATIENT 1 06/13/2015 NOTIFY PPS PATIENT ARRIVAL IN PACU 2 2015 NOTIFY PPS PATIENT TRANSFERRED OUT OF PACU 1 06/10/2015 TEACHING SERVICE 1 06/10/2015 Discharge Count Last Ordered Date First Orde red Date DISCHARGE PATIENT 1 06/14/2015 Legal Count Last Ordered Date First Orde red Date MISCELLANEOUS DISCHARGE INSTRUCTIONS 1 02/2016 Consult to Social Work Count Last Ordered Date First Ordered Date CONSULT SOCIAL WORK 1 06/10/2015 documented in this encounter Care Teams Pharm Tech Relationship Specialty Start Date End Date Nic Padilla MD [address] [place] [address] PCP - General 05/18/12 documented as of this encounter
--- OUTSIDE RECORDS SUMMARY | 2024-04-18 09:24 | XMS_ITS | Encounter Summary ---
Author Organization [facility] Address [address] [place] [address] Care Team Providers Care Tombstone Setter Name Role Phone Nic Padilla MD Primary Care Provider [phone] Reason for Visit * Reason Comments Obesity Pre Op Encounter Details Date Type Department Care Team (Late st Contact Info) Description 11/15/2012 14:00 EDT Office Visit [facility] Bariatric Surgery [address] [id number] Reyes Stevens PA-C [address] [place] [address], [facility] [address] [place] [address] Morbid obesity (HCC-CMS) (Primary Dx) [...] Reading Time Taken Comments Blood Pressure 126/80 11/15/2012 1350 EDT Pulse 70 11/15/2012 1350 EDT Temperature - - Respiratory Rate - - Oxygen Saturation - - Inhaled Oxygen Concentration - - Weight 130 kg (286 lb 9.6 oz) 11/15/2012 1350 ED T Height 177.8 cm (5' 10) 11/15/2012 1350 EDT Body Mass Index 41.12 11/15/2012 1350 EDT documented in this encounter Discharge Disposition Disposition Code Departure Means Destination Auto Discharge documented in this encounter Progress Notes * Samantha Solomon RD - 11/15/2012 1413 EDT Medical Nutrition Evaluation-PRE OP NOTE Bariatric Clinic Nutrition Pre-op Visit Visit Number: 5 Desired surgery: Gastric Sleeve Subjective: Did blended diet but not full liquid-has not tried any protein shakes yet Food logs: on computer Meal pattern: 3 Average caloric intake:6545-1350 shala Meal composition: well balanced though he has had alcohol 5 out of 6 days presented! Snacking: Exercise: sawing wood, walking as able with his knees Objective: Weight: 286.6 lb Weight loss from last visit: -6 lb Total weight loss: Weight loss goal: Total Loss in lbs (Weight from Initial Consult - Today's Weight): 36.8 lbs Approximately 16 lb Surgery Date: Significant Medications and Supplements: Assessment: Patient has met weight loss requirement for surgery Comments: great weight loss continues. Advised less alcohol!! To increase exercise as able and do full liquid diet. Blended diet done well with minor corrections Plan: Diet Goals: Keep food records, Eat more slowly and decrease alcohol Exercise Goals: Increase time to 150 min per week as able Weight Loss Goal: Approximately 16 lb Weight Loss Remaining to Goal: Approximately met Reviewed: Food/Activity Record and Blenderized Diet Homework Next Visit: Pre-op follow-up visit with full liquid diet * Reyes Stevens PA - 11/15/2012 1357 EDT 11/15/2012 SUBJECTIVE: Julio returns to our office today [...] physical examination today, his BP 126/80 Pulse 70 Ht 177.8 cm (70) Wt 130.001kg (286 lb 9.6 oz) BMI 41.12 kg/m2 and Body mass index is 41.12 kg/(m^2).. ASSESSMENT AND PLAN: Julio will return to our office in a few weeks for continued medically-supervised weight loss in preparation for surgery. He understands that: He has met weight loss goal. Stillneed PSA result - got results in mail yesterday and was normal but we don't have a copy yet, and sleep study - will see sleep center on Tuesday. SINA Gimenez documented in this encounter Plan of Treatment Not on file documented as of this encounter Visit Diagnoses Diagnosis Morbid obesity (HCC-CMS)- Primary Morbid obesity documented in this encounter Care Teams Tombstone Setter Relationship Specialty Start Date End Date Nic Padilla MD [address] [place] [address] PCP - General 05/18/12 documented as of this encounter
--- OUTSIDE RECORDS SUMMARY | 2024-04-18 09:24 | XMS_ITS | Encounter Summary ---
Author Organization [facility] Address [address] [place] [address] Care Team Providers Care Roller Skater Name Role Phone Nic Padilla MD Primary Care Provider [phone] Reason for Visit * Reason Comments New Patient Visit bilateral knee pain * Consult (Routine) - Closed Specialty Diagnoses / Procedures Referred By Jeremy hodges Referred To Contact Orthopedic Surgery Diagnoses DJD (degenerative joint disease) of knee Deonte Bourne MD Phone: tel: fax: Yohan Smith MD Phone: tel: fax: Referral ID Status Reason Start Date Expiration Date Visits Re quested Visits Authorized [id number] Closed 1 1 Encounter Details Date Type Department Care Team (Latest Contact Info) Description 01/14/2015 13:00 EDT Office Visit [facility] Total Joint Program - [address] [place] [address] Sushila Esparza NP [address] [place] [address] Osteoarthritis of both knees, unspecified osteoarthritis type (Primary Dx) Discharge Disposition: Auto Discharge Social [...] - - Weight 117.9 kg (260 lb) 01/14/2015 1306 EDT Height 177.8 cm (5' 10) 01/14/2015 1306 EDT Body Mass Index 37.31 01/14/2015 1306 EDT documented in this encounter Discharge Diagnoses Diagnosis 715.96 OSTEOARTHROS NOS-L/LEG[ICD-9-CM] documented in this encounter Discharge Disposition Disposition Code Departure Means Destination Auto Discharge documented in this encounter Progress Notes * Butch Cassidy MD - 01/15/2015 0844 EDT Attestation statement: Supervising Physician * Sushila Esparza NP - 01/14/2015 1347 EDT NEW (Hip or Knee) Pain: Chief Complaint Patient presents with ??? New Patient Visit bilateral knee pain Patient Active Problem List Diagnosis Date Noted ??? Morbid obesity 08/10/2012 HPI: Julio Cardoza is a 64 y.o. patient whom I am seeing as new patient from Dr. Bourne Orthopaedicprovider with an history of atraumatic chronic bilateral sided knee pain, right greater than left. He reports that the pain has been present for multiple years but has progressively worsened. The description of pain includes: Character: aching Location:generalized knee Timing: constant- with out injections, intermittent currently Radiation: denies radiation of symptoms to the foot Pain: 2-3/10 now; 8/10 at highest Aggravated by: stairs, walking, lifting Alleviated by: medication and injections Causes difficulty with: can't walk distances, limiting many outside activities Interferes with sleep: awakes from sleep with movement Limits ambulation: distances He ambulates without support. Swelling: after activity Mechanical Sx: catch/lock and feeling of instability He has had no prior knee problems as a child or young adult. Other providers involved prior to this evaluation: Ortho provider Other tests performed to evaluate this condition: X-Rays Prior treatment has included: Self-care: activity modification Medications: Aleve 2 tablets in AM Physical therapy: none Injection therapy: Undergoes Synvisc every 6 months with steroid injection 3 months after injection- with lessening symptom relief Surgical: S/P Left knee arthroscopy Intake sheet reviewed and signed PFS reviewed and updated in [facility]. ROS pertinent positives as per HPI all others negative. PHYSICAL EXAM: 64 y.o. Patient is in no acute distress, appears normal, mood and affect appropriate, alert and oriented x3. Good historian. Skin: Intact, no rashes, no bruises. Eyes: Sclerae clear. Mouth: Mucosa pink and moist. Cardiovascular: Warm and well perfused extremities. Respiratory: Regular, unlabored, without audible wheezing. Musculoskeletal: Arises from a seated position with pain. antalgic gait to symptomatic side Lower extremity: Hip Skin and soft tissues about hip girdle appear healthy to inspection Non-tender about the bilateral greater trochanter. Non-tender to bilateral SI Joint with palpation. right hip range of motion Active = passive ROM with no groin pain at end range left hip range of motion Active = passive ROM with no groin pain at end range RIGHT KNEE: Skin: Intact to inspection and palpation. No prior incisions/scars. No erythema or ecchymosis. No effusion. ROM 0 to 110 with pain with end flexion He does have tenderness over the medial compartment, does have tenderness over the lateral compartment and does not have tenderness over the patellofemoral compartment. No patellofemoral crepitus on range. No Instability to varus/valgus or AP stress. LEFT KNEE: Skin: Intact to inspection and palpation. No prior incisions/scars. No erythema or ecchymosis. No effusion. ROM 0 to 120 He does not have tenderness over the medial compartment, does not have tenderness over the lateral compartment and does not have tenderness over the patellofemoral compartment. No patellofemoral crepitus on range. No Instability to varus/valgus or AP stress. Lower leg and ankles/feet: normal skin integrity and functional ROM. Neurologic: Intact sensation in both lower extremities. Lymphadenopathy: none noted REVIEW OF IMAGING: Weight bearing arthritis series including bilateral AP knees, PA flex and lateral knee(s) are personally reviewed revealing: Right knee: Kellgren-Darnell grade 4 medial tibiofemoral & grade 1 lateral tibiofemoral changes Kellgren-Darnell grade 2 patellofemoral changes. No loose bodies or ectopic calcifications seen. Normal soft tissue patterns Left knee: Kellgren-Darnell grade 3 medial tibiofemoral & grade 1 lateral tibiofemoral changes Kellgren-Darnell grade 2 patellofemoral changes. No loose bodies or ectopic calcifications seen. Normal soft tissue patterns Advanced imaging: none ASSESSMENT/PLAN: Bilateral knee pain, Right greater than left secondary to osteoarthritis At this time the gentleman does wish to return to see one of the surgeons to discuss the possibility of surgery. Do feel this is reasonable. Patient Education: Over the course of today's office visit, we discussed the diagnosis, differential diagnosis, normalanatomy, the pathoanatomy and this patient???s pertinent comorbidities.The patient may use oral non-narcotic analgesics for pain. The role for intra-articular injection therapies was discussed. The pa tient may also use an assistive aid, and if using a cane or single crutch, it should generally be used in the hand opposite the most symptomatic hip/knee. We also discussed the spectrum of non-operative and operative treatment options per the 2009 A.A.O.S. clinical practice guideline for the care of the osteoarthritic hip/knee using Scurri decision-making techniques, printed educational materials and/or A.A.O.S. online decision support tools. Also di scussed the importance of risk reduction. The patient's questions were solicited and responded to with the patient's verbalized satisfaction. Diagnostic: As a result of our discussion, we have agreed to proceed with the following diagnostic plan: No additional studies at this time Non-operative treatment plan: An appropriate informed choice non-operative treatment discussion was completed and we have collectively agreed to proceed with the following therapeutic plan: Continued activity modification to limit symptoms Continued use of oral analgesics Conservative treatment using OTC topicals, heat, ice or massage Home exercise program for core & lower extremity strengthening/balance DISPOSITION: follow-up in [facility] with Dr. Horan to discuss the possibilityof surgery. I was directly supervised by Dr. Cassidy and he was in the suite and immediately available for theentire time the service was provided. documented in this encounter Plan of Treatment Not on file documented as of this encounter Visit Diagnoses Diagnosis Osteoarthritis of both knees, unspecified osteoarthritis type- Primary documented in this encounter Discontinued Medications Medication Sig Discontinue Reason Start Date End Da te Jackman-3 Fatty Acids-Vitamin E (FISH OIL) 1,000 mg cap Take 2,000 mg by mouth daily. Patient Stopped Taking 01/14/2015 documented as of this encounter Historical Medications * This list may reflect changes made after this encounter. Multivitamins with Minerals tablet Take 1 Tab by mouth daily added in this encounter Care Teams Roller Skater Relationship Specialty Start Date End Date Nic Padilla MD [address] [place] [id number] PCP - General 05/18/12 documented as of this encounter
--- OUTSIDE RECORDS SUMMARY | 2024-04-18 09:24 | XMS_ITS | Encounter Summary ---
Author Organization [facility] Address [address] [place] [address] Care Team Providers Care Marketer Name Role Phone Nic Padilla MD Primary Care Provider Reason for Visit * Reason Onset Date Comments Pre-op Exam 04/02/2015 Encounter Details Date Type Department Care Team (Late st Contact Info) Description 04/02/2015 Orders Only [facility] Total Joint Program - [address] [place] [address] Jennifer Mack LPN [address] [place] [address] Bilateral knee pain (Primary Dx); Bilateral primary [...] on file documented as of this encounter Results * URINE CULTURE IF UA POSITIVE - NON POCT URINALYSIS ONLY (06/02/2015 8:30 EST) Culture if Indicated Culture not indicated by urinalysis results. 06/02/2015 9:55 [facility] Urine specimen (specimen) TOPOGRAPHY UNKNOWN / Unknown 06/02/2015 8:30 EST 06/02/2015 8:43 EST us Keenan Horan MD MICROBIOLOGY - GENERAL ORDERABLES Final Result [facility] [address] [place] [address] * URINALYSIS WITH REFLEX MICROSCOPIC (06/02/2015 8:30 EST) Color, UA Yellow 06/02/2015 8:53 [facility] Clarity, UA Clear 06/02/2015 8:53 [facility] Glucose, UA Neg Neg 06/02/2015 8:53 [facility] Bilirubin, UA Neg Neg 06/02/2015 8:53 [facility] Ketones, UA Neg Neg 06/02/2015 8:53 [facility] Specific Evans, Urine >1.030 1.001 - 1.035 06/02/2015 8:53 [facility] Blood, UA Neg Neg 06/02/2015 8:53 [facility] pH, UA 5.5 4.6 - 8.0 06/02/2015 8:53 [facility] Protein, UA Neg Neg 06/02/2015 8:53 [facility] Urobilinogen, UA 0.2 0.2 - 1.0 E.U./dl 06/02/2015 8:53 [facility] Nitrite, UA Neg Neg 06/02/2015 8:53 [facility] Leuk Esterase Neg Neg 06/02/2015 8:53 [facility] Refractometer SG,Urine 1.032 1.001 - 1.035 06/02/2015 8:53 [facility] Urine specimen (specimen) URINE / Unknown 06/02/2015 8:30 EST 06/02/2015 8:43 EST us Keenan Horan MD URINALYSIS ORDERABLES Final Result Performing Organization Address City/[facility]/ZIP Co de Phone Number [facility] [address] [place] [address] * PRE-OP BLOOD BANK DRAW (06/02/2015 8:29 EST) Pre-Op Blood Bank Lab Draw SPECIMEN RECEIVED ACCEPTABLE 06/02/2015 9:43 [facility] BLOOD SPECIMEN / Unknown 06/02/2015 8:29 EST 06/02/2015 8:43 EST Keenan Horan MD BLOOD BANK TESTS Final Result Performing Organization Address [facility] Co de Phone Number [facility] [address] [place] [address] * (ABNORMAL) HEMAGRAM AND DIFFERENTIAL (06/02/2015 8:29 EST) WBC 9.54 4.0 - 10.4 K/cmm 06/02/2015 9:07 [facility] RBC 5.19 4.36 - 5.78 M/cmm 06/02/2015 9:07 [facility] Hemoglobin 16.2 13.8 - 17.3 gm/dl 06/02/2015 9:07 [facility] HCT 47.7 39.5 - 50.2 % 06/02/2015 9:07 [facility] MCV 92 81 - 95 fl 06/02/2015 9:07 [facility] MCH 31.1 27.6 - 33.0 pg 06/02/2015 9:07 [facility] MCHC 33.9 32.8 - 36.4 gm/dl 06/02/2015 9:07 [facility] RDW-CV 12.6 11.8 - 14.1 % 06/02/2015 9:07 [facility] RDW-SD 39.8 36.5 - 45.9 fl 06/02/2015 9:07 [facility] PLT 144 141 - 320 K/cmm 06/02/2015 9:07 [facility] MPV 9.4 7.5 - 11.2 fl 06/02/2015 9:07 [facility] % Neutrophils 60.5 45.5 - 79.7 % 06/02/2015 9:07 [facility] % Lymphocytes 27.1 15.0 - 46.8 % 06/02/2015 9:07 [facility] % Monocytes 9.6 1.8 - 12.0 % 06/02/2015 9:07 [facility] % Eosinophils 2.2 0.6 - 6.9 % 06/02/2015 9:07 [facility] % Basophils 0.6 0.2 - 1.4 % 06/02/2015 9:07 [facility] ABS Neutrophils 5.78 2.20 - 8.85 K/cmm 06/02/2015 9:07 [facility] ABS Lymphs 2.59 1.09 - 3.30 K/cmm 06/02/2015 9:07 [facility] ABS Monocytes 0.92(H) 0.1 - 0.8 K/cmm 06/02/2015 9:07 [facility] ABS Eosinophils 0.21 0.03 - 0.61 K/cmm 06/02/2015 9:07 [facility] ABS Basophils 0.05 0.01 - 0.11 K/cmm 06/02/2015 9:07 [facility] Type of Diff: Automated 06/02/2015 9:07 [facility] Blood specimen (specimen) BLOOD SPECIMEN / Unknown 06/02/2015 8:29 EST 06/02/2015 8:43 EST us Keenan Horan MD PACKAGES & DNA PROBE O RDERABLES Final Result [facility] [address] [place] [address] * (ABNORMAL) BASIC METABOLIC PANEL (06/02/2015 8:29 EST) Sodium 141 136 - 145 mEq/L 06/02/2015 9:19 [facility] Potassium 4.3 3.5 - 5.0 mEq/L 06/02/2015 9:19 [facility] Chloride 105 96 - 110 mEq/L 06/02/2015 9:19 [facility] CO2 25 24 - 32 mEq/L 06/02/2015 9:19 [facility] BUN 24 10 - 26 mg/dl 06/02/2015 9:19 [facility] Creatinine 0.85 0.66 - 1.25 mg/dl 06/02/2015 9:19 [facility] GFR, Calculated 91 >60 ml/min/1.7 3m2 06/02/2015 9:19 [facility] Comment: eGFR calculated using CKD-EPI equation for non Americans. Multiply eGFR by 1.16 for Americans. Calcium 9.4 8.5 - 10.5 mg/dl 06/02/2015 9:19 [facility] Calculated Calcium 9.7 8.5 - 10.5 mg/dl 06/02/2015 9:19 [facility] Glucose, Serum 102(H) 70 - 100 mg/dl 06/02/2015 9:19 [facility] Fasting? Unknown 06/02/2015 9:19 [facility] Blood specimen (specimen) BLOOD SPECIMEN / Unknown 06/02/2015 8:29 EST 06/02/2015 8:43 EST us Keenan Horan MD CHEMISTRY & BLOOD GAS ORDERABLES Final Result Performing Organization Address City/State/[facility] Co de Phone Number [facility] [address] [place] [address] documented in this encounter Visit Diagnoses Diagnosis Bilateral knee pain- Primary Pain in joint, lower leg Bilateral primary osteoarthritis of knee documented in this encounter Care Teams Marketer Relationship Specialty Start Date End Date Nic Padilla MD [address] [place] [address] PCP - General 05/18/12 documented as of this encounter
--- OUTSIDE RECORDS SUMMARY | 2024-04-18 09:24 | XMS_ITS | Encounter Summary ---
Author Organization [facility] Address [address] [place] [address] Care Team Providers Care Journal Clerk Name Role Phone Nic Padilla MD Primary Care Provider [phone] Encounter Details Date Type Department Care Team (Late st Contact Info) Description 09/11/2012 Phlebotomy Only [facility] [address] [place] [address] Knitting Machine Fixer, Outpatient Morbid obesity ([facility]) Social History Tobacco Use Types Packs/Day Years [...] as of this encounter Plan of Treatment Not on file documented as of this encounter Procedures Procedure Name Priority Date/Time Associated Diagnosis Comments VITAMIN D (25,[place]) Routine 09/11/2012 15: 49 EDT Morbid obesity ([facility]) COMPLETE BLOOD COUNT Routine 09/11/2012 15:49 EDT Morbid obesity ([facility]) TSH Routine 09/11/2012 15:49 EDT Morbid obesity ([facility]) HEMOGLOBIN A1C Routine 09/11/2012 15:49 EDT Morbid obesity ([facility]) VITAMIN B12 Routine 09/11/2012 15:49 EDT Morbid obesity ([facility]) CREATININE Routine 09/11/2012 15:49 EDT Morbid obesity (HCC-CMS) HEPATIC FUNCTION PANEL (ALB,ALK PHOS,ALT,AST,DBIL,TO T GRAY,TOT PROT) Routine 09/11/2012 15:49 EDT Morbid obesity (HCC-CMS) documented in this encounter Results * TSH (09/11/2012 15:49 EDT) Pathologist [facility] TSH 2.10 0.35 - 5.00 uIU/ml [facility] Blood specimen (specimen) 09/11/2012 15:49 EDT 09/11/2012 17:47 EDT eRyes Stevens PA-C CHEMISTRY & BLOOD GA S ORDERABLES Final Result Performing Organization Address [facility] de Phone Number [facility] [address] [place] [address] * VITAMIN D (25,[place]) (09/11/2012 15:49 EDT) Pathologist [facility] 25OH Vitamin D Tot 19.8 ng/ml [facility] Comment: Reference Range: Deficient = <10 ng/ml Insufficient = 10-30 ng/ml Sufficient = 30-100 ng/ml Toxic = >100 ng/ml Blood specimen (specimen) 09/11/2012 15:49 EDT 09/11/2012 17:47 EDT us Reyes Stevens PA-C CHEMISTRY & BLOOD GA S ORDERABLES Final Result Performing Organization Address [facility] de Phone Number [facility] [address] [place] [address] * LIVER FUNCTION TESTS (09/11/2012 15:49 EDT) Pathologist [facility] Albumin 4.1 3.4 - 4.9 g/dl [facility] Total Protein 7.1 6.5 - 8.3 g/dl [facility] Total Alkaline Phosphatase 79 38 - 126 U/L [facility] ALT 62 21 - 72 U/L [facility] AST 29 15 - 46 U/L [facility] Unconjugated Bilirubin 0.3 0.1 - 1.1 mg/dl [facility] Conjugated Bilirubin 0.0 0.0 - 0.3 mg/dl [facility] Bilirubin, Total 0.7 0.2 - 1.3 mg/dl [facility] Blood specimen (specimen) 09/11/2012 15:49 EDT 09/11/2012 17:47 EDT Reyes Stevens PA-C CHEMISTRY & BLOOD GA S ORDERABLES Final Result Performing Organization Address [facility] de Phone Number [facility] [address] [place] [address] * HEMOGLOBIN A1C (09/11/2012 15:49 EDT) Hemoglobin A1C 6.1 % [facility] Comment: Reference Range: <5.7% Normal 5.7-6.4% Increased [...] 09/11/2012 15:49 EDT 09/11/2012 17:47 EDT Reyes Stevens PA-C CHEMISTRY & BLOOD GA S ORDERABLES Final Result Performing Organization Address [facility] Co de Phone Number [facility] [address] [place] [address] * CREATININE (09/11/2012 15:49 EDT) Creatinine 1.01 0.66 - 1.25 mg/dl [facility] GFR, Calculated >60 >60 ml/min/1.7 3m2 [facility] Blood specimen (specimen) 09/11/2012 15:49 EDT 09/11/2012 17:47 EDT Reyes ANDINO-Silvia CHEMISTRY & BLOOD GA S ORDERABLES Final Result Performing Organization Address [facility] de Phone Number [facility] [address] [place] [address] * (ABNORMAL) HEMAGRAM (09/11/2012 15:49 EDT) WBC 14.06(H) 4.0 - 10.4 K/cmm [facility] RBC 5.57 4.36 - 5.78 M/cmm [facility] Hemoglobin 17.0 13.8 - 17.3 gm/dl [facility] HCT 50.8(H) 39.5 - 50.2 % [facility] MCV 91 81 - 95 fl [facility] MCH 30.5 27.6 - 33.0 pg [facility] MCHC 33.4 32.8 - 36.4 gm/dl [facility] PLT 156 141 - 320 K/cmm [facility] RDW-CV 12.8 11.8 - 14.1 % [facility] Blood specimen (specimen) 09/11/2012 15:49 EDT 09/11/2012 17:47 EDT Reyes Stevens PA-C HEMATOLOGY & PF4 ORD ERABLES Final Result Performing Organization Address [facility] de Phone Number [facility] [address] [place] [address] * (ABNORMAL) VITAMIN B12 (09/11/2012 15:49 EDT) Vitamin B-12 933(H) 211 - 911 pg/ml [facility] Blood specimen (specimen) 09/11/2012 15:49 EDT 09/11/2012 17:47 EDT Reyes Stevens PA-C CHEMISTRY & BLOOD GA S ORDERABLES Final Result [facility] [address] [place] [address] documented in this encounter Visit Diagnoses Diagnosis Morbid obesity (HCC-CMS) Morbid obesity documented in this encounter Care Teams Journal Clerk Relationship Specialty Start Date End Date Nic Padilla MD [address] [place] [address] PCP - General 05/18/12 documented as of this encounter
--- OUTSIDE RECORDS SUMMARY | 2024-04-18 09:24 | XMS_ITS | Encounter Summary ---
Author Organization [facility] Address [address] [place] [address] Care Team Providers Care Electric Arc Welder Name Role Phone Nic Padilla MD Primary Care Provider [phone] Reason for Visit * Reason Onset Date Comments Pre-op Exam 06/02/2015 Encounter Details Date Type Department Care Team (Late st Contact Info) Description 06/02/2015 Orders Only [facility] Total Joint Program - [address] [place] [address] Jennifer Mack LPN [address] [place] [address] Bilateral knee pain (Primary Dx); Bilateral primary osteoarthritis of knee; Family history [...] documented as of this encounter Results * PROTIME (06/02/2015 13:42 EST) Pro Time 11.4 10.1 - 13.0 secs 06/02/2015 15:41 EST [facility] I.N.R. 1.0 0.9 - 1.1 Ratio 06/02/2015 15:41 EST [facility] Comment: Moderate Intensity Coumadin INR = 2.0-3.0 Adjustments in anticoagulant therapy dose should be based upon the INR and NOT the Pro Time. Blood specimen (specimen) BLOOD SPECIMEN / Unknown 06/02/2015 13:42 EST 06/02/2015 14:54 EST us Keenan Horan MD HEMATOLOGY & PF4 ORDER ARMANDO Final Result Performing Organization Address City/[facility]/ZIP Co de Phone Number [facility] [address] [place] [address] * PTT (06/02/2015 13:42 EST) PTT 29 26 - 37 secs 06/02/2015 15:41 EST [facility] Blood specimen (specimen) BLOOD SPECIMEN / Unknown 06/02/2015 13:42 EST 06/02/2015 14:54 EST Keenan Horan MD HEMATOLOGY & PF4 ORDER ARMANDO Final Result Performing Organization Address City/[facility] Co de Phone Number [facility] [address] [place] [address] documented in this encounter Visit Diagnoses Diagnosis Bilateral knee pain- Primary Pain in joint, lower leg Bilateral primary osteoarthritis of knee Family history of blood clots Family history of other blood disorders Anticoagulation management encounter Encounter for therapeutic drug monitoring documented in this encounter Care Teams Electric Arc Welder Relationship Specialty Start Date End Date Nic Padilla MD [address] [place] [address] PCP - General 05/18/12 documented as of this encounter
--- OUTSIDE RECORDS SUMMARY | 2024-04-18 09:24 | XMS_ITS | Encounter Summary ---
Author Organization [facility] Address [address] [place] [address] Care Team Providers Care Assistant Cross Country Coach Name Role Phone Nic Padilla MD Primary Care Provider [phone] Reason for Visit * Reason Comments Obesity Class Encounter Details Date Type Department Care Team (Late st Contact Info) Description 10/02/2012 10:30 EDT Office Visit [facility] Bariatric Surgery [address] [id number] Soo Rangel, PhD [address] [place] [phone] Unspecified adjustment reaction (Primary Dx) Discharge Disposition: Auto Discharge Social [...] - Inhaled Oxygen Concentration - - Weight 134.8 kg (297 lb 3.2 oz) 10/02/2012 1023 EDT Height 177.8 cm (5' 10) 10/02/2012 1023 EDT Body Mass Index 42.64 10/02/2012 1023 EDT documented in this encounter Discharge Disposition Disposition Code Departure Means Destination Auto Discharge documented in this encounter Progress Notes * Soo Rangel, PhD - 10/02/2012 1258 EDT Behavioral Skills Group Progress Note Name: Julio Cardoza : 1950 Procedure: 1.5 hour Psychoeducational Group S: The focus of this session was on introducing the behavioral skills necessary for weight loss andweight loss maintenance after surgery. Educational information was provided on topics including: energy balance, ???mindless margin,?? portion control, overcoming emotional eating, and increasing physical activity. Patients were encouraged to reflect on how they can reengineer their lifestyles, incorporating these strategies for long-term success with weight loss maintenance. This group also focused on the importance of setting realistic and achievable goals. O: Vitals: Height 177.8 cm (70), weight 134.809 kg (297 lb 3.2 oz). A: Level of Participation: Highly engaged Diagnosis: 309.9 P: Follow-up with behavioral support at patient???s or team???s request. Soo Rangel, PHD Licensed Psychologist - Doctorate 10/02/2012 12:58 documented in this encounter Plan of Treatment Not on file documented as of this encounter Visit Diagnoses Diagnosis Unspecified adjustment reaction- Primary documented in this encounter Care Teams Assistant Cross Country Coach Relationship Specialty Start Date End Date Nic Padilla MD [address] [place] [address] PCP - General 05/18/12 documented as of this encounter
--- OUTSIDE RECORDS SUMMARY | 2024-04-18 09:24 | XMS_ITS | Encounter Summary ---
Author Organization [facility] Address [address] [place] [address] Care Team Providers Care Wool Hat Finisher Name Role Phone Nic Padilla MD Primary Care Provider [phone] Reason for Visit * Reason Comments Obesity Pre Op Encounter Details Date Type Department Care Team (Late st Contact Info) Description 12/25/2012 14:45 EDT Office Visit [facility] Bariatric Surgery [address] [address] Reyes Stevens PA-C [address] [place] [address], [address] [place] [address] Morbid obesity (HCC-CMS) (Primary Dx) [...] Sign Reading Time Taken Comments Blood Pressure 130/68 12/25/2012 1433 EDT Pulse 66 12/25/2012 1433 EDT Temperature - - Respiratory Rate - - Oxygen Saturation - - Inhaled Oxygen Concentration - - Weight 127.4 kg (280 lb 12.8 oz) 12/25/2012 1433 EDT Height 177.8 cm (5' 10) 12/25/2012 1433 EDT Body Mass Index 40.29 12/25/2012 1433 EDT documented in this encounter Discharge Disposition Disposition Code Departure Means Destination Auto Discharge documented in this encounter Progress Notes * [address] - 12/25/2012 1540 EDT Medical Nutrition Evaluation-PRE OP NOTE Bariatric Clinic Nutrition Pre-op Visit Visit Number: #6 Desired surgery: Gastric Sleeve Subjective: I'm just happy I lost any weight this month. I've been so busy with work stuff and Summer BBQ's but I haven't been drinking more than a beer a couple nights a week. I cannot eat berries even though I like them because of my diverticulitis. Food logs: [employer] Meal pattern: good Average caloric intake: 1,200/day. 900 calories and 55gm Protein daily with full liquid diet trial. Meal composition: overall, well-balanced most days, minimal fruit some days Snacking: kinyarwanda yogurt, fruit on occasion Exercise: walking outdoors a few times/week, house projects, wood cutting and splitting daily Objective: Weight: 280.8 lbs Weight loss from last visit: -5.8 lbs Total weight loss: Weight loss goal: Total Loss in lbs (Weight from Initial Consult - Today's Weight): 42.6 lbs Approximately 16 lbs Surgery Date: Significant Medications and Supplements: MVT, VitD3 Assessment: Patient has made progress towards lifestyle changes and met all pre-op nutrition requirements for surgery. Completed full liquid diet trial well, using Premier protein shakes. Recommended adding 2 servings of non-seeded fruit daily as b/w meal snacks or with breakfast meal as able with diverticulitis. Has decreased weekly ETOH consumption. Plan: Diet Goals: Include protein at least 3 times a day, Keep food records and Add 2 servings of fruit each day Exercise Goals: Maintain current exercise Weight Loss Goal: Approximately 16 lbs Weight Loss Remaining to Goal: Approximately met Reviewed: Food/Activity Record and Full Liquid Diet Trial Next Visit: Pre-op follow-up visit * Reyes Stevens PA - 12/25/2012 1529 EDT 12/25/2012 SUBJECTIVE: Edfernando returns to our office today for continued medically supervised weight loss in preparation for laparoscopic sleeve gastrectomy surgery. He is a 62 y.o. male with adult-onset obesity. His comorbidities include GERD and hypertension. Otherwise, he denies any changes to his medical history or medications since his previous visit. He has attended both classes and support group Julio met with our program dietitian for 30 minutes to review preoperative dietary recommendations. I consulted with the dietitian following her visit with the patient and agree with her findings and recommendations. OBJECTIVE: On physical examination today, his BP 130/68 Pulse 66 Ht 177.8 cm (70) Wt 127.37 kg (280 lb 12.8 oz) BMI 40.29 kg/m2 and Body mass index is 40.29 kg/(m^2).. PSA negative ASSESSMENT AND PLAN: Julio will return to our office in a few weeks for continued medically-supervised weight loss in preparation for surgery. He understands that: He may not want surgery if he can do it on his own. Sleep study scheduled for late January in [facility] SINA Gimenez documented in this encounter Plan of Treatment Not on file documented as of this encounter Visit Diagnoses Diagnosis Morbid obesity ([facility])- Primary Morbid obesity documented in this encounter Discontinued Medications Medication Sig Discontinue Reason Start Date End Da te PEG 3350-Electrolytes (GOLYTELY) Instructions mailed once procedure scheduled. Questions: Esvin Mccray GI Dept.: [phone] or GI Doctor's Office. Therapy completed 07/13/2012 12/25/2012 documented as of this encounter Care Teams Wool Hat Finisher Relationship Specialty Start Date End Date Nic Padilla MD [address] [place] [phone] PCP - General 05/18/12 documented as of this encounter
--- OUTSIDE RECORDS SUMMARY | 2024-04-18 09:24 | XMS_ITS | Encounter Summary ---
Author Organization [facility] Address [address] [place] [address] Care Team Providers Care Enrollment Specialist Name Role Phone Nic Padilla MD Primary Care Provider [phone] Reason for Visit * Reason Onset Date Comments Pre-op Exam 06/02/2015 Encounter Details Date Type Department Care Team (Late st Contact Info) Description 06/02/[address] [facility] Total Joint Program - [address] [place] [address] Jennifer Mack LPN [address] [place] [address] Bilateral knee pain (Primary Dx); Bilateral primary [...] Procedure Name Priority Date/Time Associated Diagnosis Comments OUTPATIENT ADD-ON Routine 06/02/2015 9:0 9 EST Bilateral knee pain Bilateral primary osteoarthritis of knee documented in this encounter Results * OUTPATIENT ADD-ON (06/02/2015 9:09 EST) Tests to be added SED RATE 06/02/2015 9:09 EST [facility] Comment:C REACTIVE PROTEIN H IGH SENSITIVITY Diagnosis Code SEE PRISM DOS 06/02/15 06/02/2015 9:19 EST [facility] Number for problems NARA 7 06/02/2015 9:09 EST [facility] Comment:[id number] Accession number [id number] ADD ON CANCELLED PER NARA AT REC SCRP AND SWE NOT NEEDED FOR THIS PT 06/02/2015 9:33 EST [facility] Comment:Corrected on 06/02 A T 0933: Previously reported as [id number] Acknowledge ABP Done 9:32 EST [facility] BLOOD SPECIMEN / Unknown 06/02/2015 9:09 EST 06/02/2015 9:19 EST us Keenan Horan MD HEMATOLOGY & PF4 ORDER ARMANDO Edited Result - Final [facility] [address] [place] [address] documented in this encounter Visit Diagnoses Diagnosis Bilateral knee pain- Primary Pain in joint, lower leg Bilateral primary osteoarthritis of knee documented in this encounter Care Teams Enrollment Specialist Relationship Specialty Start Date End Date Nic Padilla MD [address] [place] [address] PCP - General 05/18/12 documented as of this encounter
--- OUTSIDE RECORDS SUMMARY | 2024-04-18 09:24 | XMS_ITS | Encounter Summary ---
Author Organization [facility] Address [address] [place] [address] Care Team Providers Care Choral Teacher Name Role Phone Nic Padilla MD Primary Care Provider [phone] Encounter Details Date Type Department Care Team (Latest Contact Info) Description 07/28/2012 Documentation Visit [facility] Gastroenterology - Main [place] [address] [place], [place] [id number] Lucas Lobo MD Social History Tobacco Use Types Packs/Day Years [...] on file documented as of this encounter Progress Notes * Lucas Lobo MD - 07/28/2012 1528 EST DIVISION OF GASTROENTEROLOGY July 28, 2012 JULIO CARDOZA [address] [place] [address] Dear Mr Cardoza: The small polyps we removed during your recent colonoscopy were benign adenomas and hyperplastic polyps. Based on these findings and the colonoscopy and polypectomy you had last year, I would recommend a followup colonoscopy in 5 years. This recommendation is in keeping with the guidelines of the [employer] and the [employer]. Sincerely, Electronically Signed by Lucas Lobo MD, FACG 08/02/2012 07:48 Vic Lobo MD, [phone] L Moses, MD, FACG - Lucas Lobo MD, FACG - CD Job ID: SM Doc ID: [id number] Ext Doc ID: [id number] cc: Jerson Bridges MD The Patient Nic Padilla MD documented in this encounter Plan of Treatment Not on file documented as of this encounter Visit Diagnoses Not on filedocumented in this encounter Care Teams Choral Teacher Relationship Specialty Start Date End Date Nic Padilla MD [address] [place] [address] PCP - General 05/18/12 documented as of this encounter
--- OUTSIDE RECORDS SUMMARY | 2024-04-18 09:24 | XMS_ITS | Encounter Summary ---
Author Organization [facility] Address [address] [place] [address] Care Team Providers Care Sheet Metal Duct Worker Supervisor Name Role Phone Nic Padilla MD Primary Care Provider Encounter Details Date Type Department Care Team (Latest Contact Info) Description 05/06/2015 14:13 EST - 05/06/2015 23:59 EST Hospital Encounter [facility] - [address] [place] [address] Keenan Horan MD Discharge Disposition: Auto Discharge Social History [...] documented in this encounter Discharge Diagnoses Diagnosis M17.0 Bilateral primary osteoarthritis of knee-M17.0[ICD-10-CM] Z01.818 Encounter for other preprocedural examination-Z01.818[ICD-10-CM] M25.561 Pain in right knee-M25.561[ICD-10-CM] M25.562 Pain in left knee-M25.562[ICD-10-CM] documented in this encounter Medications at Time of Discharge lisinopril (PRINIVIL, ZESTRIL) 20 mg tablet Take 10 mg by mouth daily. Multivitamins with Minerals tablet Take 1 Tab by mouth daily Aspirin 81 mg Tab Take 81 mg by mouth daily. 06/21/2015 naproxen sodium (ALEVE) 220 mg cap Take 2 Caps by mouth 2 times daily 06/21/2015 documented as of this encounter Discharge Disposition Disposition Code Departure Means Destination Auto Discharge Home documented in this encounter Plan of Treatment Not on file documented as of this encounter Procedures Procedure Name Priority Date/Time Associated Diagnosis Comments KNEE 1 OR 2 VIEWS 05/06/2015 15: 16 EST documented in this encounter Results * [...] of the left tibia. Keenan Horan MD IMG DIAGNOSTIC IMAGING ORDERABLES Final Result documented in this encounter Visit Diagnoses Not on filedocumented in this encounter Care Teams Sheet Metal Duct Worker Supervisor Relationship Specialty Start Date End Date Nic Padilla MD [address] [place] [address] PCP - General 05/18/12 documented as of this encounter
--- OUTSIDE RECORDS SUMMARY | 2024-04-18 09:24 | XMS_ITS | Encounter Summary ---
Author Organization [facility] Address [address] [place] [address] Care Team Providers Care Vendor Management Specialist Name Role Phone Nic Padilla MD Primary Care Provider [phone] Encounter Details Date Type Department Care Team (Late st Contact Info) Description 08/15/[address] [facility] Gastroenterology - [facility] [address] [place] [address] Lucas Lobo MD Social History Tobacco Use [...] on filedocumented in this encounter Care Teams Vendor Management Specialist Relationship Specialty Start Date End Date Nic Padilla MD [address] [place] [address] PCP - General 05/18/12 documented as of this encounter
--- OUTSIDE RECORDS SUMMARY | 2024-04-18 09:24 | XMS_ITS | Encounter Summary ---
Author Organization [facility] Address [address] [place] [address] Care Team Providers Care Care Nurse Rn Name Role Phone Nic Padilla MD Primary Care Provider [phone] Reason for Referral * Consult (Routine) - Specialty Report Received Specialty Diagnoses / Procedures Referred By Jeremy hodges Referred To Contact Hematology Diagnoses Bilateral knee pain Osteoarthritis of both knees, unspecified osteoarthritis type Family history of DVT Keenan Horan MD Referral ID Status Reason Start Date Expiration Date Visits Requested Visits Authorized [id number] Specialty Report Received Specialty Services Required 02/14/2015 1 1 Question Answer Reason for Request: Pt with strong family hx of DVT's, need anti-coag plan for bilateral knee arthroplasty on 06.10.15 Reason for Visit * Reason Onset Date Comments Pre-op Exam 02/14/2015 Encounter Details Date Type Department Care Team (Late st Contact Info) Description 02/14/2015 Orders Only [facility] Total Joint Program - [place] [address] Jennifer Mack LPN [address] [place] [address] Bilateral knee pain (Primary Dx); Osteoarthritis of both knees, unspecified osteoarthritis type; Family history of DVT Social History Tobacco Use Types Packs/Day Years [...] Diagnoses Orde r Schedule AMB CONS/FOLLOW UP HEMATOLOGY Outpatient Referral Routine Bilateral knee pain Osteoarthritis Of Both Knees, Unspecified Osteoarthritis Type Family history of DVT Ordered: 02/14/2015 documented as of this encounter Visit Diagnoses Diagnosis Bilateral knee pain- Primary Pain in joint, lower leg Osteoarthritis of both knees, unspecified osteoarthritis type Family history of DVT Family history of other cardiovascular diseases documented in this encounter Care Teams Care Nurse Rn Relationship Specialty Start Date End Date Nic Padilla MD [address] [place] [address] PCP - General 05/18/12 documented as of this encounter
--- OUTSIDE RECORDS SUMMARY | 2024-04-18 09:25 | XMS_ITS | Encounter Summary ---
Author Organization [facility] Address [address] [place] [address] Care Team Providers Care Cable Splicer Name Role Phone Unavailable Primary Care Provider Unavailabl e Encounter Details Date Type Department Care Team (Late st Contact Info) Description 06/23/2001 Results Only [facility] [place] conversion [address] [place] [address] Sung Robin MD [address] [place] [address] Social History Tobacco Use Types Packs/Day Years [...] Date/Time Associated Diagnosis Comments SURGICAL PATHOLOGY Routine 06/23/2001 0:00 EST documented in this encounter Results * SURGICAL PATHOLOGY (06/23/2001 0:00 EST) Pathology Report: SURGICAL PATHOLOGY REPORT Reports generated via electronic interface contain original data; however they are lacking the format of the original report. Caution should be taken when reading/interpreti ng unformatted reports. Name: ? JULIO CARDOZA ? Accession #: ? [id number] ? : ? 1950 (Age: 50) ??M ? Collect Date: ? 06/23/2001 ? Location: ? [facility] ? Receive Date: ? 06/23/2001 ? Provider: JOSEPH ROBIN MD Copy to: LEVI CHASE MD ? Final Pathologic Diagnosis: ? Colon, 20.0 cm, polyps, biopsy: - Fragments of hyperplastic polypoid tissue. Document reviewed and electronically signed by: Zafar Watt [facility] Report ??Date: 06/27/2001 11:54 By the signature above, the attending physician certifies that he/she has personally conducted a gross and/or microscopic examination of the described specimens and rendered or confirmed the above diagnosis. Specimen(s) Received: ? Polyps at 20 cm Clinical History: ? 3 mm polyps (2) at 20 cm Gross Description: ? Received in Hollande' s fixative labelled [place] and 20 cm polyps x2 are two collins-white focally with pinpoint hemorrhage slightly lobulated slightly firm pieces of tissue, one measuring 0.6 x 0.2 x 0.2 cm and the other measuring 0.4 x 0.2 x 0.2 cm. ??Both specimens are submitted intact in one cassette. ??(Dr. Chahal)/ras End of Report [facility] 06/23/2001 06/23/2001 15: 26 EST us Sung Robin MD PATHOLOGY ORDERABLES Final Res ult [facility] [address] [place] [address] documented in this encounter Visit Diagnoses Not on filedocumented in this encounter
--- OUTSIDE RECORDS SUMMARY | 2024-04-18 09:25 | XMS_ITS | Encounter Summary ---
Author Organization [facility] Address [address] [place] [address] Care Team Providers Care Developer Support Engineer Name Role Phone Nic Padilla MD Primary Care Provider [phone] Encounter Details Date Type Department Care Team (Latest Contact Info) Description 07/26/2012 12:00 EST - 07/26/2012 14:32 EST Hospital Encounter [facility] [address] [place] [address] Lucas Hurtado MD Discharge Disposition: Home or Self Care [...] Sign Reading Time Taken Comments Blood Pressure 133/64 07/26/2012 1403 EST Pulse - - Temperature 35.9 ??C (96.6 ??F) 07/26/2012 1403 EST Respiratory Rate 16 07/26/2012 1403 EST Oxygen Saturation 94% 07/26/2012 1403 EST Inhaled Oxygen Concentration - - Weight 142.9 kg (315 lb) 07/26/2012 1226 EST Height 177.8 cm (5' 10) 07/26/2012 1226 EST Body Mass Index 45.2 07/26/2012 1226 EST documented in this encounter Medications at Time of Discharge lisinopril (PRINIVIL, ZESTRIL) 20 mg tablet Take 10 mg by mouth daily. Aspirin 81 mg Tab Take 81 mg by mouth daily. 6 naproxen sodium (ALEVE) 220 mg cap Take 2 Caps by mouth 2 times daily 6 [place]-3 Fatty Acids-Vitamin E (FISH OIL) 1,000 mg cap Take 2,000 mg by mouth daily. 5 PEG 3350-Electrolyte s (GOLYTELY) Instructions mailed once procedure scheduled. Questions: Esvin Mccray GI Dept.: [phone] or GI Doctor's Office. 4 L 0 07/13/2012 3 documented as of this encounter Discharge Disposition Disposition Code Departure Means Destination Home or Self Care documented in this encounter H&P Notes * Lucas Hurtado MD - 07/26/2012 1312 EST Sedation for Procedure History & Physical Date: 07/26/2012 Time: 13:12 Location: [address] Planned Procedure: Colonoscopy;Gastroscopy Chief Complaint/Indications for Procedure: Adenomatous polyps on recent colonoscopy, GERD. History Previous Complication with Sedation and/or Anesthesia? No Allergies: No Known Allergies Current Medications: (Not in a hospital admission) Past Medical History: Past Medical History Diagnosis Date ??? Hypertension ??? Colon polyp Social History: Past Surgical History Procedure Date ??? Cervical disc arthroplasty History Substance Use Topics ??? Smoking status: Former Smoker Quit date: 06/06/1991 ??? Smokeless tobacco: Not on file ??? Alcohol Use: 3.0 oz/week 6 drink(s) per week Family History: Family History Problem Relation Age of Onset ??? Colon Polyps Mother ??? Colon Polyps Sister ??? Colon Polyps Brother Review of Systems as pertinent: Physical Exam Vital Signs: BP 149/74 Temp(Src) 36.3 ??C (97.3 ??F) (Tympanic) Resp 16 Ht 177.8 cm (70) Wt 142.883 kg (315 lb) BMI 45.20 kg/m2 SpO2 96% Heart Examination: Cardiac Regularity: Regular Respiratory Examination: Respiratory Pattern: Regular Breath Sounds Right: Clear Breath Sounds Left: Clear Additional physical exam related to the proposed procedure, patient activity, disease state and treatment as pertinent: Assessment Previous complications with sedation or anesthesia?: No Airway Concerns: None Anesthesia Classification: ASA 2 Fasting Time: Time of last liquid intake: 729 Date of Last Liquid Intake: 07/26/12 Time of last solid intake: 1200 Date of last solid intake: 07/24/12 Patient Appropriate Candidate for Planned Sedation?: Yes documented in this encounter Procedure Notes * PRINCIPAL PLANNER, SCAN 2 - 07/27/2012 0037 ESTAssociated Order(s): PROCEDURE REPORTS - SCANNED * PRINCIPAL PLANNER, SCAN 2 - 07/27/2012 0037 ESTAssociated Order(s): PROCEDURE REPORTS - SCANNED documented in this encounter Miscellaneous Notes * Scanned Note-Null - PRINCIPAL PLANNER, SCAN 2 - 07/27/2012 0940 EST * Scanned Note-Null - PRINCIPAL PLANNER, SCAN 2 - 07/27/2012 0940 EST documented in this encounter Plan of Treatment Not on file documented as of this encounter Procedures Procedure Name Priority Date/Time Associated Diagnosis Comments PROCEDURE REPORTS - SCANNED 07/27/2012 0:37 EST PROCEDURE REPORTS - SCANNED 07/27/2012 0:37 EST SURGICAL PATHOLOGY Routine 07/26/2012 14 :21 EST documented in this encounter Results * PROCEDURE REPORTS - SCANNED (07/27/2012 0:37 EST) 07/27/2012 0:37 EST Narrative 07/27/2012 8:09 EST Procedure Note PRINCIPAL PLANNER, SCAN 2 - 07/27/2012 0:37 EST Scan 2 Scientific Helper PROCEDURE/MINOR SURGICAL OR DERABLES Final Result * PROCEDURE REPORTS - SCANNED (07/27/2012 0:37 EST) 07/27/2012 0:37 EST Narrative 07/27/2012 8:09 EST Procedure Note PRINCIPAL PLANNER, SCAN 2 - 07/27/2012 0:37 EST us Scan 2 Scientific Helper PROCEDURE/MINOR SURGICAL OR DERABLES Final Result * SURGICAL PATHOLOGY (07/26/2012 14:21 EST) Pathology Report: SURGICAL PATHOLOGY REPORT Reports generated via electronic interface contain original data; however they are lacking the format of the original report. Caution should be taken when reading/interpreti ng unformatted reports. Name: ? JULIO CARDOZA ? Accession #: ? [id number] ? : ? 1950 (Age: 62) ??M ? Collect Date: ? 07/26/2012 ? Location: ? [facility] ? Receive Date: ? 07/26/2012 ? Provider: LUCAS HURTADO MD Copy to: JONH PADILLA MD ? Final Pathologic Diagnosis: A. ?Colon, right, polyps, biopsy: 1. ?Fragments of tubular adenoma. B. ?Colon, descending, polyp, biopsy: 1. ?Hyperplastic polyp. Document reviewed and electronically signed by: LENNY HDZ [facility] Report ??Date: 07/28/2012 14:44 By the signature above, the attending physician certifies that he/she has personally conducted a gross and/or microscopic examination of the described specimens and rendered or confirmed the above diagnosis. Specimen(s) Received: A. ?2 diminutive polyps ascending B. ? Polyp descending Clinical History: ? Previous diminutive adenomas and HPs; A. R/O adenomata; B. R/O adenoma Gross Description: ? Received in formalin labelled Julio Cardoza and 2 ascending colon polyps are two pink-collins, irregular soft tissues, 0.5 x 0.3 x 0.2 cm and 0.7 x 0.2 x 0.1 cm, submitted in toto as (A1). Received in formalin labelled Julio Cardoza and descending colon polyp are two pink-collins, irregular soft tissues, 0.3 x 0.2 x 0.1 cm and 0.4 x 0.3 x 0.2 cm, submitted in toto as (B1). ??(Gary Cuellar)/[facility] End of Report [facility] 07/26/2012 14:2 1 EST 07/26/2012 14:21 EST Lucas Hurtado MD PATHOLOGY ORDERABLES Final Resu lt [facility] [address] [place] [address] documented in this encounter Visit Diagnoses Not on filedocumented in this encounter Administered Medications Inactive Administered Medications - up to 3 most recent administrations Medication Order MAR Action Action Date Dose Rate Site lactated ringers (LR) infusion 30 mL/hr, intravenous, CONTINUOUS, Starting on Tue07/26/12 at 1245, Until Tue07/26/12 at 1636, Routine, Preprocedure New Bag 07/26/2012 12:42 EST 30 mL/hr 30 mL/hr meperidine (PF) (DEMEROL) 100 mg/mL injection 25-200 mg 25-200 mg, intravenous, ONCE PRN, 1 dose, Starting on Tue07/26/12 at 1221, Until Tue07/26/12 at 1350, Other, sedation, Routine, Intraprocedure Given 07/26/2012 13:50 EST 100 mg midazolam (VERSED) injection 1-10 mg 1-10 mg, intravenous, ONCE PRN, 1 dose, Starting on Tue07/26/12 at 1221, Until Tue07/26/12 at 1351, Sedation, Routine, Intraprocedure Given 07/26/2012 13:51 EST 3 mg documented in this encounter Orders Medications Ordered That Derrick ht Not Have Been Administered Count Last Ordered Date First Ordered Date fentanyl citrate (PF) 50 mcg /mL injection 100-250 mcg 1 07/26/2012 flumazenil (ROMAZICON) injection 0.2 mg 1 0 07/26/2012 naloxone (NARCAN) injection 0.4 mg 1 2012 ondansetron (PF) (ZOFRAN) injection 2-4 mg 1 07/26/2012 Transfer Count Last Ordered Date First Orde red Date NOTIFY PPS OF DISCHARGE COMPLETE 1 07/26/19 13 Discharge Count Last Ordered Date First Orde red Date DISCHARGE PATIENT 1 07/26/2012 documented in this encounter Care Teams Developer Support Engineer Relationship Specialty Start Date End Date Nic Padilla MD [address] [place] [address] PCP - General 05/18/12 documented as of this encounter
--- OUTSIDE RECORDS SUMMARY | 2024-04-18 09:25 | XMS_ITS | Encounter Summary ---
Author Organization [facility] Address [address] [place] [id number] Care Team Providers Care Change Lead Name Role Phone Unavailable Primary Care Provider Unavailabl e Encounter Details Date Type Department Care Team (Late st Contact Info) Description 10/25/2011 Results Only [facility] - [facility] ([facility]) [address] [place], [place] [id number] Deonte Lilly MD [address] [place] [address] Social History Tobacco Use Types Packs/Day Years [...] Date/Time Associated Diagnosis Comments SURGICAL PATHOLOGY Routine 10/25/2011 0:00 EDT documented in this encounter Results * SURGICAL PATHOLOGY (10/25/2011 0:00 EDT) Pathology Report: SURGICAL PATHOLOGY REPORT Reports generated via electronic interface contain original data; however they are lacking the format of the original report. Caution should be taken when reading/interpreti ng unformatted reports. Name: ? JULIO CARDOZA ? Accession #: ? [id number] ? : ? 1950 (Age: 61) ??M ? Collect Date: ? 10/25/2011 ? Location: ? [facility] ? Receive Date: ? 10/25/2011 ? Provider: DEONTE LILLY MD Copy to: LIZETT VEGA MD ? Final Pathologic Diagnosis: A. ?Cecum, polyp, biopsy: 1. ?Fragments of tubulovillous adenoma. B. ?Colon, ascending, polyps, biopsies: 1. ?Tubular adenomas. C. ?Colon, hepatic flexure, polyps, biopsies: 1. ?Tubular adenoma. 2. ? Fragments of hyperplastic polyps. D. ?Colon, transverse, polyp, biopsy: 1. ?Fragment of hyperplastic polyp. E. ? Rectum, polyp, biopsy: 1. ?Fragments of tubular adenoma. Document reviewed and electronically signed by: LAKIA WALTER MD Report ??Date: 10/29/2011 13:05 By the signature above, the attending physician certifies that he/she has personally conducted a gross and/or microscopic examination of the described specimens and rendered or confirmed the above diagnosis. Specimen(s) Received: A. ?Cecal polyp (#1) B. ? Ascending colon polyps x3 (#2) C. ? Hepatic flexure polyps x3 (#3) D. ? transverse colon polyp vs diverticulum (#4) E. ? Rectal polyp (#5) Clinical History: ? H/O colon adenoma Gross Description: ? Received in formalin labelled Julio Cardoza and #1 cecal polyp are three large polypoid structures which vary in size from 0.7 x 0.7 x 0.5 cm up to 0.9 x 0.9 x 0.9 cm. ??The resection margins are inked and the specimens are sectioned and submitted entirely as (A1)-(A3). ??Also present are multiple smaller polypoid biopsies which vary in size from 0.1 x 0.1 x 0.1 cm up to 0.4 x 0.3 x 0.2 cm and which measure 0.8 x 0.5 x 0.3 cm in aggregate. ??These tissues are submitted intact as (A4). Received in formalin labelled Julio Cardoza and ascending colon polyps x3 are three light collins polypoid structures which vary in size from 0.4 x 0.3 x 0.2 cm up to 0.7 x 0.4 x 0.2 cm. ??The specimens are submitted intact as (B). Received in formalin labelled Julio Cardoza and #3 hepatic flexure polyp x3 are six light collins biopsies measuring 0.3 x 0.2 x 0.1 cm up to 0.4 x 0.3 x 0.2 cm. ??The specimens are submitted intact as (C1) and (C2). Received in formalin labelled Julio Cardoza and #4 ? transverse colon polyp bx diverticulum is a 0.4 x 0.4 x 0 .2 cm light collins biopsy. ??The specimen is submitted intact as (D). Received in formalin labelled Julio Cardoza and #5 rectal polyp is a 0.5 x 0.4 x 0.2 cm light collins polypoid structure. ??The resection margin is inked black and the specimen is bisected and submitted entirely as (E). (Darvin Dennis)/mpl End of Report [facility] 10/25/2011 10/25/2011 20: 47 EDT us Deonte Lilly MD PATHOLOGY ORDERABLES Final Resul t [facility] [address] [place] [address] documented in this encounter Visit Diagnoses Not on filedocumented in this encounter
--- OUTSIDE RECORDS SUMMARY | 2024-04-18 09:25 | XMS_ITS | Encounter Summary ---
Author Organization [facility] Address [address] [place] [address] Care Team Providers Care Ditcher Operator Name Role Phone Nic Padilla MD Primary Care Provider [phone] Encounter Details Date Type Department Care Team (Late st Contact Info) Description 07/13/2012 Documentation Visit [facility] B[facility]ric Surgery - [place] [address] [place] [address] Social History Tobacco Use Types Packs/Day Years Used Date Smoking Tobacco: Never Assessed Sex and Gender Information Value Date Recorded Sex Assigned at Not on file Legal Sex Male 18:07 EST Gender Identity Not on file Sexual Orientation Not on file documented as of this encounter Progress Notes * Chasity Hanks RN - 07/24/2015 1433 EST Documentation only. Electronically signed by Chasity Hanks RN CBN documented in this encounter Plan of Treatment Not on file documented as of this encounter Visit Diagnoses Not on filedocumented in this encounter Care Teams Ditcher Operator Relationship Specialty Start Date End Date Nic Padilla MD [address] [place] [address] PCP - General 05/18/12 documented as of this encounter
--- OUTSIDE RECORDS SUMMARY | 2024-04-18 09:25 | XMS_ITS | Encounter Summary ---
Author Organization [facility] Address [address] [place] [address] Care Team Providers Care Drawbench Operator Name Role Phone Nic Padilla MD Primary Care Provider [phone] Encounter Details Date Type Department Care Team (Latest Contact Info) Description 07/26/2012 13:50 EST - 07/26/2012 23:[address] [facility] [place] [address] [place], [place] [address] Yamil Tapia Room Discharge Disposition: Home or Self Care Social [...] Caps by mouth 2 times daily 6 [place]-3 Fatty Acids-Vitamin E (FISH OIL) 1,000 mg cap Take 2,000 mg by mouth daily. 5 PEG 3350-Electrolyte s (GOLYTELY) Instructions mailed once procedure scheduled. Questions: Esvin Mccray GI Dept.: [phone] or GI Doctor's Office. 4 L 0 07/13/2012 3 documented as of this encounter Discharge Disposition Disposition Code Departure Means Destination Home or Self Group Home documented in this encounter Plan of Treatment Not on file documented as of this encounter Visit Diagnoses Not on filedocumented in this encounter Care Teams Drawbench Operator Relationship Specialty Start Date End Date Nic Padilla MD [address] [place] [address] PCP - General 05/18/12 documented as of this encounter
--- OUTSIDE RECORDS SUMMARY | 2024-04-18 09:25 | XMS_ITS | Encounter Summary ---
Author Organization [facility] Address [address] [place] [address] Care Team Providers Care Bookmaker'S Clerk Name Role Phone Unavailable Primary Care Provider Unavailabl e Encounter Details Date Type Department Care Team (Late st Contact Info) Description 12/30/2005 Results Only [facility] [place] conversion [address] [place] [address] Sung Robin MD [address] [place] [address] Social History Tobacco Use Types Packs/Day Years [...] Date/Time Associated Diagnosis Comments SURGICAL PATHOLOGY Routine 12/30/2005 0:00 EDT documented in this encounter Results * SURGICAL PATHOLOGY (12/30/2005 0:00 EDT) Pathology Report: SURGICAL PATHOLOGY REPORT Reports generated via electronic interface contain original data; however they are lacking the format of the original report. Caution should be taken when reading/interpreti ng unformatted reports. Name: ? JULIO CARDOZA ? Accession #: ? [id number] ? : ? 1950 (Age: 55) ??M ? Collect Date: ? 12/30/2005 ? Location: ? [facility] ? Receive Date: ? 12/31/2005 ? Provider: JOSEPH ROBIN MD Copy to: ADA NEWELL MD ? Final Pathologic Diagnosis: ? Colon, rectum at 3 cm, biopsy: - Tubular adenoma. ?? Document reviewed and electronically signed by: GENEVIEVE MADDOX MD Report ??Date: 01/03/2006 15:21 By the signature above, the attending physician certifies that he/she has personally conducted a gross and/or microscopic examination of the described specimens and rendered or confirmed the above diagnosis. Specimen(s) Received: ? Rectal polyp @ 3 cm Clinical History: ? Hx polyps Gross Description: ? Received in Hollande's fixative labelled [place] and rectal polyp is a 0.4 x 0.2 x 0.2 cm collins-pink polypoid soft tissue submitted intact in one cassette. (Annabella Combs)/mpl End of Report [facility] 12/30/2005 12/31/2005 9:1 6 EDT us Sung Robin MD PATHOLOGY ORDERABLES Final Res ult [facility] [address] [place] [address] documented in this encounter Visit Diagnoses Not on filedocumented in this encounter
--- OUTSIDE RECORDS SUMMARY | 2024-04-18 09:25 | XMS_ITS | Encounter Summary ---
Author Organization [facility] Address [address] [place] [address] Care Team Providers Care Banking Supervisor Name Role Phone Nic Padilla MD Primary Care Provider [phone] Reason for Referral * Radiology Services (Routine/Next Available) - Closed Specialty Diagnoses / Procedures Referred By Contac t Referred To Contact Diagnoses GERD (gastroesophageal reflux disease) Procedures FL ESOPHAGRAM (BARIUM SWALLOW) Jerson Bridges MD Phone: tel: fax: Referral ID Status Reason Start Date Expiration Date Visits Re quested Visits Authorized [id number] Closed 07/13/2012 1 1 * Consult, Test and Treat (Routine/Next Available) - Closed Specialty Diagnoses / Procedures Referred By Contact Referred To Contact Gastroenterology and Hepatology Diagnoses GERD (gastroesophageal reflux disease) Colon polyps Procedures COLONOSCOPY Jerson Bridges MD Phone: tel:[phone] fax:[phone] [place] [address] GASTROENTEROLOGY [address] [place] [address] Phone: tel: Referral ID Status Reason Start Date Expiration Date Visits Re quested Visits Authorized [id number] Closed 07/13/2012 1 1 * Consult, Test and Treat (Routine/Next Available) - Closed Specialty Diagnoses / Procedures Referred By Contac t Referred To Contact Diagnoses GERD (gastroesophageal reflux disease) Procedures UPPER ENDOSCOPY Jerson Bridges MD Phone: tel: fax: Referral ID Status Reason Start Date Expiration Date Visits Re quested Visits Authorized [id number] Closed 07/13/2012 1 1 Reason for Visit * Reason Comments Obesity #1 - undecided Encounter Details Date Type Department Care Team (Late st Contact Info) Description 07/13/2012 14:00 EST Office Visit [facility] Bariatric Surgery [facility] [address], [place] [id number] Jerson Bridges MD [address] [place] [address] GERD (gastroesophageal reflux disease) (Primary Dx); Colon polyps Discharge Disposition: Auto Discharge Social History Tobacco Use Types Packs/Day Years Used Date Smoking Tobacco: Never Assessed Sex and Gender Information Value Date Recorded Sex Assigned at Not on file Legal Sex Male 18:07 EST Gender Identity Not on file Sexual Orientation Not on file documented as of this encounter Last Filed Vital Signs Vital Sign Reading Time Taken Comments Blood Pressure 148/68 07/13/2012 1403 EST Pulse 56 07/13/2012 1403 EST Temperature - - Respiratory Rate - - Oxygen Saturation - - Inhaled Oxygen Concentration - - Weight 146.7 kg (323 lb 6.4 oz) 07/13/2012 1403 EST Height 177.8 cm (5' 10) 07/13/2012 1403 EST Body Mass Index 46.4 07/13/2012 1403 EST documented in this encounter Ordered Prescriptions Prescription Sig Dispense Quantity Refills Last Filled Start Date End Date PEG 3350-Electrolytes (GOLYTELY) Instructions mailed once procedure scheduled. Questions: Esvin Mcc[facility] GI Dept.: [phone] or GI Doctor's Office. 4 L 0 07/13/2012 3 documented in this encounter Discharge Disposition Disposition Code Departure Means Destination Auto Discharge documented in this encounter Progress Notes * Jerson Bridges MD - 07/13/2012 1455 EST 07/13/2012 Chief Complaint: Julio Cardoza is a 62 y.o. male seen today in consultation at the request of for consideration of surgical treatment for his morbid obesity. HPI: Julio Cardoza has had weight problems since high school. He has tried multiple weight loss programs with the following results: no long-term success. Their maximum weight loss has been 323 pounds, and their highest weight has been 40. The patient's primary motivation for weight loss is health, mobility and longevity. Associated co-morbidities: Sleep apnea, Osteoarthritis, Gastro-Esophogeal Reflux, Hypertension and Hyperlipidemia Gallbladder: US not done yet Prior abdominal surgeries: none No past surgical history on file. Gastric problems/issues: GERD There is no problem list on file for this patient. Allergies: Review of patient's allergies indicates no known allergies. Social History: History Substance Use Topics ??? Smoking status: Not on file ??? Smokeless tobacco: Not on file ??? Alcohol Use: Not on file Review of Systems: A ten point review of systems was performed. Pertinent positives are listed below, all others are negative. Physical Exam: BP 148/68 Pulse 56 Ht 177.8 cm (70) Wt 146.693 kg (323 lb 6.4 oz) BMI 46.40 kg/m2 Body mass index is 46.40 kg/(m^2). General Appearance: morbidly obese and cooperative HEENT: PERRLA, EOMI and Sclera clear, anicteric Cardiovascular: PMI normal. No lifts, heaves, or thrills. RRR. Heart sounds normal. No murmurs, clicks or gallops. Abdominal aorta pulsation normal. Carotid, femoral and pedal pulses 2+ bilaterally. No arterial bruits. No peripheral edema. Abdomen: soft, non-tender; bowel sounds normal; no masses, no organomegaly Pannus: massive Skin: Skin color, texture, turgor normal. No rashes or lesions. Extremities: normal strength, tone, and muscle mass Assessment: I spent a total of 45 minutes in face to face time with this patient and 25 minutes of that time was spent in counseling, discussing this patient's medical profile as it relates to the benefits and risks of gastric bypass/lapband surgery and reviewed an on-line MONICA tutorial the patient watched covering the way weight loss surgery is done, how it causes weight loss, potential risks and complications, impact on eating and critical nature of exercise and follow up to a good outcome. The patient acknowledges a pre-op BMI goal of 5%. I explained in detail the procedures that we are performing. All of these procedures can be performed laparoscopically or open. The patient was made aware of the followin. As we perform these procedures laparoscopically, there is a chance to convert to open if any technical challenges or complications do occur. 2. Bariatric surgery is not cosmetic surgery and should not be thought of in any way as cosmetic surgery. It does not involve the removal of adipose tissue by surgery or removal by suctioning. 3. Long-life commitment is a very important part of his/her decision along with lifestyle changes including diet, exercise, and behavior changes. 4. Problems after surgery may require more operations to correct them. 5. Patient will need to be on a liquid/protein diet for at least 2 weeks prior to surgery. 6. If appropriate: she was advised against during the first year after the procedure. The risks, benefits and alternatives of all of the procedures were explained in detail including, but not limited to , anesthesia and medication adverse effect/DVT, pulmonary embolism, trocar site/incisional hernia, wound infection, bleeding, failure to lose weight or gain weight and change inbody image. With regard to the band, the risks and benefits were explained. The risks associated with the band include, but are not limited to: gastric/esophageal perforation, access port leakage, infection or twisting that may require an additional operation, failure to lose weight or gaining weight, nausea, v omiting, outlet obstruction, pouch and esophageal dilatation, gastroesophageal reflux disease symptoms, band migration/slippage or erosion. For the gastric bypass the risks include but not limited to the following early complications: anastomotic leak/peritonitis, acute distal gastric dilatation, Tha limb obstruction, severe & minorwound infection/seroma, and nausea/vomiting. Late complications of gastric bypass can include but are not limited to: stomal stenosis, marginal ulcer, SBO/internal,incisional hernia, staple line disruption (GGF) and metabolic complications with calcium, thiamine, vitamin B12, folate, iron and anemia. Regarding the sleeve the risks include but are not limited to: internal visceral/ organ injury, bleeding, infection, leak, stenosis and possibility of regaining weight. The patient understands the surgical procedures and the different surgical options that are available. He understands the lifestyle changes that would be required after surgery and has agreed to participate in a pre-operative and postoperative weight management program. He understands the risks involved as well, including a leak, a blood clot developing in a leg and migrating to the lungs as a pulmonary embolus, conversion to open surgery, and . Julio has attended the preoperative bariatric education class and has had additional opportunity to address specific concerns. I think he is a good candidate for this surgery, and his expectations from the surgery are reasonable. Plan: He was asked to Shedule a follow-up appt with our inward toll operator and our physician's agency sales management assistant, SINA Argueta, Schedule a Polysomnography and Schedule a Colonoscopy. We will obtain the results of the following: colonoscopy, UGI and EGD. Jluio Cardoza is an appropriate candidate for LapBand, Gastric Bypass or Gastric Sleeve surgery pending test results.. For the next visit he was advised to come with his family. Prefers sleeve or band Seen and discussed with Configuration Release Manager at this visit. Jerson Bridges MD 07/13/2012 14:56 * Samantha Solomon, RD - 07/13/2012 1439 EST Bariatric Clinic - Medical Nutritional Evaluation - Initial 07/13/2012 Evaluation for Gastric Sleeve. Subjective: Patient is 62 y.o. male here for nutritional assessment for morbid obesity in preparation for bariatric surgery. Nutrition/diet history: Family/other support system: spouse Menu planning/shopping: spouse Who does the cooking: patient and spouse Eating out frequency: very seldom, 1 per month maybe Prior weight loss attempts: Weight Watchers and nutri systems Patient's diet has not changed substantially since 3 day food record was kept. No Known Allergies Food Intolerances: none Current Exercise: ice fish, snow mobile Reasons for limited exercise: medical issues-OA back and knees Objective: BP 148/68 Pulse 56 Ht 177.8 cm (70) Wt 146.693 kg (323 lb 6.4 oz) BMI 46.40 kg/m2 Body mass index is 46.40 kg/(m^2). Excess BW: 167 lb 5% Wt Loss or Goal Wt: 16 lb Estimated Body Wt after Surgery: post sleeve 223 lb Patient was counseled on keeping a food diary and pre-op weight loss expectations and given Drs. Emil Quezada Patient has the following barriers to learning: none Assessment: Patient seems to be an appropriate candidate for bariatric surgery based on multiple failed weight loss attempts and BMI and comorbidities. Patient has already made significant positive changes in diet n/a. Patient needs to make the following changes prior to next visit keep food records,, eat more slowly,, start taking a daily vitamin, and [id number] shala. Patient needs to make the following changes in exercise prior to next visit: increase time to 150 min per week. Patient appears to comprehend requirements. Plan: Patient will be evaluated for changes in diet as above and maintain a food diary including foods consumed and calories calculated. Patient is expected to bring at least 1 week of food diaries to second visit for review. Patient will lose 1-2 pounds a week, or at least 16 lb by day of surgery Samantha Solomon RD 07/13/2012 14:39 documented in this encounter Plan of Treatment Scheduled Orders Name Type Priority Associated Diagnoses Orde r Schedule UPPER ENDOSCOPY GI Routine GERD (gastroesophageal reflux disease) Ordered: 07/13/2012 documented as of this encounter Procedures Procedure Name Priority Date/Time Associated Diagnosis Comments FL ESOPHAGRAM (BARIUM SWALLOW) Routine 08/10/2012 9:15 EST GERD (gastroesophageal reflux disease) COLONOSCOPY PROCEDURE Routine 07/26/2012 GERD (gastroesophageal reflux disease) Colon polyps documented in this encounter Results * FL ESOPHAGRAM (BARIUM SWALLOW) (08/10/2012 9:15 EST) Anatomical Region Laterality Modality Other 08/10/2012 9:15 EST 08/10/2012 10:57 EST Narrative 08/10/2012 10:57 EST FL ESOPHAGRAM ??Aug 10, 2012 09:15:00 AM Signs and Symptoms/Comments: ??530.81-Esophageal mcosvc-QZM-3-CM; GERD. Comparisons: None. Technique: Single and double contrast images of the esophagus were performed. Rapid sequences of the upper esophagus were also performed. Findings: There is a small hiatal hernia with a thickened B ring. There was associated moderate to severe gastroesophageal reflux elicited during the examination as well as esophageal dysmotility with poor esophageal clearing, likely secondary to esophagitis. Rapid swallowing sequences of the upper esophagus are normal. The patient was given a barium pill which easily passed into the stomach. The patient is status post anterior fixation of the cervical spine from C6-C7. The prevertebral soft tissues are normal. Compression: 1. Small sliding hiatal hernia with thickened B ring. 2. Moderate to severe gastroesophageal reflux with associated esophageal dysmotility likely secondary to esophagitis. Procedure Note 08/10/2012 FL ESOPHAGRAM Aug 10, 2012 09:15:00 AM Signs and Symptoms/Comments: 530.81-Esophageal weifwf-TGN-2-CM; GERD. Comparisons: None. Technique: Single and double contrast images of the esophagus were performed. Rapid sequences of the upper esophagus were also performed. Findings: There is a small hiatal hernia with a thickened B ring. There was associated moderate to severe gastroesophageal reflux elicited during the examination as well as esophageal dysmotility with poor esophageal clearing, likely secondary to esophagitis. Rapid swallowing sequences of the upper esophagus are normal. The patient was given a barium pill which easily passed into the stomach. The patient is status post anterior fixation of the cervical spine from C6-C7. The prevertebral soft tissues are normal. Compression: 1. Small sliding hiatal hernia with thickened B ring. 2. Moderate to severe gastroesophageal reflux with associated esophageal dysmotility likely secondary to esophagitis. Jerson Bridges MD IMG FLUOROSCOPY ORDE RABLES Final Result * COLONOSCOPY (07/26/2012) Colonoscopy [facility] Comment:F/U COLONOSCOPY/5 YE ARS Colonoscopy, External [facility] Anatomical Region Laterality Modality Endoscopy 07/26/2012 Jerson Bridges MD GI PROCEDURE ORDERAB LES Final Result documented in this encounter Visit Diagnoses Diagnosis GERD (gastroesophageal reflux disease)- Primary Esophageal reflux Colon polyps Benign neoplasm of colon documented in this encounter Historical Medications * This list may reflect changes made after this encounter. lisinopril (PRINIVIL, ZESTRIL) 20 mg tablet Take 10 mg by mouth daily. Halma-3 Fatty Acids-Vitamin E (FISH OIL) 1,000 mg cap Take 2,000 mg by mouth daily. 01/14/2015 naproxen sodium (ALEVE) 220 mg cap Take 2 Caps by mouth 2 times daily 06/21/2015 Aspirin 81 mg Tab Take 81 mg by mouth daily. 06/21/2015 added in this encounter Care Teams Banking Supervisor Relationship Specialty Start Date End Date Nic Padilla MD [address] [place] [id number] PCP - General 05/18/12 documented as of this encounter
--- OUTSIDE RECORDS SUMMARY | 2024-04-18 09:25 | XMS_ITS | Encounter Summary ---
Author Organization Health system Address [address] [place] [address] Care Team Providers Care Telephone Station Installer Name Role Phone Nic Padilla MD Primary Care Provider [phone] Reason for Visit * Reason Comments Obesity Psych Eval Encounter Details Date Type Department Care Team (Late st Contact Info) Description 07/11/2012 11:00 EST Office Visit [facility] Bariatric Surgery [address] [phone] Soo Rangel, PhD [address] [place] [phone] Unspecified adjustment reaction (Primary Dx) Discharge [...] - Inhaled Oxygen Concentration - - Weight 149.7 kg (330 lb) 07/11/2012 1050 EST Height - - Body Mass Index - - documented in this encounter Discharge Disposition Disposition Code Departure Means Destination Auto Discharge documented in this encounter Progress Notes * Soo Rangel, PhD - 07/11/2012 1056 EST Bariatric Surgery Program Behavioral Health Evaluation Patients Name: Julio Cardoza Date of Service: 07/11/2012 Type of Service: PSYCHIATRIC DX INTERVIEW EXAM [[id number]] Length of Session: 50 minutes Primary Care Provider: NIC PADILLA MD Referred By: Dr. Bridges Limits of Confidentiality Reviewed: Yes Objective Measures Administered: BDI-II PURPOSE: To identify psychosocial contraindications to Bariatric Surgery and to make recommendations aimed at facilitating the best possible outcome for the patient. HISTORY OF PRESENT ILLNESS: A. Current Weight: 330 pounds B. Highest Adult Weight: 330 pounds C. Lowest Adult Weight: 148 pounds D. Reasons for Seeking Surgery: Pt reported being unsuccessful in maintaining weight loss in the past E. Expectations of Surgery: Pt expects improved mobility and Pt expects improved health F. Eating Behaviors: large portion sizes G. Dieting History: 1. Pt reported participating in Weight Watchers in the past and and nutrisystem 2. Has anything worked well? Modest, temporary weight loss What was it that made that method helpful? Having the mindset to do it. 3. What factors led to regaining weight? Patient doesn't know PERTINENT MEDICAL HISTORY: No past medical history on file. CURRENT MEDICATIONS: No current outpatient prescriptions on file. ADHERENCE TO POST-SURGICAL REGIMEN: 1. How will it be for you to change your eating patterns? Patient understands that he is successfulwith weight loss when he eats less. Do you worry that you will have feelings of loss or deprivation? No 2. If you have had trouble limiting your eating in the past, what will make it different if you have surgery? Motivation to improve health 3. If you have coped with emotions in the past by eating, what other coping strategies will you useif you have surgery? N/A 4. How will your living environment affect your attempts to eat healthfully? Patient recognizes that he has changes that have to be made in his lifestyle 5. Will your daily schedule of work or other responsibilities allow you to eat frequently and healthfully and to engage in frequent physical activity? Yes RELATIONSHIPS / SUPPORT SYSTEM: 1. How do your friends and family feel about your desire to have bariatric surgery? Patient states that nobody has said anything. 2. Who will be available to help care for you immediately after surgery? 3. If you are successful in losing weight, how might this affect your relationships? Patient expects to be more active 4. Is there anyone who might feel unhappy or uncomfortable with your weight loss? No CURRENT PSYCHIATRIC HISTORY: Current Mood Problems: Pt denied experiencing any current problems with mood Suicidal Ideation/Attempts: none Homicidal Ideation: No homicidal thoughts Current Psychiatric Treatment: none Significant Stressors in Past Year: - father PAST PSYCHIATRIC HISTORY: Previous Psychiatric Treatment: None History of Psychiatric Hospitalization: No History of Depression: No History of Anxiety: Pt denied any history of anxiety. Past Suicidal Ideation/Attempts: No Past use of Psychopharmaceutical Medications: None FAMILY PSYCHIATRIC HISTORY: Family History of Psychiatric Problems: No Family History of Substance Abuse: No SUBSTANCE USE HISTORY: Current caffeine use: minimal Number of caffeinated drinks consumed on average per day: 1 Number of caffeinated drinks consumed on average per week: 7 Current alcohol use: Pt reported occasional consumption of alcohol. Number of alcoholic drinks consumed on average per day: not every day Number of alcoholic drinks consumed on average per week: 10 Number of alcohol drinks typically consumed in one sittin-4 History of alcohol use: Pt denied any history of problems with alcohol use. Current use of recreational drugs: Never History of recreational drug use: Never Current smoking habit: no History of smoking habit: Quit in 1998 PAST FAMILY AND SOCIAL HISTORY: Marital Status: Number of Children: 2 Patient Currently Lives: with spouse Patient's Mother: Living Patient's Father: Siblings: sisters: 2; brothers: 1 Social Support Level: adequate History of Traumatic Events: No History of Physical/Sexual Abuse: Pt denied experiencing any physical or sexual abuse. EDUCATION, EMPLOYMENT, LEGAL HISTORY: Highest Level of Education Achieved: associates degree Current Employment: retired Legal History: No MENTAL STATUS EXAM: Appearance: well groomed Interview Behavior: cooperative Orientation: oriented to time, place, and person Eye Contact: normal Speech: normal rate Thought Process: goal-directed Thought Content: normal/relevant Suicidal: none reported Homicidal: No homicidal thoughts Memory Recent: good Memory Remote: good Mood: good Affect: normal affect Attention and Concentration: intact Sleep: Has sleep apnea, but has sought treatment resulting in frequent middle of the night awakening Appetite: increased appetite Insight: fair Judgment: good Cognitive Ability: good PEREIRA DEPRESSION INVENTORY SCORE: 6 ASSESSMENT: AXIS I: Adjustment Disorder NOS, 309.9 AXIS II: none AXIS III: GERD, hypertension, obstructive sleep apnea, urinary stress incontinence and diverticulitis AXIS IV: none AXIS V: GAF equals 70 Readiness for Surgery: A. This patient appears to be psychologically capable of cooperating with and benefiting from Bariatric surgery B. This patient is not an appropriate candidate for bariatric surgery due to the following psychosocial contraindications: N/A C. The following information is needed prior to determining the patient's appropriateness for surgery: none PLAN: Patient agrees with treatment plan. Patient seems motivated for treatment. Individual psychological follow-up at the Bariatric Program is not indicated at this time. Soo Rangel, PHD 07/11/2012 10:56 Licensed Psychologist-Doctorate documented in this encounter Plan of Treatment Not on file documented as of this encounter Visit Diagnoses Diagnosis Unspecified adjustment reaction- Primary documented in this encounter Care Teams Telephone Station Installer Relationship Specialty Start Date End Date Nic Padilla MD [address] [place] [id number] PCP - General 05/18/12 documented as of this encounter
[2024-04-18 14:04] LABS: Abs Immature Grans 0.02 10^3/uL (0.0-0.06); Absolute Basophil Count 0.05 10^3/uL (0.0-0.2); Absolute Eosinophil Count 0.25 10^3/uL (0.0-0.7); Absolute Lymphocyte Count 2.05 10^3/uL (1.2-3.4); Absolute Neutrophil Count 5.33 10^3/uL (1.2-6.7); Basophils % 0.6 %; Eosinophils % 2.9 %; HCT 50.4 % (40.0-50.0); HGB 16.6 g/dL (13.5-17.5); Immature Grans % 0.2 %; Lymphocytes % 24.1 %; MCHC 32.9 % (32.0-36.0); MCV 91 fL (80-95); MPV 11.5 fL (8.0-11.0); Monocytes % 9.4 %; Neutrophils % 62.8 %; Platelet Count 158 10^3/uL (130-400); RBC 5.54 10^6/uL (4.36-5.78); RDW 12.2 % (11.8-14.1); RDW-SD 40.5 fL
[2024-04-18 14:17] LABS: ALT 21 U/L (16-63); AST 12 U/L (15-37); Albumin 4.2 g/dL (3.4-5.0); Alkaline Phosphatase 79 U/L (46-116); Anion Gap 10.3 mmol/L (3-11); BUN 20 mg/dL (7-18); Bilirubin, Total 1.03 mg/dL (0.2-1.0); CO2 24.7 mmol/L (21.0-32.0); CREATININE 1.1 mg/dL (0.70-1.30); Calcium 9.2 mg/dL (8.5-10.1); Chloride 107 mmol/L (98-107); Estimated GFR 70.01 (mL/min/1.73m2); Glucose 113 mg/dL (74-106); Potassium 4.6 mmol/L (3.5-5.1); Sodium 142 mmol/L (136-145); Total Protein 6.9 g/dL (6.4-8.2)
== END 2024-04-18 09:19 | disposition home or self-care (01) ==
LOC: NCHCN 09:18
PROVIDERS: PCP Family Medicine; Visit Provider Family Medicine
DX: I10 Essential (primary) hypertension (principal)
CPT/HCPCS: 80053; 85025

== ENCOUNTER 2025-04-24 10:38 | Outpatient (REF) | payer MEDICARE, OTHER, SELFPAY ==
[2025-04-24 14:39] LABS: HCT 48.3 % (40.0-50.0); HGB 16.0 g/dL (13.5-17.5); MCH 30.2 pg (27.0-33.0); MCHC 33.1 % (32.0-36.0); MCV 91 fL (80-95); MPV 11.5 fL (8.0-11.0); Platelet Count 145 10^3/uL (130-400); RBC 5.29 10^6/uL (4.36-5.78); RDW 11.7 % (11.8-14.1); RDW-SD 39.1 fL; WBC 7.52 10^3/uL (4.4-10.8)
[2025-04-24 15:16] LABS: ALT 17 U/L (10-49); AST 17 U/L (<34); Albumin 4.2 g/dL (3.4-5.0); Alkaline Phosphatase 59 U/L (46-116); Anion Gap 8.1 mmol/L (3-11); BUN 21 mg/dL (9-23); Bilirubin, Total 1.60 mg/dL (0.2-1.2); CO2 24.9 mmol/L (20.0-31.0); Calcium 9.2 mg/dL (8.3-10.6); Chloride 110 mmol/L (98-107); Cholesterol 145 mg/dL (<200); Glucose 99 mg/dL (74-106); HDL Cholesterol 52 mg/dL (>40); Potassium 4.4 mmol/L (3.5-5.1); Sodium 143 mmol/L (136-145); Total Protein 6.5 g/dL (5.7-8.2)
== END 2025-04-24 10:39 | disposition home or self-care (01) ==
LOC: NCHCN 10:38
PROVIDERS: PCP Family Medicine; Visit Provider Family Medicine
DX: E78.5 Hyperlipidemia, unspecified (principal); I10 Essential (primary) hypertension
CPT/HCPCS: 80053; 80061; 85027